=== PATIENT | male | born 1985 | race Caucasian/White ===

== ENCOUNTER 2016-06-15 16:53 | Emergency (ER) | payer MEDICAID, OTHER ==
[~2016-06-15] VITALS: Ht 180.3 cm; Wt 105.0 kg
[~2016-06-15 16:53] MED LIST: IBUP600 PO; ORPH100T PO
[2016-06-15 17:02] VITALS: BP 140/84; PULSE 87; RESP 18; TEMP 98; O2SAT 99
[2016-06-15] MEDS ORDERED: TYLE325T PO (18:48)
[2016-06-15] MEDS ORDERED: MOTR200T4 PO (18:48)
[2016-06-15] MEDS ORDERED: CYCL1TAB29 PO (18:51)
[2016-06-15] MEDS ORDERED: PRED20 PO (18:51)
[2016-06-15] MEDS ORDERED: HYDR-3533 PO (18:51)
--- NOTE | 2016-06-15 18:53 | PD ---
HPI Chief Complaint: Back/ Neck Pain or Injury Time Seen by Provider: 18:51 Travel History International Travel<30 days: No Contact w/Intl Traveler<30days: No Traveled to known affect area: No History of Present Illness HPI 30-year-old male presents to the emergency department for evaluation of lower back pain radiating to left leg for 1 day. 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 States that there is a sharp pain radiating down his left leg. States that he is having some slight weakness in the left leg. Patient states that he has had 2 prior lumbar spine surgeries, states that he has had a fusion at L5-S1 and has multilevel degenerative disc disease. States he has taken ibuprofen and Tylenol with minimal improvement of symptoms. Pain is aggravated with movement of his left leg, walking and bending. Denies any alleviating factors. Symptoms are moderate in severity. He denies any fever, chills, nausea, vomiting, numbness, saddle anesthesia, bowel or bladder incontinence. No other complaints. PFSH Past Medical History Hx Anticoagulant Therapy: No Arthritis: No Anxiety: No Depression: No Cancer: No Cardiovascular Problems: No Chemotherapy: No Cerebrovascular Accident: No Diabetes: No Diminished Hearing: No Endocrine: No Gastrointestinal Disorders: No Genitourinary: No Headaches: No Immune Disorder: No Implanted Vascular Access Dvce: Yes (NOT IN PLACE AT THIS TIME) Musculoskeletal: Yes Neurologic: No Psychiatric: No Reproductive: Yes Respiratory: No Immunizations Current: Yes Migraines: No Pancreatitis: Yes Pneumonia: Yes Radiation Therapy: No Seizures: No Sickle Cell Disease: No Thyroid Disease: No Influenza Vaccination: No ?: Not Past Surgical History Abdominal Surgery: No AICD: No Arteriovenous Shunt: No Body Medical Devices: 4 screws lumbar Cardiac Surgery: No Ear Surgery: No Endocrine Surgery: No Eye Surgery: No Genitourinary Surgery: No Gynecologic Surgery: No Hysterectomy: No Insulin Pump: No Joint Replacement: No Neurologic Surgery: No Oral Surgery: No Pacemaker: No Thoracic Surgery: Yes (Back with screws) Other Surgery: Yes Social History Alcohol Use: Yes Tobacco Use: Yes (05/03 PPD) Substance Use: No (Denies) Allergies-Medications (Allergen,Severity, Reaction): Coded Allergies: No Known Allergies (Verified , 06/15/16) Reported Meds & Prescriptions Reported Meds & Active Scripts Active Flexeril (Cyclobenzaprine HCl) 10 Mg Tab 10 Mg PO TID 7 Days Prednisone 20 Mg Tab 20 Mg PO BID 5 Days Lortab (Hydrocodone-Acetaminophen) 5-325 Mg Tab 1 Tab PO Q4-6H PRN Reported Motrin Ib (Ibuprofen) 200 Mg Tab 200 Mg PO Q4H PRN Tylenol (Acetaminophen) 325 Mg Tab 650 Mg PO Q6H PRN Review of Systems Except as stated in HPI: all other systems reviewed are Neg Physical Exam Narrative GENERAL: Well-nourished and well-developed pleasant male patient in no acute distress who is nontoxic appearing. SKIN: Warm and dry. HEAD: Normocephalic and atraumatic. EYES: No injection, drainage, or hyphema noted. PERRLA. EOMI. ENT: No nasal drainage noted. Oropharynx is clear. NECK: Supple and the trachea is midline. CARDIOVASCULAR: Regular rate and rhythm. RESPIRATORY: Breath sounds are equal bilaterally with no accessory muscle use, wheezing, rhonchi, or crackles. MUSCULOSKELETAL: No obvious deformities, swelling, cyanosis, or ecchymosis is present throughout the upper and lower extremities. Patient has full range of motion without any signs of neurovascular compromise. Left hip flexor and quadriceps strength 5/5, left plantar and dorsiflexion strength 4/5. While patient plantar flexing he had noticeable muscle spasm in left calf. Right leg strength 5/5 throughout. BACK: Tenderness to palpation of left lumbosacral region. No obvious deformities , bony point tenderness, or crepitus noted throughout the thoracic and lumbar vertebrae. NEUROLOGICAL: Awake, alert, and oriented. Normal speech and gait. Cranial nerves are grossly intact. 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 Patient is afebrile, vital signs are stable. He does have weakness with plantar and dorsiflexion of the left leg and had a noticeable muscle spasm in the left calf on exam. He has a known history of degenerative disc disease and has had 2 previous surgeries on his lumbar spine. This is lumbar radiculopathy likely secondary to disc herniation. The patient reports that he is going to follow-up with his orthopedic spine surgeon in the next 1-2 weeks but came in tonight for pain relief. I discussed the case with my attending physician Dr. Hicks and we agreed that because the patient has good outpatient follow-up he can be treated symptomatically without any imaging at this time. The patient is comfortable with this plan. He is given Decadron 8 mg IM. He' ll be discharged with prednisone, Flexeril and Lortab. Diagnosis Primary Impression: Back pain with left-sided radiculopathy Referrals: Orthopaedic Surgeon Patient Instructions: Acute Low Back Pain (ED), General Instructions, Lumbar Radiculopathy (ED) Additional Instructions: Apply ice or heat to help alleviate symptoms. Take medications as prescribed with food and a full glass of water. Do not take Lortab or Flexeril with alcohol or while driving. 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 Return to the ED for any acute worsening of symptoms. Med/Other Pt SpecificInfo: Prescription(s) given Scripts Cyclobenzaprine (Flexeril)10 Mg Tab10 Mg PO TID 7 Days Ref 0 Prov:Kristin Hicks MD 06/15/16 Prednisone 20 Mg Tab20 Mg PO BID 5 Days Ref 0 Prov:Kristin Hicks MD 06/15/16 Hydrocodone-Acetaminophen (Lortab)5-325 Mg Tab1 Tab PO Q4-6H PRN (PAIN GREATER THAN 6) #20 TAB Ref 0 Prov:Kristin Hicks MD 06/15/16 Disposition: 01 DISCHARGE HOME Condition: Stable Diana Shrestha Jun 15, 2016 18:52
[2016-06-15] MEDS ORDERED: DEXAMETHASONE SOD PHOS 4 MG/ML VIAL IM ONE (19:00)
== END 2016-06-15 19:05 | disposition home or self-care (01) ==
LOC: PHED 16:53 → PHEFT 19:05
DX: M54.5 Low back pain (principal); M54.16 Radiculopathy, lumbar region; F17.210 Nicotine dependence, cigarettes, uncomplicated; R53.1 Weakness
CPT/HCPCS: 96372; 99283; J1100

== ENCOUNTER 2016-06-20 14:22 | Emergency (ER) | payer MEDICAID, OTHER ==
[~2016-06-20] VITALS: Ht 180.3 cm; Wt 103.0 kg
[~2016-06-20 14:22] MED LIST changes: +CYCL1TAB29 PO; +HYDR-3533 PO; -IBUP600 PO; +MOTR200T4 PO; -ORPH100T PO; +PRED20 PO; +TYLE325T PO
[2016-06-20 14:47] VITALS: BP 135/96; PULSE 103; RESP 16; TEMP 99; O2SAT 100
--- NOTE | 2016-06-20 15:10 | PD ---
HPI Chief Complaint: Back/ Neck Pain or Injury Time Seen by Provider: 15:03 Travel History International Travel<30 days: No Contact w/Intl Traveler<30days: No Traveled to known affect area: No History of Present Illness HPI 30-year-old male presents to the emergency department for evaluation of worsening low back pain. Patient was seen on Tuesday of last week for evaluation of low back pain. He states he picked up his daughter last Tuesday and has had worsening pain since then. He does report a history of a lumbar fusion. He states this was in 2012. He also reports having a herniated disc in the T-spine as well. He states that he has intermittent pain, this is more severe than normal. He denies any fevers. He denies any loss of bowel or bladder control, but states he has trouble urinating. He states he now is has paresthesias in numbness that is going up his left leg. He states that he feels weak on his left leg as well. He states that he is using a bedside commode at home because it is hard for him to get around. He states that he called the orthopedic surgeon that did his surgery previously in [place], has not heard back from him yet. He states that he finished his prescribed medication this morning that was given to him recently. He denies any history of IV drug use. Patient does report a history of pneumonia, sepsis, pancreatitis. He denies any associated complaints of those at this time. PFSH Past Medical History Hx Anticoagulant Therapy: No Arthritis: No Anxiety: No Depression: No Cancer: No Cardiovascular Problems: No Chemotherapy: No Cerebrovascular Accident: No Diabetes: No Diminished Hearing: No Endocrine: No Gastrointestinal Disorders: No Genitourinary: No Headaches: No Heparin Induced Thrombocytopen: No Immune Disorder: No Implanted Vascular Access Dvce: Yes (NOT IN PLACE AT THIS TIME) Musculoskeletal: Yes Neurologic: No Psychiatric: No Reproductive: Yes Respiratory: No Immunizations Current: Yes Migraines: No Pancreatitis: Yes Pneumonia: Yes Radiation Therapy: No Seizures: No Sickle Cell Disease: No Thyroid Disease: No Past Surgical History Abdominal Surgery: No AICD: No Arteriovenous Shunt: No Body Medical Devices: 4 screws lumbar Cardiac Surgery: No Ear Surgery: No Endocrine Surgery: No Eye Surgery: No Genitourinary Surgery: No Gynecologic Surgery: No Hysterectomy: No Insulin Pump: No Joint Replacement: No Neurologic Surgery: No Oral Surgery: No Pacemaker: No Thoracic Surgery: Yes (Back with screws) Other Surgery: Yes Social History Alcohol Use: Yes Tobacco Use: Yes (1/2 PPD) Substance Use: No (Denies) Allergies-Medications (Allergen,Severity, Reaction): Coded Allergies: No Known Allergies (Verified , 06/20/16) Reported Meds & Prescriptions Reported Meds & Active Scripts Active Lortab (Hydrocodone-Acetaminophen) 5-325 Mg Tab 1 Tab PO Q4-6H PRN Reported Motrin Ib (Ibuprofen) 200 Mg Tab 200 Mg PO Q4H PRN Tylenol (Acetaminophen) 325 Mg Tab 650 Mg PO Q6H PRN Review of Systems Except as stated in HPI: all other systems reviewed are Neg Physical Exam Narrative GENERAL: Well-developed well-nourished male patient, afebrile. SKIN: Warm and dry. Patient has scars noted to the lower back. No erythema or evidence of infection. HEAD: Normocephalic. Atraumatic. EYES: No scleral icterus. No injection or drainage. NECK: Supple, trachea midline. No JVD or lymphadenopathy. CARDIOVASCULAR: Regular rate and rhythm without murmurs, gallops, or rubs. RESPIRATORY: Breath sounds equal bilaterally. No accessory muscle use. Lungs sounds clear to auscultation GASTROINTESTINAL: Abdomen soft, non-tender, nondistended. MUSCULOSKELETAL: No cyanosis, or edema. Left lower extremity strength 5/5. Right lower extremity strength 5/5. He does report numbness to palpation of the left lower extremity. BACK: No obvious deformity. No CVA tenderness. Patient has tenderness to palpation over the midline lumbar spine. Data Data Last Documented VS Vital Signs Date Time Temp Pulse Resp B/P Pulse Ox O2 Delivery O2 Flow Rate FiO2 06/20/16 18:07 104 14 140/81 95 Room Air 06/20/16 14:47 99.0 Orders Morphine Inj (Morphine Inj) (06/20/16 15:15) Complete Blood Count With Diff (06/20/16 15:01) Basic Metabolic Panel (Bmp) (06/20/16 15:01) Mri L Spine W&W/O Contrast (06/20/16 ) Iv Access Insert/Monitor (06/20/16 15:01) Ondansetron Inj (Zofran Inj) (06/20/16 15:15) Mri T Spine W/O Contrast (06/20/16 ) Hydromorphone Pf Inj (Dilaudid Pf Inj) (06/20/16 16:30) Gadodiamide Pf Inj (Omniscan Pf Inj) (06/20/16 16:42) Labs Laboratory Tests Test 06/20/16 15:10 White Blood Count 9.4 TH/MM3 Red Blood Count 5.08 MIL/MM3 Hemoglobin 15.5 GM/DL Hematocrit 46.0 % Mean Corpuscular Volume 90.6 FL Mean Corpuscular Hemoglobin 30.6 PG Mean Corpuscular Hemoglobin 33.7 % Concent Red Cell Distribution Width 12.4 % Platelet Count 293 TH/MM3 Mean Platelet Volume 7.3 FL Neutrophils (%) (Auto) 63.9 % Lymphocytes (%) (Auto) 28.7 % Monocytes (%) (Auto) 4.7 % Eosinophils (%) (Auto) 0.3 % Basophils (%) (Auto) 2.4 % Neutrophils # (Auto) 6.1 TH/MM3 Lymphocytes # (Auto) 2.7 TH/MM3 Monocytes # (Auto) 0.4 TH/MM3 Eosinophils # (Auto) 0.0 TH/MM3 Basophils # (Auto) 0.2 TH/MM3 CBC Comment DIFF FINAL Differential Comment Sodium Level 140 MEQ/L Potassium Level 3.6 MEQ/L Chloride Level 106 MEQ/L Carbon Dioxide Level 24.1 MEQ/L Anion Gap 10 MEQ/L Blood Urea Nitrogen 12 MG/DL Creatinine 0.83 MG/DL Estimat Glomerular Filtration 109 ML/MIN Rate Random Glucose 94 MG/DL Calcium Level 8.6 MG/DL MDM Medical Decision Making Medical Screen Exam Complete: Yes Emergency Medical Condition: Yes Medical Record Reviewed: Yes Interpretation(s) Last Impressions Thoracic Spine MRI 06/20/16 0000 Signed Impressions: Service Date/Time: Monday, June 20, 2016 16:36 - CONCLUSION: 1. No acute findings. No canal or foraminal stenosis. No discrete disc protrusion. There is a Schmorl's node noted at the superior endplate of T11. Georges Lamb MD Lumbar Spine MRI 06/20/16 0000 Signed Impressions: Service Date/Time: Monday, June 20, 2016 16:36 - CONCLUSION: 1. At L4-5 there is a focal left lateral disc protrusion and extrusion impinging on the exiting left L4 nerve root. 2. At L5-S1 there is surgical fusion with enhancing epidural fibrosis in the left lateral recess around the exiting L5 nerve root. Georges Lamb MD Differential Diagnosis Herniated disc versus cord compression versus sciatica versus chronic back pain versus cauda equina syndrome Narrative Course 30-year-old male presents to the emergency department for worsening low back pain. He does not report paresthesias and numbness to the left leg. I discussed the case with my attending physician, Dr. Lr, who recommends basic labs and MRI. IV access established. CBC, BMP are ordered and pending. MRI with and without contrast of the T and L-spine are ordered and pending. CBC shows no acute abnormality. BMP is unremarkable. MRI of the T-spine shows no acute finding. MRI of the L-Spine shows at L4-5 there is a focal left lateral disc protrusion and extrusion impinging on the exiting left L4 nerve root; at L5-S1 there is surgical fusion with enhancing epidural fibrosis in the left lateral recess around the exiting L5 nerve root. I discussed the findings with my attending physician, Dr. Diaz, who recommends outpatient follow up with neurosurgeon and PT. Patient will be discharged with a RX for prednisone, Flexeril, Lortab. He is agreeable to this plan. He is instructed to return for any acute, worsening of symptoms. The patient was discharged in stable condition with instructions, including return instructions and follow up instructions. Diagnosis Primary Impression: Back pain with left-sided radiculopathy Referrals: Neurosurgeon call for appointment Patient Instructions: General Instructions, Lumbar Radiculopathy (ED) Additional Instructions: Take Lortab as directed as needed for pain. Caution this can make you drowsy so do not drive after taking. Take Flexeril as directed as needed. Take Prednisone as directed. Follow up with your neurosurgeon. Return to the emergency department for any acute, worsening of symptoms. Med/Other Pt SpecificInfo: Prescription(s) given Scripts Prednisone 20 Mg Tab20 Mg PO BID 5 Days Ref 0 Prov:Jamila Sweeney 06/20/16 Cyclobenzaprine (Flexeril)10 Mg Tab10 Mg PO TID 7 Days Ref 0 Prov:Jamila Sweeney 06/20/16 Hydrocodone-Acetaminophen (Lortab)5-325 Mg Tab1 Tab PO Q4-6H PRN (PAIN GREATER THAN 6) #20 TAB Ref 0 Prov:Papi Diaz MD 06/20/16 Disposition: 01 DISCHARGE HOME Condition: Stable Jamila Sweeney Jun 20, 2016 15:10
[2016-06-20] MEDS ORDERED: MORPHINE SULFATE 4 MG/ML INJ IV PUSH ONE (15:15)
[2016-06-20] MEDS ORDERED: ONDANSETRON HCL 4 MG/2 ML VIAL IV PUSH ONE (15:15)
[2016-06-20 15:22] LABS: AUTOMATED NEUTROPHIL # 6.1 TH/MM3 (1.8-7.7); BASOPHIL # 0.2 TH/MM3 (0-0.2); BASOPHIL % 2.4 % (0.0-2.0); EOSINOPHIL % 0.3 % (0.0-4.0); HEMO FLAGS DIFF FINAL; LYMPH % 28.7 % (9.0-44.0); LYMPHOCYTE # 2.7 TH/MM3 (1.0-4.8); MEAN CELL VOLUME 90.6 FL (80.0-100.0); MEAN CORPUSCULAR HEMOGLOBIN 30.6 PG (27.0-34.0); MEAN CORPUSCULAR HGB CONC 33.7 % (32.0-36.0); MONO % 4.7 % (0.0-8.0); NEUT % 63.9 % (16.0-70.0); PLATELET COUNT 293 TH/MM3 (150-450); RED BLOOD COUNT 5.08 MIL/MM3 (4.50-5.90); RED CELL DISTRIBUTION WIDTH 12.4 % (11.6-17.2); WHITE BLOOD COUNT 9.4 TH/MM3 (4.0-11.0)
[2016-06-20 15:32] LABS: POTASSIUM 3.6 MEQ/L (3.5-5.1)
[2016-06-20 15:35] LABS: BICARBONATE 24.1 MEQ/L (21.0-32.0)
[2016-06-20] MEDS ORDERED: HYDROmorphone HCL PF 1 MG/ML VIAL IV PUSH ONE (16:30)
[2016-06-20] MEDS ORDERED: GADODIAMIDE PF 287 MG/ML 20 ML VIAL (for RAD MRI) IV ONE (16:42)
--- NOTE | 2016-06-20 17:23 | RADHPO ---
EXAM DATE/TIME: 06/20/2016 16:36 [facility] COMPARISON: No previous studies available for comparison. INDICATIONS : Radiculopathy. Low back and left leg pain. MEDICAL HISTORY : Pancreatitis. SURGICAL HISTORY : Fusion, lumbar. ENCOUNTER: Initial ACUITY: 1 week PAIN SCORE: 6/10 LOCATION: Low back TECHNIQUE: Multiplanar multisequence MRI of the thoracic spine was performed. FINDINGS: VERTEBRA: Normal vertebral body height. Homogeneous marrow signal. ALIGNMENT: Normal. CORD: Normal position and configuration. T1-T2: Normal. T2-T3: The thecal sac has a normal diameter. No evidence of disc bulge or protrusion. T3-T4: The thecal sac has a normal diameter. No evidence of disc bulge or protrusion. T4-T5: The thecal sac has a normal diameter. No evidence of disc bulge or protrusion. T5-T6: The thecal sac has a normal diameter. No evidence of disc bulge or protrusion. T6-T7: The thecal sac has a normal diameter. No evidence of disc bulge or protrusion. T7-T8: The thecal sac has a normal diameter. No evidence of disc bulge or protrusion. T8-T9: The thecal sac has a normal diameter. No evidence of disc bulge or protrusion. T9-T10: The thecal sac has a normal diameter. No evidence of disc bulge or protrusion. T10-T11: The thecal sac has a normal diameter. No evidence of disc bulge or protrusion. T11-T12: The thecal sac has a normal diameter. No evidence of disc bulge or protrusion. T12-L1: The thecal sac has a normal diameter. No evidence of disc bulge or protrusion. CONCLUSION: 1. No acute findings. No canal or foraminal stenosis. No discrete disc protrusion. There is a Schmorl 's node noted at the superior endplate of T11. Georges Lamb MD on June 20, 2016 at 17:18 Board Certified Radiologist. This report was verified electronically.
--- NOTE | 2016-06-20 18:03 | RADHPO ---
EXAM DATE/TIME: 06/20/2016 16:36 [facility] COMPARISON: No previous studies available for comparison. INDICATIONS : Radiculopathy. Low back and left leg pain. CONTRAST: 20 cc Omniscan (gadodiamide) IV MEDICAL HISTORY : Pancreatitis. SURGICAL HISTORY : Fusion, lumbar. ENCOUNTER: Initial ACUITY: 1 week PAIN SCORE: 6/10 LOCATION: Low back TECHNIQUE: Multiplanar multisequence MRI of the lumbar spine was performed with and without contrast. FINDINGS: There is previous transpedicular screw and be fixation bilaterally at L5-S1. In the left lateral rec ess at L5-S1 there is enhancing epidural fibrosis around the exiting left L5 nerve root. At L4-5 there is a focal left lateral disc protrusion and extrusion impinging on the exiting left L4 nerve root. No significant abnormality identified at [id number]. Conus medullaris intact. No acute fracture or spondylolisthesis. CONCLUSION: 1. At L4-5 there is a focal left lateral disc protrusion and extrusion impinging on the exiting left L4 nerve root. 2. At L5-S1 there is surgical fusion with enhancing epidural fibrosis in the left lateral recess arou nd the exiting L5 nerve root. Georges Lamb MD on June 20, 2016 at 17:58 Board Certified Radiologist. This report was verified electronically.
[2016-06-20 18:07] VITALS: BP 140/81; PULSE 104; RESP 14; O2SAT 95
[2016-06-20] MEDS ORDERED: HYDR-3533 PO ×2 (18:17→18:21)
[2016-06-20] MEDS ORDERED: CYCL1TAB29 PO (18:22)
[2016-06-20] MEDS ORDERED: PRED20 PO (18:22)
== END 2016-06-20 18:31 | disposition home or self-care (01) ==
LOC: PHEFT 14:22
DX: M51.26 Other intervertebral disc displacement, lumbar region (principal)
CPT/HCPCS: 72146; 72158; 80048; 85025; 96374; 96375; 99284; A9579; J1170; J2270; J2405

== ENCOUNTER 2016-06-27 11:24 | Emergency (ER) | payer MEDICAID, OTHER ==
[~2016-06-27] VITALS: Ht 180.3 cm; Wt 103.8 kg
[2016-06-27 11:43] VITALS: BP 132/102; PULSE 113; RESP 20; TEMP 98.3; O2SAT 98
--- NOTE | 2016-06-27 11:52 | PD ---
HPI Chief Complaint: Back/ Neck Pain or Injury Time Seen by Provider: 11:52 Travel History International Travel<30 days: No Contact w/Intl Traveler<30days: No Traveled to known affect area: No History of Present Illness HPI 30-year-old male with history of chronic back pain with previous discectomy, presents to emergency department again with sudden onset left lower back pain with radicular pain in the left leg. Patient was seen just recently here and given prednisone, pain medication, and muscle relaxants. Patient states he got up to the bathroom last evening and he felt something "pop when he turned" with sudden onset recurrent pain in the left lower back with radicular pain all away to the dorsal foot. He complains of numbness along the dorsal foot and anterior casey with pain radiating from the buttock to the lateral and anterior thigh on the left side. She denies bowel or bladder changes. He denies specific weakness although ambulation makes his pain worse. He states when laying still to 8/10. With ambulation it increases to 10 over 10. Patient is currently awaiting an appointment with his neurosurgeon in [place]. He is requesting that he see the local neurosurgeon if possible. He denies any other symptoms. He has no known drug allergies. PFSH Past Medical History Hx Anticoagulant Therapy: No Arthritis: No Anxiety: No Depression: No Cancer: No Cardiovascular Problems: No Chemotherapy: No Cerebrovascular Accident: No Diabetes: No Diminished Hearing: No Endocrine: No Gastrointestinal Disorders: No Genitourinary: No Headaches: No Heparin Induced Thrombocytopen: No Immune Disorder: No Implanted Vascular Access Dvce: Yes (NOT IN PLACE AT THIS TIME) Musculoskeletal: Yes Neurologic: No Psychiatric: No Reproductive: Yes Respiratory: No Immunizations Current: Yes Migraines: No Pancreatitis: Yes Pneumonia: Yes Radiation Therapy: No Seizures: No Sickle Cell Disease: No Thyroid Disease: No Past Surgical History Abdominal Surgery: No AICD: No Arteriovenous Shunt: No Body Medical Devices: 4 screws lumbar Cardiac Surgery: No Ear Surgery: No Endocrine Surgery: No Eye Surgery: No Genitourinary Surgery: No Gynecologic Surgery: No Hysterectomy: No Insulin Pump: No Joint Replacement: No Neurologic Surgery: No Oral Surgery: No Pacemaker: No Thoracic Surgery: Yes (Back with screws) Other Surgery: Yes Social History Alcohol Use: Yes Tobacco Use: Yes (1/2 PPD) Substance Use: No (Denies) Allergies-Medications (Allergen,Severity, Reaction): Coded Allergies: No Known Allergies (Verified , 06/27/16) Reported Meds & Prescriptions Reported Meds & Active Scripts Active No Active Prescriptions or Reported Medications Physical Exam Narrative GENERAL: Patient appears in moderate distress. SKIN: Warm and dry. Normal color. Normal turgor. No rash. HEAD: Atraumatic. Normocephalic. EYES: Pupils equal and round. No scleral icterus. No injection or drainage. ENT: No nasal bleeding or discharge. Mucous membranes pink and moist. NECK: Trachea midline. No JVD. CARDIOVASCULAR: Regular rate and rhythm. RESPIRATORY: No accessory muscle use. Clear to auscultation. Breath sounds equal bilaterally. MUSCULOSKELETAL: Extremities without clubbing, cyanosis, or edema. No obvious deformities. Deep tendon reflexes are diminished in the left compared to the right at both the patellar and Achilles tendon. Patient does have normal plantar flexion and dorsiflexion on the left. Patient has positive straight leg raise pain on the left at 30, but none on the right. Patient has pain with palpation on the left lower lumbar paraspinous region extending into the left sciatic notch. NEUROLOGICAL: Awake and alert. No obvious cranial nerve deficits. Motor grossly within normal limits. Five out of 5 muscle strength in the arms and legs. Normal speech. PSYCHIATRIC: Appropriate mood and affect; insight and judgment normal. Data Data Last Documented VS Vital Signs Date Time Temp Pulse Resp B/P Pulse Ox O2 Delivery O2 Flow Rate FiO2 06/27/16 11:43 98.3 113 20 132/102 98 Orders Dexamethasone Inj (Decadron Inj) (06/27/16 12:00) Oxycodone-Acetamin 10-325 Mg (Percocet 1 (06/27/16 12:00) [facility] Medical Decision Making Medical Screen Exam Complete: Yes Emergency Medical Condition: Yes Differential Diagnosis Left sided disc herniation with impingement on L4-L5 nerve roots. MRI showing impingement of the left L4 nerve root. Recurrent low back pain with radicular symptoms. Narrative Course Patient is in pain but medically stable at time of exam. Patient is given Decadron 10 mg IM. Patient is given 10/325 milligram Percocet by mouth. Call was placed to Dr. Scherer, and the patient is discussed. Patient is to call Dr. Scherer's office tomorrow for follow-up. Patient will be placed on prednisone taper as prescribed. Patient is given a refill of Flexeril 10 mg every 8 hours when necessary #30. Patient is given a prescription for Percocet 5/325 one tab every 64-6 hours when necessary pain #20. Patient should return to emergency department immediately if weakness develops in the left lower extremity, or any bowel or bladder symptoms. Diagnosis Primary Impression: Back pain with left-sided radiculopathy Referrals: Alden Scherer MD call for appointment Patient Instructions: General Instructions, Sciatica (ED) Additional Instructions: Patient is to call Dr. Scherer's office tomorrow for follow-up. Patient will be placed on prednisone taper as prescribed. Patient is given a refill of Flexeril 10 mg every 8 hours when necessary #30. Patient is given a prescription for Percocet 5/325 one tab every 64-6 hours when necessary pain #20. Patient should return to emergency department immediately if weakness develops in the left lower extremity, or any bowel or bladder symptoms. Med/Other Pt SpecificInfo: Prescription(s) given Scripts No Active Prescriptions or Reported Meds Disposition: 01 DISCHARGE HOME Condition: Stable Alvaro Chatman Jun 27, 2016 11:52
[2016-06-27] MEDS ORDERED: DEXAMETHASONE SOD PHOS 20 MG/5 ML VIAL IM ONE (12:00)
[2016-06-27] MEDS ORDERED: oxyCODONE/ACETAMINOPHEN 10 MG/325 MG TAB PO ONE (12:00)
[2016-06-27] MEDS ORDERED: PERC5TAB12 PO (12:24)
[2016-06-27] MEDS ORDERED: PRED10PA2 PO (12:24)
[2016-06-27] MEDS ORDERED: CYCL1TAB29 PO (12:24)
== END 2016-06-27 12:58 | disposition home or self-care (01) ==
LOC: PHEFT 11:24
DX: M54.16 Radiculopathy, lumbar region (principal)
CPT/HCPCS: 96372; 99283; J1100

== ENCOUNTER 2016-07-02 12:00 | Emergency (ER) | payer MEDICAID, OTHER ==
[~2016-07-02] VITALS: Ht 180.3 cm; Wt 106.0 kg
[~2016-07-02 12:00] MED LIST changes: -HYDR-3533 PO; -MOTR200T4 PO; +PERC5TAB12 PO; +PRED10PA2 PO; -PRED20 PO; -TYLE325T PO
[2016-07-02 12:06] VITALS: BP 138/100; PULSE 136; RESP 18; TEMP 98.4; O2SAT 99
--- NOTE | 2016-07-02 12:22 | PD ---
HPI Chief Complaint: Pain: Acute or Chronic Time Seen by Provider: 12:21 Travel History International Travel<30 days: No Contact w/Intl Traveler<30days: No Traveled to known affect area: No History of Present Illness HPI 30 year old male with PMH of chronic pancreatitis and lumbar radiculopathy presents to the ED for medication refills. The patient was seen multiple time in the past few weeks, diagnosed with back pain with left sided radiculopathy. On presentation he endorses 8/10 left lower back pain, radiating into the buttocks, the left groin and down the left leg. He endorses associated numbness and tingling, as well as occasional weakness when rising to a standing position. He denies saddle anesthesia, incontinence or foot drop. Denies changes in his symptoms, states that he is here for narcotic pain medication refill. Took last dose of Percocet ~10pm last night. Pt states that he is still taking Flexeril and Prednisone as prescribed. He states that he has been unable to follow up with Dr. Scherer. He states that he called the office several times and was told that Dr. Scherer has not yet reviewed his MRI results. PFSH Past Medical History Hx Anticoagulant Therapy: No Arthritis: No Anxiety: No Depression: No Cancer: No Cardiovascular Problems: No Chemotherapy: No Cerebrovascular Accident: No Diabetes: No Diminished Hearing: No Endocrine: No Gastrointestinal Disorders: No Genitourinary: No Headaches: No Heparin Induced Thrombocytopen: No Immune Disorder: No Implanted Vascular Access Dvce: Yes (NOT IN PLACE AT THIS TIME) Musculoskeletal: Yes Neurologic: No Psychiatric: No Reproductive: Yes Respiratory: No Immunizations Current: Yes Migraines: No Pancreatitis: Yes Pneumonia: Yes Radiation Therapy: No Seizures: No Sickle Cell Disease: No Thyroid Disease: No ?: Not Past Surgical History Abdominal Surgery: No AICD: No Arteriovenous Shunt: No Body Medical Devices: 4 screws lumbar Cardiac Surgery: No Ear Surgery: No Endocrine Surgery: No Eye Surgery: No Genitourinary Surgery: No Gynecologic Surgery: No Hysterectomy: No Insulin Pump: No Joint Replacement: No Neurologic Surgery: No Oral Surgery: No Pacemaker: No Thoracic Surgery: Yes (Back with screws) Other Surgery: Yes Social History Alcohol Use: Yes ("socially") Tobacco Use: Yes (1/2 PPD) Substance Use: No (Denies) Allergies-Medications (Allergen,Severity, Reaction): Coded Allergies: No Known Allergies (Verified , 07/02/16) Reported Meds & Prescriptions Reported Meds & Active Scripts Active Percocet (Oxycodone-Acetaminophen) 5-325 mg Tab 1 Tab PO Q6H PRN Flexeril (Cyclobenzaprine HCl) 10 Mg Tab 10 Mg PO TID Prednisone (48) 10 mg tab Dose Pack (Prednisone) 10 Mg Dspk 10 Mg PO DIRECTED Review of Systems Except as stated in HPI: all other systems reviewed are Neg Physical Exam Narrative GENERAL: Well-nourished, well-developed patient, sitting up on the stretcher in no acute distress. SKIN: Warm and dry. HEAD: Normocephalic. EYES: No scleral icterus. No injection or drainage. NECK: Supple, trachea midline. No JVD or lymphadenopathy. CARDIOVASCULAR: Regular rate and rhythm without murmurs, gallops, or rubs. RESPIRATORY: Breath sounds equal bilaterally. No accessory muscle use. GASTROINTESTINAL: Abdomen soft, non-tender, nondistended. MUSCULOSKELETAL: No cyanosis, or edema. TTP palpation of the left sided paraspinal musculature, left buttocks. 5/5 dorsiflexion, plantar flexion, knee flexion and hip flexion bilaterally. Straight leg raise ++ on the left. 2+ DP pulses bilaterally, sensation intact to light touch distally. He is observed to walk with a normal gait. BACK: No obvious deformity. No CVA tenderness. TTP of the midline in the lumbar area. Data Data Last Documented VS Vital Signs Date Time Temp Pulse Resp B/P Pulse Ox O2 Delivery O2 Flow Rate FiO2 07/02/16 13:23 118 16 140/94 97 07/02/16 12:40 Room Air 07/02/16 12:06 98.4 Orders Oxycodone-Acetamin 7.5-325 Mg (Percocet (07/02/16 12:45) MDM Medical Decision Making Medical Screen Exam Complete: Yes Emergency Medical Condition: Yes Medical Record Reviewed: Yes (MRI 06/20, impingement of nerve root at L4 and fibrosis of the left lateral recess of L5 nerve root.) Differential Diagnosis Chronic low back pain versus lumbar radiculopathy versus medication refill versus drug seeking behavior versus other Narrative Course 30 year old male with PMH of chronic pancreatitis and lumbar radiculopathy presents to the ED for medication refills. The patient was seen multiple time in the past few weeks, diagnosed with back pain with left sided radiculopathy. On presentation he endorses 8/10 left lower back pain, radiating into the buttocks, the left groin and down the left leg. He endorses associated numbness and tingling, as well as occasional weakness when rising to a standing position. He denies saddle anesthesia, incontinence or foot drop. Denies changes in his symptoms, states that he is here for narcotic pain medication refill. Took last dose of Percocet ~10pm last night. He states that he called the office several times and was told that Dr. Scherer has not yet reviewed his MRI results. Vitals reviewed. Patient pulse is 135 in triage, 124 in the exam area. He endorses smoking a cigarette and drinking a Red Bull just before arrival. On physical exam patient is sitting upright in a stretcher in no acute distress. There is tenderness to palpation of the left sided paraspinal musculature and left buttocks. 5/5 dorsiflexion, plantar flexion, knee flexion and hip flexion bilaterally. Straight leg raise ++ on the left. 2+ DP pulses bilaterally, sensation intact to light touch distally. TTP of the midline in the lumbar area. Observed to walk with a normal gait. Review of EFORCSE reveals narcotic pain medications only prescribed through ED. I discussed the proper avenues for pain medication refills. He states he does not currently have a PCP though he is insured. I stressed that he should establish a PCP as well as pain management. He is administered 7.5 of Percocet by mouth. He was prescribed 5 mg Percocet every 6hrs when necessary pain #20. He is instructed to follow-up with Dr. Scherer, the PCP or pain management provider for medication refills. He indicated understanding of the instructions, is amenable to plan of care. He is stable and discharged home. Diagnosis Primary Impression: Back pain with left-sided radiculopathy Additional Impression: Medication refill Referrals: Alden Scherer MD Patient Instructions: General Instructions, Lumbar Radiculopathy (ED) Additional Instructions: Take medications as prescribed. Do not drive while taking Percocet or Flexeril. Follow up with Dr. Scherer as discussed. Establish and follow up with primary care and pain management as discussed. Return to the ED for any urgent or emergent medical condition. Med/Other Pt SpecificInfo: Prescription(s) given Scripts Oxycodone-Acetaminophen (Percocet)5-325 mg Tab1 Tab PO Q6H PRN (PAIN) #20 TAB Ref 0 Prov:Kristin Hicks MD 07/02/16 Disposition: 01 DISCHARGE HOME Condition: Stable Ángela Gill Jul 02, 2016 12:22
[2016-07-02] MEDS ORDERED: PERC5TAB12 PO (12:37)
[2016-07-02 12:40] VITALS: PULSE 123; RESP 16; O2SAT 97
[2016-07-02] MEDS ORDERED: oxyCODONE/ACETAMINOPHEN 7.5 MG/325 MG TAB PO ONE (12:45)
[2016-07-02 13:22] VITALS: RESP 16
[2016-07-02 13:23] VITALS: BP 140/94
== END 2016-07-02 13:24 | disposition home or self-care (01) ==
LOC: PHEFT 12:00
DX: M54.16 Radiculopathy, lumbar region (principal); F17.200 Nicotine dependence, unspecified, uncomplicated; Z76.0 Encounter for issue of repeat prescription; Z87.39 Personal history of other diseases of the musculoskeletal system and connective tissue; Z87.438 Personal history of other diseases of male genital organs; Z87.19 Personal history of other diseases of the digestive system; Z87.01 Personal history of pneumonia (recurrent)
CPT/HCPCS: 99283

== ENCOUNTER 2016-07-07 13:58 | Emergency (ER) | payer MEDICAID, OTHER ==
[~2016-07-07] VITALS: Ht 180.3 cm; Wt 101.8 kg
[2016-07-07 14:12] VITALS: BP 142/100; PULSE 146; RESP 18; TEMP 98.2; O2SAT 99
[2016-07-07] MEDS ORDERED: HYDROmorphone HCL PF 1 MG/ML VIAL IVS ONE (14:30)
[2016-07-07] MEDS ORDERED: ONDANSETRON HCL 4 MG/2 ML VIAL IVP ONE (14:30)
[2016-07-07] MEDS ORDERED: SODIUM CHLOR 0.9% 1000 ML INJ 1,000 ML IV ONE (14:30)
--- NOTE | 2016-07-07 14:37 | PD ---
HPI Chief Complaint: Back/ Neck Pain or Injury Time Seen by Provider: 14:10 Travel History International Travel<30 days: No Contact w/Intl Traveler<30days: No Traveled to known affect area: No History of Present Illness HPI This patient complains of pain. Located in the left low back and radiates down the back of his leg. He's had this for at least 6 months. With his Medicaid insurance is having trouble getting follow-up. He has no outpatient physicians. He says that he has an appointment with neurosurgeon in [address] Scherer. This is his sixth visit in the last 6 months for the same thing. MRI a few weeks ago revealed left-sided disc herniation irritating and nerve root but no cord compression. He is ambulatory. No urinary retention. He does get intermittent paresthesias in the left leg. No true weakness but he is pain limited sometimes. Symptoms are moderate to severe in terms of pain. No alleviating factors. PFSH Past Medical History Hx Anticoagulant Therapy: No Arthritis: No Anxiety: No Depression: No Cancer: No Cardiovascular Problems: No Chemotherapy: No Cerebrovascular Accident: No Diabetes: No Diminished Hearing: No Endocrine: No Gastrointestinal Disorders: No Genitourinary: No Headaches: No Heparin Induced Thrombocytopen: No Immune Disorder: No Implanted Vascular Access Dvce: Yes (NOT IN PLACE AT THIS TIME) Musculoskeletal: Yes Neurologic: No Psychiatric: No Reproductive: Yes Respiratory: No Immunizations Current: Yes Migraines: No Pancreatitis: Yes Pneumonia: Yes Radiation Therapy: No Seizures: No Sickle Cell Disease: No Thyroid Disease: No Past Surgical History Abdominal Surgery: No AICD: No Arteriovenous Shunt: No Body Medical Devices: 4 screws lumbar Cardiac Surgery: No Ear Surgery: No Endocrine Surgery: No Eye Surgery: No Genitourinary Surgery: No Gynecologic Surgery: No Hysterectomy: No Insulin Pump: No Joint Replacement: No Neurologic Surgery: No Oral Surgery: No Pacemaker: No Thoracic Surgery: Yes (Backx 2 with screws) Other Surgery: Yes Social History Alcohol Use: Yes ("socially") Tobacco Use: Yes (1/2 PPD) Substance Use: No (Denies) Allergies-Medications (Allergen,Severity, Reaction): Coded Allergies: No Known Allergies (Verified , 07/07/16) Reported Meds & Prescriptions Reported Meds & Active Scripts Active No Active Prescriptions or Reported Medications Review of Systems General / Constitutional: No: Fever Eyes: No: Visual changes HENT: No: Headaches Cardiovascular: No: Chest Pain or Discomfort Respiratory: No: Shortness of Breath Gastrointestinal: No: Abdominal Pain Genitourinary: No: Dysuria Musculoskeletal: Positive: Pain Skin: No Rash Neurologic: Positive: Paresthesia, No: Weakness Psychiatric: No: Depression Endocrine: No: Polydipsia Hematologic/Lymphatic: No: Easy Bruising Physical Exam Narrative GENERAL: Well-nourished, well-developed patient with left low back pain SKIN: Warm and dry. HEAD: Atraumatic. Normocephalic. EYES: Pupils equal and round. No scleral icterus. No injection or drainage. ENT: No nasal bleeding or discharge. Mucous membranes pink and moist. NECK: Trachea midline. No JVD. CARDIOVASCULAR: Regular rate and rhythm. No murmur appreciated. Tachycardic at 130 RESPIRATORY: No accessory muscle use. Clear to auscultation. Breath sounds equal bilaterally. GASTROINTESTINAL: Abdomen soft, non-tender, nondistended. Hepatic and splenic margins not palpable. MUSCULOSKELETAL: No obvious deformities. No clubbing. No cyanosis. No edema. Positive straight leg raise on the left. No midline tenderness of the back. NEUROLOGICAL: Awake and alert. No obvious cranial nerve deficits. Motor grossly within normal limits. Normal speech. PSYCHIATRIC: Appropriate mood and affect; insight and judgment normal. Data Data Last Documented VS Vital Signs Date Time Temp Pulse Resp B/P Pulse Ox O2 Delivery O2 Flow Rate FiO2 07/07/16 14:12 98.2 146 18 142/100 99 Orders Ondansetron Inj (Zofran Inj) (07/07/16 14:30) Sodium Chlor 0.9% 1000 Ml Inj (Ns 1000 M (07/07/16 14:30) Hydromorphone Pf Inj (Dilaudid Pf Inj) (07/07/16 14:30) Complete Blood Count With Diff (07/07/16 14:21) Basic Metabolic Panel (Bmp) (07/07/16 14:21) Iv Access Insert/Monitor (07/07/16 14:21) Electrocardiogram (07/07/16 14:11) Labs Laboratory Tests Test 07/07/16 14:30 White Blood Count 7.8 TH/MM3 Red Blood Count 5.10 MIL/MM3 Hemoglobin 15.6 GM/DL Hematocrit 46.2 % Mean Corpuscular Volume 90.8 FL Mean Corpuscular Hemoglobin 30.6 PG Mean Corpuscular Hemoglobin 33.7 % Concent Red Cell Distribution Width 13.1 % Platelet Count 327 TH/MM3 Mean Platelet Volume 6.9 FL Neutrophils (%) (Auto) 67.9 % Lymphocytes (%) (Auto) 22.7 % Monocytes (%) (Auto) 6.8 % Eosinophils (%) (Auto) 1.2 % Basophils (%) (Auto) 1.4 % Neutrophils # (Auto) 5.3 TH/MM3 Lymphocytes # (Auto) 1.8 TH/MM3 Monocytes # (Auto) 0.5 TH/MM3 Eosinophils # (Auto) 0.1 TH/MM3 Basophils # (Auto) 0.1 TH/MM3 CBC Comment DIFF FINAL Differential Comment Sodium Level 140 MEQ/L Potassium Level 4.4 MEQ/L Chloride Level 105 MEQ/L Carbon Dioxide Level 23.9 MEQ/L Anion Gap 11 MEQ/L Blood Urea Nitrogen 9 MG/DL Creatinine 0.78 MG/DL Estimat Glomerular Filtration 117 ML/MIN Rate Random Glucose 92 MG/DL Calcium Level 9.2 MG/DL [facility] Medical Decision Making Medical Screen Exam Complete: Yes Emergency Medical Condition: Yes Medical Record Reviewed: Yes Differential Diagnosis Sciatica, disc herniation, peripheral neuropathy Narrative Course I have reviewed the patient's electronic medical record. Patient has been here 6 times in the last 6 months for the same back pain. I reviewed his visit from last month including MRI results of thoracic and lumbar spine IV placed I reviewed his EKG which shows sinus tachycardia without ectopy extended cardiac monitoring confirms sinus tachycardia without ectopy CBC is normal Metabolic profile is normal Patient is usually tachycardic when here. One other time he was equally is tachycardic. He denies drug use or any cardiac stimulants. I gave him injection of Dilaudid and Zofran for symptom relief Patient feels some relief on recheck Heart rate is in the 120s down from the 130s It's a regular sinus tachycardia without ectopy I think he is stable for outpatient follow-up. He has neurosurgeon appointment as noted. I did refill some pain medicine. Given his MRI findings and his tachycardia I believe he is in pain but I don't think he has an urgent surgical lesion. Diagnosis Primary Impression: Back pain with left-sided radiculopathy Additional Impression: Tachycardia Additional Instructions: The patient was advised to follow up with primary care and neurosurgeon . The patient was warned about potential sedation for the medications they will receive on prescription. Med/Other Pt SpecificInfo: Prescription(s) given Scripts Oxycodone-Acetaminophen (Percocet)5-325 mg Tab1 Tab PO Q6H PRN (PAIN) #20 TAB Ref 0 Prov:Antwan Arriola MD 07/07/16 Disposition: 01 DISCHARGE HOME Condition: Stable Antwan Arriola MD Jul 07, 2016 14:37
[2016-07-07 14:45] LABS: AUTOMATED NEUTROPHIL # 5.3 TH/MM3 (1.8-7.7); BASOPHIL # 0.1 TH/MM3 (0-0.2); BASOPHIL % 1.4 % (0.0-2.0); EOSINOPHIL # 0.1 TH/MM3 (0-0.4); EOSINOPHIL % 1.2 % (0.0-4.0); HEMATOCRIT 46.2 % (39.0-51.0); LYMPH % 22.7 % (9.0-44.0); LYMPHOCYTE # 1.8 TH/MM3 (1.0-4.8); MEAN CELL VOLUME 90.8 FL (80.0-100.0); MEAN CORPUSCULAR HEMOGLOBIN 30.6 PG (27.0-34.0); MEAN CORPUSCULAR HGB CONC 33.7 % (32.0-36.0); MONO % 6.8 % (0.0-8.0); NEUT % 67.9 % (16.0-70.0); PLATELET COUNT 327 TH/MM3 (150-450); RED CELL DISTRIBUTION WIDTH 13.1 % (11.6-17.2); WHITE BLOOD COUNT 7.8 TH/MM3 (4.0-11.0)
[2016-07-07 14:46] LABS: HEMO FLAGS DIFF FINAL
[2016-07-07 14:59] LABS: POTASSIUM 4.4 MEQ/L (3.5-5.1)
[2016-07-07 15:03] LABS: BICARBONATE 23.9 MEQ/L (21.0-32.0)
[2016-07-07] MEDS ORDERED: PERC5TAB12 PO (15:30)
[2016-07-07 15:33] VITALS: BP 142/85; PULSE 132; RESP 16; O2SAT 99
--- NOTE | 2016-07-08 10:44 | EKG ---
Date Performed: 07/07/2016 Time Performed: 14:11:04 PTAGE: 30 years EKG: Sinus tachycardia. Normal ECG except for rate PREVIOUS TRACING : 04/22/2015 13.22 Compared to prior tracing no significant change DOCTOR: Keo Mansfield Interpretating Date/Time 07/08/2016 10:43:00
== END 2016-07-07 16:02 | disposition home or self-care (01) ==
LOC: PHED 13:58
DX: M54.5 Low back pain (principal); M54.16 Radiculopathy, lumbar region; R00.0 Tachycardia, unspecified; F17.210 Nicotine dependence, cigarettes, uncomplicated
CPT/HCPCS: 80048; 85025; 93005; 96361; 96374; 96375; 99283; J1170; J2405; J7030

== ENCOUNTER 2016-07-18 07:10 | Emergency (ER) | payer MEDICAID, OTHER ==
[~2016-07-18] VITALS: Ht 180.3 cm; Wt 100.9 kg
[~2016-07-18 07:10] MED LIST changes: -CYCL1TAB29 PO; -PRED10PA2 PO
[2016-07-18 07:36] VITALS: BP 143/103; PULSE 128; RESP 16; TEMP 98.4; O2SAT 95
[2016-07-18] MEDS ORDERED: SODIUM CHLOR 0.9% 1000 ML INJ 1,000 ML IV SCH (09:13)
[2016-07-18] MEDS ORDERED: SODIUM CHLOR 0.9% 1000 ML INJ 1,000 ML IV ONE ×3 (09:15→12:15)
[2016-07-18] MEDS ORDERED: HYDROmorphone HCL PF 2 MG/ML VIAL IVS ONE (09:15)
[2016-07-18] MEDS ORDERED: ONDANSETRON HCL 4 MG/2 ML VIAL IVP ONE (09:15)
[2016-07-18 09:16] VITALS: O2SAT 99
--- NOTE | 2016-07-18 09:31 | PD ---
HPI Chief Complaint: Abdominal Pain Time Seen by Provider: 08:57 Travel History International Travel<30 days: No Contact w/Intl Traveler<30days: No Traveled to known affect area: No History of Present Illness HPI Patient 30-year-old male with a history of chronic low back pain and chronic pancreatitis presents emergency Department with abdominal pain nausea and vomiting. Past 2 days. Patient states her epigastric region. Patient states he has slipped disc and sciatica down the left leg and takes chronic pain medicine which she ran out a few days ago. Patient states she's been depressed and has been drinking heavily which sheis not supposed to do because he can lead to pancreatitis. Patient states she's been having dry heaves but not productive of any vomitus. PFSH Past Medical History Hx Anticoagulant Therapy: No Arthritis: Yes Anxiety: Yes Depression: Yes Cancer: No Cardiovascular Problems: No Chemotherapy: No Cerebrovascular Accident: No Diabetes: No Diminished Hearing: No Endocrine: No Gastrointestinal Disorders: No Genitourinary: No Headaches: No Heparin Induced Thrombocytopen: No Immune Disorder: No Implanted Vascular Access Dvce: Yes (NOT IN PLACE AT THIS TIME) Musculoskeletal: Yes (chronic back pain) Neurologic: No Psychiatric: No Reproductive: Yes Respiratory: No Immunizations Current: Yes Migraines: No Pancreatitis: Yes Pneumonia: Yes Radiation Therapy: No Seizures: No Sickle Cell Disease: No Thyroid Disease: No Tetanus Vaccination: Unknown Influenza Vaccination: No Past Surgical History Abdominal Surgery: No AICD: No Arteriovenous Shunt: No Body Medical Devices: 4 screws lumbar Cardiac Surgery: No Ear Surgery: No Endocrine Surgery: No Eye Surgery: No Genitourinary Surgery: No Gynecologic Surgery: No Hysterectomy: No Insulin Pump: No Joint Replacement: No Neurologic Surgery: No Oral Surgery: No Pacemaker: No Thoracic Surgery: Yes (Backx 2 with screws) Other Surgery: Yes Social History Alcohol Use: Yes ("socially" 12-20 beers a day including 4-5 shots of vodka a day) Tobacco Use: Yes (1/2 PPD) Substance Use: No (Denies) Allergies-Medications (Allergen,Severity, Reaction): Coded Allergies: No Known Allergies (Verified , 07/18/16) Reported Meds & Prescriptions Reported Meds & Active Scripts Active Percocet (Oxycodone-Acetaminophen) 5-325 mg Tab 1 Tab PO Q6H PRN Review of Systems Except as stated in HPI: all other systems reviewed are Neg Physical Exam Narrative GENERAL: Well-developed, morbidly obese, appears uncomfortable but in no obvious distress. SKIN: Warm and dry. HEAD: Atraumatic. Normocephalic. EYES: Pupils equal and round. No scleral icterus. No injection or drainage. ENT: No nasal bleeding or discharge. Mucous membranes pink and moist. Extremely poor dentition. Teeth are eroded away. NECK: Trachea midline. No JVD. CARDIOVASCULAR: Regular rhythm with tachycardia. No murmur appreciated. RESPIRATORY: No accessory muscle use. Clear to auscultation. Breath sounds equal bilaterally. GASTROINTESTINAL: Abdomen soft, non-tender, nondistended. Hepatic and splenic margins not palpable. MUSCULOSKELETAL: No obvious deformities. No clubbing. No cyanosis. No edema. NEUROLOGICAL: Awake and alert. No obvious cranial nerve deficits. Motor grossly within normal limits. Normal speech. PSYCHIATRIC: Appropriate mood and affect; insight and judgment normal. Data Data Last Documented VS Vital Signs Date Time Temp Pulse Resp B/P Pulse Ox O2 Delivery O2 Flow Rate FiO2 07/18/16 13:18 112 18 145/72 98 Room Air 07/18/16 07:36 98.4 Orders Complete Blood Count With Diff (07/18/16 09:13) Comprehensive Metabolic Panel (07/18/16 09:13) Lipase (07/18/16 09:13) Lactic Acid (07/18/16 09:13) Iv Access Insert/Monitor (07/18/16 09:13) Ecg Monitoring (07/18/16 09:13) Oximetry (07/18/16 09:13) Hydromorphone Pf Inj (Dilaudid Pf Inj) (07/18/16 09:15) Ondansetron Inj (Zofran Inj) (07/18/16 09:15) Sodium Chlor 0.9% 1000 Ml Inj (Ns 1000 M (07/18/16 09:13) Sodium Chloride 0.9% Flush (Ns Flush) (07/18/16 09:15) Electrocardiogram (07/18/16 09:13) Sodium Chlor 0.9% 1000 Ml Inj (Ns 1000 M (07/18/16 09:15) Sodium Chlor 0.9% 1000 Ml Inj (Ns 1000 M (07/18/16 09:15) Alcohol (Ethanol) (07/18/16 09:13) Lactic Acid (07/18/16 10:43) Prochlorperazine Inj (Compazine Inj) (07/18/16 10:45) Ondansetron Inj (Zofran Inj) (07/18/16 10:45) Lorazepam Inj (Ativan Inj) (07/18/16 12:00) Ct Abd/Pel W Iv Contrast(Rout) (07/18/16 ) Ondansetron Inj (Zofran Inj) (07/18/16 12:15) Diphenhydramine Inj (Benadryl Inj) (07/18/16 12:15) Sodium Chlor 0.9% 1000 Ml Inj (Ns 1000 M (07/18/16 12:15) Iohexol 350 Inj (Omnipaque 350 Inj) (07/18/16 13:22) Labs Laboratory Tests Test 07/18/16 07/18/16 08:56 11:02 White Blood Count 10.7 TH/MM3 Red Blood Count 5.58 MIL/MM3 Hemoglobin 17.4 GM/DL Hematocrit 50.9 % Mean Corpuscular Volume 91.2 FL Mean Corpuscular Hemoglobin 31.1 PG Mean Corpuscular Hemoglobin 34.1 % Concent Red Cell Distribution Width 12.7 % Platelet Count 398 TH/MM3 Mean Platelet Volume 7.6 FL Neutrophils (%) (Auto) 63.9 % Lymphocytes (%) (Auto) 25.2 % Monocytes (%) (Auto) 9.8 % Eosinophils (%) (Auto) 0.3 % Basophils (%) (Auto) 0.8 % Neutrophils # (Auto) 6.9 TH/MM3 Lymphocytes # (Auto) 2.7 TH/MM3 Monocytes # (Auto) 1.0 TH/MM3 Eosinophils # (Auto) 0.0 TH/MM3 Basophils # (Auto) 0.1 TH/MM3 CBC Comment DIFF FINAL Differential Comment Sodium Level 139 MEQ/L Potassium Level 3.9 MEQ/L Chloride Level 98 MEQ/L Carbon Dioxide Level 23.3 MEQ/L Anion Gap 18 MEQ/L Blood Urea Nitrogen 9 MG/DL Creatinine 0.98 MG/DL Estimat Glomerular Filtration 90 ML/MIN Rate Random Glucose 102 MG/DL Lactic Acid Level 4.5 mmol/L 3.8 mmol/L Calcium Level 9.0 MG/DL Total Bilirubin 0.7 MG/DL Aspartate Amino Transf 68 U/L (AST/SGOT) Alanine Aminotransferase 97 U/L (ALT/SGPT) Alkaline Phosphatase 103 U/L Total Protein 8.3 GM/DL Albumin 4.4 GM/DL Lipase 114 U/L Ethyl Alcohol Level 81 MG/DL MDM Medical Decision Making Medical Screen Exam Complete: Yes Emergency Medical Condition: Yes Interpretation(s) EKG shows sinus tachycardia with a singular PVC. No concerning ST-T changes. Intervals otherwise within normal limits. This is an normal EKG except for rate. Differential Diagnosis Opiate withdrawal, dehydration, pancreatitis, nausea, vomiting, alcohol withdrawal less likely (no tremors, no fever). Narrative Course Patient roomed in ED, notably tachycardic to 140's. Has had dry heaving in the ED. Multiple medicines given (see above). Patient feeling better. Continues to ask for pain medications and patient given CT to rule out underlying pathology. Patient presents multiple times for similiar. On my second revisit , his HR is down to 110's he is resting comfortably in stretcher and rouses easily. He states would like to go home. Lactic acid 4.5 on arrival down to 3.8. All labs and CT results discussed with patient. Discussed need for follow up with PCP. He has ambulated multiple times to bathroom in ED. Walked from ED in nad. I have high suspicion for secondary gain in this patient but he is stable for discharge at this time. Discussed return to ED criteria and we will always be happy to see him if he thinks he has an emergency. Diagnosis Primary Impression: Dehydration Additional Impression: Abdominal pain Disposition: 01 DISCHARGE HOME Condition: Stable Willy Ulloa MD Jul 18, 2016 09:31
[2016-07-18] MEDS: SODIUM CHLORIDE 0.9% FLUSH 5 ML FLUSH IVF PRN ×2 (09:35→10:24)
[2016-07-18 09:52] LABS: AUTOMATED NEUTROPHIL # 6.9 TH/MM3 (1.8-7.7); BASOPHIL # 0.1 TH/MM3 (0-0.2); BASOPHIL % 0.8 % (0.0-2.0); EOSINOPHIL % 0.3 % (0.0-4.0); HEMATOCRIT 50.9 % (39.0-51.0); HEMO FLAGS DIFF FINAL; LYMPH % 25.2 % (9.0-44.0); LYMPHOCYTE # 2.7 TH/MM3 (1.0-4.8); MEAN CELL VOLUME 91.2 FL (80.0-100.0); MEAN CORPUSCULAR HEMOGLOBIN 31.1 PG (27.0-34.0); MEAN CORPUSCULAR HGB CONC 34.1 % (32.0-36.0); MONO % 9.8 % (0.0-8.0); NEUT % 63.9 % (16.0-70.0); PLATELET COUNT 398 TH/MM3 (150-450); RED BLOOD COUNT 5.58 MIL/MM3 (4.50-5.90); RED CELL DISTRIBUTION WIDTH 12.7 % (11.6-17.2); WHITE BLOOD COUNT 10.7 TH/MM3 (4.0-11.0)
[2016-07-18 10:00] LABS: CHLORIDE 98 MEQ/L (98-107); POTASSIUM 3.9 MEQ/L (3.5-5.1); SODIUM (NA) 139 MEQ/L (136-145)
[2016-07-18 10:04] LABS: ANION GAP 18 MEQ/L (5-15); BICARBONATE 23.3 MEQ/L (21.0-32.0); BLOOD UREA NITROGEN 9 MG/DL (7-18)
[2016-07-18 10:06] LABS: ALT (GPT) 97 U/L (12-78); AST (GOT) 68 U/L (15-37)
[2016-07-18 10:07] LABS: GLOMERULAR FILTRATION RATE 90 ML/MIN (>89)
[2016-07-18 10:08] LABS: TOTAL BILIRUBIN ADULT 0.7 MG/DL (0.2-1.0)
[2016-07-18 10:09] LABS: ALKALINE PHOSPHATASE 103 U/L (45-117)
[2016-07-18] MEDS ORDERED: ONDANSETRON HCL 4 MG/2 ML VIAL IV PUSH ONE ×2 (10:45→12:15)
[2016-07-18] MEDS ORDERED: PROCHLORPERAZINE INJ 10 MG/2 ML VIAL IVS ONE (10:45)
[2016-07-18 10:58] VITALS: BP 161/82; PULSE 112; RESP 16; O2SAT 96
[2016-07-18 11:58] VITALS: BP 149/87; PULSE 112; RESP 18; O2SAT 98
[2016-07-18] MEDS ORDERED: LORazepam 2 MG/ML VIAL IV PUSH ONE (12:00)
[2016-07-18] MEDS ORDERED: diphenhydrAMINE HCL 50 MG/ML VIAL IV PUSH ONE (12:15)
[2016-07-18 13:18] VITALS: BP 145/72; PULSE 112; RESP 18; O2SAT 98
[2016-07-18] MEDS ORDERED: IOHEXOL 350 MG/ML 10 ML VIAL (for RAD DIAG) IV ONE (13:22)
--- NOTE | 2016-07-18 13:33 | RADHPO ---
EXAM DATE/TIME: 07/18/2016 13:03 [facility] COMPARISON: CT ABDOMEN & PELVIS W CONTRAST, June 27, 2015, 8:20. INDICATIONS : Epigastric pain, nausea, vomiting. IV CONTRAST: 96 cc Omnipaque 350 (iohexol) IV ORAL CONTRAST: No oral contrast ingested. RADIATION DOSE: 18.35 CTDIvol (mGy) MEDICAL HISTORY : Pancreatitis. SURGICAL HISTORY : Fusion, lumbar. ENCOUNTER: Initial ACUITY: 2 days PAIN SCALE: 7/10 LOCATION: Bilateral upper quadrant TECHNIQUE: Volumetric scanning of the abdomen and pelvis was performed. Using automated exposure control and ad justment of the mA and/or kV according to patient size, radiation dose was kept as low as reasonably achievable to obtain optimal diagnostic quality images. FINDINGS: LOWER LUNGS: The visualized lower lungs are clear. LIVER: Homogeneous density without lesion. There is no dilation of the biliary tree. No calcified gallston es. There is mild to moderate steatosis. SPLEEN: Normal size without lesion. PANCREAS: Within normal limits. KIDNEYS: Normal in size and shape. There is no mass, stone or hydronephrosis. ADRENAL GLANDS: Within normal limits. VASCULAR: There is no aortic aneurysm. BOWEL/MESENTERY: The stomach, small bowel, and colon demonstrate no acute abnormality. There is no free intraperitone al air or fluid. There is a normal appendix. No oral contrast was given limiting the sensitivity. ABDOMINAL WALL: Within normal limits. RETROPERITONEUM: There is no lymphadenopathy. BLADDER: No wall thickening or mass. REPRODUCTIVE: Within normal limits. INGUINAL: There is no lymphadenopathy or hernia. MUSCULOSKELETAL: There are postoperative changes status post fusion in the lower lumbar spine pedicle screws and poste rior fixation rods. CONCLUSION: 1. Mild to moderate steatosis of the liver. 2. Unremarkable bowel gas pattern with no inflammatory change or obstruction. There is a normal appen brisa. 3. Postsurgical changes in the lumbar spine. Paddy Vaca MD on July 18, 2016 at 13:26 Board Certified Radiologist. This report was verified electronically.
--- NOTE | 2016-07-19 15:08 | EKG ---
Date Performed: 07/18/2016 Time Performed: 09:16:16 PTAGE: 30 years EKG: Sinus tachycardia with PVC(s) Poor R wave progression - probable normal variant Borderline ECG PREVIOUS TRACING : 07/07/2016 14.11 Compared to prior tracing no significant change DOCTOR: Yogi Dempsey Interpretating Date/Time 07/19/2016 15:07:09
== END 2016-07-18 13:46 | disposition home or self-care (01) ==
LOC: PHED 07:10
DX: E86.0 Dehydration (principal); R10.13 Epigastric pain; R11.2 Nausea with vomiting, unspecified; R00.0 Tachycardia, unspecified; R94.31 Abnormal electrocardiogram [ECG] [EKG]; F17.200 Nicotine dependence, unspecified, uncomplicated; Z87.39 Personal history of other diseases of the musculoskeletal system and connective tissue; Z87.19 Personal history of other diseases of the digestive system; Z86.59 Personal history of other mental and behavioral disorders; Z87.01 Personal history of pneumonia (recurrent)
CPT/HCPCS: 74177; 80053; 80307; 83605; 83690; 85025; 93005; 96361; 96374; 96375; 96376; 99284; J1170; J1200; J2060; J2405; J7030; Q9967

== ENCOUNTER 2016-09-29 13:39 | Emergency (ER) | payer MEDICAID, OTHER ==
[~2016-09-29] VITALS: Ht 180.3 cm; Wt 104.1 kg
[2016-09-29 13:48] VITALS: BP 147/95; PULSE 99; RESP 16; TEMP 98.7; O2SAT 99
[2016-09-29] MEDS ORDERED: SODIUM CHLOR 0.9% 1000 ML INJ 1,000 ML IV ONE (15:15)
[2016-09-29] MEDS ORDERED: LORazepam 2 MG/ML VIAL IV PUSH ONE (15:15)
[2016-09-29] MEDS ORDERED: ONDANSETRON HCL 4 MG/2 ML VIAL IV ONE (15:30)
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
--- NOTE | 2016-09-29 15:55 | RADHPO ---
EXAM DATE/TIME: 09/29/2016 15:13 [facility] COMPARISON: No previous studies available for comparison. INDICATIONS : Right hand pain, swelling for 2 days post fall MEDICAL HISTORY : None. SURGICAL HISTORY : None. ENCOUNTER: Initial ACUITY: 2 days PAIN SCORE: 9/10 LOCATION: Right medial hand FINDINGS: 3 views of the right hand. Minimally displaced ring finger metacarpal neck fracture seen on the obliq ue view. Alignment within normal limits. No evidence of joint narrowing. CONCLUSION: Minimally displaced ring finger metacarpal neck fracture. Martin Harris MD on September 29, 2016 at 15:51 Board Certified Radiologist. This report was verified electronically.
[2016-09-29 16:19] LABS: BASOPHIL # 0.1 TH/MM3 (0-0.2); BASOPHIL % 1.3 % (0.0-2.0); EOSINOPHIL % 0.6 % (0.0-4.0); HEMATOCRIT 46.7 % (39.0-51.0); HEMO FLAGS DIFF FINAL; LYMPH % 25.3 % (9.0-44.0); LYMPHOCYTE # 1.9 TH/MM3 (1.0-4.8); MEAN CELL VOLUME 90.5 FL (80.0-100.0); MEAN CORPUSCULAR HEMOGLOBIN 30.4 PG (27.0-34.0); MEAN CORPUSCULAR HGB CONC 33.5 % (32.0-36.0); MONO % 6.5 % (0.0-8.0); NEUT % 66.3 % (16.0-70.0); PLATELET COUNT 276 TH/MM3 (150-450); RED BLOOD COUNT 5.16 MIL/MM3 (4.50-5.90); RED CELL DISTRIBUTION WIDTH 11.9 % (11.6-17.2); WHITE BLOOD COUNT 7.5 TH/MM3 (4.0-11.0)
[2016-09-29 16:20] LABS: BLOOD, URINE NEG (NEG); GLUCOSE,URINE NEG (NEG); KETONE, URINE NEG (NEG); NITRITE,URINE NEG (NEG); PH, URINE 5.5 (5.0-8.5)
[2016-09-29 16:26] LABS: CHLORIDE 105 MEQ/L (98-107); POTASSIUM 4.1 MEQ/L (3.5-5.1); SODIUM (NA) 141 MEQ/L (136-145)
[2016-09-29 16:30] LABS: ANION GAP 10 MEQ/L (5-15); BICARBONATE 26.5 MEQ/L (21.0-32.0)
[2016-09-29 16:31] LABS: BLOOD UREA NITROGEN 8 MG/DL (7-18)
[2016-09-29 16:33] LABS: ALT (GPT) 76 U/L (12-78); AST (GOT) 47 U/L (15-37); GLOMERULAR FILTRATION RATE 118 ML/MIN (>89)
[2016-09-29 16:35] LABS: TOTAL BILIRUBIN ADULT 0.5 MG/DL (0.2-1.0)
[2016-09-29 16:36] LABS: ALKALINE PHOSPHATASE 101 U/L (45-117)
[2016-09-29 16:38] LABS: URINE COLOR YELLOW (YELLW/STRAW)
[2016-09-29 16:39] LABS: MUCUS URINE MANY /lpf (OCC); SQUAMOUS EPITHELIAL CELL URINE 0-5 /hpf (0-5)
[2016-09-29 16:40] LABS: COMMENT (UR) CULT NOT INDICATED; CULTURE IF INDICATED CULT NOT INDICATED
[2016-09-29] MEDS ORDERED: MORPHINE SULFATE 4 MG/ML INJ IV PUSH ONE (16:45)
[2016-09-29 16:47] VITALS: BP 145/79; PULSE 98; RESP 18; O2SAT 99
[2016-09-29] MEDS ORDERED: HYDR-3533 PO (17:01)
[2016-09-29] MEDS ORDERED: ZOFR4TAB3 SL (17:01)
--- NOTE | 2016-09-29 17:02 | PD ---
Data Data Last Documented VS Vital Signs Date Time Temp Pulse Resp B/P Pulse Ox O2 Delivery O2 Flow Rate FiO2 09/29/16 16:47 98 18 145/79 99 Room Air 09/29/16 13:48 98.7 Orders Complete Blood Count With Diff (09/29/16 15:06) Comprehensive Metabolic Panel (09/29/16 15:06) Lipase (09/29/16 15:06) ^ Insert Iv (09/29/16 15:06) Urinalysis - C+S If Indicated (09/29/16 15:06) ^ Insert Iv (09/29/16 15:09) Lorazepam Inj (Ativan Inj) (09/29/16 15:15) Sodium Chlor 0.9% 1000 Ml Inj (Ns 1000 M (09/29/16 15:15) Hand, Complete ([id number]) (09/29/16 ) Ondansetron Inj (Zofran Inj) (09/29/16 15:30) Splint Or Brace Apply/Monitor (09/29/16 16:19) Morphine Inj (Morphine Inj) (09/29/16 16:45) Labs Laboratory Tests Test 09/29/16 09/29/16 15:18 15:25 Urine Color YELLOW Urine Turbidity CLEAR Urine pH 5.5 Urine Specific [place] 1.032 Urine Protein 30 mg/dL Urine Glucose (UA) NEG mg/dL Urine Ketones NEG mg/dL Urine Occult Blood NEG Urine Nitrite NEG Urine Bilirubin NEG Urine Leukocyte Esterase NEG Urine WBC 3-5 /hpf Urine Squamous Epithelial 0-5 /hpf Cells Urine Hyaline Casts 3-5 /lpf Urine Fine Granular Casts 3-5 /lpf Urine Mucus MANY /lpf Microscopic Urinalysis Comment CULT NOT INDICATED White Blood Count 7.5 TH/MM3 Red Blood Count 5.16 MIL/MM3 Hemoglobin 15.7 GM/DL Hematocrit 46.7 % Mean Corpuscular Volume 90.5 FL Mean Corpuscular Hemoglobin 30.4 PG Mean Corpuscular Hemoglobin 33.5 % Concent Red Cell Distribution Width 11.9 % Platelet Count 276 TH/MM3 Mean Platelet Volume 7.8 FL Neutrophils (%) (Auto) 66.3 % Lymphocytes (%) (Auto) 25.3 % Monocytes (%) (Auto) 6.5 % Eosinophils (%) (Auto) 0.6 % Basophils (%) (Auto) 1.3 % Neutrophils # (Auto) 5.0 TH/MM3 Lymphocytes # (Auto) 1.9 TH/MM3 Monocytes # (Auto) 0.5 TH/MM3 Eosinophils # (Auto) 0.0 TH/MM3 Basophils # (Auto) 0.1 TH/MM3 CBC Comment DIFF FINAL Differential Comment Sodium Level 141 MEQ/L Potassium Level 4.1 MEQ/L Chloride Level 105 MEQ/L Carbon Dioxide Level 26.5 MEQ/L Anion Gap 10 MEQ/L Blood Urea Nitrogen 8 MG/DL Creatinine 0.77 MG/DL Estimat Glomerular Filtration 118 ML/MIN Rate Random Glucose 88 MG/DL Calcium Level 9.1 MG/DL Total Bilirubin 0.5 MG/DL Aspartate Amino Transf 47 U/L (AST/SGOT) Alanine Aminotransferase 76 U/L (ALT/SGPT) Alkaline Phosphatase 101 U/L Total Protein 8.0 GM/DL Albumin 4.3 GM/DL Lipase 95 U/L MDM Supervised Visit with [place]: No Narrative Course The patient was initially evaluated by the previous provider and sent out to me at the beginning of my shift pending labs, right hand x-ray, and disposition. See her note for further details. Briefly this a 31-year-old male with history of alcohol abuse who quit drinking , however occasionally has relapses and binge drinks. He states that he was binge drinking over the weekend, and is here today for evaluation of right hand pain as well as possible withdrawal symptoms experiencing nausea and vomiting. He denies abdominal pain. Patient was given Zofran and IV fluids by the previous provider as well as Ativan. On my assessment the patient is resting comfortably. He states he feels much improved. He is tolerating clear liquids orally. Right hand x-ray shows a minimally displaced ring finger metacarpal neck fracture. He states that this probably occurred when he fell while he was intoxicated. He did not punch anybody. On exam there are no skin breaks. Right hand was placed in an ulnar gutter splint. Vital signs were reviewed and show slight tachycardia. CBC is unremarkable. CMP is unremarkable. Lipase is 95. UA shows 30 protein, 3-5 hyaline casts, many mucus, not suggestive of UTI. Patient reports feeling well enough to go home. I will discharge him home with pain medication and antiemetics. I will given the name of the hand surgeon with whom to follow-up with this week. I have also encouraged him to follow up with a primary care physician this week. He was informed on when to return to the emergency department. He verbalizes understanding and agreement with plan. Diagnosis Primary Impression: Closed displaced fracture of neck of right fourth metacarpal bone Qualified Code: S62.334A - Closed displaced fracture of neck of fourth metacarpal bone of right hand, initial encounter Additional Impression: Nausea and vomiting Qualified Code: R11.2 - Non-intractable vomiting with nausea, unspecified vomiting type Referrals: Alannah Colbert MD 3 days Hand surgeon Primary Care Physician 3 days Additional Instruction: Follow-up with a primary care physician this week. Follow-up with hand surgeon Dr. Colbert this week or hand surgeon of your choice. Return to the emergency department for worsening symptoms or any other concerns. Scripts Ondansetron Odt (Zofran Odt)4 Mg Tab4 Mg SL Q8HR PRN (Nausea/Vomiting) #20 TAB Ref 0 Prov:Masood Lr MD 09/29/16 Hydrocodone-Acetaminophen (Lortab)5-325 Mg Tab1 Tab PO Q6H PRN (PAIN) #20 TAB Ref 0 Prov:Masood Lr MD 09/29/16 Disposition: 01 DISCHARGE HOME Condition: Stable Masood Lr MD September 29, 2016 17:02
== END 2016-09-29 17:40 | disposition home or self-care (01) ==
LOC: PHED 13:39
DX: S62.334A Displaced fracture of neck of fourth metacarpal bone, right hand, initial encounter for closed fracture (principal); R11.2 Nausea with vomiting, unspecified; M19.90 Unspecified osteoarthritis, unspecified site; F41.9 Anxiety disorder, unspecified; F32.9 Major depressive disorder, single episode, unspecified; K85.90 Acute pancreatitis without necrosis or infection, unspecified; F17.200 Nicotine dependence, unspecified, uncomplicated; Z79.899 Other long term (current) drug therapy
CPT/HCPCS: 29125; 73130; 80053; 81001; 83690; 85025; 96361; 96374; 96375; 99284; J2060; J2270; J2405; J7030

== ENCOUNTER 2016-10-31 14:22 | Emergency (ER) | payer SELFPAY ==
[~2016-10-31] VITALS: Ht 180.3 cm; Wt 106.0 kg
[~2016-10-31 14:22] MED LIST changes: +HYDR-3533 PO; -PERC5TAB12 PO; +ZOFR4TAB3 SL
[2016-10-31 14:32] VITALS: BP 143/91; PULSE 86; RESP 16; TEMP 98.4; O2SAT 99
[2016-10-31] MEDS ORDERED: KETOROLAC TROMETHAMINE 60 MG/2 ML (IM) VIAL IM ONE (15:45)
[2016-10-31] MEDS ORDERED: CYCL1TAB29 PO (15:51)
[2016-10-31] MEDS ORDERED: PRED20 PO (15:51)
[2016-10-31] MEDS ORDERED: MOBI15TA PO (15:51)
--- NOTE | 2016-10-31 15:51 | PD ---
HPI Chief Complaint: Pain: Acute or Chronic Time Seen by Provider: 15:36 Travel History International Travel<30 days: No Contact w/Intl Traveler<30days: No Traveled to known affect area: No History of Present Illness HPI 31-year-old male complains of low back pain and left leg pain. Patient has history of recurrent low back pain with radiculopathy. Patient awaiting referral to neurosurgeon. Patient states that he had MRI in the past. Patient also has history alcohol abuse. Last drink was last night. Patient states that he is anxious and feeling he may be in alcohol withdrawal. Patient denies any headache. Patient denies any chest pain or shortness of breath. Patient denies abdominal pain. Patient denies any nausea vomiting diarrhea. Patient denies any recent injury. PFSH Past Medical History Hx Anticoagulant Therapy: No Arthritis: Yes Anxiety: Yes Depression: Yes Cancer: No Cardiovascular Problems: No Chemotherapy: No Cerebrovascular Accident: No Diabetes: No Diminished Hearing: No Endocrine: No Gastrointestinal Disorders: No Genitourinary: No Headaches: No Heparin Induced Thrombocytopen: No Immune Disorder: No Implanted Vascular Access Dvce: Yes (NOT IN PLACE AT THIS TIME) Musculoskeletal: Yes (chronic back pain) Neurologic: No Psychiatric: No Reproductive: Yes Respiratory: No Immunizations Current: Yes Migraines: No Pancreatitis: Yes Pneumonia: Yes Radiation Therapy: No Seizures: No Sickle Cell Disease: No Thyroid Disease: No Influenza Vaccination: No ?: Not Past Surgical History Abdominal Surgery: No AICD: No Arteriovenous Shunt: No Body Medical Devices: 4 screws lumbar Cardiac Surgery: No Ear Surgery: No Endocrine Surgery: No Eye Surgery: No Genitourinary Surgery: No Gynecologic Surgery: No Hysterectomy: No Insulin Pump: No Joint Replacement: No Neurologic Surgery: No Oral Surgery: No Pacemaker: No Thoracic Surgery: Yes (Backx 2 with screws) Other Surgery: Yes Social History Alcohol Use: Yes (had quit for a munth until last night) Tobacco Use: Yes (1/2 PPD) Substance Use: No (Denies) Allergies-Medications (Allergen,Severity, Reaction): Coded Allergies: No Known Allergies (Verified , 10/31/16) Reported Meds & Prescriptions Reported Meds & Active Scripts Active Prednisone 20 Mg Tab 20 Mg PO BID Flexeril (Cyclobenzaprine HCl) 10 Mg Tab 10 Mg PO TID Mobic (Meloxicam) 15 Mg Tab 15 Mg PO DAILY Review of Systems General / Constitutional: No: Fever Eyes: No: Visual changes HENT: No: Headaches Cardiovascular: No: Chest Pain or Discomfort Respiratory: No: Shortness of Breath Gastrointestinal: No: Abdominal Pain Genitourinary: No: Dysuria Musculoskeletal: Positive: Pain Skin: No Rash Neurologic: No: Weakness Psychiatric: No: Depression Endocrine: No: Polydipsia Hematologic/Lymphatic: No: Easy Bruising Physical Exam Narrative GENERAL: Well-nourished, well-developed patient. SKIN: Focused skin assessment warm/dry. HEAD: Normocephalic. EYES: No scleral icterus. No injection or drainage. NECK: Supple, trachea midline. No JVD or lymphadenopathy. CARDIOVASCULAR: Regular rate and rhythm without murmurs, gallops, or rubs. RESPIRATORY: Breath sounds equal bilaterally. No accessory muscle use. GASTROINTESTINAL: Abdomen soft, non-tender, nondistended. MUSCULOSKELETAL: No cyanosis, or edema. BACK: Patient has moderate tenderness on palpation left lower lumbar area, without obvious deformity. No CVA tenderness. Neurologic exam: Patient has some mild decrease in light touch sensation on the left lower extremity. Full range of motion low extremity. Motor function intact. Data Data Last Documented VS Vital Signs Date Time Temp Pulse Resp B/P Pulse Ox O2 Delivery O2 Flow Rate FiO2 10/31/16 14:32 98.4 86 16 143/91 99 Orders Ketorolac Inj (Toradol Inj) (10/31/16 15:45) [facility] Medical Decision Making Medical Screen Exam Complete: Yes Emergency Medical Condition: Yes Differential Diagnosis Differential diagnosis including acute on chronic back pain with radiculopathy, alcohol abuse. Narrative Course 31-year-old male with recurrent low back pain and left leg history of radiculopathy. Toradol 60 mg IM. Patient also has history of EtOH abuse. Patient has history anxiety and feeling he is in alcohol withdrawal. Patient vital signs stable. No evidence of tachycardia or elevated blood pressure. Patient is not shaky. No evidence of acute withdrawal symptoms this point. Diagnosis Primary Impression: Back pain with left-sided radiculopathy Additional Impression: Alcohol abuse Patient Instructions: General Instructions Additional Instructions: Take medications as directed. Follow-up with personal physician. Return if worse. Advised [facility]. Med/Other Pt SpecificInfo: Prescription(s) given Scripts [Librium] No Conflict Check25 Mg PO BID #10 Prov:Victor Manuel Hartman MD 10/31/16 Prednisone 20 Mg Tab20 Mg PO BID #10 TAB Ref 0 Prov:Victor Manuel Hartman MD 10/31/16 Cyclobenzaprine (Flexeril)10 Mg Tab10 Mg PO TID #90 TAB Ref 0 Prov:Victor Manuel Hartman MD 10/31/16 Meloxicam (Mobic)15 Mg Tab15 Mg PO DAILY #30 TAB Ref 0 Prov:Victor Manuel Hartman MD 10/31/16 Disposition: 01 DISCHARGE HOME Condition: Stable Victor Manuel Hartman MD Oct 31, 2016 15:51
[2016-10-31] MEDS ORDERED: LIBRIUM PO (15:53)
== END 2016-10-31 16:19 | disposition home or self-care (01) ==
LOC: PHED 14:22
DX: M54.16 Radiculopathy, lumbar region (principal); F10.10 Alcohol abuse, uncomplicated; F17.200 Nicotine dependence, unspecified, uncomplicated; Z87.39 Personal history of other diseases of the musculoskeletal system and connective tissue; Z86.59 Personal history of other mental and behavioral disorders; Z87.19 Personal history of other diseases of the digestive system; Z87.09 Personal history of other diseases of the respiratory system
CPT/HCPCS: 96372; 99284; J1885

== ENCOUNTER 2016-12-24 14:50 | Emergency (ER) | payer MEDICAID, OTHER ==
[~2016-12-24 14:50] MED LIST changes: +CYCL1TAB29 PO; -HYDR-3533 PO; +LIBRIUM PO; +MOBI15TA PO; +PRED20 PO; -ZOFR4TAB3 SL
[2016-12-24 15:10] VITALS: BP 170/81; PULSE 86; RESP 16; TEMP 98.7; O2SAT 98
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
[2016-12-24] MEDS ORDERED: IBUP-232 PO (16:30)
[2016-12-24] MEDS ORDERED: ROBA750T PO (16:30)
[2016-12-24] MEDS ORDERED: IBUPROFEN 600 MG TAB PO ONE (16:45)
[2016-12-24] MEDS ORDERED: METHOCARBAMOL 500 MG TAB PO ONE (16:45)
== END 2016-12-24 16:43 | disposition home or self-care (01) ==
LOC: PHEFT 14:50
DX: S16.1XXA Strain of muscle, fascia and tendon at neck level, initial encounter (principal); S23.9XXA Sprain of unspecified parts of thorax, initial encounter; V43.52XA Car driver injured in collision with other type car in traffic accident, initial encounter
CPT/HCPCS: 72072; 73030; 99284; L0150

== ENCOUNTER 2017-01-17 06:57 | Emergency (ER) | payer MEDICAID ==
[~2017-01-17] VITALS: Ht 180.3 cm; Wt 107.0 kg
[~2017-01-17 06:57] MED LIST changes: -CYCL1TAB29 PO; +IBUP-232 PO; -LIBRIUM PO; -MOBI15TA PO; -PRED20 PO; +ROBA750T PO
[2017-01-17 07:00] VITALS: BP 151/80; PULSE 84; RESP 16; TEMP 97.9; O2SAT 96
[2017-01-17 07:24] VITALS: O2SAT 97
[2017-01-17] MEDS ORDERED: SODIUM CHLOR 0.9% 1000 ML INJ 1,000 ML IV ONE (07:30)
[2017-01-17] MEDS ORDERED: ONDANSETRON HCL 4 MG/2 ML VIAL IV PUSH ONE (07:30)
[2017-01-17] MEDS ORDERED: MORPHINE SULFATE 4 MG/ML INJ IV PUSH ONE (07:30)
[2017-01-17] MEDS ORDERED: SODIUM CHLORIDE 0.9% FLUSH 10 ML FLUSH IV FLUSH PRN (07:30)
--- NOTE | 2017-01-17 07:30 | PD ---
HPI Chief Complaint: GI Complaint Time Seen by Provider: 07:14 Travel History International Travel<30 days: No Contact w/Intl Traveler<30days: No Traveled to known affect area: No History of Present Illness HPI 31yo M with PMH of chronic back pain presents to the ED with c/o abdominal pain for 2 days. Pain is epigastric, sharp, constant and nonradiating. Associated with NBNB vomiting and nausea. Last bowel movement 2 days ago. Denies any fever, chest pain, sob, diarrhea, testicular pain, dysuria, hematuria, focal weakness or numbness. States he used to be chronic alcohol user and had pancreatitis but has not been drinking every day. Denies any abdominal surgery. PFSH Past Medical History Hx Anticoagulant Therapy: No Arthritis: Yes Anxiety: Yes Depression: Yes Cancer: No Cardiovascular Problems: No Chemotherapy: No Cerebrovascular Accident: No Diabetes: No Diminished Hearing: No Endocrine: No Gastrointestinal Disorders: No Genitourinary: No Headaches: No Heparin Induced Thrombocytopen: No Immune Disorder: No Implanted Vascular Access Dvce: Yes (NOT IN PLACE AT THIS TIME) Musculoskeletal: Yes (chronic back pain) Neurologic: No Psychiatric: No Reproductive: Yes Respiratory: No Immunizations Current: Yes Migraines: No Pancreatitis: Yes Pneumonia: Yes Radiation Therapy: No Seizures: No Sickle Cell Disease: No Thyroid Disease: No Past Surgical History Abdominal Surgery: No AICD: No Arteriovenous Shunt: No Body Medical Devices: 4 screws lumbar Cardiac Surgery: No Ear Surgery: No Endocrine Surgery: No Eye Surgery: No Genitourinary Surgery: No Gynecologic Surgery: No Hysterectomy: No Insulin Pump: No Joint Replacement: No Neurologic Surgery: No Oral Surgery: No Pacemaker: No Thoracic Surgery: Yes (Backx 2 with screws) Other Surgery: Yes Social History Alcohol Use: Yes (LAST DRINK 3 BEERS 4 DAYS AGO) Tobacco Use: Yes (1/2 PPD) Substance Use: No (Denies) Allergies-Medications (Allergen,Severity, Reaction): Coded Allergies: No Known Allergies (Verified , 12/24/16) Reported Meds & Prescriptions Reported Meds & Active Scripts Active No Active Prescriptions or Reported Medications Review of Systems Except as stated in HPI: all other systems reviewed are Neg Physical Exam Narrative GENERAL: 31yo M in mild distress. SKIN: Focused skin assessment warm/dry. HEAD: Atraumatic. Normocephalic. EYES: Pupils equal and round. No scleral icterus. No injection or drainage. ENT: No nasal bleeding or discharge. Mucous membranes pink and moist. NECK: Trachea midline. No JVD. CARDIOVASCULAR: Regular rate and rhythm. No murmur appreciated. RESPIRATORY: No accessory muscle use. Clear to auscultation. Breath sounds equal bilaterally. GASTROINTESTINAL: Abdomen soft, +TTP epigastric region. No rebound tenderness or guarding. MUSCULOSKELETAL: No obvious deformities. No clubbing. No cyanosis. No edema. NEUROLOGICAL: Awake and alert. No obvious cranial nerve deficits. Motor grossly within normal limits. Normal speech. PSYCHIATRIC: Appropriate mood and affect; insight and judgment normal. Data Data Last Documented VS Vital Signs Date Time Temp Pulse Resp B/P (MAP) Pulse Ox O2 Delivery O2 Flow Rate FiO2 01/17/17 08:48 18 01/17/17 07:40 84 111/85 (94) 96 Room Air 01/17/17 07:00 97.9 Orders Orders Complete Blood Count With Diff (01/17/17 07:17) Comprehensive Metabolic Panel (01/17/17 07:17) Lipase (01/17/17 07:17) Urinalysis - C+S If Indicated (01/17/17 07:17) Ct Abd/Pel W Iv Contrast(Rout) (01/17/17 07:17) Iv Access Insert/Monitor (01/17/17 07:17) Ecg Monitoring (01/17/17 07:17) Oximetry (01/17/17 07:17) Sodium Chloride 0.9% Flush (Ns Flush) (01/17/17 07:30) Ondansetron Inj (Zofran Inj) (01/17/17 07:30) Morphine Inj (Morphine Inj) (01/17/17 07:30) Sodium Chlor 0.9% 1000 Ml Inj (Ns 1000 M (01/17/17 07:30) Magnesium (Mg) (01/17/17 07:17) Iohexol 350 Inj (Omnipaque 350 Inj) (01/17/17 07:59) Morphine Inj (Morphine Inj) (01/17/17 08:30) Metoclopramide Inj (Reglan Inj) (01/17/17 08:30) Labs Laboratory Tests Test 01/17/17 07:34 01/17/17 08:13 White Blood Count 9.6 TH/MM3 Red Blood Count 4.91 MIL/MM3 Hemoglobin 15.1 GM/DL Hematocrit 44.0 % Mean Corpuscular Volume 89.8 FL Mean Corpuscular Hemoglobin 30.7 PG Mean Corpuscular Hemoglobin Concent 34.2 % Red Cell Distribution Width 12.2 % Platelet Count 280 TH/MM3 Mean Platelet Volume 7.7 FL Neutrophils (%) (Auto) 67.1 % Lymphocytes (%) (Auto) 25.9 % Monocytes (%) (Auto) 5.2 % Eosinophils (%) (Auto) 0.4 % Basophils (%) (Auto) 1.4 % Neutrophils # (Auto) 6.5 TH/MM3 Lymphocytes # (Auto) 2.5 TH/MM3 Monocytes # (Auto) 0.5 TH/MM3 Eosinophils # (Auto) 0.0 TH/MM3 Basophils # (Auto) 0.1 TH/MM3 CBC Comment DIFF FINAL Differential Comment Blood Urea Nitrogen 12 MG/DL Creatinine 0.76 MG/DL Random Glucose 103 MG/DL Total Protein 7.7 GM/DL Albumin 4.0 GM/DL Calcium Level 8.5 MG/DL Magnesium Level 1.9 MG/DL Alkaline Phosphatase 94 U/L Aspartate Amino Transf (AST/SGOT) 31 U/L Alanine Aminotransferase (ALT/SGPT) 49 U/L Total Bilirubin 0.4 MG/DL Sodium Level 140 MEQ/L Potassium Level 3.9 MEQ/L Chloride Level 104 MEQ/L Carbon Dioxide Level 25.4 MEQ/L Anion Gap 11 MEQ/L Estimat Glomerular Filtration Rate 120 ML/MIN Lipase 80 U/L Urine Collection Type CLEAN CATCH Urine Color YELLOW Urine Turbidity SLIGHT Urine pH 5.5 Urine Specific [place] GREATER THAN 1.035 Urine Protein 30 mg/dL Urine Glucose (UA) NEG mg/dL Urine Ketones NEG mg/dL Urine Occult Blood NEG Urine Nitrite NEG Urine Bilirubin NEG Urine Leukocyte Esterase NEG Urine WBC 0-2 /hpf Urine Squamous Epithelial Cells 0-5 /hpf Urine Amorphous Sediment MOD Microscopic Urinalysis Comment CULT NOT INDICATED Urine Collection Time 0813 [facility] Medical Decision Making Medical Screen Exam Complete: Yes Emergency Medical Condition: Yes Differential Diagnosis Acute pancreatitis vs. gastritis vs. colitis vs. peptic ulcer disease Narrative Course 31yo M with PMH of pancreatitis here with c/o epigastric abdominal pain and vomiting. Labs reviewed, no leukocytosis. Lipase normal. CMP unremarkable. UA showed no leukocyte. Culture not indicated. CT abd/pelvis showed no findings to indicate bowel obstruction. No acute finding. Pt given morphine, zofran and reglan with improvement of pain and nausea. Tolerating PO. Pt instructed to follow up with GI as an outpatient for further evaluation of abdominal pain. Diagnosis Primary Impression: Abdominal pain Qualified Codes: R10.13 - Epigastric pain Referrals: Silvia Turner MD call for appointment Patient Instructions: General Instructions Departure Forms: Tests/Procedures Additional Instructions: Please follow up with GI if pain persisted. Return to the ED if symptoms worsen. Med/Other Pt SpecificInfo: Prescription(s) given Scripts Ondansetron Odt (Zofran Odt) 4 Mg Tab 4 MG SL Q12HR Y for Nausea/Vomiting, #7 TAB 0 Refills Prov: Beena Sequeira DO 01/17/17 Acetaminophen (Tylenol) 325 Mg Tab 650 MG PO Q6H Y for PAIN SCALE 1 TO 4, #20 TAB 0 Refills Prov: Beena Sequeira DO 01/17/17 Disposition: 01 DISCHARGE HOME Condition: Stable Beena Sequeira DO Jan 17, 2017 07:30
[2017-01-17 07:40] VITALS: BP 111/85; PULSE 84; RESP 18; O2SAT 96
[2017-01-17 07:46] LABS: AUTOMATED NEUTROPHIL # 6.5 TH/MM3 (1.8-7.7); BASOPHIL # 0.1 TH/MM3 (0-0.2); BASOPHIL % 1.4 % (0.0-2.0); EOSINOPHIL % 0.4 % (0.0-4.0); HEMO FLAGS DIFF FINAL; LYMPH % 25.9 % (9.0-44.0); LYMPHOCYTE # 2.5 TH/MM3 (1.0-4.8); MEAN CELL VOLUME 89.8 FL (80.0-100.0); MEAN CORPUSCULAR HEMOGLOBIN 30.7 PG (27.0-34.0); MEAN CORPUSCULAR HGB CONC 34.2 % (32.0-36.0); MONO % 5.2 % (0.0-8.0); NEUT % 67.1 % (16.0-70.0); PLATELET COUNT 280 TH/MM3 (150-450); RED BLOOD COUNT 4.91 MIL/MM3 (4.50-5.90); RED CELL DISTRIBUTION WIDTH 12.2 % (11.6-17.2); WHITE BLOOD COUNT 9.6 TH/MM3 (4.0-11.0)
[2017-01-17 07:57] LABS: CHLORIDE 104 MEQ/L (98-107); POTASSIUM 3.9 MEQ/L (3.5-5.1); SODIUM (NA) 140 MEQ/L (136-145)
[2017-01-17] MEDS ORDERED: IOHEXOL 350 MG/ML 10 ML VIAL (for RAD DIAG) IVCONTRAST ONE (07:59)
[2017-01-17 08:01] LABS: ANION GAP 11 MEQ/L (5-15); BICARBONATE 25.4 MEQ/L (21.0-32.0); BLOOD UREA NITROGEN 12 MG/DL (7-18); MAGNESIUM 1.9 MG/DL (1.5-2.5)
[2017-01-17 08:04] LABS: ALT (GPT) 49 U/L (12-78); AST (GOT) 31 U/L (15-37); GLOMERULAR FILTRATION RATE 120 ML/MIN (>89)
[2017-01-17 08:05] LABS: TOTAL BILIRUBIN ADULT 0.4 MG/DL (0.2-1.0)
[2017-01-17 08:06] LABS: ALKALINE PHOSPHATASE 94 U/L (45-117)
--- NOTE | 2017-01-17 08:10 | RADRPT ---
EXAM DATE/TIME: 01/17/2017 07:55 [facility] COMPARISON: CT ABDOMEN & PELVIS W CONTRAST, July 18, 2016, 13:03. INDICATIONS : Vomiting and abdominal pain. IV CONTRAST: 95 cc Omnipaque 350 (iohexol) IV ORAL CONTRAST: No oral contrast ingested. RADIATION DOSE: 20.98 CTDIvol (mGy) MEDICAL HISTORY : Pancreatitis. SURGICAL HISTORY : Back surgery. ENCOUNTER: Initial ACUITY: 3 days PAIN SCALE: 5/10 LOCATION: abdomen TECHNIQUE: Volumetric scanning of the abdomen and pelvis was performed. Using automated exposure control and ad justment of the mA and/or kV according to patient size, radiation dose was kept as low as reasonably achievable to obtain optimal diagnostic quality images. DICOM format image data is available electro nically for review and comparison. FINDINGS: LOWER LUNGS: The visualized lower lungs are clear. LIVER: Homogeneous density without lesion. There is no dilation of the biliary tree. No calcified gallston es. SPLEEN: Normal size without lesion. PANCREAS: Within normal limits. KIDNEYS: Normal in size and shape. There is no mass, stone or hydronephrosis. ADRENAL GLANDS: Within normal limits. VASCULAR: There is no aortic aneurysm. BOWEL/MESENTERY: The stomach, small bowel, and colon demonstrate no acute abnormality. There is no free intraperitone al air or fluid. ABDOMINAL WALL: Within normal limits. RETROPERITONEUM: There is no lymphadenopathy. BLADDER: No wall thickening or mass. REPRODUCTIVE: Within normal limits. INGUINAL: There is no lymphadenopathy or hernia. MUSCULOSKELETAL: There are degenerative and postsurgical changes involving the lumbar spine. CONCLUSION: 1. No findings to indicate bowel obstruction are seen. The appendix is normal. No free intra-peritone al air or free fluid identified. 2. Degenerative and post surgical changes involving the lumbar spine. 3. Stable exam compared to previous dated 07/18/16. Mohan De Oliveira MD on January 17, 2017 at 8:03 Board Certified Radiologist. This report was verified electronically.
[2017-01-17] MEDS ORDERED: METOCLOPRAMIDE INJ 10 MG in SODIUM CHLORIDE 0.9% INJ 50 ML IV ONE (08:30)
[2017-01-17] MEDS ORDERED: MORPHINE SULFATE 8 MG/ML INJ IV PUSH ONE (08:30)
[2017-01-17 08:32] LABS: BLOOD, URINE NEG (NEG); GLUCOSE,URINE NEG (NEG); KETONE, URINE NEG (NEG); NITRITE,URINE NEG (NEG); PH, URINE 5.5 (5.0-8.5)
[2017-01-17 08:33] LABS: METHOD OF COLLECTION CLEAN CATCH; URINE COLOR YELLOW (YELLW/STRAW)
[2017-01-17 08:38] LABS: COMMENT (UR) CULT NOT INDICATED; COMMENT2 (UR) MUCOUS PRESENT; CULTURE IF INDICATED CULT NOT INDICATED; SQUAMOUS EPITHELIAL CELL URINE 0-5 /hpf (0-5); WBC, URINE 0-2 /hpf (0-5)
[2017-01-17 08:48] VITALS: RESP 18
[2017-01-17] MEDS ORDERED: TYLE325T PO (09:06)
[2017-01-17] MEDS ORDERED: ZOFR4TAB3 SL (09:06)
[2017-01-17 09:14] VITALS: BP 138/69
[2017-01-17] MEDS ORDERED: PROT40TA PO (16:14)
== END 2017-01-17 09:17 | disposition home or self-care (01) ==
LOC: PHED 06:57
DX: R10.13 Epigastric pain (principal); G89.29 Other chronic pain; F17.210 Nicotine dependence, cigarettes, uncomplicated; R11.2 Nausea with vomiting, unspecified
CPT/HCPCS: 74177; 80053; 81001; 83690; 83735; 85025; 96361; 96365; 96375; 96376; 99285; J2270; J2405; J2765; J7030; Q9967

== ENCOUNTER 2017-01-17 14:39 | Emergency (ER) | payer MEDICAID ==
[~2017-01-17 14:39] MED LIST changes: +TYLE325T PO; +ZOFR4TAB3 SL
[2017-01-17 14:47] VITALS: BP 164/102; PULSE 75; RESP 20; TEMP 98.1; O2SAT 99
[2017-01-17] MEDS ORDERED: PANTOPRAZOLE SOD 40 MG DELAYED RELEASE TAB PO ONE (15:45)
[2017-01-17] MEDS ORDERED: ONDANSETRON ODT 4 MG TAB PO ONE (15:45)
[2017-01-17] MEDS ORDERED: PROT40TA PO (16:14)
--- NOTE | 2017-01-17 16:15 | PD ---
HPI Chief Complaint: Abdominal Pain Time Seen by Provider: 15:32 Travel History International Travel<30 days: No Contact w/Intl Traveler<30days: No Traveled to known affect area: No History of Present Illness HPI 31yo M returns to the ED for abdominal pain. Pt was just evaluated this morning for the same abdominal pain and had negative blood work as well as negative CTa/p. Pt was given pain medication and anti nausea medication. Pt did not fill the prescriptions that I gave him. I called top case assembler to discuss with him and informed him that he needs to follow up with [facility] or GI as an outpatient. PFSH Past Medical History Hx Anticoagulant Therapy: No Arthritis: Yes Anxiety: Yes Depression: Yes Cancer: No Cardiovascular Problems: No Chemotherapy: No Cerebrovascular Accident: No Diabetes: No Diminished Hearing: No Endocrine: No Gastrointestinal Disorders: No Genitourinary: No Headaches: No Heparin Induced Thrombocytopen: No Immune Disorder: No Implanted Vascular Access Dvce: Yes (NOT IN PLACE AT THIS TIME) Musculoskeletal: Yes (chronic back pain) Neurologic: No Psychiatric: No Reproductive: Yes Respiratory: No Immunizations Current: Yes Migraines: No Pancreatitis: Yes Pneumonia: Yes Radiation Therapy: No Seizures: No Sickle Cell Disease: No Thyroid Disease: No Past Surgical History Abdominal Surgery: No AICD: No Arteriovenous Shunt: No Body Medical Devices: 4 screws lumbar Cardiac Surgery: No Ear Surgery: No Endocrine Surgery: No Eye Surgery: No Genitourinary Surgery: No Gynecologic Surgery: No Hysterectomy: No Insulin Pump: No Joint Replacement: No Neurologic Surgery: No Oral Surgery: No Pacemaker: No Thoracic Surgery: Yes (Backx 2 with screws) Other Surgery: Yes Social History Alcohol Use: Yes (LAST DRINK 3 BEERS 4 DAYS AGO) Tobacco Use: Yes (1/2 PPD) Substance Use: No (Denies) Allergies-Medications (Allergen,Severity, Reaction): Coded Allergies: No Known Allergies (Verified , 01/17/17) Reported Meds & Prescriptions Reported Meds & Active Scripts Active Zofran Odt (Ondansetron Odt) 4 Mg Tab 4 Mg SL Q12HR PRN Tylenol (Acetaminophen) 325 Mg Tab 650 Mg PO Q6H PRN Review of Systems Except as stated in HPI: all other systems reviewed are Neg Physical Exam Narrative GENERAL: 31yo M not in distress. SKIN: Focused skin assessment warm/dry. HEAD: Atraumatic. Normocephalic. EYES: Pupils equal and round. No scleral icterus. No injection or drainage. ENT: No nasal bleeding or discharge. Mucous membranes pink and moist. NECK: Trachea midline. No JVD. CARDIOVASCULAR: Regular rate and rhythm. No murmur appreciated. RESPIRATORY: No accessory muscle use. Clear to auscultation. Breath sounds equal bilaterally. GASTROINTESTINAL: Abdomen soft, Epigastric ttp. No rebound tenderness or guarding. MUSCULOSKELETAL: No obvious deformities. No clubbing. No cyanosis. No edema. NEUROLOGICAL: Awake and alert. No obvious cranial nerve deficits. Motor grossly within normal limits. Normal speech. Data Data Last Documented VS Vital Signs Date Time Temp Pulse Resp B/P (MAP) Pulse Ox O2 Delivery O2 Flow Rate FiO2 01/17/17 14:47 98.1 75 20 164/102 (122) 99 Orders Orders Ondansetron Odt (Zofran Odt) (01/17/17 15:45) Pantoprazole (Protonix) (01/17/17 15:45) [facility] Medical Decision Making Medical Screen Exam Complete: Yes Emergency Medical Condition: Yes Differential Diagnosis Gastritis vs. peptic ulcer disease Narrative Course 31yo M here complaining of abdominal pain and nausea after a full evaluation earlier this morning. Pt did not fill his prescriptions. Case management went to talk to him. Will not repeat blood work or CT since it was just completed this morning. Pt given zofran and protonix. Pt has not vomited here. Pt instructed to follow up with [facility]. Diagnosis Primary Impression: Noncompliance Patient Instructions: General Instructions Departure Forms: Tests/Procedures Additional Instructions: Please fill your medications. I will add protonix. Please follow up with [facility] or GI as instructed. Med/Other Pt SpecificInfo: Prescription(s) given Scripts Pantoprazole (Protonix) 40 Mg Tab 40 MG PO DAILY for Reflux, #15 TAB 0 Refills Prov: Beena Sequeira DO 01/17/17 Disposition: 01 DISCHARGE HOME Condition: Stable Beena Sequeira Jan 17, 2017 16:15
== END 2017-01-17 16:25 | disposition home or self-care (01) ==
LOC: PHED 14:39
DX: R10.9 Unspecified abdominal pain (principal); Z91.19 Patient's noncompliance with other medical treatment and regimen; K21.9 Gastro-esophageal reflux disease without esophagitis
CPT/HCPCS: 99283

== ENCOUNTER 2017-01-19 11:31 | Emergency (ER) | payer MEDICAID ==
[~2017-01-19] VITALS: Ht 180.3 cm; Wt 105.7 kg
[~2017-01-19 11:31] MED LIST changes: -IBUP-232 PO; +PROT40TA PO; -ROBA750T PO
[2017-01-19 11:38] VITALS: BP 156/94; PULSE 88; RESP 18; TEMP 98.2; O2SAT 100
--- NOTE | 2017-01-19 12:08 | PD ---
HPI Chief Complaint: Complaint Time Seen by Provider: 11:56 Travel History International Travel<30 days: No Contact w/Intl Traveler<30days: No Traveled to known affect area: No History of Present Illness HPI This patient complains of abdominal pain. He has frequent spells of chronic abdominal pain. He was here 2 days ago for the same thing. Severity is reported as moderate. No alleviating factors. Duration is 2 years. Used to be an alcoholic but denies drinking any longer. No vomiting or diarrhea or fever. PFSH Past Medical History Hx Anticoagulant Therapy: No Arthritis: Yes Anxiety: Yes Depression: Yes Cancer: No Cardiovascular Problems: No Chemotherapy: No Cerebrovascular Accident: No Diabetes: No Diminished Hearing: No Endocrine: No Gastrointestinal Disorders: No Genitourinary: No Headaches: No Heparin Induced Thrombocytopen: No Immune Disorder: No Implanted Vascular Access Dvce: Yes (NOT IN PLACE AT THIS TIME) Musculoskeletal: Yes (chronic back pain) Neurologic: No Psychiatric: No Reproductive: Yes Respiratory: No Immunizations Current: Yes Migraines: No Pancreatitis: Yes Pneumonia: Yes Radiation Therapy: No Seizures: No Sickle Cell Disease: No Thyroid Disease: No ?: Not Past Surgical History Abdominal Surgery: No AICD: No Arteriovenous Shunt: No Body Medical Devices: 4 screws lumbar Cardiac Surgery: No Ear Surgery: No Endocrine Surgery: No Eye Surgery: No Genitourinary Surgery: No Gynecologic Surgery: No Hysterectomy: No Insulin Pump: No Joint Replacement: No Neurologic Surgery: No Oral Surgery: No Pacemaker: No Thoracic Surgery: Yes (Backx 2 with screws) Other Surgery: Yes Social History Alcohol Use: Yes (LAST DRINK 3 BEERS 4 DAYS AGO) Tobacco Use: Yes (1/2 PPD) Substance Use: No (Denies) Allergies-Medications (Allergen,Severity, Reaction): Coded Allergies: No Known Allergies (Verified , 01/19/17) Reported Meds & Prescriptions Reported Meds & Active Scripts Active Protonix (Pantoprazole Sodium) 40 Mg Tab 40 Mg PO DAILY Zofran Odt (Ondansetron Odt) 4 Mg Tab 4 Mg SL Q12HR PRN Tylenol (Acetaminophen) 325 Mg Tab 650 Mg PO Q6H PRN Review of Systems General / Constitutional: No: Fever Eyes: No: Visual changes HENT: No: Headaches Cardiovascular: No: Chest Pain or Discomfort Respiratory: No: Shortness of Breath Gastrointestinal: Positive: Abdominal Pain Genitourinary: No: Dysuria Musculoskeletal: No: Pain Skin: No Rash Neurologic: No: Weakness Psychiatric: No: Depression Endocrine: No: Polydipsia Hematologic/Lymphatic: No: Easy Bruising Physical Exam Narrative GENERAL: Well-nourished, well-developed patient in no apparent distress. SKIN: Focused skin assessment reveals no rash and nodules. Skin is Warm and dry. HEAD: Atraumatic. Normocephalic. EYES: Pupils equal and round. No scleral icterus. No injection or drainage. ENT: No nasal bleeding or discharge. Mucous membranes pink and moist. NECK: Trachea midline. No JVD. CARDIOVASCULAR: Regular rate and rhythm. No murmur appreciated. RESPIRATORY: No accessory muscle use. Clear to auscultation. Breath sounds equal bilaterally. GASTROINTESTINAL: Abdomen soft, non-tender, nondistended. Hepatic and splenic margins not palpable. MUSCULOSKELETAL: No obvious deformities. No clubbing. No cyanosis. No edema. NEUROLOGICAL: Awake and alert. No obvious cranial nerve deficits. Motor grossly within normal limits. Normal speech. PSYCHIATRIC: Appropriate mood and affect; insight and judgment seems poor . Data Data Last Documented VS Vital Signs Date Time Temp Pulse Resp B/P (MAP) Pulse Ox O2 Delivery O2 Flow Rate FiO2 01/19/17 11:38 98.2 88 18 156/94 (114) 100 MDM Medical Decision Making Medical Screen Exam Complete: Yes Emergency Medical Condition: Yes Medical Record Reviewed: Yes Differential Diagnosis Chronic abdominal pain, narcotic seeking behavior, malingering, gastroparesis Narrative Course I have reviewed the patient's electronic medical record. Reviewed his extensive workup from 2 days ago including normal labs and CT of abdomen and pelvis Patient looks clinically well. I don't see indication to repeat his extensive workup from 2 days ago. This is a flare of a chronic problem. He should get an outpatient GI follow-up. He asked for anxiety medicine and I've written him a few Vistaril and warned him about sedation Diagnosis Primary Impression: Abdominal pain Qualified Codes: R10.84 - Generalized abdominal pain Additional Impression: Anxiety Additional Instructions: The patient was advised to follow up with their physician and return if they worsen. The patient was warned about potential sedation for the medications they will receive on prescription. Med/Other Pt SpecificInfo: Prescription(s) given Disposition: 01 DISCHARGE HOME Condition: Stable Kocisko,Antwan J. MD Jan 19, 2017 12:08
[2017-01-19] MEDS ORDERED: VIST25CA PO (12:09)
== END 2017-01-19 12:20 | disposition home or self-care (01) ==
LOC: PHED 11:31
DX: R10.84 Generalized abdominal pain (principal); F41.9 Anxiety disorder, unspecified; G89.29 Other chronic pain; F17.200 Nicotine dependence, unspecified, uncomplicated
CPT/HCPCS: 99283

== ENCOUNTER 2017-01-31 11:16 | Emergency (ER) | payer SELFPAY ==
[~2017-01-31] VITALS: Ht 180.3 cm; Wt 105.0 kg
[~2017-01-31 11:16] MED LIST changes: +VIST25CA PO
[2017-01-31 11:22] VITALS: BP 187/88; PULSE 98; RESP 15; TEMP 98.4; O2SAT 98
--- NOTE | 2017-01-31 11:23 | PD ---
Physical Exam Time Seen by Provider: 11:21 Narrative History of pancreatitis. Pt has been on an everyday alcohol binge for 5 days until yesterday. Last drink was Tuesday Morning. Sharp abdominal pain, similar to pancreatitis. Chilled, no fever. Nausea/Vomiting Feeling anxious Data Data Last Documented VS Vital Signs Date Time Temp Pulse Resp B/P (MAP) Pulse Ox O2 Delivery O2 Flow Rate FiO2 01/31/17 16:41 01/31/17 14:46 82 20 97 01/31/17 11:22 98.4 Orders Orders Complete Blood Count With Diff (01/31/17 11:25) Comprehensive Metabolic Panel (01/31/17 11:25) Lipase (01/31/17 11:25) Prothrombin Time / Inr (Pt) (01/31/17 11:25) Act Partial Throm Time (Ptt) (01/31/17 11:25) Urinalysis - C+S If Indicated (01/31/17 11:25) Sodium Chlor 0.9% 1000 Ml Inj (Ns 1000 M (01/31/17 14:45) Ondansetron Inj (Zofran Inj) (01/31/17 14:45) Pantoprazole Inj (Protonix Inj) (01/31/17 14:45) Hydroxyzine Pamoate (Vistaril) (01/31/17 14:45) Labs Laboratory Tests Test 01/31/17 11:37 White Blood Count 6.5 TH/MM3 Red Blood Count 5.18 MIL/MM3 Hemoglobin 16.5 GM/DL Hematocrit 47.3 % Mean Corpuscular Volume 91.3 FL Mean Corpuscular Hemoglobin 31.8 PG Mean Corpuscular Hemoglobin Concent 34.8 % Red Cell Distribution Width 13.1 % Platelet Count 235 TH/MM3 Mean Platelet Volume 7.6 FL Neutrophils (%) (Auto) 68.3 % Lymphocytes (%) (Auto) 22.6 % Monocytes (%) (Auto) 7.7 % Eosinophils (%) (Auto) 0.7 % Basophils (%) (Auto) 0.7 % Neutrophils # (Auto) 4.4 TH/MM3 Lymphocytes # (Auto) 1.5 TH/MM3 Monocytes # (Auto) 0.5 TH/MM3 Eosinophils # (Auto) 0.0 TH/MM3 Basophils # (Auto) 0.0 TH/MM3 CBC Comment DIFF FINAL Differential Comment Prothrombin Time 10.6 SEC Prothromb Time International Ratio 1.0 RATIO Activated Partial Thromboplast Time 26.7 SEC Urine Color YELLOW Urine Turbidity CLEAR Urine pH 6.0 Urine Specific [place] 1.026 Urine Protein 30 mg/dL Urine Glucose (UA) NEG mg/dL Urine Ketones TRACE mg/dL Urine Occult Blood NEG Urine Nitrite NEG Urine Bilirubin NEG Urine Urobilinogen 2.0 MG/DL Urine Leukocyte Esterase NEG Urine RBC 1 /hpf Urine WBC LESS THAN 1 /hpf Urine Mucus FEW /lpf Microscopic Urinalysis Comment CULT NOT INDICATED Blood Urea Nitrogen 14 MG/DL Creatinine 0.91 MG/DL Random Glucose 117 MG/DL Total Protein 8.2 GM/DL Albumin 4.5 GM/DL Calcium Level 9.1 MG/DL Alkaline Phosphatase 107 U/L Aspartate Amino Transf (AST/SGOT) 20 U/L Alanine Aminotransferase (ALT/SGPT) 44 U/L Total Bilirubin 0.8 MG/DL Sodium Level 139 MEQ/L Potassium Level 3.9 MEQ/L Chloride Level 105 MEQ/L Carbon Dioxide Level 25.6 MEQ/L Anion Gap 8 MEQ/L Estimat Glomerular Filtration Rate 97 ML/MIN Lipase 198 U/L [facility] Medical Record Reviewed: Yes Supervised Visit with [place]: No Scripts Hydroxyzine Pamoate (Vistaril) 25 Mg Cap 25 MG PO TID Y for ANXIETY, #7 CAP 0 Refills Prov: Jamila Sweeney 01/31/17 Pantoprazole (Protonix) 40 Mg Tab 40 MG PO DAILY for Reflux, #15 TAB 0 Refills Prov: Jamila Sweeney 01/31/17 Ondansetron Odt (Zofran Odt) 4 Mg Tab 4 MG SL Q12HR Y for Nausea/Vomiting, #7 TAB 0 Refills Prov: Jamila Sweeney 01/31/17 Condition: Stable Ivette Skinner MARTELL Jan 31, 2017 11:23
[2017-01-31 11:58] LABS: AUTOMATED NEUTROPHIL # 4.4 TH/MM3 (1.8-7.7); BASOPHIL % 0.7 % (0.0-2.0); EOSINOPHIL % 0.7 % (0.0-4.0); HEMATOCRIT 47.3 % (39.0-51.0); HEMO FLAGS DIFF FINAL; LYMPH % 22.6 % (9.0-44.0); LYMPHOCYTE # 1.5 TH/MM3 (1.0-4.8); MEAN CELL VOLUME 91.3 FL (80.0-100.0); MEAN CORPUSCULAR HEMOGLOBIN 31.8 PG (27.0-34.0); MEAN CORPUSCULAR HGB CONC 34.8 % (32.0-36.0); MONO % 7.7 % (0.0-8.0); NEUT % 68.3 % (16.0-70.0); PLATELET COUNT 235 TH/MM3 (150-450); RED BLOOD COUNT 5.18 MIL/MM3 (4.50-5.90); RED CELL DISTRIBUTION WIDTH 13.1 % (11.6-17.2); WHITE BLOOD COUNT 6.5 TH/MM3 (4.0-11.0)
[2017-01-31 12:12] LABS: BLOOD, URINE NEG (NEG); COMMENT (UR) CULT NOT INDICATED; CULTURE IF INDICATED CULT NOT INDICATED; GLUCOSE,URINE NEG (NEG); KETONE, URINE TRACE mg/dL (NEG); MUCUS URINE FEW /lpf (OCC); NITRITE,URINE NEG (NEG); URINE COLOR YELLOW (YELLW/STRAW)
[2017-01-31 12:17] LABS: APTT (PATIENT) 26.7 SEC (24.3-30.1); PROTHROMBIN TIME - PATIENT 10.6 SEC (9.8-11.6)
[2017-01-31 12:18] LABS: ALT (GPT) 44 U/L (12-78); ANION GAP 8 MEQ/L (5-15); AST (GOT) 20 U/L (15-37); BICARBONATE 25.6 MEQ/L (21.0-32.0); BLOOD UREA NITROGEN 14 MG/DL (7-18); CHLORIDE 105 MEQ/L (98-107); GLOMERULAR FILTRATION RATE 97 ML/MIN (>89); POTASSIUM 3.9 MEQ/L (3.5-5.1); SODIUM (NA) 139 MEQ/L (136-145)
[2017-01-31 12:20] LABS: ALKALINE PHOSPHATASE 107 U/L (45-117); TOTAL BILIRUBIN ADULT 0.8 MG/DL (0.2-1.0)
[2017-01-31] MEDS ORDERED: PROT40TA PO (14:40)
[2017-01-31] MEDS ORDERED: VIST25CA PO (14:40)
[2017-01-31] MEDS ORDERED: ZOFR4TAB3 SL (14:40)
--- NOTE | 2017-01-31 14:42 | PD ---
HPI Chief Complaint: Abdominal Pain Time Seen by Provider: 14:27 Travel History International Travel<30 days: No Contact w/Intl Traveler<30days: No History of Present Illness HPI 31-year-old male presents to the emergency department for evaluation of epigastric abdominal pain that started after he quit drinking. He states he was on an alcohol binge for 5 days drinking 14 beers and multiple shots. He quit drinking Tuesday night. He states that since he quit drinking, he has had abdominal pain. He reports history of pancreatitis and states this pain is similar. He has reports vomiting. He states he has vomited 7 times today. No fevers or chills. No chest pain or shortness of breath. No constipation or diarrhea. No previous surgeries. He is not currently on any prescribed medications. Patient was seen here on January 17, 2017 twice for the same issue. CT scan was completed at that time which showed no acute abnormality. He also was seen 2 days after that on January 19, 2017 and was discharged. PFSH Past Medical History Hx Anticoagulant Therapy: No Arthritis: Yes Anxiety: Yes Depression: Yes Cancer: No Cardiovascular Problems: No Chemotherapy: No Cerebrovascular Accident: No Diabetes: No Diminished Hearing: No Endocrine: No Gastrointestinal Disorders: No Genitourinary: No Headaches: No Heparin Induced Thrombocytopen: No Immune Disorder: No Implanted Vascular Access Dvce: Yes (NOT IN PLACE AT THIS TIME) Musculoskeletal: Yes (chronic back pain) Neurologic: No Psychiatric: No Reproductive: Yes Respiratory: No Immunizations Current: Yes Migraines: No Pancreatitis: Yes Pneumonia: Yes Radiation Therapy: No Seizures: No Sickle Cell Disease: No Thyroid Disease: No Past Surgical History Abdominal Surgery: No AICD: No Arteriovenous Shunt: No Body Medical Devices: 4 screws lumbar Cardiac Surgery: No Ear Surgery: No Endocrine Surgery: No Eye Surgery: No Genitourinary Surgery: No Gynecologic Surgery: No Hysterectomy: No Insulin Pump: No Joint Replacement: No Neurologic Surgery: No Oral Surgery: No Pacemaker: No Thoracic Surgery: Yes (Backx 2 with screws) Other Surgery: Yes Social History Alcohol Use: Yes (occassional) Tobacco Use: Yes (1/2 PPD) Substance Use: No Allergies-Medications (Allergen,Severity, Reaction): Coded Allergies: No Known Allergies (Verified , 01/19/17) Reported Meds & Prescriptions Reported Meds & Active Scripts Active Vistaril (Hydroxyzine Pamoate) 25 Mg Cap 25 Mg PO TID PRN Protonix (Pantoprazole Sodium) 40 Mg Tab 40 Mg PO DAILY Zofran Odt (Ondansetron Odt) 4 Mg Tab 4 Mg SL Q12HR PRN Tylenol (Acetaminophen) 325 Mg Tab 650 Mg PO Q6H PRN Review of Systems Except as stated in HPI: all other systems reviewed are Neg Physical Exam Narrative GENERAL: Well-nourished, well-developed male patient, ambulatory. Afebrile. SKIN: Focused skin assessment warm/dry. HEAD: Normocephalic. Atraumatic. EYES: No scleral icterus. No injection or drainage. NECK: Supple, trachea midline. No JVD or lymphadenopathy. CARDIOVASCULAR: Regular rate and rhythm without murmurs, gallops, or rubs. RESPIRATORY: Breath sounds equal bilaterally. No accessory muscle use. Lungs sounds are clear to auscultation. GASTROINTESTINAL: Abdomen soft, non-tender, nondistended. MUSCULOSKELETAL: No cyanosis, or edema. BACK: Nontender without obvious deformity. No CVA tenderness. Data Data Last Documented VS Vital Signs Date Time Temp Pulse Resp B/P (MAP) Pulse Ox O2 Delivery O2 Flow Rate FiO2 01/31/17 11:22 98.4 98 15 187/88 (121) 98 Orders Orders Complete Blood Count With Diff (01/31/17 11:25) Comprehensive Metabolic Panel (01/31/17 11:25) Lipase (01/31/17 11:25) Prothrombin Time / Inr (Pt) (01/31/17 11:25) Act Partial Throm Time (Ptt) (01/31/17 11:25) Urinalysis - C+S If Indicated (01/31/17 11:25) Sodium Chlor 0.9% 1000 Ml Inj (Ns 1000 M (01/31/17 14:45) Ondansetron Inj (Zofran Inj) (01/31/17 14:45) Pantoprazole Inj (Protonix Inj) (01/31/17 14:45) Hydroxyzine Pamoate (Vistaril) (01/31/17 14:45) Labs Laboratory Tests Test 01/31/17 11:37 White Blood Count 6.5 TH/MM3 Red Blood Count 5.18 MIL/MM3 Hemoglobin 16.5 GM/DL Hematocrit 47.3 % Mean Corpuscular Volume 91.3 FL Mean Corpuscular Hemoglobin 31.8 PG Mean Corpuscular Hemoglobin Concent 34.8 % Red Cell Distribution Width 13.1 % Platelet Count 235 TH/MM3 Mean Platelet Volume 7.6 FL Neutrophils (%) (Auto) 68.3 % Lymphocytes (%) (Auto) 22.6 % Monocytes (%) (Auto) 7.7 % Eosinophils (%) (Auto) 0.7 % Basophils (%) (Auto) 0.7 % Neutrophils # (Auto) 4.4 TH/MM3 Lymphocytes # (Auto) 1.5 TH/MM3 Monocytes # (Auto) 0.5 TH/MM3 Eosinophils # (Auto) 0.0 TH/MM3 Basophils # (Auto) 0.0 TH/MM3 CBC Comment DIFF FINAL Differential Comment Prothrombin Time 10.6 SEC Prothromb Time International Ratio 1.0 RATIO Activated Partial Thromboplast Time 26.7 SEC Urine Color YELLOW Urine Turbidity CLEAR Urine pH 6.0 Urine Specific [place] 1.026 Urine Protein 30 mg/dL Urine Glucose (UA) NEG mg/dL Urine Ketones TRACE mg/dL Urine Occult Blood NEG Urine Nitrite NEG Urine Bilirubin NEG Urine Urobilinogen 2.0 MG/DL Urine Leukocyte Esterase NEG Urine RBC 1 /hpf Urine WBC LESS THAN 1 /hpf Urine Mucus FEW /lpf Microscopic Urinalysis Comment CULT NOT INDICATED Blood Urea Nitrogen 14 MG/DL Creatinine 0.91 MG/DL Random Glucose 117 MG/DL Total Protein 8.2 GM/DL Albumin 4.5 GM/DL Calcium Level 9.1 MG/DL Alkaline Phosphatase 107 U/L Aspartate Amino Transf (AST/SGOT) 20 U/L Alanine Aminotransferase (ALT/SGPT) 44 U/L Total Bilirubin 0.8 MG/DL Sodium Level 139 MEQ/L Potassium Level 3.9 MEQ/L Chloride Level 105 MEQ/L Carbon Dioxide Level 25.6 MEQ/L Anion Gap 8 MEQ/L Estimat Glomerular Filtration Rate 97 ML/MIN Lipase 198 U/L [facility] Medical Decision Making Medical Screen Exam Complete: Yes Emergency Medical Condition: Yes Medical Record Reviewed: Yes Differential Diagnosis Pancreatitis versus alcohol dependency versus diverticulitis versus electrolyte abnormality Narrative Course 31-year-old male presents to the emergency department for evaluation of epigastric abdominal pain that started after heavy drinking. Patient has been seen on multiple occasions for the same. CBC is unremarkable. CMP is unremarkable. Lipase is normal at 198. Coags are unremarkable. Urinalysis is negative for acute infection. Patient has trace ketones. IV access established. Patient is given normal saline 1 L IV bolus, Zofran 4 mg IV, Protonix 40 mg IV. Patient is requesting something for anxiety. He is given Vistaril 50 mg by mouth. Patient was discharged prescription for Zofran, Vistaril. He is encouraged to follow-up with a primary care physician or director global medical affairs. He is also instructed to quit drinking alcohol as this is his cause for his abdominal pain. I discussed the case and all findings my attending physician, Dr. Sequeira, who agrees with plan and disposition. The patient was discharged in stable condition with instructions, including return instructions and follow up instructions. Diagnosis Primary Impression: Abdominal pain Qualified Codes: R10.13 - Epigastric pain Additional Impression: Alcohol abuse Referrals: [facility] [employer] [employer] call for appointment Primary Care Physician call for appointment Patient Instructions: Abdominal Pain (ED), Abuse of Alcohol (ED), General Instructions Additional Instructions: Take Protonix as directed. Take Zofran as instructed as needed for nausea/vomiting. Take Vistaril as directed as needed for anxiety. Follow up with your primary care physician and a director global medical affairs. Return to the emergency department for any acute worsening of symptoms. Med/Other Pt SpecificInfo: Prescription(s) given Scripts Hydroxyzine Pamoate (Vistaril) 25 Mg Cap 25 MG PO TID Y for ANXIETY, #7 CAP 0 Refills Prov: Jamila Sweeney 01/31/17 Pantoprazole (Protonix) 40 Mg Tab 40 MG PO DAILY for Reflux, #15 TAB 0 Refills Prov: Jamila Sweeney 01/31/17 Ondansetron Odt (Zofran Odt) 4 Mg Tab 4 MG SL Q12HR Y for Nausea/Vomiting, #7 TAB 0 Refills Prov: Jamila Sweeney 01/31/17 Disposition: 01 DISCHARGE HOME Condition: Stable Jamila Sweeney Jan 31, 2017 14:42
[2017-01-31] MEDS ORDERED: SODIUM CHLOR 0.9% 1000 ML INJ 1,000 ML IV ONE (14:45)
[2017-01-31] MEDS ORDERED: ONDANSETRON HCL 4 MG/2 ML VIAL IV PUSH ONE (14:45)
[2017-01-31] MEDS ORDERED: PANTOPRAZOLE SODIUM 40 MG VIAL IV PUSH ONE (14:45)
[2017-01-31 14:46] VITALS: BP 137/78; PULSE 82; RESP 20; O2SAT 97
== END 2017-01-31 16:42 | disposition home or self-care (01) ==
LOC: NEPC 11:16
DX: R10.13 Epigastric pain (principal); F10.10 Alcohol abuse, uncomplicated; F41.9 Anxiety disorder, unspecified; K85.90 Acute pancreatitis without necrosis or infection, unspecified; M19.90 Unspecified osteoarthritis, unspecified site; F32.9 Major depressive disorder, single episode, unspecified
CPT/HCPCS: 80053; 81001; 83690; 85025; 85610; 85730; 96374; 96375; 99284; C9113; J2405; J7030

== ENCOUNTER 2017-03-22 12:54 | Emergency (ER) | payer MEDICAID ==
[~2017-03-22] VITALS: Ht 180.3 cm; Wt 106.2 kg
[~2017-03-22 12:54] MED LIST changes: +CLIN300C5 PO; +DICL50TA3 PO; +ONDA4TAB7 SL; -PROT40TA PO; -TYLE325T PO; -VIST25CA PO; -ZOFR4TAB3 SL
[2017-03-22 13:25] VITALS: BP 151/91; PULSE 129; RESP 16; TEMP 98.9; O2SAT 97
[2017-03-22 14:29] LABS: BLOOD, URINE SMALL (NEG); GLUCOSE,URINE NEG (NEG); KETONE, URINE 15 mg/dL (NEG); NITRITE,URINE NEG (NEG); PH, URINE 5.5 (5.0-8.5)
[2017-03-22 14:40] LABS: COMMENT (UR) CULT NOT INDICATED; CULTURE IF INDICATED CULT NOT INDICATED; METHOD OF COLLECTION CLEAN CATCH; MUCUS URINE FEW /lpf (OCC); SQUAMOUS EPITHELIAL CELL URINE 0-5 /hpf (0-5); URINE COLOR YELLOW (YELLW/STRAW)
[2017-03-22] MEDS ORDERED: ACETAMINOPHEN/HYDROcodone 325 MG/5 MG TAB PO ONE (15:00)
[2017-03-22] MEDS ORDERED: LORazepam 1 MG TAB PO ONE (15:00)
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
== END 2017-03-22 16:04 | disposition home or self-care (01) ==
LOC: PHED 12:54
DX: F41.9 Anxiety disorder, unspecified (principal); G89.29 Other chronic pain; M25.511 Pain in right shoulder; M54.5 Low back pain
CPT/HCPCS: 81001; 99283

== ENCOUNTER 2017-08-07 07:23 | Emergency (ER) | payer MEDICAID, OTHER ==
[~2017-08-07] VITALS: Ht 177.8 cm; Wt 95.9 kg
[2017-08-07 07:25] VITALS: BP 172/101; PULSE 90; RESP 18; TEMP 98.1; O2SAT 97
[2017-08-07] MEDS ORDERED: SODIUM CHLOR 0.9% 1000 ML INJ 1,000 ML IV SCH (07:42)
[2017-08-07] MEDS ORDERED: LORazepam 2 MG/ML VIAL IV PUSH ONE ×2 (07:45→10:15)
[2017-08-07] MEDS ORDERED: ONDANSETRON HCL 4 MG/2 ML VIAL IVP ONE (07:45)
[2017-08-07] MEDS ORDERED: SODIUM CHLORIDE 0.9% FLUSH 10 ML FLUSH IV FLUSH PRN (07:45)
--- NOTE | 2017-08-07 07:53 | PD ---
HPI Chief Complaint: Alcohol/Drug Intoxication Time Seen by Provider: 07:38 Travel History International Travel<30 days: No Contact w/Intl Traveler<30days: No Traveled to known affect area: No History of Present Illness HPI Patient is a 32-year-old male who presents to emergency room with complaints of alcohol withdrawal along with fall this morning. Patient reports that he has been binge drinking, reports that this morning, he woke up on the tile floor. Patient reports that he began to have a headache and his left shoulder hurt him. Reports that he has been feeling nauseous and has been vomiting all morning. Patient reports that he is not feeling well with his alcohol withdrawal. Patient reports that he currently is not taking any medications, denies any suicidal or homicidal ideation. Patient reports that he is extremely anxious and "shaky", patient requesting Ativan at this time. PFSH Past Medical History Hx Anticoagulant Therapy: No Arthritis: Yes Anxiety: Yes Depression: Yes Cancer: No Cardiovascular Problems: No Chemotherapy: No Cerebrovascular Accident: No Diabetes: No Diminished Hearing: No Endocrine: No Gastrointestinal Disorders: No Genitourinary: No Headaches: No Heparin Induced Thrombocytopen: No Immune Disorder: No Implanted Vascular Access Dvce: Yes (NOT IN PLACE AT THIS TIME) Medical other: Yes (etoh abuse) Musculoskeletal: Yes (chronic back pain) Neurologic: No Psychiatric: No Reproductive: Yes Respiratory: No Immunizations Current: Yes Migraines: No Pancreatitis: Yes Pneumonia: Yes Radiation Therapy: No Seizures: No Sickle Cell Disease: No Thyroid Disease: No Influenza Vaccination: No ?: Not Past Surgical History Abdominal Surgery: No AICD: No Arteriovenous Shunt: No Body Medical Devices: 4 screws lumbar Cardiac Surgery: No Ear Surgery: No Endocrine Surgery: No Eye Surgery: No Genitourinary Surgery: No Gynecologic Surgery: No Hysterectomy: No Insulin Pump: No Joint Replacement: No Neurologic Surgery: No Oral Surgery: No Pacemaker: No Thoracic Surgery: Yes (Backx 2 with screws) Other Surgery: Yes Social History Alcohol Use: Yes (binge drinker) Tobacco Use: Yes (1/2 PPD) Substance Use: No Allergies-Medications (Allergen,Severity, Reaction): Coded Allergies: No Known Allergies (Verified Adverse Reaction, Unknown, 08/07/17) Reported Meds & Prescriptions Reported Meds & Active Scripts Active No Active Prescriptions or Reported Medications Review of Systems General / Constitutional: No: Fever Eyes: No: Visual changes HENT: No: Headaches Cardiovascular: No: Chest Pain or Discomfort Respiratory: No: Shortness of Breath Gastrointestinal: Positive: Nausea, Vomiting, No: Abdominal Pain Genitourinary: No: Dysuria Musculoskeletal: No: Pain Skin: No Rash Neurologic: No: Weakness Psychiatric: Positive: Anxiety, Substance Abuse, No: Depression, Suicidal Ideations, Homicidal Ideation Endocrine: No: Polydipsia Hematologic/Lymphatic: No: Easy Bruising Physical Exam Narrative GENERAL: mild distress SKIN: Focused skin assessment warm/dry. HEAD: Atraumatic. Normocephalic. EYES: Pupils equal and round. No scleral icterus. No injection or drainage. ENT: No nasal bleeding or discharge. Mucous membranes pink and moist. NECK: Trachea midline. No JVD. CARDIOVASCULAR: Regular rate and rhythm. No murmur appreciated. RESPIRATORY: No accessory muscle use. Clear to auscultation. Breath sounds equal bilaterally. GASTROINTESTINAL: Abdomen soft, non-tender, nondistended. Hepatic and splenic margins not palpable. MUSCULOSKELETAL: No obvious deformities. No clubbing. No cyanosis. No edema. NEUROLOGICAL: Awake and alert. No obvious cranial nerve deficits. Motor grossly within normal limits. Normal speech. PSYCHIATRIC: Anxious mood and affect; insight and judgment normal. Data Data Last Documented VS Vital Signs Date Time Temp Pulse Resp B/P (MAP) Pulse Ox O2 Delivery O2 Flow Rate FiO2 08/07/17 09:21 97 18 102/59 (73) 97 Room Air 08/07/17 07:25 98.1 Orders Orders Complete Blood Count With Diff (08/07/17 07:42) Comprehensive Metabolic Panel (08/07/17 07:42) Lipase (08/07/17 07:42) Prothrombin Time / Inr (Pt) (08/07/17 07:42) Act Partial Throm Time (Ptt) (08/07/17 07:42) Iv Access Insert/Monitor (08/07/17 07:42) Ecg Monitoring (08/07/17 07:42) Oximetry (08/07/17 07:42) Ondansetron Inj (Zofran Inj) (08/07/17 07:45) Sodium Chlor 0.9% 1000 Ml Inj (Ns 1000 M (08/07/17 07:42) Sodium Chloride 0.9% Flush (Ns Flush) (08/07/17 07:45) Ct Brain W/O Iv Contrast(Rout) (08/07/17 07:42) Lorazepam Inj (Ativan Inj) (08/07/17 07:45) Shoulder, Complete (>2vws) (08/07/17 ) Ondansetron Inj (Zofran Inj) (08/07/17 09:15) Lorazepam Inj (Ativan Inj) (08/07/17 10:15) Ondansetron Inj (Zofran Inj) (08/07/17 10:15) Labs Laboratory Tests Test 08/07/17 07:45 08/07/17 08:38 White Blood Count 5.9 TH/MM3 Red Blood Count 5.86 MIL/MM3 Hemoglobin 17.8 GM/DL Hematocrit 54.1 % Mean Corpuscular Volume 92.4 FL Mean Corpuscular Hemoglobin 30.4 PG Mean Corpuscular Hemoglobin Concent 32.8 % Red Cell Distribution Width 13.4 % Platelet Count 285 TH/MM3 Mean Platelet Volume 7.6 FL Neutrophils (%) (Auto) 40.9 % Lymphocytes (%) (Auto) 45.4 % Monocytes (%) (Auto) 9.8 % Eosinophils (%) (Auto) 0.5 % Basophils (%) (Auto) 3.4 % Neutrophils # (Auto) 2.4 TH/MM3 Lymphocytes # (Auto) 2.7 TH/MM3 Monocytes # (Auto) 0.6 TH/MM3 Eosinophils # (Auto) 0.0 TH/MM3 Basophils # (Auto) 0.2 TH/MM3 CBC Comment DIFF FINAL Differential Comment Blood Urea Nitrogen 6 MG/DL Creatinine 0.94 MG/DL Random Glucose 116 MG/DL Total Protein 8.5 GM/DL Albumin 4.1 GM/DL Calcium Level 8.9 MG/DL Alkaline Phosphatase 111 U/L Aspartate Amino Transf (AST/SGOT) 119 U/L Alanine Aminotransferase (ALT/SGPT) 109 U/L Total Bilirubin 0.7 MG/DL Sodium Level 135 MEQ/L Potassium Level 5.2 MEQ/L Chloride Level 99 MEQ/L Carbon Dioxide Level 23.8 MEQ/L Anion Gap 12 MEQ/L Estimat Glomerular Filtration Rate 93 ML/MIN Lipase 67 U/L Prothrombin Time 10.5 SEC Prothromb Time International Ratio 1.0 RATIO Activated Partial Thromboplast Time 24.0 SEC MDM Medical Decision Making Medical Screen Exam Complete: Yes Emergency Medical Condition: Yes Medical Record Reviewed: Yes Interpretation(s) Vital Signs Date Time Temp Pulse Resp B/P (MAP) Pulse Ox O2 Delivery O2 Flow Rate FiO2 08/07/17 07:25 98.1 90 18 172/101 (124) 97 Differential Diagnosis Anxiety reaction, pancreatitis, alcohol withdrawal, electrolyte abnormality Narrative Course 32-year-old male presents to emergency room with complaints of alcoholism, possible alcohol withdrawal, anxiety with nausea and vomiting, headache from falling onto the floor this morning as well as left-sided shoulder pain. During the course of the patients emergency department visit, the patients history, examination, and differential diagnosis were reviewed with the patient. The patient was placed on a data analytics analyst with oximetry and frequent blood pressure monitoring. The patient had an IV access obtained and blood work sent for analysis. The patient was initially provided IV Ativan, IV fluids, IV Zofran The patients laboratory studies were reviewed and remarkable for: Laboratory Tests Test 08/07/17 07:45 08/07/17 08:38 White Blood Count 5.9 TH/MM3 (4.0-11.0) Red Blood Count 5.86 MIL/MM3 (4.50-5.90) Hemoglobin 17.8 GM/DL (13.0-17.0) Hematocrit 54.1 % (39.0-51.0) Mean Corpuscular Volume 92.4 FL (80.0-100.0) Mean Corpuscular Hemoglobin 30.4 PG (27.0-34.0) Mean Corpuscular Hemoglobin Concent 32.8 % (32.0-36.0) Red Cell Distribution Width 13.4 % (11.6-17.2) Platelet Count 285 TH/MM3 (150-450) Mean Platelet Volume 7.6 FL (7.0-11.0) Neutrophils (%) (Auto) 40.9 % (16.0-70.0) Lymphocytes (%) (Auto) 45.4 % (9.0-44.0) Monocytes (%) (Auto) 9.8 % (0.0-8.0) Eosinophils (%) (Auto) 0.5 % (0.0-4.0) Basophils (%) (Auto) 3.4 % (0.0-2.0) Neutrophils # (Auto) 2.4 TH/MM3 (1.8-7.7) Lymphocytes # (Auto) 2.7 TH/MM3 (1.0-4.8) Monocytes # (Auto) 0.6 TH/MM3 (0-0.9) Eosinophils # (Auto) 0.0 TH/MM3 (0-0.4) Basophils # (Auto) 0.2 TH/MM3 (0-0.2) CBC Comment DIFF FINAL Differential Comment Blood Urea Nitrogen 6 MG/DL (7-18) Creatinine 0.94 MG/DL (0.60-1.30) Random Glucose 116 MG/DL (74-106) Total Protein 8.5 GM/DL (6.4-8.2) Albumin 4.1 GM/DL (3.4-5.0) Calcium Level 8.9 MG/DL (8.5-10.1) Alkaline Phosphatase 111 U/L (45-117) Aspartate Amino Transf (AST/SGOT) 119 U/L (15-37) Alanine Aminotransferase (ALT/SGPT) 109 U/L (12-78) Total Bilirubin 0.7 MG/DL (0.2-1.0) Sodium Level 135 MEQ/L (136-145) Potassium Level 5.2 MEQ/L (3.5-5.1) Chloride Level 99 MEQ/L (98-107) Carbon Dioxide Level 23.8 MEQ/L (21.0-32.0) Anion Gap 12 MEQ/L (5-15) Estimat Glomerular Filtration Rate 93 ML/MIN (>89) Lipase 67 U/L (73-393) Prothrombin Time 10.5 SEC (9.8-11.6) Prothromb Time International Ratio 1.0 RATIO Activated Partial Thromboplast Time 24.0 SEC (24.3-30.1) Radiology studies were reviewed and remarkable for: Last Impressions Head CT 08/07/17 0742 Signed Impressions: Service Date/Time: Monday, August 07, 2017 08:25 - CONCLUSION: Normal examination. Lluvia Burgess MD Shoulder X-Ray 08/07/17 0000 Signed Impressions: Service Date/Time: Monday, August 07, 2017 08:12 - CONCLUSION: Unremarkable examination of the left shoulder. Lluvia Burgess MD Patient reevaluated, patient feeling much better at this time. CT of the head shows no acute intracranial abnormalities, x-ray shoulder shows no obvious fractures. Lab work reviewed, patient does have a mild transaminitis, this may be due to his alcoholism. Patient instructed to drink alcohol responsibly. He was also instructed to go to AA meetings as he reports alcohol dependency. Signs and symptoms of when to return to the emergency room was reviewed with patient in detail. Diagnosis Primary Impression: Alcohol dependency Qualified Codes: F10.29 - Alcohol dependence with unspecified alcohol-induced disorder Additional Impressions: Transaminitis Sprain of shoulder, left Qualified Codes: S43.402A - Unspecified sprain of left shoulder joint, initial encounter Head injury Qualified Codes: S09.90XA - Unspecified injury of head, initial encounter Patient Instructions: General Instructions Additional Instructions: Please provide patient with a copy of their lab work and studies at discharge* * Please follow up with your primary care doctor in 2-3 days Return to the ER if symptoms worsen or progress Return to the ER as needed Please drink alcohol responsibly Scripts Ondansetron (Zofran) 4 Mg Tab 4 MG PO Q6HR Y for NAUSEA OR VOMITING, #20 TAB 0 Refills Prov: Lakshmi Willis DO 08/07/17 Disposition: 01 DISCHARGE HOME Condition: Stable Lakshmi Willis DO Aug 07, 2017 07:53
[2017-08-07 07:58] VITALS: BP 129/75; PULSE 91; RESP 18; O2SAT 97
[2017-08-07 08:20] LABS: AUTOMATED NEUTROPHIL # 2.4 TH/MM3 (1.8-7.7); BASOPHIL # 0.2 TH/MM3 (0-0.2); BASOPHIL % 3.4 % (0.0-2.0); EOSINOPHIL % 0.5 % (0.0-4.0); HEMATOCRIT 54.1 % (39.0-51.0); HEMOGLOBIN 17.8 GM/DL (13.0-17.0); LYMPH % 45.4 % (9.0-44.0); LYMPHOCYTE # 2.7 TH/MM3 (1.0-4.8); MEAN CELL VOLUME 92.4 FL (80.0-100.0); MEAN CORPUSCULAR HEMOGLOBIN 30.4 PG (27.0-34.0); MEAN CORPUSCULAR HGB CONC 32.8 % (32.0-36.0); MEAN PLATELET VOLUME 7.6 FL (7.0-11.0); MONO % 9.8 % (0.0-8.0); MONOCYTE # 0.6 TH/MM3 (0-0.9); NEUT % 40.9 % (16.0-70.0); PLATELET COUNT 285 TH/MM3 (150-450); RED BLOOD COUNT 5.86 MIL/MM3 (4.50-5.90); RED CELL DISTRIBUTION WIDTH 13.4 % (11.6-17.2); WHITE BLOOD COUNT 5.9 TH/MM3 (4.0-11.0)
[2017-08-07 08:22] LABS: CHLORIDE 99 MEQ/L (98-107); SODIUM (NA) 135 MEQ/L (136-145)
[2017-08-07 08:25] LABS: ALBUMIN 4.1 GM/DL (3.4-5.0); BICARBONATE 23.8 MEQ/L (21.0-32.0); CALCIUM 8.9 MG/DL (8.5-10.1); GLUCOSE,RANDOM 116 MG/DL (74-106)
[2017-08-07 08:26] LABS: BLOOD UREA NITROGEN 6 MG/DL (7-18)
[2017-08-07 08:28] LABS: ALT (GPT) 109 U/L (12-78)
[2017-08-07 08:29] LABS: AST (GOT) 119 U/L (15-37); CREATININE 0.94 MG/DL (0.60-1.30); GLOMERULAR FILTRATION RATE 93 ML/MIN (>89)
[2017-08-07 08:30] LABS: TOTAL BILIRUBIN ADULT 0.7 MG/DL (0.2-1.0)
--- NOTE | 2017-08-07 08:30 | RADRPT ---
EXAM DATE/TIME: 08/07/2017 08:12 [facility] COMPARISON: SHOULDER LEFT COMPLETE (>2VWS), December 24, 2016, 15:26. INDICATIONS : Fall, left shoulder pain, limited ROM MEDICAL HISTORY : None. SURGICAL HISTORY : None. ENCOUNTER: Initial ACUITY: 1 day PAIN SCORE: 8/10 LOCATION: Left shoulder FINDINGS: Multiple view examination of the left shoulder demonstrates no evidence of fracture or dislocation. The glenohumeral and acromioclavicular joints are maintained. There is normal range of motion betwee n internal and external rotation. Bony mineralization is normal. CONCLUSION: Unremarkable examination of the left shoulder. Lluvia Burgess MD on August 07, 2017 at 8:27 Board Certified Radiologist. This report was verified electronically.
[2017-08-07 08:31] LABS: ALKALINE PHOSPHATASE 111 U/L (45-117); TOTAL PROTEIN 8.5 GM/DL (6.4-8.2)
--- NOTE | 2017-08-07 08:37 | RADRPT ---
EXAM DATE/TIME: 08/07/2017 08:25 [facility] COMPARISON: CT BRAIN W/O CONTRAST, April 14, 2014, 22:12. INDICATIONS : Fall. Headache. RADIATION DOSE: 55.35 CTDIvol (mGy) MEDICAL HISTORY : None SURGICAL HISTORY : None. ENCOUNTER: Initial ACUITY: 1 day PAIN SCALE: 4/10 LOCATION: cranial TECHNIQUE: Multiple contiguous axial images were obtained of the head. Using automated exposure control and adj ustment of the mA and/or kV according to patient size, radiation dose was kept as low as reasonably a chievable to obtain optimal diagnostic quality images. DICOM format image data is available electro nically for review and comparison. FINDINGS: CEREBRUM: The ventricles are normal for age. No evidence of midline shift, mass lesion, hemorrhage or acute in farction. No extra-axial fluid collections are seen. POSTERIOR FOSSA: The cerebellum and brainstem are intact. The 4th ventricle is midline. The cerebellopontine angle i s unremarkable. EXTRACRANIAL: The visualized portion of the orbits is intact. SKULL: The calvaria is intact. No evidence of skull fracture. CONCLUSION: Normal examination. Lluvia Burgess MD on August 07, 2017 at 8:34 Board Certified Radiologist. This report was verified electronically.
[2017-08-07 09:02] LABS: PROTHROMBIN TIME - PATIENT 10.5 SEC (9.8-11.6)
[2017-08-07] MEDS ORDERED: ONDANSETRON HCL 4 MG/2 ML VIAL IV PUSH ONE ×2 (09:15→10:15)
[2017-08-07 09:21] VITALS: BP 102/59; PULSE 97; RESP 18; O2SAT 97
[2017-08-07] MEDS ORDERED: ZOFR4TAB PO (10:46)
[2017-08-07 10:48] VITALS: BP 140/73
== END 2017-08-07 11:00 | disposition home or self-care (01) ==
LOC: PHED 07:23
DX: F10.20 Alcohol dependence, uncomplicated (principal); R74.0 Nonspecific elevation of levels of transaminase and lactic acid dehydrogenase [LDH]; S43.402A Unspecified sprain of left shoulder joint, initial encounter; S09.90XA Unspecified injury of head, initial encounter; R11.2 Nausea with vomiting, unspecified; F41.9 Anxiety disorder, unspecified; F32.9 Major depressive disorder, single episode, unspecified; W18.30XA Fall on same level, unspecified, initial encounter; Z87.19 Personal history of other diseases of the digestive system
CPT/HCPCS: 70450; 73030; 80053; 83690; 85025; 85610; 85730; 96361; 96374; 96375; 96376; 99285; J2060; J2405; J7030

== ENCOUNTER 2017-08-20 12:22 | Emergency (ER) | payer SELFPAY ==
[~2017-08-20] VITALS: Ht 180.3 cm; Wt 95.7 kg
[~2017-08-20 12:22] MED LIST changes: -CLIN300C5 PO; -DICL50TA3 PO; -ONDA4TAB7 SL; +ZOFR4TAB PO
[2017-08-20 12:26] VITALS: BP 143/94; PULSE 106; RESP 18; TEMP 98.6; O2SAT 98
[2017-08-20 12:53] VITALS: BP 148/91; PULSE 106; RESP 18; O2SAT 98
[2017-08-20] MEDS ORDERED: SODIUM CHLOR 0.9% 1000 ML INJ 1,000 ML IV ONE (13:33)
--- NOTE | 2017-08-20 13:39 | PD ---
HPI Chief Complaint: Alcohol/Drug Intoxication Time Seen by Provider: 13:33 Travel History International Travel<30 days: No Contact w/Intl Traveler<30days: No Traveled to known affect area: No History of Present Illness HPI 32-year-old male patient with history of alcohol abuse, pancreatitis, alcohol withdrawal seizures, seen 2 weeks ago for fall related to alcohol, presents to the ER today because he states that he has not been drinking since Tuesday, has been having several days history of nausea, vomiting, is having epigastric abdominal discomfort, and states that last night while he was taking a shower, he had gone unconscious and found himself on the floor of his shower. He does not remember what happened, complains currently of a headache. He states that his abdominal pain and headaches are an 8 out of 10. He denies any fevers, or other issues. Modifying Factors: None Associated Signs & Symptoms: Alcohol withdrawal, nausea, vomiting, unconscious episode, headache, abdominal pain Risk Factors: Alcohol abuse, pancreatitis PFSH Past Medical History Hx Anticoagulant Therapy: No Arthritis: Yes Anxiety: Yes Depression: Yes Cancer: No Cardiovascular Problems: No Chemotherapy: No Cerebrovascular Accident: No Diabetes: No Diminished Hearing: No Endocrine: No Gastrointestinal Disorders: No Genitourinary: No Headaches: No Heparin Induced Thrombocytopen: No Immune Disorder: No Implanted Vascular Access Dvce: Yes (NOT IN PLACE AT THIS TIME) Musculoskeletal: Yes (chronic back pain) Neurologic: No Psychiatric: No Reproductive: Yes Respiratory: No Immunizations Current: Yes Migraines: No Pancreatitis: Yes Pneumonia: Yes Radiation Therapy: No Seizures: No Sickle Cell Disease: No Thyroid Disease: No Influenza Vaccination: No Past Surgical History Abdominal Surgery: No AICD: No Arteriovenous Shunt: No Body Medical Devices: 4 screws lumbar Cardiac Surgery: No Ear Surgery: No Endocrine Surgery: No Eye Surgery: No Genitourinary Surgery: No Gynecologic Surgery: No Hysterectomy: No Insulin Pump: No Joint Replacement: No Neurologic Surgery: No Oral Surgery: No Pacemaker: No Thoracic Surgery: Yes (Backx 2 with screws) Other Surgery: Yes Social History Alcohol Use: Yes (binge drinker) Tobacco Use: Yes (05/03 PPD) Substance Use: Yes (MARIJUANA) Allergies-Medications (Allergen,Severity, Reaction): Coded Allergies: No Known Allergies (Verified Adverse Reaction, Unknown, 08/20/17) Reported Meds & Prescriptions Reported Meds & Active Scripts Active No Active Prescriptions or Reported Medications Review of Systems Except as stated in HPI: all other systems reviewed are Neg Physical Exam Narrative GENERAL: Well-developed young male patient currently in moderate distress. Awake and oriented 3. Nightly tremulous. Appears anxious. SKIN: Focused skin assessment warm/dry. HEAD: Atraumatic. Normocephalic. EYES: Pupils equal and round. No scleral icterus. No injection or drainage. ENT: No nasal bleeding or discharge. Mucous membranes pink and moist. NECK: Trachea midline. No JVD. Supple. No midline C-spine tenderness. CARDIOVASCULAR: Regular rate and rhythm. No murmur appreciated. RESPIRATORY: No accessory muscle use. Clear to auscultation. Breath sounds equal bilaterally. GASTROINTESTINAL: Abdomen soft, non-tender, nondistended. Hepatic and splenic margins not palpable. BACK: No CVA tenderness. No rash. No point tenderness on palpation of the spine. MUSCULOSKELETAL: No obvious deformities. No clubbing. No cyanosis. No edema. NEUROLOGICAL: Awake and alert. No obvious cranial nerve deficits. Motor grossly within normal limits. Normal speech. PSYCHIATRIC: Anxious mood and affect; insight and judgment poor. Data Data Last Documented VS Vital Signs Date Time Temp Pulse Resp B/P (MAP) Pulse Ox O2 Delivery O2 Flow Rate FiO2 08/20/17 15:23 90 18 160/83 (108) 96 Room Air 08/20/17 12:26 98.6 Orders Orders Electrocardiogram (08/20/17 13:33) Complete Blood Count With Diff (08/20/17 13:33) Comprehensive Metabolic Panel (08/20/17 13:33) Magnesium (Mg) (08/20/17 13:33) Ct Brain W/O Iv Contrast(Rout) (08/20/17 13:33) Ecg Monitoring (08/20/17 13:33) Iv Access Insert/Monitor (08/20/17 13:33) Oximetry (08/20/17 13:33) Ondansetron Inj (Zofran Inj) (08/20/17 13:45) Sodium Chloride 0.9% Flush (Ns Flush) (08/20/17 13:45) Sodium Chlor 0.9% 1000 Ml Inj (Ns 1000 M (08/20/17 13:33) Lipase (08/20/17 13:33) Drug Screen, Random Urine (08/20/17 13:33) Alcohol (Ethanol) (08/20/17 13:33) Lorazepam Inj (Ativan Inj) (08/20/17 13:45) Us Abdomen Gallbladder (08/20/17 14:44) Labs Laboratory Tests Test 08/20/17 13:35 08/20/17 14:45 White Blood Count 7.8 TH/MM3 Red Blood Count 5.53 MIL/MM3 Hemoglobin 17.7 GM/DL Hematocrit 50.6 % Mean Corpuscular Volume 91.5 FL Mean Corpuscular Hemoglobin 32.0 PG Mean Corpuscular Hemoglobin Concent 35.0 % Red Cell Distribution Width 13.3 % Platelet Count 333 TH/MM3 Mean Platelet Volume 7.6 FL Neutrophils (%) (Auto) 69.1 % Lymphocytes (%) (Auto) 16.4 % Monocytes (%) (Auto) 12.0 % Eosinophils (%) (Auto) 0.1 % Basophils (%) (Auto) 2.4 % Neutrophils # (Auto) 5.4 TH/MM3 Lymphocytes # (Auto) 1.3 TH/MM3 Monocytes # (Auto) 0.9 TH/MM3 Eosinophils # (Auto) 0.0 TH/MM3 Basophils # (Auto) 0.2 TH/MM3 CBC Comment DIFF FINAL Differential Comment Blood Urea Nitrogen 5 MG/DL Creatinine 0.92 MG/DL Random Glucose 108 MG/DL Total Protein 8.0 GM/DL Albumin 4.0 GM/DL Calcium Level 9.2 MG/DL Magnesium Level 1.6 MG/DL Alkaline Phosphatase 130 U/L Aspartate Amino Transf (AST/SGOT) 115 U/L Alanine Aminotransferase (ALT/SGPT) 170 U/L Total Bilirubin 1.0 MG/DL Sodium Level 137 MEQ/L Potassium Level 3.7 MEQ/L Chloride Level 99 MEQ/L Carbon Dioxide Level 26.9 MEQ/L Anion Gap 11 MEQ/L Estimat Glomerular Filtration Rate 95 ML/MIN Lipase 59 U/L Ethyl Alcohol Level LESS THAN 3 MG/DL Urine Opiates Screen NEG Urine Barbiturates Screen NEG Urine Amphetamines Screen NEG Urine Benzodiazepines Screen NEG Urine Cocaine Screen NEG Urine Cannabinoids Screen POS MDM Medical Decision Making Medical Screen Exam Complete: Yes Emergency Medical Condition: Yes Medical Record Reviewed: Yes Interpretation(s) EKG shows NSR, no ST elevation or depression, and no arrhythmias. No significant T-wave inversions. Laboratory Tests Test 08/20/17 13:35 08/20/17 14:45 Hemoglobin 17.7 GM/DL (13.0-17.0) Monocytes (%) (Auto) 12.0 % (0.0-8.0) Basophils (%) (Auto) 2.4 % (0.0-2.0) Blood Urea Nitrogen 5 MG/DL (7-18) Random Glucose 108 MG/DL (74-106) Alkaline Phosphatase 130 U/L (45-117) Aspartate Amino Transf (AST/SGOT) 115 U/L (15-37) Alanine Aminotransferase (ALT/SGPT) 170 U/L (12-78) Lipase 59 U/L (73-393) Urine Cannabinoids Screen POS (NEG) Last [address] 08/20/17 1333 Signed Impressions: Service Date/Time: Tuesday, August 20, 2017 13:52 - CONCLUSION: Negative exam. Arnie Hoover MD Differential Diagnosis Gastritis versus gastroenteritis versus hepatitis versus dehydration, rule out intracranial injuries Narrative Course Considering patient's history, there is a likelihood here that he had some alcohol withdrawal and possible seizure that made him have the episode of unconsciousness, another possibility may be that he was intoxicated and went down because of that. CAT scan has been ordered to rule out intracranial injuries or acute intracranial processes. Lab work shows liver enzyme elevations and ultrasound was done of the liver and gallbladder, show some pancreatic fatty infiltration but otherwise is unremarkable for any signs of other acute processes. I had given him a dose of Ativan in the ER and on reevaluation at 3:50 PM, he is feeling improved, vital signs are stable, and at this point my plan would be to release him with Librium. He should avoid drinking and using Librium at the same time. He needs to follow-up with rehab at [facility]. Return for any worsening in symptoms or new issues as needed. The plan has been discussed with him he states understanding. Diagnosis Primary Impression: Alcohol withdrawal Additional Impression: Gastritis Ref[facility]: [facility] Pt SpecificInfo: Prescription(s) given Scripts Chlordiazepoxide HCl (Chlordiazepoxide HCl) 25 Mg Capsule 50 MG PO QID Y for alcohol withdrawal, #15 Prov: Mahesh Shelton MD 08/20/17 Ranitidine (Zantac) 150 Mg Tab 150 MG PO BID for Reduce Stomach Acid, #14 TAB 0 Refills Prov: Mahesh Shelton MD 08/20/17 Ondansetron Odt (Zofran Odt) 4 Mg Tab 4 MG SL Q6HR Y for Nausea/Vomiting, #7 TAB 0 Refills Prov: Mahesh Shelton MD 08/20/17 Disposition: 01 DISCHARGE HOME Condition: Stable Mahesh Shelton MD Aug 20, 2017 13:39
[2017-08-20 13:40] VITALS: O2SAT 97
[2017-08-20] MEDS ORDERED: LORazepam 2 MG/ML VIAL IV PUSH ONE (13:45)
[2017-08-20] MEDS ORDERED: SODIUM CHLORIDE 0.9% FLUSH 10 ML FLUSH IVF PRN (13:45)
[2017-08-20] MEDS ORDERED: ONDANSETRON HCL 4 MG/2 ML VIAL IVP ONE (13:45)
[2017-08-20 13:49] LABS: AUTOMATED NEUTROPHIL # 5.4 TH/MM3 (1.8-7.7); BASOPHIL # 0.2 TH/MM3 (0-0.2); BASOPHIL % 2.4 % (0.0-2.0); EOSINOPHIL % 0.1 % (0.0-4.0); HEMATOCRIT 50.6 % (39.0-51.0); HEMOGLOBIN 17.7 GM/DL (13.0-17.0); LYMPH % 16.4 % (9.0-44.0); LYMPHOCYTE # 1.3 TH/MM3 (1.0-4.8); MEAN CELL VOLUME 91.5 FL (80.0-100.0); MEAN PLATELET VOLUME 7.6 FL (7.0-11.0); MONOCYTE # 0.9 TH/MM3 (0-0.9); NEUT % 69.1 % (16.0-70.0); PLATELET COUNT 333 TH/MM3 (150-450); RED BLOOD COUNT 5.53 MIL/MM3 (4.50-5.90); RED CELL DISTRIBUTION WIDTH 13.3 % (11.6-17.2); WHITE BLOOD COUNT 7.8 TH/MM3 (4.0-11.0)
[2017-08-20 13:53] LABS: CHLORIDE 99 MEQ/L (98-107); SODIUM (NA) 137 MEQ/L (136-145)
[2017-08-20 13:57] LABS: BICARBONATE 26.9 MEQ/L (21.0-32.0); BLOOD UREA NITROGEN 5 MG/DL (7-18); CALCIUM 9.2 MG/DL (8.5-10.1); GLUCOSE,RANDOM 108 MG/DL (74-106); MAGNESIUM 1.6 MG/DL (1.5-2.5)
[2017-08-20 14:00] LABS: ALT (GPT) 170 U/L (12-78); AST (GOT) 115 U/L (15-37); CREATININE 0.92 MG/DL (0.60-1.30); GLOMERULAR FILTRATION RATE 95 ML/MIN (>89)
[2017-08-20 14:03] LABS: ALKALINE PHOSPHATASE 130 U/L (45-117)
[2017-08-20 14:05] VITALS: BP 140/81; PULSE 80; RESP 18; O2SAT 96
--- NOTE | 2017-08-20 14:27 | RADRPT ---
EXAM DATE/TIME: 08/20/2017 13:52 [facility] COMPARISON: CT BRAIN W/O CONTRAST, August 07, 2017, 8:25. INDICATIONS : Patient fell hitting the back of his head last night. RADIATION DOSE: 55.05 CTDIvol (mGy) MEDICAL HISTORY : Alcohol, marijuana SURGICAL HISTORY : Back ENCOUNTER: Initial ACUITY: 1 day PAIN SCALE: 7/10 LOCATION: posterior head TECHNIQUE: Multiple contiguous axial images were obtained of the head. Using automated exposure control and adj ustment of the mA and/or kV according to patient size, radiation dose was kept as low as reasonably a chievable to obtain optimal diagnostic quality images. DICOM format image data is available electro nically for review and comparison. FINDINGS: CEREBRUM: The ventricles are normal for age. No evidence of midline shift, mass lesion, hemorrhage or acute in farction. No extra-axial fluid collections are seen. POSTERIOR FOSSA: The cerebellum and brainstem are intact. The 4th ventricle is midline. The cerebellopontine angle i s unremarkable. EXTRACRANIAL: The visualized portion of the orbits is intact. SKULL: The calvaria is intact. No evidence of skull fracture. CONCLUSION: Negative exam. Arnie Hoover MD on August 20, 2017 at 14:24 Board Certified Radiologist. This report was verified electronically.
[2017-08-20 15:23] VITALS: BP 160/83; PULSE 90; RESP 18; O2SAT 96
--- NOTE | 2017-08-20 15:52 | RADRPT ---
EXAM DATE/TIME: 08/20/2017 15:27 [facility] COMPARISON: US ABDOMEN - GALLBLADDER, June 27, 2015, 13:32. INDICATIONS : Nausea/Vomiting. MEDICAL HISTORY : Pnemonia. Pancreatitis. Arthritis. Depression. Anxiety. Alcohol use. Substance use. SURGICAL HISTORY : Back surgery x2. ENCOUNTER: Subsequent ACUITY: 1 day PAIN SCORE: 6/10 LOCATION: Right upper quadrant MEASUREMENTS: LIVER: 19.5 cm length COMMON DUCT: 6 mm RIGHT KIDNEY: 10.2 x 5.6 x 4.8 cm FINDINGS: LIVER: Normal echotexture without focal lesion or ductal dilatation. COMMON DUCT: No intraluminal mass or stone visualized. GALLBLADDER: Contains no stones, demonstrates no wall thickening or pericholecystic fluid. PANCREAS: Pancreas is somewhat echogenic possibly representing some degree of fatty infiltration. RIGHT KIDNEY: No evidence of hydronephrosis, stone, or mass. CONCLUSION: 1. Increased echogenicity of the pancreas may represent some fatty infiltration. 2. Otherwise negative. Arnie Hoover MD on August 20, 2017 at 15:49 Board Certified Radiologist. This report was verified electronically.
[2017-08-20 15:59] VITALS: BP 156/74
[2017-08-20] MEDS ORDERED: ZOFR4TAB3 SL (16:02)
[2017-08-20] MEDS ORDERED: ZANT150T2 PO (16:02)
[2017-08-20] MEDS ORDERED: CHLO25CA9 PO (16:02)
--- NOTE | 2017-08-22 00:43 | EKG ---
Date Performed: 08/20/2017 Time Performed: 13:42:17 PTAGE: 32 years EKG: Sinus rhythm NORMAL ECG PREVIOUS TRACING : 07/18/2016 09.16 Compared to previous tracing, rate has decreased DOCTOR: Chris Cedeno Interpretating Date/Time 08/22/2017 00:41:59
== END 2017-08-20 16:12 | disposition home or self-care (01) ==
LOC: PHED 12:22
DX: F10.239 Alcohol dependence with withdrawal, unspecified (principal); K29.70 Gastritis, unspecified, without bleeding; F32.9 Major depressive disorder, single episode, unspecified; F41.9 Anxiety disorder, unspecified; G89.29 Other chronic pain; F17.200 Nicotine dependence, unspecified, uncomplicated; F12.90 Cannabis use, unspecified, uncomplicated
CPT/HCPCS: 70450; 76705; 80053; 80307; 83690; 83735; 85025; 93005; 96361; 96374; 96375; 99284; J2060; J2405; J7030

== ENCOUNTER 2017-08-29 06:54 | Emergency (ER) | payer SELFPAY ==
[~2017-08-29] VITALS: Ht 180.3 cm; Wt 97.5 kg
[~2017-08-29 06:54] MED LIST changes: +CHLO25CA9 PO; +ZANT150T2 PO; -ZOFR4TAB PO; +ZOFR4TAB3 SL
[2017-08-29 07:09] VITALS: BP 162/95; PULSE 116; RESP 22; TEMP 98.2; O2SAT 97
[2017-08-29] MEDS ORDERED: THIAMINE INJ 100 MG in SODIUM CHLORIDE 0.9% INJ 100 ML IV ONE (07:45)
[2017-08-29] MEDS ORDERED: LORazepam 2 MG/ML VIAL IV PUSH ONE ×2 (07:45→09:30)
[2017-08-29] MEDS ORDERED: ONDANSETRON HCL 4 MG/2 ML VIAL IV PUSH ONE (07:45)
[2017-08-29] MEDS ORDERED: SODIUM CHLOR 0.9% 1000 ML INJ 1,000 ML IV ONE ×2 (07:45→09:00)
--- NOTE | 2017-08-29 07:47 | PD ---
HPI Chief Complaint: GI Complaint Time Seen by Provider: 07:38 Travel History International Travel<30 days: No Contact w/Intl Traveler<30days: No Traveled to known affect area: No History of Present Illness HPI This 32-year-old male is complaining of vomiting since yesterday afternoon. He is a heavy drinker he says he drinks 12-20 shots a day. He has been here for alcohol withdrawal in the past but has never been to detox. He has had a seizure related to alcohol. He has also had pancreatitis. He has had persistent vomiting since yesterday. He says he is very tremulous. His last drink was yesterday. He denies drugs except for occasional marijuana PFSH Past Medical History Hx Anticoagulant Therapy: No Arthritis: Yes Anxiety: Yes Depression: Yes Cancer: No Cardiovascular Problems: No Chemotherapy: No Cerebrovascular Accident: No Diabetes: No Diminished Hearing: No Endocrine: No Gastrointestinal Disorders: No GERD: Yes Genitourinary: No Headaches: No Heparin Induced Thrombocytopen: No Immune Disorder: No Implanted Vascular Access Dvce: Yes (NOT IN PLACE AT THIS TIME) Medical other: Yes (Alcoholism) Musculoskeletal: Yes (chronic back pain) Neurologic: No Psychiatric: No Reproductive: Yes Respiratory: No Immunizations Current: Yes Migraines: No Pancreatitis: Yes Pneumonia: Yes Radiation Therapy: No Seizures: No Sickle Cell Disease: No Thyroid Disease: No Influenza Vaccination: No ?: Not Past Surgical History Abdominal Surgery: No AICD: No Arteriovenous Shunt: No Body Medical Devices: 4 screws lumbar Cardiac Surgery: No Ear Surgery: No Endocrine Surgery: No Eye Surgery: No Genitourinary Surgery: No Gynecologic Surgery: No Hysterectomy: No Insulin Pump: No Joint Replacement: No Neurologic Surgery: No Oral Surgery: No Pacemaker: No Thoracic Surgery: Yes (Backx 2 with screws) Other Surgery: Yes Social History Alcohol Use: Yes (binge drinker) Tobacco Use: Yes (/2 PPD) Substance Use: Yes (MARIJUANA) Allergies-Medications (Allergen,Severity, Reaction): Coded Allergies: No Known Allergies (Verified Adverse Reaction, Unknown, 08/29/17) Reported Meds & Prescriptions Reported Meds & Active Scripts Active Zantac (Ranitidine HCl) 150 Mg Tab 150 Mg PO BID Review of Systems General / Constitutional: No: Fever, Chills Eyes: No: Diploplia HENT: No: Headaches Cardiovascular: No: Chest Pain or Discomfort Respiratory: Positive: Cough Gastrointestinal: Positive: Nausea, Vomiting, Abdominal Pain Genitourinary: No: Urgency, Frequency Musculoskeletal: No: Myalgias, Arthralgias Skin: No Rash, No Itching Neurologic: No: Weakness, Dizziness Hematologic/Lymphatic: No: Easy Bruising Physical Exam Narrative GENERAL: Well-developed male. He is vomiting and is somewhat tremulous SKIN: Focused skin assessment warm/dry. HEAD: Atraumatic. Normocephalic. EYES: Pupils equal and round. No scleral icterus. No injection or drainage. ENT: No nasal bleeding or discharge. Mucous membranes pink and moist. Teeth in poor repair NECK: Trachea midline. No JVD. CARDIOVASCULAR: Regular rate and rhythm. No murmur appreciated. RESPIRATORY: No accessory muscle use. Clear to auscultation. Breath sounds equal bilaterally. GASTROINTESTINAL: Abdomen soft, there is epigastric tenderness nondistended. Hepatic and splenic margins not palpable. MUSCULOSKELETAL: No obvious deformities. No clubbing. No cyanosis. No edema. NEUROLOGICAL: Awake and alert. No obvious cranial nerve deficits. Motor grossly within normal limits. Normal speech. PSYCHIATRIC: Appropriate mood and affect; insight and judgment normal. Data Data Last Documented VS Vital Signs Date Time Temp Pulse Resp B/P (MAP) Pulse Ox O2 Delivery O2 Flow Rate FiO2 08/29/17 10:39 93 18 124/74 (91) 98 Room Air 08/29/17 08:19 97.9 Orders Orders Complete Blood Count With Diff (08/29/17 07:41) Comprehensive Metabolic Panel (08/29/17 07:41) Prothrombin Time / Inr (Pt) (08/29/17 07:41) Act Partial Throm Time (Ptt) (08/29/17 07:41) Urinalysis - C+S If Indicated (08/29/17 07:41) Magnesium (Mg) (08/29/17 07:41) Alcohol (Ethanol) (08/29/17 07:41) Sodium Chlor 0.9% 1000 Ml Inj (Ns 1000 M (08/29/17 07:45) Thiamine Inj (Thiamine Inj) (08/29/17 07:45) Ondansetron Inj (Zofran Inj) (08/29/17 07:45) Lorazepam Inj (Ativan Inj) (08/29/17 07:45) Lipase (08/29/17 07:41) Potassium Chlor 20 Meq Premix (Kcl 20 Me (08/29/17 09:00) Sodium Chlor 0.9% 1000 Ml Inj (Ns 1000 M (08/29/17 09:00) Pantoprazole Inj (Protonix Inj) (08/29/17 09:15) Promethazine Inj (Phenergan Inj) (08/29/17 09:15) Lorazepam Inj (Ativan Inj) (08/29/17 09:30) Labs Laboratory Tests Test 08/29/17 07:45 08/29/17 07:55 White Blood Count 7.5 TH/MM3 Red Blood Count 5.32 MIL/MM3 Hemoglobin 16.7 GM/DL Hematocrit 49.3 % Mean Corpuscular Volume 92.7 FL Mean Corpuscular Hemoglobin 31.4 PG Mean Corpuscular Hemoglobin Concent 33.9 % Red Cell Distribution Width 13.2 % Platelet Count 325 TH/MM3 Mean Platelet Volume 8.0 FL Neutrophils (%) (Auto) 66.1 % Lymphocytes (%) (Auto) 20.5 % Monocytes (%) (Auto) 9.2 % Eosinophils (%) (Auto) 0.0 % Basophils (%) (Auto) 4.2 % Neutrophils # (Auto) 5.0 TH/MM3 Lymphocytes # (Auto) 1.5 TH/MM3 Monocytes # (Auto) 0.7 TH/MM3 Eosinophils # (Auto) 0.0 TH/MM3 Basophils # (Auto) 0.3 TH/MM3 CBC Comment DIFF FINAL Differential Comment Prothrombin Time 10.7 SEC Prothromb Time International Ratio 1.1 RATIO Activated Partial Thromboplast Time 22.2 SEC Blood Urea Nitrogen 5 MG/DL Creatinine 1.10 MG/DL Random Glucose 127 MG/DL Total Protein 7.7 GM/DL Albumin 3.9 GM/DL Calcium Level 8.8 MG/DL Magnesium Level 1.7 MG/DL Alkaline Phosphatase 122 U/L Aspartate Amino Transf (AST/SGOT) 85 U/L Alanine Aminotransferase (ALT/SGPT) 118 U/L Total Bilirubin 0.9 MG/DL Sodium Level 140 MEQ/L Potassium Level 3.2 MEQ/L Chloride Level 101 MEQ/L Carbon Dioxide Level 22.1 MEQ/L Anion Gap 17 MEQ/L Estimat Glomerular Filtration Rate 78 ML/MIN Lipase 76 U/L Ethyl Alcohol Level 29 MG/DL Urine Collection Type VOIDED Urine Color YELLOW Urine Turbidity CLEAR Urine pH 6.0 Urine Specific Foley 1.020 Urine Protein TRACE mg/dL Urine Glucose (UA) NEG mg/dL Urine Ketones 40 mg/dL Urine Occult Blood NEG Urine Nitrite NEG Urine Bilirubin NEG Urine Urobilinogen 0.2 MG/DL Urine Leukocyte Esterase NEG Urine Squamous Epithelial Cells 0-2 /hpf Microscopic Urinalysis Comment CULT NOT INDICATED MDM Medical Decision Making Medical Screen Exam Complete: Yes Emergency Medical Condition: Yes Medical Record Reviewed: Yes Differential Diagnosis Differential includes gastritis, pancreatitis, alcoholic gastritis Narrative Course Patient has been given IV fluids. His lipase is normal. He has responded to antiemetics and some Ativan. Impression is alcoholic gastritis. He is feeling better and is stable for discharge the importance of been following up with [facility] has been stressed to the patient Diagnosis Primary Impression: Alcoholic gastritis Scripts Chlordiazepoxide HCl (Chlordiazepoxide HCl) 25 Mg Capsule 1 TAB PO Q6HR for Alcohol Detox, #2 Prov: [place]ico Pineda MD 08/29/17 Disposition: DISCHARGE HOME Condition: Stable [place] Pineda MD Aug 29, 2017 07:47
[2017-08-29 07:54] LABS: BASOPHIL # 0.3 TH/MM3 (0-0.2); BASOPHIL % 4.2 % (0.0-2.0); HEMATOCRIT 49.3 % (39.0-51.0); HEMOGLOBIN 16.7 GM/DL (13.0-17.0); LYMPH % 20.5 % (9.0-44.0); LYMPHOCYTE # 1.5 TH/MM3 (1.0-4.8); MEAN CELL VOLUME 92.7 FL (80.0-100.0); MEAN CORPUSCULAR HEMOGLOBIN 31.4 PG (27.0-34.0); MEAN CORPUSCULAR HGB CONC 33.9 % (32.0-36.0); MONO % 9.2 % (0.0-8.0); MONOCYTE # 0.7 TH/MM3 (0-0.9); NEUT % 66.1 % (16.0-70.0); PLATELET COUNT 325 TH/MM3 (150-450); RED BLOOD COUNT 5.32 MIL/MM3 (4.50-5.90); RED CELL DISTRIBUTION WIDTH 13.2 % (11.6-17.2); WHITE BLOOD COUNT 7.5 TH/MM3 (4.0-11.0)
[2017-08-29 08:02] LABS: CHLORIDE 101 MEQ/L (98-107); SODIUM (NA) 140 MEQ/L (136-145)
[2017-08-29 08:03] LABS: BILIRUBIN, URINE NEG (NEG); BLOOD, URINE NEG (NEG); GLUCOSE,URINE NEG (NEG); KETONE, URINE 40 mg/dL (NEG); NITRITE,URINE NEG (NEG); URINE COLOR YELLOW (YELLW/STRAW); URINE LEUKOCYTE ESTERASE NEG (NEG)
[2017-08-29 08:05] LABS: CALCIUM 8.8 MG/DL (8.5-10.1)
[2017-08-29 08:06] LABS: ALBUMIN 3.9 GM/DL (3.4-5.0); BICARBONATE 22.1 MEQ/L (21.0-32.0); BLOOD UREA NITROGEN 5 MG/DL (7-18); GLUCOSE,RANDOM 127 MG/DL (74-106); MAGNESIUM 1.7 MG/DL (1.5-2.5)
[2017-08-29 08:07] LABS: INTERNATIONAL NORMALIZED RATIO 1.1 RATIO; PROTHROMBIN TIME - PATIENT 10.7 SEC (9.8-11.6)
[2017-08-29 08:08] LABS: ALT (GPT) 118 U/L (12-78)
[2017-08-29 08:09] LABS: AST (GOT) 85 U/L (15-37); GLOMERULAR FILTRATION RATE 78 ML/MIN (>89)
[2017-08-29 08:10] LABS: TOTAL BILIRUBIN ADULT 0.9 MG/DL (0.2-1.0); TOTAL PROTEIN 7.7 GM/DL (6.4-8.2)
[2017-08-29 08:11] LABS: ALKALINE PHOSPHATASE 122 U/L (45-117)
[2017-08-29 08:13] LABS: SQUAMOUS EPITHELIAL CELL URINE 0-2 /hpf (0-5)
[2017-08-29 08:19] VITALS: BP 162/78; PULSE 108; RESP 20; TEMP 97.9; O2SAT 96
[2017-08-29] MEDS ORDERED: POTASSIUM CHLOR 20 MEQ PREMIX 100 ML IV ONE (09:00)
[2017-08-29] MEDS ORDERED: PROMETHAZINE INJ 25 MG/ML VIAL IM ONE (09:15)
[2017-08-29] MEDS ORDERED: PANTOPRAZOLE SODIUM 40 MG VIAL IV PUSH ONE (09:15)
[2017-08-29 09:20] VITALS: BP 103/57; PULSE 88; RESP 18; O2SAT 97
[2017-08-29 10:39] VITALS: BP 124/74; PULSE 93; RESP 18; O2SAT 98
[2017-08-29] MEDS ORDERED: CHLO25CA9 PO (10:52)
[2017-08-29 11:24] VITALS: BP 142/80; PULSE 81; RESP 16; O2SAT 98
== END 2017-08-29 11:55 | disposition home or self-care (01) ==
LOC: PHED 06:54
DX: K29.20 Alcoholic gastritis without bleeding (principal); Y90.1 Blood alcohol level of 20-39 mg/100 ml; F10.20 Alcohol dependence, uncomplicated; F41.9 Anxiety disorder, unspecified; F32.9 Major depressive disorder, single episode, unspecified; K21.9 Gastro-esophageal reflux disease without esophagitis; G89.29 Other chronic pain; F17.200 Nicotine dependence, unspecified, uncomplicated; F12.90 Cannabis use, unspecified, uncomplicated
CPT/HCPCS: 80053; 80307; 81001; 83690; 83735; 85025; 85610; 85730; 96365; 96366; 96372; 96375; 96376; 99284; C9113; J2060; J2405; J2550; J3411; J3480; J7030

== ENCOUNTER 2017-09-23 16:17 | Emergency (ER) | payer MEDICAID ==
[~2017-09-23] VITALS: Ht 180.3 cm; Wt 95.0 kg
[~2017-09-23 16:17] MED LIST changes: -ZOFR4TAB3 SL
[2017-09-23 17:14] VITALS: BP 123/77; PULSE 79; RESP 17; TEMP 98.2; O2SAT 94
[2017-09-23 18:51] LABS: AUTOMATED NEUTROPHIL # 4.9 TH/MM3 (1.8-7.7); BASOPHIL # 0.1 TH/MM3 (0-0.2); BASOPHIL % 0.6 % (0.0-2.0); HEMATOCRIT 50.1 % (39.0-51.0); HEMOGLOBIN 16.9 GM/DL (13.0-17.0); LYMPH % 32.2 % (9.0-44.0); LYMPHOCYTE # 2.7 TH/MM3 (1.0-4.8); MEAN CELL VOLUME 93.9 FL (80.0-100.0); MEAN CORPUSCULAR HEMOGLOBIN 31.7 PG (27.0-34.0); MEAN CORPUSCULAR HGB CONC 33.7 % (32.0-36.0); MEAN PLATELET VOLUME 7.6 FL (7.0-11.0); MONO % 8.3 % (0.0-8.0); MONOCYTE # 0.7 TH/MM3 (0-0.9); NEUT % 58.9 % (16.0-70.0); PLATELET COUNT 424 TH/MM3 (150-450); RED BLOOD COUNT 5.34 MIL/MM3 (4.50-5.90); RED CELL DISTRIBUTION WIDTH 14.2 % (11.6-17.2); WHITE BLOOD COUNT 8.3 TH/MM3 (4.0-11.0)
[2017-09-23 19:08] LABS: ALBUMIN 4.1 GM/DL (3.4-5.0); AST (GOT) 148 U/L (15-37); BICARBONATE 29.4 MEQ/L (21.0-32.0); BLOOD UREA NITROGEN 4 MG/DL (7-18); CALCIUM 9.2 MG/DL (8.5-10.1); CHLORIDE 100 MEQ/L (98-107); CREATININE 0.98 MG/DL (0.60-1.30); GLOMERULAR FILTRATION RATE 89 ML/MIN (>89); GLUCOSE,RANDOM 105 MG/DL (74-106); SODIUM (NA) 144 MEQ/L (136-145)
[2017-09-23 19:14] LABS: ALKALINE PHOSPHATASE 138 U/L (45-117); ALT (GPT) 226 U/L (12-78); TOTAL BILIRUBIN ADULT 0.5 MG/DL (0.2-1.0); TOTAL PROTEIN 8.1 GM/DL (6.4-8.2)
== END 2017-09-23 20:50 | disposition left against medical advice (07) ==
LOC: NED 16:17
DX: F99 Mental disorder, not otherwise specified (principal)
CPT/HCPCS: 80053; 80307; 85025; 99281

== ENCOUNTER 2017-09-28 07:53 | Inpatient (IN) | payer MEDICAID ==
[2017-09-28] VITALS (15 sets, daily range): BP systolic 119–151; BP diastolic 60–91; PULSE 99–150; RESP 16–35; TEMP 97.7–99.3; O2SAT 93–99
[~2017-09-28] VITALS: Ht 180.3 cm; Wt 101.5 kg
[2017-09-28] MEDS ORDERED: SODIUM CHLOR 0.9% 1000 ML INJ 1,000 ML IV ONE ×4 (08:00→10:15)
--- NOTE | 2017-09-28 08:09 | PD ---
HPI Chief Complaint: cp Time Seen by Provider: 08:00 Travel History International Travel<30 days: No Contact w/Intl Traveler<30days: No Traveled to known affect area: No History of Present Illness HPI Patient is visitor staying at a [place] hotel, apparently the patient called desktop support manager who then in turn called 911. The patient was found by EMS with multiple areas of emesis in the room along with 2 empty bottles of liquor, EMS had a difficult time starting an IV, patient was found to be diaphoretic with a heart rate of 155, EMS transported emergently to the department. Patient himself is unable to provide most of the history. He did state that he drinks heavily, per patient he approximately drinks "20-30 shots of 99% proof vodka" type alcohol daily. Patient states that he probably passed out last drink he had was yesterday. Now the patient feels like he is in withdrawal, he states that he has been in "DTs" before. No known drug allergy Past medical history significant for pancreatitis, pneumonia, back surgery, depression, anxiety, alcohol use, marijuana use, smokes half a pack a day PFSH Past Medical History Hx Anticoagulant Therapy: No Arthritis: Yes Anxiety: Yes Depression: Yes Cancer: No Cardiovascular Problems: No Chemotherapy: No Cerebrovascular Accident: No Diabetes: No Diminished Hearing: No Endocrine: No Gastrointestinal Disorders: No GERD: Yes Genitourinary: No Headaches: No Heparin Induced Thrombocytopen: No Immune Disorder: No Implanted Vascular Access Dvce: Yes (NOT IN PLACE AT THIS TIME) Musculoskeletal: Yes (chronic back pain) Neurologic: No Psychiatric: No Reproductive: Yes Respiratory: No Immunizations Current: Yes Migraines: No Pancreatitis: Yes Pneumonia: Yes Radiation Therapy: No Seizures: No Sickle Cell Disease: No Thyroid Disease: No Past Surgical History Abdominal Surgery: No AICD: No Arteriovenous Shunt: No Body Medical Devices: 4 screws lumbar Cardiac Surgery: No Ear Surgery: No Endocrine Surgery: No Eye Surgery: No Genitourinary Surgery: No Gynecologic Surgery: No Hysterectomy: No Insulin Pump: No Joint Replacement: No Neurologic Surgery: No Oral Surgery: No Pacemaker: No Thoracic Surgery: Yes (Backx 2 with screws) Other Surgery: Yes Social History Alcohol Use: Yes (binge drinker) Tobacco Use: Yes (1/2 PPD) Substance Use: Yes (MARIJUANA) Allergies-Medications (Allergen,Severity, Reaction): Coded Allergies: No Known Allergies (Verified Adverse Reaction, Unknown, 08/29/17) Reported Meds & Prescriptions Reported Meds & Active Scripts Active Chlordiazepoxide HCl 25 Mg Capsule 1 Tab PO Q6HR Zantac (Ranitidine HCl) 150 Mg Tab 150 Mg PO BID Review of Systems General / Constitutional: No: Fever Eyes: No: Visual changes HENT: No: Headaches Cardiovascular: Positive: Chest Pain or Discomfort, Tachycardia, Diaphoresis Respiratory: No: Shortness of Breath Gastrointestinal: Positive: Nausea, Vomiting, Abdominal Pain Genitourinary: No: Dysuria Musculoskeletal: No: Pain Skin: No Rash Neurologic: No: Weakness Psychiatric: No: Depression Endocrine: No: Polydipsia Hematologic/Lymphatic: No: Easy Bruising Physical Exam Exam Limitations: Clinical Condition Narrative GENERAL: SKIN: Diaphoretic HEAD: Atraumatic. Normocephalic. EYES: Pupils equal and round. No scleral icterus. No injection or drainage. ENT: No nasal bleeding or discharge. Mucous membranes pink and moist. NECK: Trachea midline. No JVD. CARDIOVASCULAR: Regular rhythm, tachycardic near the 160s RESPIRATORY: No accessory muscle use. Clear to auscultation. Breath sounds equal bilaterally. No palpable crepitus felt GASTROINTESTINAL: Abdomen soft, non-tender, nondistended. MUSCULOSKELETAL: Extremities without clubbing, cyanosis, or edema. No obvious deformities. NEUROLOGICAL: Awake and alert. No obvious cranial nerve deficits. Motor grossly within normal limits. Five out of 5 muscle strength in the arms and legs. Normal speech. PSYCHIATRIC: Appropriate mood and affect; insight and judgment normal. Data Data Last Documented VS Orders Orders Electrocardiogram (09/28/17 08:00) Complete Blood Count With Diff (09/28/17 08:00) Comprehensive Metabolic Panel (09/28/17 08:00) Creatine Kinase (Cpk) (09/28/17 08:00) Ckmb (Isoenzyme) Profile (09/28/17 08:00) Troponin I (09/28/17 08:00) B-Type Natriuretic Peptide (09/28/17 08:00) Lipase (09/28/17 08:00) Urinalysis - C+S If Indicated (09/28/17 08:00) Ct Abd/Pel W/O Iv Contrast (09/28/17 08:00) Iv Access Insert/Monitor (09/28/17 08:00) Ecg Monitoring (09/28/17 08:00) Oximetry (09/28/17 08:00) Alcohol (Ethanol) (09/28/17 08:00) Salicylates (Aspirin) (09/28/17 08:00) Tylenol (Acetaminophen) (09/28/17 08:00) Ct Thorax/ Chest Wo Iv Contras (09/28/17 08:00) Sodium Chlor 0.9% 1000 Ml Inj (Ns 1000 M (09/28/17 08:00) Sodium Chlor 0.9% 1000 Ml Inj (Ns 1000 M (09/28/17 08:00) Prochlorperazine Inj (Compazine Inj) (09/28/17 08:30) Diphenhydramine Inj (Benadryl Inj) (09/28/17 08:30) Alcohol Withdrawal Asmt-Ciwa ONCE (09/28/17 08:27) Flumazenil Inj (Romazicon Inj) (09/28/17 08:30) Lorazepam (Ativan) (09/28/17 08:30) Lorazepam Inj (Ativan Inj) (09/28/17 08:30) Lorazepam (Ativan) (09/28/17 08:30) Lorazepam Inj (Ativan Inj) (09/28/17 08:30) Lorazepam Inj (Ativan Inj) (09/28/17 08:30) Lorazepam Inj (Ativan Inj) (09/28/17 08:30) Lorazepam Inj (Ativan Inj) (09/28/17 08:28) CKMB (09/28/17 08:16) CKMB% (09/28/17 08:16) Sepsis Workup Initiated (09/28/17 ) Lactic Acid Sepsis Protocol (09/28/17 09:49) Blood Culture (09/28/17 09:49) Cefepime Inj (Maxipime Inj) (09/28/17 10:15) Sodium Chlor 0.9% 1000 Ml Inj (Ns 1000 M (09/28/17 10:15) Sodium Chlor 0.9% 1000 Ml Inj (Ns 1000 M (09/28/17 10:15) Admit Order (Ed Use Only) (5/30/18 10:18) Labs Laboratory Tests Test 09/28/17 08:16 09/28/17 10:00 White Blood Count 41.0 TH/MM3 Red Blood Count 6.28 MIL/MM3 Hemoglobin 20.7 GM/DL Hematocrit 58.5 % Mean Corpuscular Volume 93.2 FL Mean Corpuscular Hemoglobin 33.1 PG Mean Corpuscular Hemoglobin Concent 35.5 % Red Cell Distribution Width 14.3 % Platelet Count 237 TH/MM3 Mean Platelet Volume 7.9 FL Neutrophils (%) (Auto) 90.7 % Lymphocytes (%) (Auto) 4.6 % Monocytes (%) (Auto) 4.3 % Eosinophils (%) (Auto) 0.0 % Basophils (%) (Auto) 0.4 % Neutrophils # (Auto) 37.2 TH/MM3 Lymphocytes # (Auto) 1.9 TH/MM3 Monocytes # (Auto) 1.8 TH/MM3 Eosinophils # (Auto) 0.0 TH/MM3 Basophils # (Auto) 0.1 TH/MM3 CBC Comment AUTO DIFF Differential Total Cells Counted 100 Neutrophils % (Manual) 91 % Band Neutrophils % 4 % Lymphocytes % 2 % Monocytes % 2 % Neutrophils # (Manual) 39.4 TH/MM3 Metamyelocytes 1 % Differential Comment FINAL DIFF MANUAL Platelet Estimate NORMAL Platelet Morphology Comment NORMAL Red Cell Morphology Comment NORMAL Blood Urea Nitrogen 17 MG/DL Creatinine 1.24 MG/DL Random Glucose 202 MG/DL Total Protein 7.5 GM/DL Albumin 3.6 GM/DL Calcium Level 8.3 MG/DL Alkaline Phosphatase 203 U/L Aspartate Amino Transf (AST/SGOT) 436 U/L Alanine Aminotransferase (ALT/SGPT) 297 U/L Total Bilirubin 1.1 MG/DL Sodium Level 131 MEQ/L Potassium Level 3.4 MEQ/L Chloride Level 89 MEQ/L Carbon Dioxide Level 21.0 MEQ/L Anion Gap 21 MEQ/L Estimat Glomerular Filtration Rate 68 ML/MIN Total Creatine Kinase 771 U/L Creatine Kinase MB 19.9 NG/ML Creatine Kinase MB % 2.6 % Troponin I LESS THAN 0.02 NG/ML B-Type Natriuretic Peptide LESS THAN 2 PG/ML Lipase 6547 U/L Salicylates Level LESS THAN 1.7 MG/DL Acetaminophen Level LESS THAN 2.0 MCG/ML Ethyl Alcohol Level 283 MG/DL Lactic Acid Level 7.1 mmol/L [facility] Medical Decision Making Medical Screen Exam Complete: Yes Emergency Medical Condition: Yes Medical Record Reviewed: Yes Interpretation(s) EKG shows tachycardic rhythm narrow complex, with flutter waves most likely consistent with atrial flutter at approximately 150 bpm, normal intervals otherwise, nonspecific ST-T wave changes noted, no evidence of any ST elevation IL pattern seen. Pulse ox: Excellent Pleth wave noted, room air pulse oximetry readings between 98 and 100 which is within normal limits and without any evidence of hypoxemia. Differential Diagnosis BOERHAAVE'S syndrome versus pneumothorax versus STEMI versus pancreatitis versus hepatitis versus delirium tremens versus alcohol intoxication Narrative Course CBC shows a leukocytosis of 41,000 with 90% neutrophilia, hemoconcentration with a hemoglobin of 20/58, hematocrit, normal platelet count of 237,000, no bandemia noted Critical Care Narrative CRITICAL CARE NOTE: With evaluation of the patient, labs, EKG, receipt of radiologic studies, administration of medications, reevaluation the patient and discussion of the patient with the admitting physicians, the total critical care time was [45] minutes. Time to perform other separately billable procedures was not included in the critical care time. without all the interventions provided without much of a historical aid, the patient would have certainly if left alone had worse outcome/critical/ contributing event. Diagnosis Primary Impression: Acute alcoholic pancreatitis Qualified Codes: K85.20 - Alcohol induced acute pancreatitis without necrosis or infection Additional Impressions: Inappropriate sinus tachycardia Severe Leukocytosis of unknown origin Admitting Information Admitting Physician Requests: Admit Varinder Morrow MD September 28, 2017 08:09
[2017-09-28] MEDS ORDERED: LORazepam 2 MG/ML VIAL ONE (08:28)
[2017-09-28 08:30] LABS: AUTOMATED NEUTROPHIL # 37.2 TH/MM3 (1.8-7.7); BASOPHIL # 0.1 TH/MM3 (0-0.2); BASOPHIL % 0.4 % (0.0-2.0); HEMATOCRIT 58.5 % (39.0-51.0); HEMOGLOBIN 20.7 GM/DL (13.0-17.0); LYMPH % 4.6 % (9.0-44.0); LYMPHOCYTE # 1.9 TH/MM3 (1.0-4.8); MEAN CELL VOLUME 93.2 FL (80.0-100.0); MEAN CORPUSCULAR HEMOGLOBIN 33.1 PG (27.0-34.0); MEAN CORPUSCULAR HGB CONC 35.5 % (32.0-36.0); MEAN PLATELET VOLUME 7.9 FL (7.0-11.0); MONO % 4.3 % (0.0-8.0); MONOCYTE # 1.8 TH/MM3 (0-0.9); NEUT % 90.7 % (16.0-70.0); PLATELET COUNT 237 TH/MM3 (150-450); RED BLOOD COUNT 6.28 MIL/MM3 (4.50-5.90); RED CELL DISTRIBUTION WIDTH 14.3 % (11.6-17.2)
[2017-09-28] MEDS ORDERED: diphenhydrAMINE HCL 50 MG/ML VIAL IV PUSH ONE (08:30)
[2017-09-28] MEDS ORDERED: LORazepam 2 MG/ML VIAL IV PUSH PRN ×2 (08:30)
[2017-09-28] MEDS ORDERED: PROCHLORPERAZINE INJ 10 MG/2 ML VIAL IV PUSH ONE (08:30)
[2017-09-28] MEDS ORDERED: FLUMAZENIL 0.5 MG/5 ML VIAL IV PUSH PRN (08:30)
[2017-09-28] MEDS ORDERED: LORazepam 1 MG TAB PO PRN (08:30)
[2017-09-28] MEDS: LORazepam 2 MG/ML VIAL IV PUSH PRN ×4 (08:30→12:19)
[2017-09-28 08:49] LABS: ALBUMIN 3.6 GM/DL (3.4-5.0); AST (GOT) 436 U/L (15-37); BLOOD UREA NITROGEN 17 MG/DL (7-18); CALCIUM 8.3 MG/DL (8.5-10.1); CHLORIDE 89 MEQ/L (98-107); CREATININE 1.24 MG/DL (0.60-1.30); GLOMERULAR FILTRATION RATE 68 ML/MIN (>89); GLUCOSE,RANDOM 202 MG/DL (74-106); SODIUM (NA) 131 MEQ/L (136-145)
[2017-09-28 08:52] LABS: ALKALINE PHOSPHATASE 203 U/L (45-117); ALT (GPT) 297 U/L (12-78); TOTAL BILIRUBIN ADULT 1.1 MG/DL (0.2-1.0); TOTAL PROTEIN 7.5 GM/DL (6.4-8.2); TROPONIN I LESS THAN 0.02 NG/ML (0.02-0.05)
[2017-09-28 08:55] LABS: ACETAMINOPHEN LESS THAN 2.0 MCG/ML (10.0-30.0)
[2017-09-28 09:06] LABS: BANDS 4 % (0-6); LYMPHOCYTES 2 % (9-44); METAMYELOCYTES 1 % (0-1); MONOCYTES 2 % (0-8); NEUTROPHIL # MANUAL DIFF 39.4 TH/MM3 (1.8-7.7); POLYS (SEG NEUTROPHILS) 91 % (16-70)
--- NOTE | 2017-09-28 09:47 | RADRPT ---
EXAM DATE: 09/28/2017 9:33 AM EDT AGE/SEX: 32 years / Male INDICATIONS: Chest pain following profuse vomiting. Upper abdominal pain. Evaluate for Boerhaave's S yndrome. CLINICAL DATA: This is the patient's initial encounter. Patient reports that signs and symptoms have been present for 1 day and indicates a pain score of 9/10. MEDICAL/SURGICAL HISTORY: Gastroesophageal reflux disease. Pancreatitis. Fusion, lumbar. RADIATION DOSE: 18.07 CTDI (mGy) ; Combined studies COMPARISON: [facility] – [place], CT ABDOMEN & PELVIS W/O CONTRAST, 09/28/2017. . TECHNIQUE: Multiple contiguous axial images were obtained through the chest without contrast. Image s were obtained in suspended respiration using multiple row detector helical technique. Using automa maurisio exposure control and adjustment of the mA and/or kV according to patient size, radiation dose was kept as low as reasonably achievable to obtain optimal diagnostic quality images. FINDINGS: The pulmonary parenchyma demonstrates minimal atelectatic changes within the lung bases. There are ve ry small bibasal or effusions. The heart is normal in size. There is no significant hilar or mediastinal adenopathy. No pericardial effusion is seen. No axillary adenopathy is identified. The limited portions of upper abdomen visualized demonstrate some inflammatory changes along the tail of the pancreas. The upper abdomen is only partially visualized. The visualized bony structures are grossly intact. CONCLUSION: 1. There are very small bilateral effusions. There is no evidence of gas or significant fluid along the course of the esophagus. 2. There are inflammatory changes along the tail of the pancreas. This is only partially visualized. Electronically signed by: Mohan De Oliveira MD 09/28/2017 9:45 AM EDT
--- NOTE | 2017-09-28 09:48 | RADRPT ---
EXAM DATE: 09/28/2017 9:37 AM EDT AGE/SEX: 32 years / Male INDICATIONS: Chest pain following profuse vomiting. Upper abdominal pain. Evaluate for Boerhaave's S yndrome. CLINICAL DATA: This is the patient's initial encounter. Patient reports that signs and symptoms have been present for 1 day and indicates a pain score of 9/10. MEDICAL/SURGICAL HISTORY: Gastroesophageal reflux disease. Pancreatitis. Fusion, lumbar. RADIATION DOSE: 18.07 CTDI (mGy) ; Combined studies COMPARISON: [facility], CT ABDOMEN & PELVIS W CONTRAST, 01/17/2017. . TECHNIQUE: Multiple contiguous axial images were obtained through the abdomen. Images were obtained using multiple row detector helical technique. Using dose reduction techniques, radiation dose was ke pt as low as reasonably achievable to obtain optimal diagnostic quality images. FINDINGS: Lower Lungs: Small bilateral pleural effusions now noted. There is atelectasis in the dependent porti ons of the lung bases. Liver: There is moderate hepatic steatosis with mild in homogeneity. There is no ductal dilatation. T here is small amount of ascitic fluid surrounding the posterior liver margin. The gallbladder is unre markable in appearance with no calcified gallstones identified. Spleen: Homogeneous density without enlargement. There is small amount of surrounding ascitic fluid. Pancreas: The pancreas is abnormal and is now diffusely enlarged and inhomogeneous with mild surroun ding inflammatory change. There is no definite pancreatic ductal dilatation. Wispy soft tissue densit ies are noted in the surrounding fat with no drainable fluid collection. Kidneys: Normal in size and shape. No evidence of mass or hydronephrosis. Adrenal Glands: Unremarkable. Aorta: The aorta and proximal iliac vessels are grossly unremarkable without aneurysmal dilation. Bowel/Mesentery: No oral contrast was given limiting the sensitivity of the exam. There is apparent mild inflammatory change involving portions of the transverse colon with mild wall thickening and fol d thickening. Abdominal Wall: Intact. Retroperitoneum: No evidence of adenopathy in the retrocrural, para-aortic, or deep pelvic regions. Bladder: Contours are smooth. Reproductive Organs: No abnormal masses or calcifications seen. Inguinal: The inguinal region is unremarkable without evidence of adenopathy. Bony Structures: Unremarkable. CONCLUSION: 1. The pancreas is now markedly abnormal with enlargement and inflammatory change most characteristi c of acute pancreatitis. There are no drainable fluid collections or evidence of pancreatic ductal di latation. There is a small amount of ascites. 2. Mild inflammatory change involving the transverse colon which likely is secondary to the pancreat itis and represents a focal ileus. 3. Small pleural effusions are now noted. 4. Moderate hepatic steatosis and mild heterogeneity. 5. The gallbladder appears unremarkable with no calcified stones or inflammatory change. Electronically signed by: Paddy Vaca MD 09/28/2017 9:47 AM EDT
[2017-09-28] MEDS ORDERED: CEFEPIME INJ 2,000 MG in SODIUM CHLORIDE 0.9% INJ 100 ML IV ONE (10:15)
[2017-09-28] MEDS ORDERED: ESMOLOL DRIP INJ PREMIX 250 ML IV PRN (10:30)
[2017-09-28] MEDS ORDERED: ASPIRIN 325 MG TAB PO ONE (10:30)
[2017-09-28 10:44] LABS: LACTIC ACID SEPSIS PROTOCOL 7.1 mmol/L (0.4-2.0)
--- NOTE | 2017-09-28 10:46 | HHI.HP ---
[facility] No Primary Care Physician Admission Diagnosis TACHYCARDIA, ACUTE PANCREATITIS, SEVERE DEHYDRATION,POSS DT'S Diagnoses: Chief Complaint: Vomiting, chest pain Travel History International Travel<30 Days: No Contact w/Intl Traveler <30 Da: No Traveled to Known Affected Are: No History of Present Illness 32-year-old white male being admitted for metabolic encephalopathy and alcoholic intoxication. History is limited from the patient, largely obtained from emergency room records. Patient was brought in by [facility], was found to be covered in vomit and some diarrhea at home. Patient had complained to them about some chest pain. In the emergency department ED physician noted that he was shaking all over with a heart rate in the 150s. Blood alcohol level came back over 280. Patient had a CIWA score of 34 per nursing. Was given 2 L normal saline bolus with a heart rate reduction down to the 130s., Still receiving additional boluses. White count was noted to be in the 40,000 range, lipase was elevated over 6000. EKG which I independently reviewed showed what appeared to be a sinus tachycardic rate with changes that could not delineate clearly whether ST elevation was noted in the anterior leads given a substantial tachycardia. CT chest and CT abdomen were performed which showed some nonspecific inflammatory changes of the tail of the pancreas and some mild small pleural effusions. By the time I began dividing the patient he had already received 2 doses of Ativan and was quite somnolent. Patient was able to be aroused and did mumble and not that he had more chest pain than anything else and some vomiting. He affirmed that his chest pain was reproduced when I deeply palpated his sternum and pectoral muscles. Review of Systems Except as stated in HPI: all other systems reviewed are Neg Past Family Social History Past Medical History pancreatitis, multiple ETOH intox/withdrawal admissions Allergies: Coded Allergies: No Known Allergies (Verified Adverse Reaction, Unknown, 08/29/17) Family History unable to obtain Social History drinking Physical Exam Vital Signs Vital Signs Date Time Temp Pulse Resp B/P (MAP) Pulse Ox O2 Delivery O2 Flow Rate FiO2 09/28/17 08:11 97.7 135 16 130/85 (100) 95 Room Air 2.00 09/28/17 08:11 135 95 Nasal Cannula 3.00 09/28/17 08:01 97.7 135 16 130/85 (100) 96 Physical Exam VS: afebrile GENERAL: Lying in bed, somnolent, aroused upon sternal rub, mumbling at best, some sputum at his mouth SKIN: Warm and dry. EYES: Pupils appear dilated but are reactive to light, no scleral icterus. No injection or drainage. ENT: No nasal bleeding or discharge. Mucous membranes pink and moist. CARDIOVASCULAR: Tachycardic rate, regular rhythm, no murmurs, RESPIRATORY: No accessory muscle use. Clear to auscultation. Breath sounds equal bilaterally. GASTROINTESTINAL: Abdomen soft, nondistended, has pain upon palpation over epigastrium but no guarding Extremities: No clubbing, cyanosis, or edema. No obvious deformities. MUSCULOSKELETAL: adequate muscle bulk and tone for age and habitus NEUROLOGICAL: Awake and alert. No obvious cranial nerve deficits. No facial droop nor slurred speech noted. Unable to cooperate for reflexes. Unable to track due to somnolence PSYCHIATRIC: Appropriate mood and affect; insight and judgment normal. Laboratory Laboratory Tests Test 09/28/17 08:16 09/28/17 10:00 White Blood Count 41.0 Red Blood Count 6.28 Hemoglobin 20.7 Hematocrit 58.5 Mean Corpuscular Volume 93.2 Mean Corpuscular Hemoglobin 33.1 Mean Corpuscular Hemoglobin Concent 35.5 Red Cell Distribution Width 14.3 Platelet Count 237 Mean Platelet Volume 7.9 Neutrophils (%) (Auto) 90.7 Lymphocytes (%) (Auto) 4.6 Monocytes (%) (Auto) 4.3 Eosinophils (%) (Auto) 0.0 Basophils (%) (Auto) 0.4 Neutrophils # (Auto) 37.2 Lymphocytes # (Auto) 1.9 Monocytes # (Auto) 1.8 Eosinophils # (Auto) 0.0 Basophils # (Auto) 0.1 CBC Comment AUTO DIFF Differential Total Cells Counted 100 Neutrophils % (Manual) 91 Band Neutrophils % 4 Lymphocytes % 2 Monocytes % 2 Neutrophils # (Manual) 39.4 Metamyelocytes 1 Differential Comment FINAL DIFF MANUAL Platelet Estimate NORMAL Platelet Morphology Comment NORMAL Red Cell Morphology Comment NORMAL Blood Urea Nitrogen 17 Creatinine 1.24 Random Glucose 202 Total Protein 7.5 Albumin 3.6 Calcium Level 8.3 Alkaline Phosphatase 203 Aspartate Amino Transf (AST/SGOT) 436 Alanine Aminotransferase (ALT/SGPT) 297 Total Bilirubin 1.1 Sodium Level 131 Potassium Level 3.4 Chloride Level 89 Carbon Dioxide Level 21.0 Anion Gap 21 Estimat Glomerular Filtration Rate 68 Total Creatine Kinase 771 Creatine Kinase MB 19.9 Creatine Kinase MB % 2.6 Troponin I LESS THAN 0.02 B-Type Natriuretic Peptide LESS THAN 2 Lipase 6547 Salicylates Level LESS THAN 1.7 Acetaminophen Level LESS THAN 2.0 Ethyl Alcohol Level 283 Date/Time Source Procedure Growth Status 09/28/17 10:00 Blood Peripheral Aerobic Blood Culture Pending Received 09/28/17 10:00 Blood Peripheral Anaerobic Blood Culture Pending Received Result Diagram: 09/28/1781509/28/17815 Imaging Last Impressions Chest CT 09/28/17799 Signed Impressions: CONCLUSION: 1. There are very small bilateral effusions. There is no evidence of gas or si gnificant fluid along the course of the esophagus. 2. There are inflammatory changes along the tail of the pancreas. This is only partially visualized. Abdomen/Pelvis CT 09/28/17799 Signed Impressions: CONCLUSION: 1. The pancreas is now markedly abnormal with enlargement and inflammatory dominic nge most characteristic of acute pancreatitis. There are no drainable fluid col lections or evidence of pancreatic ductal dilatation. There is a small amount o f ascites. 2. Mild inflammatory change involving the transverse colon which likely is sec ondary to the pancreatitis and represents a focal ileus. 3. Small pleural effusions are now noted. 4. Moderate hepatic steatosis and mild heterogeneity. 5. The gallbladder appears unremarkable with no calcified stones or inflammato ry change. Caprini VTE Risk Assessment Caprini VTE Risk Assessment: Mod/High Risk (score >= 2) Caprini Risk Assessment Model Point Value = 1 Point Value = 2 Point Value = 3 Point Value = 5 Age 41-60 Minor surgery BMI > 25 kg/m2 Swollen legs Varicose veins or History of unexplained or recurrent spontaneous Oral contraceptives or hormone replacement Sepsis (< 1 month) Serious lung disease, including pneumonia (< 1 month) Abnormal pulmonary function Acute myocardial infarction Congestive heart failure (< 1 month) History of inflammatory bowel disease Medical patient at bed rest Age 61-74 Arthroscopic surgery Major open surgery (> 45 min) Laparoscopic surgery (> 45 min) Malignancy Confined to bed (> 72 hours) Immobilizing plaster cast Central venous access Age >= 75 History of VTE Family history of VTE Factor V Leiden Prothrombin [id number] Lupus anticoagulant Anticardiolipin antibodies Elevated serum homocysteine Heparin-induced thrombocytopenia Other congenital or acquired thrombophilia Stroke (< 1 month) Elective arthroplasty Hip, pelvis, or leg fracture Acute spinal cord injury (< 1 month) Prophylaxis Regimen Total Risk Factor Score Risk Level Prophylaxis Regimen 0-1 Low Early ambulation 2 Moderate Order ONE of the following: *Sequential Compression Device (SCD) *Heparin 5000 units SQ BID 3-4 Higher Order ONE of the following medications: *Heparin 5000 units SQ TID *Enoxaparin/Lovenox 40 mg SQ daily (WT < 150 kg, CrCl > 30 mL/min) *Enoxaparin/Lovenox 30 mg SQ daily (WT < 150 kg, CrCl > 10-29 mL/min) *Enoxaparin/Lovenox 30 mg SQ BID (WT < 150 kg, CrCl > 30 mL/min) AND/OR *Sequential Compression Device (SCD) 5 or more Highest Order ONE of the following medications: *Heparin 5000 units SQ TID (Preferred with Epidurals) *Enoxaparin/Lovenox 40 mg SQ daily (WT < 150 kg, CrCl > 30 mL/min) *Enoxaparin/Lovenox 30 mg SQ daily (WT < 150 kg, CrCl > 10-29 mL/min) *Enoxaparin/Lovenox 30 mg SQ BID (WT < 150 kg, CrCl > 30 mL/min) AND *Sequential Compression Device (SCD) Assessment and Plan Assessment and Plan 32-year-old white male being admitted for metabolic encephalopathy and ETOH intoxication Metabolic encephalopathy -Likely due to high alcohol level, possibly secondary to infection given white count is still high -CIWA score 34 -Treat underlying etiologies below -Fall precautions -ordering ammonia level Pancreatitis -likely 2/2 ETOH, Already received 2 L bolus, continue aggressive hydration -IV pain medication once pt is more awake ETOH withdrawal -Continue CIWA protocol, will consider ativan drip, can ultimately resort to scheduled Librium regimen once more awake -thiamine inj daily mild rhabdomyolysis - continue IVFs as above lactic acidosis - elevated at 7, aggressive IVFs, repeat - likely 2/2 pancreatitis, ETOH use, and possible sepsis Severe leukocytosis -Unclear if there is any necrotic pancreatitis involved since there was no contrast infused in the CT abd study -likely stress induced and/or possible inf -Cover with cefepime and trend white count for now, follow blood cultures -consider repeating ct abd WITH CONTRAST tomorrow Sinus tachycardia -Possibly due to substantial withdrawal versus other drug use, awaiting urine drug screen -We will need to perform repeat EKG once heart rate does slow down to the low 100s to ensure there is no ST segment elevation -We will consider starting a Precedex drip, avoid beta-blockers until confirmed that there is no cocaine in the system Chest pain -From the outset this appears to be due to vomiting and costochondritis -Trend troponin, give aspirin for now, CT chest showing no acute findings otherwise -Repeat EKG as above once tachycardia under control SCDs for now, start heparin once mental status improves further Addendum: reports of coffee ground emesis; consulting GI, 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 In the case of services not specified as inpatient-only, they are appropriately provided as inpatient services in accordance with the 2-midnight benchmark. Estimated LOS (days): 3 3 days is the estimated time the patient will need to remain in the hospital, assuming treatment plan goals are met and no additional complications. Post-Hospital Plan: Not yet determined Jose Enrique Diana MD September 28, 2017 10:46
[2017-09-28] MEDS ORDERED: OCTREOTIDE INJ 50 MCG/ML AMP IV PUSH ONE (12:15)
--- NOTE | 2017-09-28 12:22 | PD.CONS ---
HPI History of Present Illness This is a 32 year old M with medical history significant for ETOH abuse. At this time patient is intoxicated, therefore history is limited. According to the ER note pt is a visitor in a [place] hotel who called the bowling or skating front desk clerk and they called 911. Pt was found by EMS covered in emesis and stool. Work up in the ER revealed acute pancreatitis, elevated LFTs, and severed dehydration with mild rhabdomyolysis and lactic acidosis. Our service has been consulted because patient reported to ICU staff after transfer that he was vomiting black with small amount of BRB in it as well as having black stools. Pt complaining of upper abdominal pain, constant with intermittent intensity in the pain, described as sharp and burning. States one prior episode of pancreatitis in 2012 after his father . Pt states he has been drinking heavy for the past five days, 20-30 shots of 99 proof liquor daily. Serum alcohol level was 283 on admission. Also admits to daily marijuana use. Denies every seeing a GI doctor in the past. Denies previous EGD or colonoscopy. Denies NSAIDs. (Lali Hernandez) PFSH Past Medical History pancreatitis, multiple ETOH intox/withdrawal admissions (Lali Hernandez) Coded Allergies: No Known Allergies (Verified Adverse Reaction, Unknown, 08/29/17) Family History unable to obtain Social History Heavy ETOH use Admits to marijuana Denies nicotine use (Lali Hernandez) Review of Systems Gastrointestinal: COMPLAINS OF: Abdominal pain, Black stools, Diarrhea, Nausea , Vomiting, Hematemesis, DENIES: Bloody stools, Constipation (Lali Hernandez) GI Exam Vitals I&O Vital Signs Date Time Temp Pulse Resp B/P (MAP) Pulse Ox O2 Delivery O2 Flow Rate FiO2 09/28/17 11:16 151 16 137/66 (89) 95 2.00 09/28/17 10:45 98.4 144 16 133/70 (91) 96 Nasal Cannula 2.00 09/28/17 08:11 97.7 135 16 130/85 (100) 95 Room Air 2.00 09/28/17 08:11 135 95 Nasal Cannula 3.00 09/28/17 08:01 97.7 135 16 130/85 (100) 96 I/O 5/29/09/27/17 09/27/17 09/28/17 09/28/17 09/28/17 07:00 15:00 23:00 07:00 15:00 23:00 Intake Total 4100 ml Balance 4100 ml Intake IV Total 4100 ml Imaging Last Impressions Chest CT 09/28/17 08 Signed Impressions: CONCLUSION: 1. There are very small bilateral effusions. There is no evidence of gas or si gnificant fluid along the course of the esophagus. 2. There are inflammatory changes along the tail of the pancreas. This is only partially visualized. Abdomen/Pelvis CT 09/28/17799 Signed Impressions: CONCLUSION: 1. The pancreas is now markedly abnormal with enlargement and inflammatory dominic nge most characteristic of acute pancreatitis. There are no drainable fluid col lections or evidence of pancreatic ductal dilatation. There is a small amount o f ascites. 2. Mild inflammatory change involving the transverse colon which likely is sec ondary to the pancreatitis and represents a focal ileus. 3. Small pleural effusions are now noted. 4. Moderate hepatic steatosis and mild heterogeneity. 5. The gallbladder appears unremarkable with no calcified stones or inflammato ry change. Laboratory Test 09/28/17 08:16 09/28/17 10:00 09/28/17 11:12 09/28/17 11:44 White Blood Count 41.0 TH/MM3 Red Blood Count 6.28 MIL/MM3 Hemoglobin 20.7 GM/DL Hematocrit 58.5 % Mean Corpuscular Volume 93.2 FL Mean Corpuscular Hemoglobin 33.1 PG Mean Corpuscular Hemoglobin Concent 35.5 % Red Cell Distribution Width 14.3 % Platelet Count 237 TH/MM3 Mean Platelet Volume 7.9 FL Neutrophils (%) (Auto) 90.7 % Lymphocytes (%) (Auto) 4.6 % Monocytes (%) (Auto) 4.3 % Eosinophils (%) (Auto) 0.0 % Basophils (%) (Auto) 0.4 % Neutrophils # (Auto) 37.2 TH/MM3 Lymphocytes # (Auto) 1.9 TH/MM3 Monocytes # (Auto) 1.8 TH/MM3 Eosinophils # (Auto) 0.0 TH/MM3 Basophils # (Auto) 0.1 TH/MM3 CBC Comment AUTO DIFF Differential Total Cells Counted 100 Neutrophils % (Manual) 91 % Band Neutrophils % 4 % Lymphocytes % 2 % Monocytes % 2 % Neutrophils # (Manual) 39.4 TH/MM3 Metamyelocytes 1 % Differential Comment FINAL DIFF MANUAL Platelet Estimate NORMAL Platelet Morphology Comment NORMAL Red Cell Morphology Comment NORMAL Blood Urea Nitrogen 17 MG/DL Creatinine 1.24 MG/DL Random Glucose 202 MG/DL Total Protein 7.5 GM/DL Albumin 3.6 GM/DL Calcium Level 8.3 MG/DL Alkaline Phosphatase 203 U/L Aspartate Amino Transf (AST/SGOT) 436 U/L Alanine Aminotransferase (ALT/SGPT) 297 U/L Total Bilirubin 1.1 MG/DL Sodium Level 131 MEQ/L Potassium Level 3.4 MEQ/L Chloride Level 89 MEQ/L Carbon Dioxide Level 21.0 MEQ/L Anion Gap 21 MEQ/L Estimat Glomerular Filtration Rate 68 ML/MIN Total Creatine Kinase 771 U/L Creatine Kinase MB 19.9 NG/ML Creatine Kinase MB % 2.6 % Troponin I LESS THAN 0.02 NG/ML B-Type Natriuretic Peptide LESS THAN 2 PG/ML Lipase 6547 U/L Salicylates Level LESS THAN 1.7 MG/DL Acetaminophen Level LESS THAN 2.0 MCG/ML Ethyl Alcohol Level 283 MG/DL Lactic Acid Level 7.1 mmol/L Urine Opiates Screen NEG Urine Barbiturates Screen NEG Urine Amphetamines Screen NEG Urine Benzodiazepines Screen POS Urine Cocaine Screen NEG Urine Cannabinoids Screen POS Date/Time Source Procedure Growth Status 09/28/17 10:00 Blood Peripheral Aerobic Blood Culture Pending Received 09/28/17 10:00 Blood Peripheral Anaerobic Blood Culture Pending Received Physical Examination HEENT: Normocephalic; atraumatic CHEST: Even/unlabored CARDIAC: Sinus tachycardia on monitor ABDOMEN: Distended, soft, upper abdominal tenderness, bowel sounds active EXTREMITIES: No clubbing, cyanosis, or edema. SKIN: Normal; no rash; no jaundice. INSPECTOR BALANCE WHEEL MOTION: Slurred speech (Lali Hernandez) Assessment and Plan Plan Assessment: Pt intoxicated, speech is slurred, he is unable to provide much of a history at this time. - Coffee ground emesis and ? melena Brought in by EMS, he is staying in a [place] hotel and called the bowling or skating front desk clerk who called 911, pt was found covered in emesis and stool. Reports heavy drinking for the last 5 days, 20-30 shots of 99 proof liquor daily. H/H currently 20.7/58.5 Denies history of GIB, EGD, colonoscopy - Pancreatitis- Pt recalls one prior episode of pancreatitis in [address] abdomen and pelvis W/O IV contrast (09/28) The pancreas is now markedly abnormal with enlargement and inflammatory change most characteristic of acute pancreatitis. There are no drainable fluid collections or evidence of pancreatic ductal dilatation. There is a small amount of ascites. Mild inflammatory change involving the transverse colon which likely is secondary to the pancreatitis and represents a focal ileus. Small pleural effusions are now noted. Moderate hepatic steatosis and mild heterogeneity. The gallbladder appears unremarkable with no calcified stones or inflammatory change. Lipase-6547 - Elevated LFTs- likely secondary to ETOH (09/28) AST-436 ALT-297 T bili-1.1 Alk phos-203 Ammonia pending Pt report history of liver issues but unable to provide more specific history. - Tachycardic- likely secondary to dehydration, hopefully will normalize after fluid resuscitation - Rhabdomyolysis/impaired renal function- per attending Plan: Protonix gtt Octreotide gtt If actively vomiting, place NG to LIWS EGD tomorrow Obtain consent Keep NPO Aggressive fluid resuscitation Monitor labs Ammonia pending Hepatitis panel Further recommendations based on findings of above Pt has been seen and examined by myself and Dr. Hanson and this note is written on his behalf (Lali Hernandez) Physician Comments Seen and examined with MARTELL, no active bleeding. ETOH pancreatitis and etoh withdrawl. Ativan drip, rally pack. ICU monitoring with aggressive rehydration. ? egd tomorrow. Thank you (Radames Hanson MD) Lali Hernandez September 28, 2017 12:22 Radames Hanson MD September 28, 2017 16:36
[2017-09-28] MEDS ORDERED: DEXMEDETOMIDINE HCL 200 MCG/2 ML VIAL IV PUSH ONE (12:30)
[2017-09-28] MEDS: LORAZEPAM IV PRN ×2 (12:46)
[2017-09-28] MEDS: DEXTROSE 5% IV PRN ×2 (12:46)
[2017-09-28] MEDS: WATER IV PRN ×2 (12:46)
[2017-09-28 12:48] LABS: BACTERIA, URINE RARE /hpf; BILIRUBIN, URINE SMALL (NEG); BLOOD, URINE LARGE (NEG); GLUCOSE,URINE 70 mg/dL (NEG); HYALINE CAST, URINE 18 /lpf (RARE); KETONE, URINE 10 mg/dL (NEG); NITRITE,URINE NEG (NEG); SQUAMOUS EPITHELIAL CELL URINE 1 /hpf (0-5); TRANSITIONAL EPI CELLS, URINE <1 /hpf; URINE LEUKOCYTE ESTERASE NEG (NEG)
[2017-09-28 12:50] LABS: URINE COLOR AMBER (YELLW/STRAW)
--- NOTE | 2017-09-28 13:55 | EKG ---
Date Performed: 09/28/2017 Time Performed: 08:00:59 PTAGE: 32 years EKG: SINUS TACHYCARDIA, POSSIBLE ATRIAL FLUTTER NONSPECIFIC ST & T-WAVE ABNORMALITY ABNORMAL RHY THM ECG INTERPRETATION BASED ON A DEFAULT AGE OF 40 YEARS PREVIOUS TRACING : 08/20/2017 13.42 DOCTOR: Tamir Florian Interpretating Date/Time 09/28/2017 13:53:25
--- NOTE | 2017-09-28 16:08 | PD.CONS ---
HPI Service Critical Care Medicine Consult Requested By Dr. Diana Reason for Consult ETOH withdrawal, Acute Pancreatitis Primary Care Physician No Primary Care Physician History of Present Illness 32 YO male admitted by [facility] for acute pancreatitis, metabolic encephalopathy, leukocytosis, sinus tachycardia, hepatic steatosis with elevated LFTs, lactic acidosis, mild rhabdomyolysis, chest pain and coffee ground emesis with melena. Pt unable to provide any history due to obtunded condition. ED documentation: Patient is visitor staying at a [place] hotel, apparently the patient called first front ventilator who then in turn called 911. The patient was found by EMS with multiple areas of emesis in the room along with 2 empty bottles of liquor, EMS had a difficult time starting an IV, patient was found to be diaphoretic with a heart rate of 155, EMS transported emergently to the department. Patient himself is able to provide most of the history. He did state that he drinks heavily, per patient he approximately drinks 20-30 shots of 99% proof vodka type alcohol daily. Patient states that he probably passed out last drink he had was yesterday. Now the patient feels like he is in withdrawal, he states that he has been in "DTs" before. His reports the pt had gone missing for several days and they found him today in the hospital. She states he has been depressed. On admission, his EtOH level was 283, lactic acid 7, WBC 40K with 90% neutrophils, lipase >6000, elevated LFTs to AST 436/ ALT 297 / AP203, CK 771, CK -MB 19.9, Troponin <0.02, heart rate in 135-150 range. Review of Systems ROS Limitations: Clinical Condition, Intoxication, Unresponsive Past Family Social History Allergies: Coded Allergies: No Known Allergies (Verified Adverse Reaction, Unknown, 08/29/17) Past Medical History pancreatitis, multiple ETOH intox/withdrawal admissions Past Surgical History unknown Reported Medications Reported Meds & Active Scripts Active Chlordiazepoxide HCl 25 Mg Capsule 1 Tab PO Q6HR Zantac (Ranitidine HCl) 150 Mg Tab 150 Mg PO BID Active Ordered Medications Current Medications Medications (Trade) Dose Ordered Sig/Alin Route Start Time Stop Time Status Last Admin (Romazicon Inj) 0.2 mg Q1M PRN IV PUSH 09/28/17 08:30 (Ativan) 1 mg Q4H PRN PO 09/28/17 08:30 (Ativan Inj) 1 mg Q4H PRN IV PUSH 09/28/17 08:30 (Ativan) 2 mg Q2H PRN PO 09/28/17 08:30 (Ativan Inj) 2 mg Q2H PRN IV PUSH 09/28/17 08:30 09/28/17 10:13 (Ativan Inj) 2 mg Q1H PRN IV PUSH 09/28/17 08:30 09/28/17 12:19 (Ativan Inj) 2 mg Q15M PRN IV PUSH 09/28/17 08:30 Lorazepam 80 mg/ Dextrose 80 ml @ 1 mls/hr TITRATE PRN IV 09/28/17 13:00 09/28/17 12:46 Cefepime HCl 2000 mg/Sodium Chloride 100 ml @ 200 mls/hr Q8H IV 09/28/17 18:00 Thiamine HCl 100 mg/Sodium Chloride 101 ml @ 101 mls/hr Q24H IV 09/28/17 13:00 Pantoprazole Sodium 80 mg/ Sodium Chloride 100 ml @ 10 mls/hr Q10H IV 09/28/17 14:00 Octreotide Acetate 500 mcg/ Sodium Chloride 500 ml @ 50 mls/hr Q10H IV 09/28/17 14:00 Dexmedetomidine HCl 200 mcg/ Sodium Chloride 52 ml @ 4.96 mls/hr TITRATE PRN IV 09/28/17 12:30 Family History unknown Social History EtOH - yes Smokes marijuana Smoking hx unknown Physical Exam Vital Signs Vital Signs Date Time Temp Pulse Resp B/P (MAP) Pulse Ox O2 Delivery O2 Flow Rate FiO2 09/28/17 15:00 134 09/28/17 14:00 144 09/28/17 13:00 145 09/28/17 12:00 98.7 150 20 119/60 (79) 93 09/28/17 12:00 150 09/28/17 11:16 151 16 137/66 (89) 95 2.00 09/28/17 10:45 98.4 144 16 133/70 (91) 96 Nasal Cannula 2.00 09/28/17 08:11 97.7 135 16 130/85 (100) 95 Room Air 2.00 09/28/17 08:11 135 95 Nasal Cannula 3.00 09/28/17 08:01 97.7 135 16 130/85 (100) 96 Physical Exam GENERAL: Well-nourished, well-developed patient tachycardic at 140, diaphoretic and tremulous . SKIN: Warm and dry. HEAD: Normocephalic. EYES: No scleral icterus. No injection or drainage. NECK: Supple, trachea midline. No JVD or lymphadenopathy. CARDIOVASCULAR: Regular rate and rhythm without murmurs, gallops, or rubs. RESPIRATORY: Breath sounds equal bilaterally. No accessory muscle use. GASTROINTESTINAL: Abdomen soft, non-tender, nondistended. EXTREMITIES: No cyanosis, or edema. NEUROLOGICAL: Awake, alert, and oriented x 2. Non-focal. Laboratory Laboratory Tests Test 09/28/17 08:16 09/28/17 10:00 09/28/17 11:12 09/28/17 11:44 White Blood Count 41.0 Red Blood Count 6.28 Hemoglobin 20.7 Hematocrit 58.5 Mean Corpuscular Volume 93.2 Mean Corpuscular Hemoglobin 33.1 Mean Corpuscular Hemoglobin Concent 35.5 Red Cell Distribution Width 14.3 Platelet Count 237 Mean Platelet Volume 7.9 Neutrophils (%) (Auto) 90.7 Lymphocytes (%) (Auto) 4.6 Monocytes (%) (Auto) 4.3 Eosinophils (%) (Auto) 0.0 Basophils (%) (Auto) 0.4 Neutrophils # (Auto) 37.2 Lymphocytes # (Auto) 1.9 Monocytes # (Auto) 1.8 Eosinophils # (Auto) 0.0 Basophils # (Auto) 0.1 CBC Comment AUTO DIFF Differential Total Cells Counted 100 Neutrophils % (Manual) 91 Band Neutrophils % 4 Lymphocytes % 2 Monocytes % 2 Neutrophils # (Manual) 39.4 Metamyelocytes 1 Differential Comment FINAL DIFF MANUAL Platelet Estimate NORMAL Platelet Morphology Comment NORMAL Red Cell Morphology Comment NORMAL Blood Urea Nitrogen 17 Creatinine 1.24 Random Glucose 202 Total Protein 7.5 Albumin 3.6 Calcium Level 8.3 Alkaline Phosphatase 203 Aspartate Amino Transf (AST/SGOT) 436 Alanine Aminotransferase (ALT/SGPT) 297 Total Bilirubin 1.1 Sodium Level 131 Potassium Level 3.4 Chloride Level 89 Carbon Dioxide Level 21.0 Anion Gap 21 Estimat Glomerular Filtration Rate 68 Total Creatine Kinase 771 Creatine Kinase MB 19.9 Creatine Kinase MB % 2.6 Troponin I LESS THAN 0.02 B-Type Natriuretic Peptide LESS THAN 2 Lipase 6547 Salicylates Level LESS THAN 1.7 Acetaminophen Level LESS THAN 2.0 Ethyl Alcohol Level 283 Lactic Acid Level 7.1 Urine Color JOSIAH Urine Turbidity HAZY Urine pH 6.0 Urine Specific [place] 1.032 Urine Protein 300 Urine Glucose (UA) 70 Urine Ketones 10 Urine Occult Blood LARGE Urine Nitrite NEG Urine Bilirubin SMALL Urine Urobilinogen 2.0 Urine Leukocyte Esterase NEG Urine RBC 2 Urine WBC 4 Urine Squamous Epithelial Cells 1 Urine Transitional Epithelial Cells <1 Urine Bacteria RARE Urine Hyaline Casts 18 Microscopic Urinalysis Comment CULT NOT INDICATED Urine Opiates Screen NEG Urine Barbiturates Screen NEG Urine Amphetamines Screen NEG Urine Benzodiazepines Screen POS Urine Cocaine Screen NEG Urine Cannabinoids Screen POS Ammonia 23 Test 09/28/17 13:23 Lactic Acid Level 5.6 Troponin I 0.02 Hepatitis A IgM Antibody NONREACTIVE Hepatitis B Surface Antigen NONREACTIVE Hepatitis B Core IgM Antibody NONREACTIVE Hepatitis C IgG Antibody NONREACTIVE Date/Time Source Procedure Growth Status 09/28/17 10:00 Blood Peripheral Aerobic Blood Culture Pending Received 09/28/17 10:00 Blood Peripheral Anaerobic Blood Culture Pending Received Result Diagram: 09/28/17 0816 09/28/17 0816 Septic Shock Reassessment Septic shock perfusion: reassessment completed Assessment and Plan Assessment and Plan 32 YO male with PMHx multiple admissions for pancreatitis and EtOH intoxication presents with: Metabolic encephalopathy Acute pancreatitis 2/2 EtOH EtOH intoxication Hepatic steatosis Elevated LFTs Mild Rhabdomyolysis Lactic acidosis Sinus tachycardia Coffee ground emesis and melena SIRS possible sepsis Possible aspiration PLAN: Neuro: metabolic encephalopathy 2/2 EtOH intoxication/withdrawal; neuro checks; ammonia level daily with lactulose PRN; CIWA; check mag and Ca; started on ativan and precedex drip Cardiovascular: sinus tachycardia and CP upon admission and pain reproduced with sternal rub; consider hypovolemia/acute pancreatitis and EtOH-induced cardiomyopathy; multiple fluid boluses in ED and now Normosol IVF at 200 ml/hr; 5%albumin [id number] telemetry. Will start pressors if MAP<65 Respiratory: pulse ox at 95% on 2 L NC; continuous pulse ox. Bilateral very small pleural effusions on chest CT GI/Liver: Lipase >6000, lactic acidosis 7 on admission and trending down to 5.6 ; elevated LFTs 2/2 acute pancreatitis; negative hepatitis panel; IVF repletion as above; NPO due to ileus; CT abdomen/pelvis showing diffuse changes to pancreatic tail; fentanyl IV for pain control; trend lipase; interval CT in 48 hours if no improvement; GI consult recommending octreotide, Protonix gtt for hematemesis, NG tube if vomiting. /Renal: gross blood on UA; fluid repletion as above; repeat UA tomorrow; jones cath with strict I/Os; BMP q6h; follow CK and CK-MB for rhabdomyolysis ID: leukocytosis to 40K on admission with acute pancreatitis; follow daily CBC. Question of aspiration. Started Cefepime; add flagyl IV Heme: Follow CBC, coags. Type and screen, Transfuse to keep Hgb greater than 7gm % Endocrine: accuchecks q4h; low SSI Prophylaxis: SCDs, Protonix gtt. No heparin in v/o GI bleed till cleared by GI Patient seen and examined. Discussed findings/ assessment/ plan with Dr. Xie. Patient at high risk of decompensation and intubation. Agree with above note. Doni Xie MD R1 September 28, 2017 16:08 Wesley Bacon MD September 28, 2017 17:36
[2017-09-28 16:27] LABS: HEMATOCRIT 44.7 % (39.0-51.0); HEMOGLOBIN 15.5 GM/DL (13.0-17.0)
[2017-09-28 16:53] LABS: ALBUMIN 2.6 GM/DL (3.4-5.0); BICARBONATE 24.6 MEQ/L (21.0-32.0); CALCIUM 6.5 MG/DL (8.5-10.1); CREATININE 0.8 MG/DL (0.60-1.30); TOTAL BILIRUBIN ADULT 1.2 MG/DL (0.2-1.0); TOTAL PROTEIN 5.3 GM/DL (6.4-8.2)
[2017-09-28 16:55] LABS: CALCIUM-PROTEIN CORRECTED 7.4 MG/DL (8.5-10.1)
[2017-09-28] MEDS: ALBUMIN 5% INJ 250 ML IV SCH (17:23)
[2017-09-28] MEDS: THIAMINE INJ 100 MG in SODIUM CHLORIDE 0.9% INJ 100 ML IV SCH (17:25)
[2017-09-28] MEDS: OCTREOTIDE INJ 500 MCG in SODIUM CHLORID 0.9% 500 ML INJ 499.5 ML IV SCH (17:28)
[2017-09-28] MEDS: NORMOSOL R INJ 1,000 ML IV SCH ×2 (17:28→22:33)
[2017-09-28] MEDS: PANTOPRAZOLE INJ 80 MG in SODIUM CHLORIDE 0.9% INJ 100 ML IV SCH (17:28)
[2017-09-28] MEDS: DEXMEDETOMIDINE INJ 200 MCG in SODIUM CHLORIDE 0.9% INJ 50 ML IV PRN (17:37)
[2017-09-28] MEDS: CEFEPIME INJ 2,000 MG in SODIUM CHLORIDE 0.9% INJ 100 ML IV SCH (20:08)
[2017-09-28 20:37] LABS: INTERNATIONAL NORMALIZED RATIO 1.4 RATIO; PROTHROMBIN TIME - PATIENT 14.3 SEC (9.8-11.6)
[2017-09-28 20:47] LABS: TROPONIN I LESS THAN 0.02 NG/ML (0.02-0.05)
[2017-09-28] MEDS: metroNIDAZOLE 500 MG INJ 100 ML IV SCH (21:02)
[2017-09-28 22:56] LABS: HEMOGLOBIN 14.4 GM/DL (13.0-17.0)
[2017-09-29] VITALS (13 sets, daily range): BP systolic 111–155; BP diastolic 75–88; PULSE 84–94; RESP 17–22; TEMP 98–98.9; O2SAT 93–98
[2017-09-29] MEDS: DEXMEDETOMIDINE INJ 200 MCG in SODIUM CHLORIDE 0.9% INJ 50 ML IV PRN ×4 (00:36→21:49)
[2017-09-29] MEDS: metroNIDAZOLE 500 MG INJ 100 ML IV SCH ×3 (02:36→17:21)
[2017-09-29] MEDS: CEFEPIME INJ 2,000 MG in SODIUM CHLORIDE 0.9% INJ 100 ML IV SCH ×3 (02:36→17:22)
[2017-09-29] MEDS: PANTOPRAZOLE INJ 80 MG in SODIUM CHLORIDE 0.9% INJ 100 ML IV SCH ×3 (02:37→12:28)
[2017-09-29] MEDS: ALBUMIN 5% INJ 250 ML IV SCH ×2 (03:32→15:20)
[2017-09-29] MEDS: NORMOSOL R INJ 1,000 ML IV SCH ×4 (03:33→23:29)
[2017-09-29] MEDS: CHLORHEXIDINE GLUCONATE 2 % 1 PACK (2 CLOTHS)(taper/protocol) TOPICAL SCH (04:00)
[2017-09-29] MEDS: LORAZEPAM IV PRN ×2 (04:01)
[2017-09-29] MEDS: WATER IV PRN ×2 (04:01)
[2017-09-29] MEDS: DEXTROSE 5% IV PRN ×2 (04:01)
[2017-09-29 04:14] LABS: BASOPHIL % 0.1 % (0.0-2.0); HEMATOCRIT 38.7 % (39.0-51.0); HEMOGLOBIN 13.2 GM/DL (13.0-17.0); LYMPH % 5.2 % (9.0-44.0); LYMPHOCYTE # 0.9 TH/MM3 (1.0-4.8); MEAN CELL VOLUME 94.4 FL (80.0-100.0); MEAN CORPUSCULAR HEMOGLOBIN 32.3 PG (27.0-34.0); MEAN CORPUSCULAR HGB CONC 34.2 % (32.0-36.0); MONO % 3.3 % (0.0-8.0); MONOCYTE # 0.5 TH/MM3 (0-0.9); NEUT % 91.4 % (16.0-70.0); PLATELET COUNT 99 TH/MM3 (150-450); RED CELL DISTRIBUTION WIDTH 14.5 % (11.6-17.2); WHITE BLOOD COUNT 16.5 TH/MM3 (4.0-11.0)
[2017-09-29] MEDS ORDERED: CHLORHEXIDINE GLUCONATE 2 % 1 PACK (2 CLOTHS)(extra cloths) TOPICAL PRN (04:15)
[2017-09-29 04:20] LABS: INTERNATIONAL NORMALIZED RATIO 1.4 RATIO; PROTHROMBIN TIME - PATIENT 13.9 SEC (9.8-11.6)
[2017-09-29] MEDS: OCTREOTIDE INJ 500 MCG in SODIUM CHLORID 0.9% 500 ML INJ 499.5 ML IV SCH ×3 (04:30→12:28)
[2017-09-29 04:43] LABS: ALBUMIN 2.3 GM/DL (3.4-5.0); BICARBONATE 28.9 MEQ/L (21.0-32.0); CALCIUM 6.4 MG/DL (8.5-10.1); CALCIUM-PROTEIN CORRECTED 7.5 MG/DL (8.5-10.1); CREATININE 0.63 MG/DL (0.60-1.30); TOTAL BILIRUBIN ADULT 1.7 MG/DL (0.2-1.0); TOTAL PROTEIN 4.9 GM/DL (6.4-8.2)
--- NOTE | 2017-09-29 06:45 | RADRPT ---
EXAM DATE: 09/29/2017 6:15 AM EDT AGE/SEX: 32 years / Male INDICATIONS: Shortness of breath, possible pulmonary disease. CLINICAL DATA: This is the patient's subsequent encounter. Patient reports that signs and symptoms h ave been present for 2 days and indicates a pain score of 0/10. MEDICAL/SURGICAL HISTORY: Gastroesophageal reflux disease. Pancreatitis. Fusion, lumbar. COMPARISON: [facility], CHEST PA & LAT, 04/22/2015. . FINDINGS: Perivascular interstitial process is seen possible pulmonary edema. Left lung base atelectasis and/or infiltrate is seen. Heart and mediastinum are unremarkable for technique. CONCLUSION: Left lung base atelectasis and/or infiltrate and possible pulmonary edema. Electronically signed by: Fabiana Denton MD 09/29/2017 6:44 AM EDT
--- NOTE | 2017-09-29 10:17 | GIPROC ---
[facility] [address] [facility]. [facility] [place], [id number] EGD PROCEDURE REPORT EXAM DATE: 09/29/2017 PATIENT NAME: Kurt Ramos MR #: [id number] BIRTHDATE: 1985 ATTENDING: Radames Hanson MD ORDER #: [id number] SHOULDER JOINER: Irene Nicolas STATUS: inpatient INDICATIONS: The patient is a 32 yr old male here for an EGD due to dyspepsia and hematemesis PROCEDURE PERFORMED: EGD, diagnostic MEDICATIONS: Per Anesthesia and None. TOPICAL ANESTHETIC: CONSENT: The patient understands the risks and benefits of the procedure and understands that these risks include, but are not limited to: sedation, allergic reaction, infection, perforation and/or bleeding. Alternative means of evaluation and treatment include, among others: physical exam, x-rays, and/or surgical intervention. The patient elects to proceed with this endoscopic procedure. medical equipment was checked for proper function. Hand hygiene and appropriate measures for infection prevention was taken. After the risks, benefits and alternatives of the procedure were thoroughly explained, Informed consent was verified, confirmed and timeout was successfully executed by the treatment team. The patient was anesthetized with topical anesthesia and the Pentax EG-[id number] endoscope was introduced through the mouth and advanced to the pylorus. Retroflexed views revealed no abnormalities The gastroscope was then slowly withdrawn and removed. ESOPHAGUS: There was LA Class C esophagitis noted. STOMACH: Half full of liquids. Some suctioned, revealing gastritis. Scope withdrawn due to risk for aspiration. ADVERSE EVENTS: There were no complications. IMPRESSIONS: 1. There was LA Class C esophagitis noted 2. Half full of liquids. Some suctioned, revealing gastritis. Scope withdrawn due to risk for aspiration 3. Retroflexed views revealed no abnormalities RECOMMENDATIONS: 1. Anti-reflux regimen 2. Continue PPI 3. Follow-up: GI clinic 2 week(s) PATIENT CONDITION: stable DISPOSITION: Inpatient REPEAT EXAM: Return 1 month EGD Radamse Hanson MD eSigned: Radames Hanson MD 09/29/2017 10:16 AM cc:
[2017-09-29] MEDS ORDERED: DO NOT ADM ANY ANTICOAGULANT DRUGS PRN (12:00)
[2017-09-29] MEDS ORDERED: PROPOFOL 200 MG/20 ML AMP IV ONE (12:00)
[2017-09-29] MEDS ORDERED: LIDOCAINE HCL 1% PF 5 ML SYRINGE OTHER ONE (12:00)
[2017-09-29 12:20] LABS: HEMATOCRIT 38.1 % (39.0-51.0)
[2017-09-29] MEDS: THIAMINE INJ 100 MG in SODIUM CHLORIDE 0.9% INJ 100 ML IV SCH (12:29)
--- NOTE | 2017-09-29 14:14 | HHI.CCPN ---
Subjective Remarks/Hospital Course HPI Service Critical Care Medicine Consult Requested By Dr. Diana Reason for Consult ETOH withdrawal, Acute Pancreatitis Primary Care Physician No Primary Care Physician History of Present Illness 32 YO male admitted by [facility] for acute pancreatitis, metabolic encephalopathy, leukocytosis, sinus tachycardia, hepatic steatosis with elevated LFTs, lactic acidosis, mild rhabdomyolysis, chest pain and coffee ground emesis with melena. Pt unable to provide any history due to obtunded condition. ED documentation: Patient is visitor staying at a [place] hotel, apparently the patient called dental front office assistant who then in turn called 911. The patient was found by EMS with multiple areas of emesis in the room along with 2 empty bottles of liquor, EMS had a difficult time starting an IV, patient was found to be diaphoretic with a heart rate of 155, EMS transported emergently to the department. Patient himself is able to provide most of the history. He did state that he drinks heavily, per patient he approximately drinks 20-30 shots of 99% proof vodka type alcohol daily. Patient states that he probably passed out last drink he had was yesterday. Now the patient feels like he is in withdrawal, he states that he has been in "DTs" before. His reports the pt had gone missing for several days and they found him today in the hospital. She states he has been depressed. On admission, his EtOH level was 283, lactic acid 7, WBC 40K with 90% neutrophils, lipase >6000, elevated LFTs to AST 436/ ALT 297 / AP203, CK 771, CK -MB 19.9, Troponin <0.02, heart rate in 135-150 range. 09/29: Tachycardia resolved w/HR in 80s today, Lipase trending down from >6000-> 1159, CBC with reduced leukocytosis 41->16.5; H&H reduced to 13.2/38.7, new thrombocytopenia to 99, lactic acidosis resolving 7->5.6->2.0, LFTs resolving AST 279->189 / ALT 193->154 / AP 127->101 with mildly increased TBili 1.2->1.7, INR stable 1.4, Hepatitis panel negative, UDS+ cannabinoids and benzos, blood cx pedning, LDH 624 and CXR this morning showing possible pulm edema vs infiltatre vs left lung base atelectasis. GI endoscopy this morning showing gastritis and esophagitis w/o bleeding. GI is following as well. Weaning ativan and precedex, continue CIWA, Protonix bid, reduced IVF to 100ml/hr, pt still obtunded. reports they had an argument several days ago and pt departed only to be found yesterday. Pt breathing comfortably on 2L NC. Objective Vital Signs Date Time Temp Pulse Resp B/P (MAP) Pulse Ox O2 Delivery O2 Flow Rate FiO2 09/29/17 12:00 98.0 85 21 130/82 (98) 96 09/29/17 10:45 Nasal Cannula 3 Intake and Output 09/29/17 09/29/17 09/30/17 08:00 16:00 00:00 Intake Total 2234 ml 1902.5 ml Output Total 700 ml Balance 1534 ml 1902.5 ml Result Diagram: 09/29/17 1122 09/29/17 0400 Imaging Last Impressions Chest X-Ray 09/29/17 0600 Signed Impressions: CONCLUSION: Left lung base atelectasis and/or infiltrate and possible pulmonary edema. Chest CT 09/28/17 0800 Signed Impressions: CONCLUSION: 1. There are very small bilateral effusions. There is no evidence of gas or si gnificant fluid along the course of the esophagus. 2. There are inflammatory changes along the tail of the pancreas. This is only partially visualized. Abdomen/Pelvis CT 09/28/17 0800 Signed Impressions: CONCLUSION: 1. The pancreas is now markedly abnormal with enlargement and inflammatory dominic nge most characteristic of acute pancreatitis. There are no drainable fluid col lections or evidence of pancreatic ductal dilatation. There is a small amount o f ascites. 2. Mild inflammatory change involving the transverse colon which likely is sec ondary to the pancreatitis and represents a focal ileus. 3. Small pleural effusions are now noted. 4. Moderate hepatic steatosis and mild heterogeneity. 5. The gallbladder appears unremarkable with no calcified stones or inflammato ry change. Procedures EGD - Dr Hanson - 09/29/17 IMPRESSIONS: 1. There was LA Class C esophagitis noted 2. Half full of liquids. Some suctioned, revealing gastritis. Scope withdrawn due to risk for aspiration 3. Retroflexed views revealed no abnormalities Objective Remarks GENERAL: Well-nourished, well-developed patient tachycardic at 140, diaphoretic and tremulous . SKIN: Warm and dry. HEAD: Normocephalic. EYES: No scleral icterus. No injection or drainage. NECK: Supple, trachea midline. No JVD or lymphadenopathy. CARDIOVASCULAR: Regular rate and rhythm without murmurs, gallops, or rubs. RESPIRATORY: Breath sounds equal bilaterally. No accessory muscle use. GASTROINTESTINAL: Abdomen soft, non-tender, nondistended. EXTREMITIES: No cyanosis, or edema. NEUROLOGICAL: Awake, alert, and oriented x 2. Non-focal. A/P Assessment and Plan 32 YO male with PMHx multiple admissions for pancreatitis and EtOH intoxication presents with: Metabolic encephalopathy Acute pancreatitis 2/2 EtOH EtOH intoxication Hepatic steatosis Elevated LFTs Mild Rhabdomyolysis Lactic acidosis Sinus tachycardia Coffee ground emesis and melena SIRS possible sepsis Possible aspiration PLAN: Neuro: metabolic encephalopathy 2/2 EtOH intoxication/withdrawal; neuro checks; ammonia level daily with lactulose PRN; CIWA; check mag and Ca; begin weaning ativan and precedex drip Cardiovascular: Tachycardia resolved. CP upon admission with Troponins <0.02 and pain reproduced with sternal rub, likely 2/2 pancreatitis/esophagitis; consider hypovolemia/acute pancreatitis and EtOH-induced cardiomyopathy; multiple fluid boluses in ED and now Normosol IVF at 100 ml/hr; 5%albumin [id number] telemetry. Will start pressors if MAP<65 Respiratory: pulse ox at 95% on 2 L NC; continuous pulse ox. Bilateral very small pleural effusions on chest CT; CXR this morning with pulm edema vs infiltrate vs left lung base atelectasis; treating empirically for aspiration; pt resting comfortably at this point with clear lung sounds bilaterally GI/Liver: Lipase >6000->1159, lactic acidosis 7->5.6->2; elevated LFTs 2/2 acute pancreatitis resolving; negative hepatitis panel; IVF repletion as above; heart healthy diet; CT abdomen/pelvis showing diffuse changes to pancreatic tail ; fentanyl IV for pain control; trend lipase; interval CT in 48 hours if no improvement; GI consulted. EGD showing esophagitis and gastritis. Continue octreotide gtt; off Protonix drip and start Protonix 40mg BID, NG tube if vomiting. /Renal: gross blood on UA; fluid repletion as above; repeat UA tomorrow; jones cath with strict I/Os; BMP q6h; follow CK and CK-MB for rhabdomyolysis ID: Resolving leukocytosis 40->16.5 2/2 acute pancreatitis; decreased plts to 99 ; increased fibrinogen. Follow daily CBC. Question of aspiration. Continue Cefepime and flagyl IV Heme: Follow CBC, coags. Type and screen, Transfuse to keep Hgb greater than 7 g /dL Endocrine: accuchecks q4h; low SSI Prophylaxis: SCDs, Protonix 40mg BID. No heparin in v/o GI bleed till cleared by GI Patient seen and examined. Discussed findings/ assessment/ plan with Dr. Xie. Agree with above note. Doni Xie MD R1 September 29, 2017 14:14 Wesley Bacon MD September 29, 2017 14:46
--- NOTE | 2017-09-29 14:53 | EKG ---
Date Performed: 09/28/2017 Time Performed: 13:23:43 PTAGE: 32 years EKG: SINUS TACHYCARDIA NONSPECIFIC T-WAVE ABNORMALITY ABNORMAL RHYTHM ECG Since the PREVIOUS TRACING , no significant change noted PREVIOUS TRACIN09/28/2017 08.00 DOCTOR: Gordo Benjamin Interpretating Date/Time 09/29/2017 14:48:24
[2017-09-29] MEDS: LORazepam 2 MG/ML VIAL IV PUSH PRN (15:44)
[2017-09-29 16:26] LABS: HEMATOCRIT 37.4 % (39.0-51.0)
[2017-09-29 16:49] LABS: ALBUMIN 2.3 GM/DL (3.4-5.0); BICARBONATE 30.7 MEQ/L (21.0-32.0); CALCIUM 6.8 MG/DL (8.5-10.1); CALCIUM-PROTEIN CORRECTED 7.8 MG/DL (8.5-10.1); CREATININE 0.56 MG/DL (0.60-1.30); TOTAL BILIRUBIN ADULT 1.9 MG/DL (0.2-1.0); TOTAL PROTEIN 5.1 GM/DL (6.4-8.2)
[2017-09-29] MEDS: PANTOPRAZOLE SODIUM 40 MG VIAL IV PUSH SCH (20:00)
[2017-09-29 23:07] LABS: HEMATOCRIT 36.7 % (39.0-51.0); HEMOGLOBIN 12.5 GM/DL (13.0-17.0)
[2017-09-30] VITALS (18 sets, daily range): BP systolic 132–182; BP diastolic 71–91; PULSE 71–93; RESP 17–34; TEMP 98.2–99.5; O2SAT 87–100
[2017-09-30] MEDS: CEFEPIME INJ 2,000 MG in SODIUM CHLORIDE 0.9% INJ 100 ML IV SCH ×2 (01:19→08:50)
[2017-09-30] MEDS: metroNIDAZOLE 500 MG INJ 100 ML IV SCH ×2 (01:20→09:02)
[2017-09-30] MEDS: ALBUMIN 5% INJ 250 ML IV SCH ×2 (03:22→15:26)
[2017-09-30] MEDS: CHLORHEXIDINE GLUCONATE 2 % 1 PACK (2 CLOTHS)(taper/protocol) TOPICAL SCH (03:22)
[2017-09-30] MEDS: DEXMEDETOMIDINE INJ 200 MCG in SODIUM CHLORIDE 0.9% INJ 50 ML IV PRN ×2 (03:28→09:01)
[2017-09-30 04:15] LABS: HEMOGLOBIN 13.5 GM/DL (13.0-17.0); MEAN CELL VOLUME 93.9 FL (80.0-100.0); MEAN CORPUSCULAR HEMOGLOBIN 32.5 PG (27.0-34.0); MEAN CORPUSCULAR HGB CONC 34.7 % (32.0-36.0); PLATELET COUNT 72 TH/MM3 (150-450); RED BLOOD COUNT 4.15 MIL/MM3 (4.50-5.90); RED CELL DISTRIBUTION WIDTH 13.9 % (11.6-17.2); WHITE BLOOD COUNT 13.6 TH/MM3 (4.0-11.0)
[2017-09-30 05:00] LABS: ALBUMIN 2.3 GM/DL (3.4-5.0); BICARBONATE 28.7 MEQ/L (21.0-32.0); CALCIUM 7.3 MG/DL (8.5-10.1); CALCIUM-PROTEIN CORRECTED 8.2 MG/DL (8.5-10.1); CREATININE 0.57 MG/DL (0.60-1.30); TOTAL BILIRUBIN ADULT 1.7 MG/DL (0.2-1.0); TOTAL PROTEIN 5.5 GM/DL (6.4-8.2)
[2017-09-30] MEDS: LORazepam 2 MG/ML VIAL IV PUSH PRN ×5 (08:46→23:33)
[2017-09-30] MEDS: NORMOSOL R INJ 1,000 ML IV SCH ×2 (08:47→18:30)
[2017-09-30] MEDS: PANTOPRAZOLE SODIUM 40 MG VIAL IV PUSH SCH ×2 (08:50→19:55)
[2017-09-30] MEDS: ONDANSETRON ODT 4 MG TAB PO PRN ×2 (09:13→21:27)
[2017-09-30 09:44] LABS: BANDS 12 % (0-6); LYMPHOCYTES 3 % (9-44); MONOCYTES 2 % (0-8); NEUTROPHIL # MANUAL DIFF 12.9 TH/MM3 (1.8-7.7); POLYS (SEG NEUTROPHILS) 83 % (16-70)
--- NOTE | 2017-09-30 10:54 | HHI.CCPN ---
Subjective Remarks/Hospital Course HPI Service Critical Care Medicine Consult Requested By Dr. Diana Reason for Consult ETOH withdrawal, Acute Pancreatitis Primary Care Physician No Primary Care Physician History of Present Illness 32 YO male admitted by [facility] for acute pancreatitis, metabolic encephalopathy, leukocytosis, sinus tachycardia, hepatic steatosis with elevated LFTs, lactic acidosis, mild rhabdomyolysis, chest pain and coffee ground emesis with melena. Pt unable to provide any history due to obtunded condition. ED documentation: Patient is visitor staying at a [place] hotel, apparently the patient called desktop analyst who then in turn called 911. The patient was found by EMS with multiple areas of emesis in the room along with 2 empty bottles of liquor, EMS had a difficult time starting an IV, patient was found to be diaphoretic with a heart rate of 155, EMS transported emergently to the department. Patient himself is able to provide most of the history. He did state that he drinks heavily, per patient he approximately drinks 20-30 shots of 99% proof vodka type alcohol daily. Patient states that he probably passed out last drink he had was yesterday. Now the patient feels like he is in withdrawal, he states that he has been in "DTs" before. His reports the pt had gone missing for several days and they found him today in the hospital. She states he has been depressed. On admission, his EtOH level was 283, lactic acid 7, WBC 40K with 90% neutrophils, lipase >6000, elevated LFTs to AST 436/ ALT 297 / AP203, CK 771, CK -MB 19.9, Troponin <0.02, heart rate in 135-150 range. 09/29: Tachycardia resolved w/HR in 80s today, Lipase trending down from >6000-> 1159, CBC with reduced leukocytosis 41->16.5; H&H reduced to 13.2/38.7, new thrombocytopenia to 99, lactic acidosis resolving 7->5.6->2.0, LFTs resolving AST 279->189 / ALT 193->154 / AP 127->101 with mildly increased TBili 1.2->1.7, INR stable 1.4, Hepatitis panel negative, UDS+ cannabinoids and benzos, blood cx pedning, LDH 624 and CXR this morning showing possible pulm edema vs infiltatre vs left lung base atelectasis. GI endoscopy this morning showing gastritis and esophagitis w/o bleeding. GI is following as well. Weaning ativan and precedex, continue CIWA, Protonix bid, reduced IVF to 100ml/hr, pt still obtunded. reports they had an argument several days ago and pt departed only to be found yesterday. Pt breathing comfortably on 2L NC. 09/30: Pt continues to improve, is awake and oriented to name and place, but not date. Had some nausea this morning. Weaning ativan to 2mg/hr, precedex and CIWA score at 15. Labs continue to normalize. Objective Vital Signs Date Time Temp Pulse Resp B/P (MAP) Pulse Ox O2 Delivery O2 Flow Rate FiO2 09/30/17 09:36 95 Nasal Cannula 5.00 09/30/17 09:00 76 09/30/17 09:00 28 167/90 (115) 09/30/17 08:00 98.9 Intake and Output 09/30/17 09/30/17 10/01/17 08:00 16:00 00:00 Intake Total 690 ml Output Total 1400 ml Balance -710 ml Result Diagram: 09/30/17 0401 09/30/17 0401 Imaging Last Impressions Chest X-Ray 09/29/17 06 Signed Impressions: CONCLUSION: Left lung base atelectasis and/or infiltrate and possible pulmonary edema. Chest CT 09/28/17 08 Signed Impressions: CONCLUSION: 1. There are very small bilateral effusions. There is no evidence of gas or si gnificant fluid along the course of the esophagus. 2. There are inflammatory changes along the tail of the pancreas. This is only partially visualized. Abdomen/Pelvis CT 09/28/17 08 Signed Impressions: CONCLUSION: 1. The pancreas is now markedly abnormal with enlargement and inflammatory dominic nge most characteristic of acute pancreatitis. There are no drainable fluid col lections or evidence of pancreatic ductal dilatation. There is a small amount o f ascites. 2. Mild inflammatory change involving the transverse colon which likely is sec ondary to the pancreatitis and represents a focal ileus. 3. Small pleural effusions are now noted. 4. Moderate hepatic steatosis and mild heterogeneity. 5. The gallbladder appears unremarkable with no calcified stones or inflammato ry change. Procedures EGD - Dr Hanson - 09/29/17 IMPRESSIONS: 1. There was LA Class C esophagitis noted 2. Half full of liquids. Some suctioned, revealing gastritis. Scope withdrawn due to risk for aspiration 3. Retroflexed views revealed no abnormalities Objective Remarks GENERAL: Well-nourished, well-developed patient, mildly disoriented. SKIN: Warm and dry. HEAD: Normocephalic. EYES: No scleral icterus. No injection or drainage. NECK: Supple, trachea midline. No JVD or lymphadenopathy. CARDIOVASCULAR: Regular rate and rhythm without murmurs, gallops, or rubs. RESPIRATORY: Breath sounds equal bilaterally. No accessory muscle use. 5L NC. GASTROINTESTINAL: Abdomen soft, mildly TTP, nondistended. : jones draining edgardo urine EXTREMITIES: No cyanosis, or edema. NEUROLOGICAL: Awake, alert, and oriented x 2. Non-focal. Urinary Catheter: Yes Assessment to: Remove Jones insert reason: Measure Accurate Output Vascular Central Line Catheter: No A/P Assessment and Plan 32 YO male with PMHx multiple admissions for pancreatitis and EtOH intoxication presents with: Metabolic encephalopathy Acute pancreatitis 2/2 EtOH EtOH intoxication Hepatic steatosis Elevated LFTs resolving Mild Rhabdomyolysis Lactic acidosis resolved Sinus tachycardia resolved Coffee ground emesis and melena; EGD findings of esophagitis and gastritis SIRS possible sepsis Possible aspiration PLAN: Neuro: metabolic encephalopathy 2/2 EtOH intoxication/withdrawal resolving; awake and oriented x2; neuro checks; ammonia level tomorrow with lactulose PRN; CIWA; normal mag and corrected Ca; Off ativan drip, Titrating off precedex drip ; start Librium 25mg BID Cardiovascular: Tachycardia resolved. CP upon admission with Troponins <0.02 and pain reproduced with sternal rub, likely 2/2 pancreatitis/esophagitis; hypovolemia 2/2 acute pancreatitis resolving and EtOH-induced cardiomyopathy; multiple fluid boluses in ED and now Normosol IVF at 100 ml/hr; Discontinue 5% albumin [id number]. telemetry. Will start pressors if MAP<65 Respiratory: pulse ox at 95% on 5 L NC; continuous pulse ox. Bilateral very small pleural effusions on chest CT; CXR 09/29 morning with pulm edema vs infiltrate vs left lung base atelectasis; treated empirically for aspiration; pt resting comfortably at this point with clear lung sounds bilaterally GI/Liver: Lipase >6000->1159->232, lactic acidosis, and elevated LFTs 2/2 acute pancreatitis resolving or resolved; negative hepatitis panel; IVF repletion as above; heart healthy diet; CT abdomen/pelvis showing diffuse changes to pancreatic tail; fentanyl IV for pain control; trend lipase; GI consulted. EGD showing esophagitis and gastritis. Octreotide gtt discontinued 09/29; continue Protonix 40mg BID, NG tube if vomiting. Zofran 4mg IV for nausea this morning. Pt taking jello and fluids PO with mild epigastric pain. /Renal: gross blood on UA; fluid repletion as above; DC jones; strict I/Os; BMP daily; no complaint of muscle pain ID: Resolving leukocytosis 40->16.5->13.6 2/2 acute pancreatitis; . Follow daily CBC. Question of aspiration. DC Cefepime and flagyl IV today as leukocytosis resolving, lung exam clear, afebrile Heme: Acute thrombocytopenia with plts 237->99->72; increased fibrinogen. Follow CBC, coags. Type and screen. Transfuse to keep Hgb greater than 7 g/dL Endocrine: accuchecks q4h; low SSI Prophylaxis: SCDs, Protonix 40mg BID. No heparin in v/o GI bleed till cleared by GI Patient seen and examined. Discussed findings/ assessment/ plan with Dr. Xie. Agree with above note. We will consult and transfer to hospitalist service for further medical management. Critical care will be signing off at this time, please reconsult if needed. Doni Xie MD R1 Sep 30, 2017 10:54 Wesley Bacon MD Sep 30, 2017 14:01
[2017-09-30 12:09] LABS: HEMATOCRIT 36.7 % (39.0-51.0); HEMOGLOBIN 12.5 GM/DL (13.0-17.0)
[2017-09-30] MEDS: chlordiazePOXIDE 25 MG CAP PO SCH ×2 (12:51→19:55)
[2017-09-30] MEDS: THIAMINE INJ 100 MG in SODIUM CHLORIDE 0.9% INJ 100 ML IV SCH (12:51)
--- NOTE | 2017-09-30 13:01 | HHI.GIFU ---
Subjective Remarks Pt much more awake today at bedside He reports continued abdominal pain radiating to his back Some nausea, denies emesis (+) BMs Has been tolerating some Jell-O (Lali Hernandez) Objective Vitals I&O Vital Signs Date Time Temp Pulse Resp B/P (MAP) Pulse Ox O2 Delivery O2 Flow Rate FiO2 09/30/17 10:00 85 09/30/17 09:36 95 Nasal Cannula 5.00 09/30/17 09:00 76 09/30/17 09:00 76 28 167/90 (115) 09/30/17 08:00 71 09/30/17 08:00 98.9 71 22 147/83 (104) 93 09/30/17 06:00 81 09/30/17 04:00 98.7 84 17 142/85 (104) 100 09/30/17 04:00 84 09/30/17 02:00 83 09/30/17 00:00 98.7 82 18 150/85 (106) 97 09/30/17 00:00 82 09/29/17 22:02 93 Nasal Cannula 6.00 09/29/17 22:00 84 09/29/17 20:00 88 09/29/17 20:00 98.6 87 18 155/83 (107) 97 09/29/17 18:00 92 09/29/17 16:00 98.8 86 22 150/85 (106) 97 09/29/17 16:00 86 09/29/17 14:00 86 I/O 09/29/17 09/29/17 09/29/17 09/30/17 09/30/17 09/30/17 07:00 15:00 23:00 07:00 15:00 23:00 Intake Total 2234 ml 3003.5 ml 459 ml 1690 ml Output Total 700 ml 700 ml 1400 ml Balance 1534 ml 3003.5 ml -241 ml 290 ml Intake Oral 0 ml 120 ml 240 ml IV Total 2234 ml 2953.5 ml 339 ml 1450 ml Other 50 ml Output Urine Total 700 ml 700 ml 1400 ml # Bowel Movements 0 0 Laboratory Laboratory Tests Test 09/29/17 15:28 09/29/17 15:58 09/29/17 22:02 09/30/17 04:01 Hemoglobin 13.0 12.5 13.5 Hematocrit 37.4 36.7 39.0 Blood Urea Nitrogen 12 12 Creatinine 0.56 0.57 Random Glucose 105 87 Total Protein 5.1 5.5 Albumin 2.3 2.3 Calcium Level 6.8 7.3 Alkaline Phosphatase 112 123 Aspartate Amino Transf (AST/SGOT) 144 124 Alanine Aminotransferase (ALT/SGPT) 131 117 Total Bilirubin 1.9 1.7 Sodium Level 143 141 Potassium Level 3.7 3.8 Chloride Level 104 105 Carbon Dioxide Level 30.7 28.7 Anion Gap 8 7 Estimat Glomerular Filtration Rate 169 166 Protein Corrected Calcium 7.8 8.2 White Blood Count 13.6 Red Blood Count 4.15 Mean Corpuscular Volume 93.9 Mean Corpuscular Hemoglobin 32.5 Mean Corpuscular Hemoglobin Concent 34.7 Red Cell Distribution Width 13.9 Platelet Count 72 Mean Platelet Volume 9.0 CBC Comment AUTO DIFF Differential Total Cells Counted 100 Neutrophils % (Manual) 83 Band Neutrophils % 12 Lymphocytes % 3 Monocytes % 2 Neutrophils # (Manual) 12.9 Differential Comment FINAL DIFF MANUAL Platelet Estimate LOW Platelet Morphology Comment NORMAL Test 09/30/17 11:30 Hemoglobin 12.5 Hematocrit 36.7 Lipase 232 Date/Time Source Procedure Growth Status 09/28/17 10:00 Blood Peripheral Aerobic Blood Culture - Preliminary NO GROWTH IN 2 DAYS Resulted 09/28/17 10:00 Blood Peripheral Anaerobic Blood Culture - Preliminary NO GROWTH IN 2 DAYS Resulted Imaging Last Impressions Chest X-Ray 09/29/17 06 Signed Impressions: CONCLUSION: Left lung base atelectasis and/or infiltrate and possible pulmonary edema. Chest CT 09/28/17 08 Signed Impressions: CONCLUSION: 1. There are very small bilateral effusions. There is no evidence of gas or si gnificant fluid along the course of the esophagus. 2. There are inflammatory changes along the tail of the pancreas. This is only partially visualized. Abdomen/Pelvis CT 09/28/17 08 Signed Impressions: CONCLUSION: 1. The pancreas is now markedly abnormal with enlargement and inflammatory dominic nge most characteristic of acute pancreatitis. There are no drainable fluid col lections or evidence of pancreatic ductal dilatation. There is a small amount o f ascites. 2. Mild inflammatory change involving the transverse colon which likely is sec ondary to the pancreatitis and represents a focal ileus. 3. Small pleural effusions are now noted. 4. Moderate hepatic steatosis and mild heterogeneity. 5. The gallbladder appears unremarkable with no calcified stones or inflammato ry change. Physical Exam HEENT: Normocephalic; atraumatic CHEST: Even/unlabored CARDIAC: RRR ABDOMEN: Distended, soft, diffuse tenderness, bowel sounds active EXTREMITIES: No clubbing, cyanosis, or edema. SKIN: Normal; no rash; no jaundice. BELT CUTTER: Alert, some confusion (Lali Hernandez) Assessment and Plan Plan Assessment: Pt intoxicated, speech is slurred, he is unable to provide much of a history at this time. - Coffee ground emesis and ? melena Brought in by EMS, he is staying in a [place] hotel and called the front office developer who called 911, pt was found covered in emesis and stool. Reports heavy drinking for the last 5 days, 20-30 shots of 99 proof liquor daily. H/H currently 20.7/58.5 Denies history of GIB, EGD, colonoscopy - Pancreatitis- Pt recalls one prior episode of pancreatitis in [address] abdomen and pelvis W/O IV contrast (09/28) The pancreas is now markedly abnormal with enlargement and inflammatory change most characteristic of acute pancreatitis. There are no drainable fluid collections or evidence of pancreatic ductal dilatation. There is a small amount of ascites. Mild inflammatory change involving the transverse colon which likely is secondary to the pancreatitis and represents a focal ileus. Small pleural effusions are now noted. Moderate hepatic steatosis and mild heterogeneity. The gallbladder appears unremarkable with no calcified stones or inflammatory change. [id number] - Elevated LFTs- likely secondary to ETOH (09/28) AST-436 ALT-297 T bili-1.1 Alk phos-203 Ammonia 23. Hepatitis panel negative. Pt report history of liver issues but unable to provide more specific history. - Tachycardic- likely secondary to dehydration, hopefully will normalize after fluid resuscitation - Rhabdomyolysis/impaired renal function- per attending (09/30) Pt on CIWA protocol, some confusion, but able to answer simple questions. at bedside He reports continued abdominal pain radiating to his back, some nausea, denies emesis. Lipase now WNL. Pt tolerating some Jell-O. LFTs trending down EGD --> Class C esophagitis, half full of liquids, some suctioned revealing gastritis, scope withdrawn due to risk of aspiration. Plan: Protonix Continue with current supportive care for acute pancreatitis IVF, antiemetics and pain medication as needed- advance diet as tolerated CIWA protocol Advised ETOH cessation Our service will sign off, please reconsult as needed Have pt follow up with GI after DC Pt has been seen and examined by myself and Dr. Bejarano and this note is written on his behalf (Lali Hernandez) Physician Comments Plan as above, please notify us if needed again. (Fidel Bejarano MD) Lali Hernandez Sep 30, 2017 13:01 Fidel Bejarano MD Sep 30, 2017 14:08
[2017-09-30] MEDS: LORazepam 2 MG TAB PO PRN ×2 (15:26→19:55)
[2017-09-30 17:45] LABS: ALBUMIN 2.2 GM/DL (3.4-5.0); BICARBONATE 26.3 MEQ/L (21.0-32.0); CALCIUM 7.3 MG/DL (8.5-10.1); CALCIUM-PROTEIN CORRECTED 8.3 MG/DL (8.5-10.1); CREATININE 0.44 MG/DL (0.60-1.30); TOTAL BILIRUBIN ADULT 1.5 MG/DL (0.2-1.0); TOTAL PROTEIN 5.2 GM/DL (6.4-8.2)
[2017-09-30] MEDS ORDERED: cloNIDine HCL 0.1 MG TAB PO SCH (21:00)
[2017-10-01] VITALS (9 sets, daily range): BP systolic 147–168; BP diastolic 71–84; PULSE 68–80; RESP 26; TEMP 98.9–99.5; O2SAT 92–95
[2017-10-01] MEDS: CHLORHEXIDINE GLUCONATE 2 % 1 PACK (2 CLOTHS)(taper/protocol) TOPICAL SCH (01:09)
[2017-10-01] MEDS: LORazepam 2 MG/ML VIAL IV PUSH PRN ×3 (01:10→05:32)
[2017-10-01] MEDS: LORazepam 2 MG TAB PO PRN (01:10)
[2017-10-01] MEDS: ALBUMIN 5% INJ 250 ML IV SCH (03:22)
[2017-10-01 04:28] LABS: AUTOMATED NEUTROPHIL # 10.6 TH/MM3 (1.8-7.7); BASOPHIL % 0.2 % (0.0-2.0); EOSINOPHIL % 0.2 % (0.0-4.0); HEMOGLOBIN 11.4 GM/DL (13.0-17.0); LYMPH % 10.3 % (9.0-44.0); LYMPHOCYTE # 1.3 TH/MM3 (1.0-4.8); MEAN CELL VOLUME 93.9 FL (80.0-100.0); MEAN CORPUSCULAR HEMOGLOBIN 32.3 PG (27.0-34.0); MEAN CORPUSCULAR HGB CONC 34.4 % (32.0-36.0); MEAN PLATELET VOLUME 8.7 FL (7.0-11.0); MONO % 6.4 % (0.0-8.0); MONOCYTE # 0.8 TH/MM3 (0-0.9); NEUT % 82.9 % (16.0-70.0); PLATELET COUNT 70 TH/MM3 (150-450); RED BLOOD COUNT 3.52 MIL/MM3 (4.50-5.90); RED CELL DISTRIBUTION WIDTH 13.7 % (11.6-17.2); WHITE BLOOD COUNT 12.7 TH/MM3 (4.0-11.0)
[2017-10-01] MEDS: NORMOSOL R INJ 1,000 ML IV SCH (04:31)
[2017-10-01 04:58] LABS: ALBUMIN 2.5 GM/DL (3.4-5.0); BICARBONATE 27.7 MEQ/L (21.0-32.0); CALCIUM 7.4 MG/DL (8.5-10.1); CALCIUM-PROTEIN CORRECTED 8.3 MG/DL (8.5-10.1); CREATININE 0.42 MG/DL (0.60-1.30); TOTAL BILIRUBIN ADULT 1.8 MG/DL (0.2-1.0); TOTAL PROTEIN 5.5 GM/DL (6.4-8.2)
[2017-10-01 06:55] LABS: BANDS 3 % (0-6); DOHLE BODIES PRESENT (NONE SEEN); LYMPHOCYTES 9 % (9-44); MONOCYTES 7 % (0-8); NEUTROPHIL # MANUAL DIFF 10.5 TH/MM3 (1.8-7.7); POLYS (SEG NEUTROPHILS) 80 % (16-70)
[2017-10-01] MEDS ORDERED: POTASSIUM CHLORIDE 10 MEQ CONTROLLED RELEASE TAB PO ONE (10:15)
--- NOTE | 2017-10-01 10:24 | HHI.PR ---
Subjective Remarks Mr. Ramos is more coherent today. Restraints will be removed at this time. He is encouraged to stay for a full wean from his alcohol, as he remains CIWA dependent and on Librium. Objective Vital Signs Date Time Temp Pulse Resp B/P (MAP) Pulse Ox O2 Delivery O2 Flow Rate FiO2 10/01/17 06:00 69 10/01/17 04:00 78 10/01/17 04:00 99.5 78 26 153/73 (99) 92 10/01/17 02:00 73 10/01/17 00:00 98.9 68 26 147/71 (96) 95 10/01/17 00:00 68 09/30/17 22:00 75 09/30/17 20:00 99.5 83 28 182/86 (118) 96 09/30/17 20:00 83 09/30/17 18:09 73 09/30/17 18:00 72 09/30/17 16:00 79 09/30/17 16:00 79 09/30/17 16:00 98.2 79 34 149/71 (97) 89 09/30/17 15:04 85 09/30/17 15:00 93 09/30/17 14:00 81 09/30/17 13:00 80 09/30/17 13:00 80 31 143/91 (108) 92 09/30/17 12:00 98.6 77 27 132/74 (93) 87 09/30/17 12:00 77 I/O 09/30/17 09/30/17 09/30/17 10/01/17 10/01/17 10/01/17 07:00 15:00 23:00 07:00 15:00 23:00 Intake Total 1690 ml 200 ml 1791 ml 1430 ml Output Total 1400 ml 1135 ml 2725 ml Balance 290 ml 200 ml 656 ml -1295 ml Intake Oral 240 ml 1440 ml 180 ml IV Total 1450 ml 200 ml 351 ml 1250 ml Output Urine Total 1400 ml 1135 ml 2725 ml # Bowel Movements 0 6 4 Result Diagram: 10/01/1740910/01/17409 Objective Remarks GENERAL: NAD, A&Ox3 HEAD: Normocephalic. NECK: Supple, trachea midline. No lymphadenopathy. EYES: No scleral icterus. No injection or drainage. CARDIOVASCULAR: Regular rate and rhythm without murmurs, gallops, or rubs. RESPIRATORY: Breath sounds equal bilaterally. No accessory muscle use. GASTROINTESTINAL: Abdomen soft, non-tender, nondistended. MUSCULOSKELETAL: No cyanosis, or edema. SKIN: Warm and dry. NEURO: No focal neurological deficitis. A/P Problem List: (1) Alcohol withdrawal ICD Code: F10.239 - Alcohol withdrawal Status: Acute (2) Alcohol dependency ICD Code: F10.20 - Alcohol dependency Status: Chronic (3) Acute alcoholic pancreatitis ICD Code: K85.2 - Acute alcoholic pancreatitis Status: Acute (4) Alcohol abuse ICD Code: F10.10 - Alcohol abuse, uncomplicated Status: Acute Assessment and Plan 32-year-old male admitted secondary to pancreatitis with alcohol intoxication and encephalopathy Alcohol intoxication Encephalopathy Resolved Remove restraints Delirium tremens Continue CIWA protocol Continue Librium at 10 mg twice daily Patient encouraged to stay for further treatment Acute pancreatitis secondary to alcohol Resolved Rhabdomyolysis Resolved Hepatic steatosis Elevated LFTs resolving Avoid alcohol abuse Coffee ground emesis and melena Resolved Recommend alcohol cessation EGD findings of esophagitis and gastritis SIRS possible sepsis Possible aspiration Continue cefepime and Flagyl ID following DVT prophylaxis SCDs Discharge planning Plan to discharge after weaning from CIWA protocol and Librium Patient is encouraged to stay for further treatment Patient is an AMA risk Problem Qualifiers (1) Acute alcoholic pancreatitis: Qualified Codes: K85.20 - Alcohol induced acute pancreatitis without necrosis or infection Mohan Shrestha MD Oct 01, 2017 10:23
== END 2017-10-01 11:30 | disposition left against medical advice (07) | DRG 438 ==
LOC: NEPE 07:53 → NEDA 10:21 → HIME 11:25
PROVIDERS: ADMIT Hospitalist; ATTEND Hospitalist
PROC: 0DJ08ZZ Inspection of Upper Intestinal Tract, Via Natural or Artificial Opening Endoscopic (ICD-10-PCS; principal; 2017-09-29 09:53)
DX: K85.20 Alcohol induced acute pancreatitis without necrosis or infection (principal); G93.41 Metabolic encephalopathy; A41.9 Sepsis, unspecified organism; J90 Pleural effusion, not elsewhere classified; F10.231 Alcohol dependence with withdrawal delirium; E87.2 Acidosis; R65.10 Systemic inflammatory response syndrome (SIRS) of non-infectious origin without acute organ dysfunction; R18.8 Other ascites; M62.82 Rhabdomyolysis; K56.7 Ileus, unspecified; K92.1 Melena; I42.6 Alcoholic cardiomyopathy; D72.829 Elevated white blood cell count, unspecified; K21.0 Gastro-esophageal reflux disease with esophagitis; M54.9 Dorsalgia, unspecified; G89.29 Other chronic pain; R00.0 Tachycardia, unspecified; E86.0 Dehydration; F10.229 Alcohol dependence with intoxication, unspecified; R07.9 Chest pain, unspecified; D69.6 Thrombocytopenia, unspecified; K29.70 Gastritis, unspecified, without bleeding; E86.1 Hypovolemia; K76.0 Fatty (change of) liver, not elsewhere classified; F32.9 Major depressive disorder, single episode, unspecified; Y90.8 Blood alcohol level of 240 mg/100 ml or more; R79.89 Other specified abnormal findings of blood chemistry; N28.9 Disorder of kidney and ureter, unspecified; K86.89 Other specified diseases of pancreas; M19.90 Unspecified osteoarthritis, unspecified site; F12.90 Cannabis use, unspecified, uncomplicated; F17.210 Nicotine dependence, cigarettes, uncomplicated; Z78.1 Physical restraint status
CPT/HCPCS: 71045; 71250; 74176; 80053; 80074; 80307; 81001; 82140; 82550; 82552; 83605; 83615; 83690; 83880; 84484; 85007; 85014; 85018; 85025; 85027; 85384; 85610; 85730; 87040; 87641; 93005; 96361; 96374; 96375; C9113; J0692; J0780; J1200; J2060; J2354; J3411; J7030; J7040; P9045

== ENCOUNTER 2017-10-10 21:23 | Emergency (ER) | payer MEDICAID ==
[~2017-10-10] VITALS: Ht 180.3 cm; Wt 90.5 kg
[2017-10-10 21:34] VITALS: BP 112/74; PULSE 86; RESP 20; TEMP 97.8; O2SAT 98
[2017-10-10] MEDS ORDERED: SODIUM CHLORIDE 0.9% FLUSH 10 ML FLUSH IV FLUSH PRN (21:45)
[2017-10-10 22:03] VITALS: BP 129/76; PULSE 105; RESP 16; O2SAT 95
--- NOTE | 2017-10-10 22:10 | PD ---
HPI Chief Complaint: Alcohol/Drug Intoxication Time Seen by Provider: 21:43 Travel History International Travel<30 days: No Contact w/Intl Traveler<30days: No Traveled to known affect area: No History of Present Illness HPI Patient 32-year-old male presents emergency department for evaluation of epigastric pain. He states he thinks is also going through some mild withdrawals, he states that he had upwards of 20 shots of alcohol tonight. He states he was recently admitted to the ICU for alcohol withdrawal and pancreatitis. He significantly intoxicated on arrival today. He is here with his . He states he has had some nausea but no vomiting, no blood in the stool. States has not done anything to try and limit his alcohol intake states he drinks because he is depressed because he has chronic pain in his back. Denies any chest pain shortness of breath blood in stool or melanotic stools hematemesis or fever. Symptoms moderate, context as above, duration is the past day, associated signs symptoms as above per [facility] Past Medical History Hx Anticoagulant Therapy: No Arthritis: Yes Anxiety: Yes Depression: Yes Cancer: No Cardiovascular Problems: No Chemotherapy: No Cerebrovascular Accident: No Diabetes: No Diminished Hearing: No Endocrine: No Gastrointestinal Disorders: No GERD: Yes Genitourinary: No Headaches: No Heparin Induced Thrombocytopen: No Immune Disorder: No Implanted Vascular Access Dvce: Yes (NOT IN PLACE AT THIS TIME) Musculoskeletal: Yes (chronic back pain) Neurologic: No Psychiatric: No Reproductive: Yes Respiratory: No Immunizations Current: Yes Migraines: No Pancreatitis: Yes Pneumonia: Yes Radiation Therapy: No Seizures: No Sickle Cell Disease: No Thyroid Disease: No Past Surgical History Abdominal Surgery: No AICD: No Arteriovenous Shunt: No Body Medical Devices: 4 screws lumbar Cardiac Surgery: No Ear Surgery: No Endocrine Surgery: No Eye Surgery: No Genitourinary Surgery: No Gynecologic Surgery: No Hysterectomy: No Insulin Pump: No Joint Replacement: No Neurologic Surgery: No Oral Surgery: No Pacemaker: No Thoracic Surgery: Yes (Backx 2 with screws) Other Surgery: Yes Social History Alcohol Use: Yes (binge drinker) Tobacco Use: Yes (2 PPD) Substance Use: Yes (MARIJUANA) Allergies-Medications (Allergen,Severity, Reaction): Coded Allergies: No Known Allergies (Verified Adverse Reaction, Unknown, 10/10/17) Reported Meds & Prescriptions Reported Meds & Active Scripts Active Chlordiazepoxide HCl 25 Mg Capsule 1 Tab PO Q6HR Zantac (Ranitidine HCl) 150 Mg Tab 150 Mg PO BID Review of Systems Except as stated in HPI: all other systems reviewed are Neg Physical Exam Narrative GENERAL: Well-developed well-nourished, smells of alcohol, no obvious distress peer SKIN: Focused skin assessment warm/dry. HEAD: Atraumatic. Normocephalic. EYES: Pupils equal and round. No scleral icterus. No injection or drainage. ENT: No nasal bleeding or discharge. Mucous membranes pink and moist. Very poor dentition, his left and right primary and secondary maxillary incisors are worn down to the gumline, they have a bluish discoloration to them. There is no abscess, no jaw or facial swelling. NECK: Trachea midline. No JVD. CARDIOVASCULAR: Regular rate and rhythm. No murmur appreciated. RESPIRATORY: No accessory muscle use. Clear to auscultation. Breath sounds equal bilaterally. GASTROINTESTINAL: Abdomen soft, non-tender, nondistended. Hepatic and splenic margins not palpable. MUSCULOSKELETAL: No obvious deformities. No clubbing. No cyanosis. No edema. NEUROLOGICAL: Awake and alert. No obvious cranial nerve deficits. Motor grossly within normal limits. Normal speech. PSYCHIATRIC: Appropriate mood and affect; insight and judgment normal. Data Data Last Documented VS Vital Signs Date Time Temp Pulse Resp B/P (MAP) Pulse Ox O2 Delivery O2 Flow Rate FiO2 10/11/17 00:08 10/10/17 23:08 16 10/10/17 22:22 96 94 Room Air 10/10/17 21:34 97.8 Orders Orders Complete Blood Count With Diff (10/10/17 21:45) Comprehensive Metabolic Panel (10/10/17 21:45) Lipase (10/10/17 21:45) Iv Access Insert/Monitor (10/10/17 21:45) Ecg Monitoring (10/10/17 21:45) Oximetry (10/10/17 21:45) Sodium Chloride 0.9% Flush (Ns Flush) (10/10/17 21:45) Sodium Chlor 0.9% 1000 Ml Inj (Ns 1000 M (10/10/17 22:15) Ketorolac Inj (Toradol Inj) (10/10/17 22:15) Alcohol (Ethanol) (10/10/17 22:05) Thiamine Inj (Thiamine Inj) (10/10/17 22:45) Ed Discharge Order (10/10/17 23:57) Labs Laboratory Tests Test 10/10/17 22:05 White Blood Count 4.7 TH/MM3 Red Blood Count 4.28 MIL/MM3 Hemoglobin 14.0 GM/DL Hematocrit 41.9 % Mean Corpuscular Volume 97.9 FL Mean Corpuscular Hemoglobin 32.6 PG Mean Corpuscular Hemoglobin Concent 33.3 % Red Cell Distribution Width 15.0 % Platelet Count 675 TH/MM3 Mean Platelet Volume 7.6 FL Neutrophils (%) (Auto) 42.9 % Lymphocytes (%) (Auto) 42.7 % Monocytes (%) (Auto) 10.4 % Eosinophils (%) (Auto) 1.0 % Basophils (%) (Auto) 3.0 % Neutrophils # (Auto) 2.0 TH/MM3 Lymphocytes # (Auto) 2.1 TH/MM3 Monocytes # (Auto) 0.5 TH/MM3 Eosinophils # (Auto) 0.0 TH/MM3 Basophils # (Auto) 0.1 TH/MM3 CBC Comment DIFF FINAL Differential Comment Blood Urea Nitrogen 2 MG/DL Creatinine 0.60 MG/DL Random Glucose 122 MG/DL Total Protein 7.1 GM/DL Albumin 3.0 GM/DL Calcium Level 8.0 MG/DL Alkaline Phosphatase 191 U/L Aspartate Amino Transf (AST/SGOT) 132 U/L Alanine Aminotransferase (ALT/SGPT) 104 U/L Total Bilirubin 0.4 MG/DL Sodium Level 145 MEQ/L Potassium Level 3.1 MEQ/L Chloride Level 105 MEQ/L Carbon Dioxide Level 30.7 MEQ/L Anion Gap 9 MEQ/L Estimat Glomerular Filtration Rate 156 ML/MIN Lipase 235 U/L Ethyl Alcohol Level 395 MG/DL [facility] Medical Decision Making Medical Screen Exam Complete: Yes Emergency Medical Condition: Yes Differential Diagnosis Intoxication, gastritis, gastroenteritis, pancreatitis, cholecystitis, cirrhosis Narrative Course Patient room to the emergency department, significant elevation of alcohol level , was given a liter of fluid and a thiamine bolus. Toradol. He fell asleep and while sleeping he had some mild desaturations and upon awakening him he have return of normal saturations. Probably has a component of sleep apnea. Patient's lipase normal, his abdomen is benign. He approached nursing and stated that he wanted to leave, his is at bedside is willing to take him home. Discussed alcohol cessation with him at length and discussed he needs to follow-up with HEENA or milka rodriguez. He verbalized understanding. Discussed return to ED criteria. Diagnosis Primary Impression: Epigastric abdominal pain of unknown etiology Referrals: [facility] Patient Instructions: Acute Abdominal Pain (DC), Alcohol Use Disorder (DC), General Instructions Disposition: 01 DISCHARGE HOME Condition: Stable Willy Ulloa MD Oct 10, 2017 22:10
[2017-10-10 22:15] LABS: BASOPHIL # 0.1 TH/MM3 (0-0.2); HEMATOCRIT 41.9 % (39.0-51.0); LYMPH % 42.7 % (9.0-44.0); LYMPHOCYTE # 2.1 TH/MM3 (1.0-4.8); MEAN CELL VOLUME 97.9 FL (80.0-100.0); MEAN CORPUSCULAR HEMOGLOBIN 32.6 PG (27.0-34.0); MEAN CORPUSCULAR HGB CONC 33.3 % (32.0-36.0); MEAN PLATELET VOLUME 7.6 FL (7.0-11.0); MONO % 10.4 % (0.0-8.0); MONOCYTE # 0.5 TH/MM3 (0-0.9); NEUT % 42.9 % (16.0-70.0); PLATELET COUNT 675 TH/MM3 (150-450); RED BLOOD COUNT 4.28 MIL/MM3 (4.50-5.90); WHITE BLOOD COUNT 4.7 TH/MM3 (4.0-11.0)
[2017-10-10] MEDS ORDERED: SODIUM CHLOR 0.9% 1000 ML INJ 1,000 ML IV ONE (22:15)
[2017-10-10] MEDS ORDERED: KETOROLAC TROMETHAMINE 30 MG/ML (IVP) VIAL IV PUSH ONE (22:15)
[2017-10-10 22:19] LABS: CHLORIDE 105 MEQ/L (98-107); SODIUM (NA) 145 MEQ/L (136-145)
[2017-10-10 22:22] VITALS: BP 113/77; PULSE 96; RESP 16; O2SAT 94
[2017-10-10 22:23] LABS: BICARBONATE 30.7 MEQ/L (21.0-32.0); BLOOD UREA NITROGEN 2 MG/DL (7-18); GLUCOSE,RANDOM 122 MG/DL (74-106)
[2017-10-10 22:26] LABS: ALT (GPT) 104 U/L (12-78); AST (GOT) 132 U/L (15-37); GLOMERULAR FILTRATION RATE 156 ML/MIN (>89)
[2017-10-10 22:27] LABS: TOTAL BILIRUBIN ADULT 0.4 MG/DL (0.2-1.0); TOTAL PROTEIN 7.1 GM/DL (6.4-8.2)
[2017-10-10 22:29] LABS: ALKALINE PHOSPHATASE 191 U/L (45-117)
[2017-10-10] MEDS ORDERED: THIAMINE INJ 100 MG in SODIUM CHLORIDE 0.9% INJ 100 ML IV ONE (22:45)
[2017-10-10 23:00] VITALS: BP 113/77; PULSE 98; RESP 16; O2SAT 95
[2017-10-10 23:30] VITALS: BP 119/72; PULSE 102; RESP 16; O2SAT 93
[2017-10-11] VITALS: BP 113/77; PULSE 100; RESP 16; O2SAT 98
== END 2017-10-11 00:09 | disposition home or self-care (01) ==
LOC: PHED 21:23
DX: R10.13 Epigastric pain (principal); F10.129 Alcohol abuse with intoxication, unspecified; Y90.8 Blood alcohol level of 240 mg/100 ml or more; M19.90 Unspecified osteoarthritis, unspecified site; F41.9 Anxiety disorder, unspecified; F32.9 Major depressive disorder, single episode, unspecified; K21.9 Gastro-esophageal reflux disease without esophagitis; Z87.19 Personal history of other diseases of the digestive system; Z79.899 Other long term (current) drug therapy
CPT/HCPCS: 80053; 80307; 83690; 85025; 96361; 96365; 96375; 99284; J1885; J3411; J7030

== ENCOUNTER 2017-10-11 23:21 | Emergency (ER) | payer OTHER, MEDICAID ==
[~2017-10-11] VITALS: Ht 180.3 cm; Wt 91.0 kg
[2017-10-11 23:47] VITALS: BP 142/86; PULSE 92; RESP 18; TEMP 98.8; O2SAT 96
[2017-10-12] MEDS ORDERED: LORazepam 1 MG TAB PO PRN
[2017-10-12] MEDS ORDERED: LORazepam 2 MG/ML VIAL IV PUSH PRN ×3
[2017-10-12] MEDS ORDERED: LORazepam 2 MG TAB PO PRN
--- NOTE | 2017-10-12 00:22 | PD ---
HPI Chief Complaint: Psychiatric Symptoms Time Seen by Provider: 23:30 Travel History International Travel<30 days: No Contact w/Intl Traveler<30days: No Traveled to known affect area: No History of Present Illness HPI Patient is a 32-year-old male known to me from his ER visit 2 days ago presents emergency department under Thomas act. Apparently 911 was called today by his patient has been drinking heavily today, police arrived on scene and found a man who is wearing a diaper and thought that he was unable to take care of himself and was Thomas acted to be brought in to [place] for evaluation. The patient has a history of alcoholism please see my previous note. He told me 2 days ago that he drinks for his chronic back pain and depression. He states he had 20 shots of alcohol tonight, he is complaining of some epigastric pain which is mild today and states actually less than it was the other day. States he vomited only once when he got to the hospital today. No chest pain no shortness of breath no diarrhea no blood in the stool. Symptoms moderate, started today, context and associated signs and symptoms as above. PFSH Past Medical History Hx Anticoagulant Therapy: No Arthritis: Yes Anxiety: Yes Depression: Yes Cancer: No Cardiovascular Problems: No Chemotherapy: No Cerebrovascular Accident: No Diabetes: No Diminished Hearing: No Endocrine: No Gastrointestinal Disorders: No GERD: Yes Genitourinary: No Headaches: No Heparin Induced Thrombocytopen: No Immune Disorder: No Implanted Vascular Access Dvce: Yes (NOT IN PLACE AT THIS TIME) Musculoskeletal: Yes (chronic back pain) Neurologic: No Psychiatric: No Reproductive: Yes Respiratory: No Immunizations Current: Yes Migraines: No Pancreatitis: Yes Pneumonia: Yes Radiation Therapy: No Seizures: No Sickle Cell Disease: No Thyroid Disease: No Past Surgical History Abdominal Surgery: No AICD: No Arteriovenous Shunt: No Body Medical Devices: 4 screws lumbar Cardiac Surgery: No Ear Surgery: No Endocrine Surgery: No Eye Surgery: No Genitourinary Surgery: No Gynecologic Surgery: No Hysterectomy: No Insulin Pump: No Joint Replacement: No Neurologic Surgery: No Oral Surgery: No Pacemaker: No Thoracic Surgery: Yes (Backx 2 with screws) Other Surgery: Yes Social History Alcohol Use: Yes (binge drinker 20-30 SHOTS VODKA DAILY) Tobacco Use: Yes (1/2 PPD) Substance Use: Yes (MARIJUANA) Allergies-Medications (Allergen,Severity, Reaction): Coded Allergies: No Known Allergies (Verified Adverse Reaction, Unknown, 10/10/17) Reported Meds & Prescriptions Reported Meds & Active Scripts Active Chlordiazepoxide HCl 25 Mg Capsule 1 Tab PO Q6HR Zantac (Ranitidine HCl) 150 Mg Tab 150 Mg PO BID Review of Systems Except as stated in HPI: all other systems reviewed are Neg Physical Exam Narrative GENERAL: Well-developed well-nourished, smells of alcohol. SKIN: Focused skin assessment warm/dry. HEAD: Atraumatic. Normocephalic. EYES: Pupils equal and round. No scleral icterus. No injection or drainage. ENT: No nasal bleeding or discharge. Mucous membranes pink and moist. NECK: Trachea midline. No JVD. CARDIOVASCULAR: Regular rate and rhythm. No murmur appreciated. RESPIRATORY: No accessory muscle use. Clear to auscultation. Breath sounds equal bilaterally. GASTROINTESTINAL: Abdomen obese but soft, non-tender, nondistended. Hepatic and splenic margins not palpable. No rebound no percussive tenderness, no caput medusae, no CVA tenderness. MUSCULOSKELETAL: No obvious deformities. No clubbing. No cyanosis. No edema. NEUROLOGICAL: Awake and alert. No obvious cranial nerve deficits. Motor grossly within normal limits. Normal speech. PSYCHIATRIC: Appropriate mood and affect; insight and judgment normal. Data Data Last Documented VS Vital Signs Date Time Temp Pulse Resp B/P (MAP) Pulse Ox O2 Delivery O2 Flow Rate FiO2 10/11/17 23:47 98.8 92 18 142/86 (104) 96 Orders Orders Complete Blood Count With Diff (10/11/17 23:29) Comprehensive Metabolic Panel (10/11/17 23:29) Thyroid Stimulating Hormone (10/11/17 23:29) Psych Screen (10/11/17 23:29) Drug Screen, Random Urine (10/11/17 23:29) Alcohol (Ethanol) (10/11/17 23:29) Lipase (10/11/17 23:29) Alcohol Withdrawal Asmt-Ciwa ONCE (10/11/17 23:46) Lorazepam (Ativan) (10/12/17 00:00) Lorazepam Inj (Ativan Inj) (10/12/17 00:00) Lorazepam (Ativan) (10/12/17 00:00) Lorazepam Inj (Ativan Inj) (10/12/17 00:00) Lorazepam Inj (Ativan Inj) (10/12/17 00:00) Lorazepam Inj (Ativan Inj) (10/12/17 00:00) Morphine Inj (Morphine Inj) (10/12/17 00:30) Promethazine Inj (Phenergan Inj) (10/12/17 00:30) Labs Laboratory Tests Test 10/12/17 00:15 White Blood Count 5.4 TH/MM3 Red Blood Count 4.76 MIL/MM3 Hemoglobin 15.6 GM/DL Hematocrit 46.1 % Mean Corpuscular Volume 96.9 FL Mean Corpuscular Hemoglobin 32.7 PG Mean Corpuscular Hemoglobin Concent 33.8 % Red Cell Distribution Width 15.4 % Platelet Count 786 TH/MM3 Mean Platelet Volume 7.3 FL Neutrophils (%) (Auto) 44.4 % Lymphocytes (%) (Auto) 47.8 % Monocytes (%) (Auto) 6.4 % Eosinophils (%) (Auto) 0.3 % Basophils (%) (Auto) 1.1 % Neutrophils # (Auto) 2.4 TH/MM3 Lymphocytes # (Auto) 2.6 TH/MM3 Monocytes # (Auto) 0.3 TH/MM3 Eosinophils # (Auto) 0.0 TH/MM3 Basophils # (Auto) 0.1 TH/MM3 CBC Comment DIFF FINAL Differential Comment Blood Urea Nitrogen 2 MG/DL Creatinine 0.84 MG/DL Random Glucose 106 MG/DL Total Protein 8.0 GM/DL Albumin 3.6 GM/DL Calcium Level 8.2 MG/DL Alkaline Phosphatase 243 U/L Aspartate Amino Transf (AST/SGOT) 242 U/L Alanine Aminotransferase (ALT/SGPT) 161 U/L Total Bilirubin 0.5 MG/DL Sodium Level 148 MEQ/L Potassium Level 3.2 MEQ/L Chloride Level 104 MEQ/L Carbon Dioxide Level 31.4 MEQ/L Anion Gap 13 MEQ/L Estimat Glomerular Filtration Rate 106 ML/MIN Lipase 207 U/L Thyroid Stimulating Hormone 3rd Gen 0.795 uIU/ML Ethyl Alcohol Level 400 MG/DL MDM Medical Decision Making Medical Screen Exam Complete: Yes Emergency Medical Condition: Yes Differential Diagnosis Alcoholism, cirrhosis, acute abdomen unlikely, pancreatitis, alcohol intoxication, electrolyte abnormality, Narrative Course Patient room to the emergency department, his abdomen is benign he had one episode of emesis, morphine and Phenergan and Ativan were ordered for him, he appears comfortable, certainly is not delirious. CIWA protocol has been ordered for him, he is medically cleared for psychiatric evaluation. Diagnosis Primary Impression: Alcoholism Condition: Stable Willy Ulloa MD Oct 12, 2017 00:22
[2017-10-12] MEDS ORDERED: MORPHINE SULFATE 8 MG/ML INJ IV PUSH ONE (00:30)
[2017-10-12] MEDS ORDERED: PROMETHAZINE INJ 25 MG/ML VIAL IM ONE (00:30)
[2017-10-12 00:31] LABS: AUTOMATED NEUTROPHIL # 2.4 TH/MM3 (1.8-7.7); BASOPHIL # 0.1 TH/MM3 (0-0.2); BASOPHIL % 1.1 % (0.0-2.0); EOSINOPHIL % 0.3 % (0.0-4.0); HEMATOCRIT 46.1 % (39.0-51.0); HEMOGLOBIN 15.6 GM/DL (13.0-17.0); LYMPH % 47.8 % (9.0-44.0); LYMPHOCYTE # 2.6 TH/MM3 (1.0-4.8); MEAN CELL VOLUME 96.9 FL (80.0-100.0); MEAN CORPUSCULAR HEMOGLOBIN 32.7 PG (27.0-34.0); MEAN CORPUSCULAR HGB CONC 33.8 % (32.0-36.0); MEAN PLATELET VOLUME 7.3 FL (7.0-11.0); MONO % 6.4 % (0.0-8.0); MONOCYTE # 0.3 TH/MM3 (0-0.9); NEUT % 44.4 % (16.0-70.0); PLATELET COUNT 786 TH/MM3 (150-450); RED BLOOD COUNT 4.76 MIL/MM3 (4.50-5.90); RED CELL DISTRIBUTION WIDTH 15.4 % (11.6-17.2); WHITE BLOOD COUNT 5.4 TH/MM3 (4.0-11.0)
[2017-10-12 00:52] LABS: ALBUMIN 3.6 GM/DL (3.4-5.0); ALT (GPT) 161 U/L (12-78); AST (GOT) 242 U/L (15-37); BICARBONATE 31.4 MEQ/L (21.0-32.0); BLOOD UREA NITROGEN 2 MG/DL (7-18); CALCIUM 8.2 MG/DL (8.5-10.1); CHLORIDE 104 MEQ/L (98-107); CREATININE 0.84 MG/DL (0.60-1.30); GLOMERULAR FILTRATION RATE 106 ML/MIN (>89); GLUCOSE,RANDOM 106 MG/DL (74-106); SODIUM (NA) 148 MEQ/L (136-145)
[2017-10-12 01:02] LABS: ALKALINE PHOSPHATASE 243 U/L (45-117); TOTAL BILIRUBIN ADULT 0.5 MG/DL (0.2-1.0)
[2017-10-12 01:50] VITALS: BP 140/76; PULSE 83; RESP 16; O2SAT 95
[2017-10-12 03:42] VITALS: BP 117/67; PULSE 85; RESP 18; O2SAT 97
[2017-10-12] MEDS: LORazepam 2 MG/ML VIAL IV PUSH PRN ×2 (04:06→08:54)
[2017-10-12 08:00] VITALS: BP 130/75; PULSE 91; RESP 18; O2SAT 97
--- NOTE | 2017-10-12 10:21 | PD ---
Physical Exam Date Seen by Provider: Oct 12, 2017 Time Seen by Provider: 10:20 Narrative For full H&P please see previous providers notes. Data Data Last Documented VS Vital Signs Date Time Temp Pulse Resp B/P (MAP) Pulse Ox O2 Delivery O2 Flow Rate FiO2 10/12/17 08:00 91 18 130/75 (93) 97 Room Air 10/11/17 23:47 98.8 Orders Orders Complete Blood Count With Diff (10/11/17 23:29) Comprehensive Metabolic Panel (10/11/17 23:29) Thyroid Stimulating Hormone (10/11/17 23:29) Psych Screen (10/11/17 23:29) Drug Screen, Random Urine (10/11/17 23:29) Alcohol (Ethanol) (10/11/17 23:29) Lipase (10/11/17 23:29) Alcohol Withdrawal Asmt-Ciwa ONCE (10/11/17 23:46) Lorazepam (Ativan) (10/12/17 00:00) Lorazepam Inj (Ativan Inj) (10/12/17 00:00) Lorazepam (Ativan) (10/12/17 00:00) Lorazepam Inj (Ativan Inj) (10/12/17 00:00) Lorazepam Inj (Ativan Inj) (10/12/17 00:00) Lorazepam Inj (Ativan Inj) (10/12/17 00:00) Morphine Inj (Morphine Inj) (10/12/17 00:30) Promethazine Inj (Phenergan Inj) (10/12/17 00:30) Diet Regular Basic (10/12/17 Breakfast) Ed Discharge Order (10/12/17 10:17) Labs Laboratory Tests Test 10/12/17 00:15 10/12/17 04:00 White Blood Count 5.4 TH/MM3 Red Blood Count 4.76 MIL/MM3 Hemoglobin 15.6 GM/DL Hematocrit 46.1 % Mean Corpuscular Volume 96.9 FL Mean Corpuscular Hemoglobin 32.7 PG Mean Corpuscular Hemoglobin Concent 33.8 % Red Cell Distribution Width 15.4 % Platelet Count 786 TH/MM3 Mean Platelet Volume 7.3 FL Neutrophils (%) (Auto) 44.4 % Lymphocytes (%) (Auto) 47.8 % Monocytes (%) (Auto) 6.4 % Eosinophils (%) (Auto) 0.3 % Basophils (%) (Auto) 1.1 % Neutrophils # (Auto) 2.4 TH/MM3 Lymphocytes # (Auto) 2.6 TH/MM3 Monocytes # (Auto) 0.3 TH/MM3 Eosinophils # (Auto) 0.0 TH/MM3 Basophils # (Auto) 0.1 TH/MM3 CBC Comment DIFF FINAL Differential Comment Blood Urea Nitrogen 2 MG/DL Creatinine 0.84 MG/DL Random Glucose 106 MG/DL Total Protein 8.0 GM/DL Albumin 3.6 GM/DL Calcium Level 8.2 MG/DL Alkaline Phosphatase 243 U/L Aspartate Amino Transf (AST/SGOT) 242 U/L Alanine Aminotransferase (ALT/SGPT) 161 U/L Total Bilirubin 0.5 MG/DL Sodium Level 148 MEQ/L Potassium Level 3.2 MEQ/L Chloride Level 104 MEQ/L Carbon Dioxide Level 31.4 MEQ/L Anion Gap 13 MEQ/L Estimat Glomerular Filtration Rate 106 ML/MIN Lipase 207 U/L Thyroid Stimulating Hormone 3rd Gen 0.795 uIU/ML Ethyl Alcohol Level 400 MG/DL Urine Opiates Screen NEG Urine Barbiturates Screen NEG Urine Amphetamines Screen NEG Urine Benzodiazepines Screen POS Urine Cocaine Screen NEG Urine Cannabinoids Screen POS MDM Medical Record Reviewed: Yes Supervised Visit with [place]: No Narrative Course Patient was seen and evaluated emergency department, he was medically cleared. Patient was then seen and evaluated by psychiatry, William act was lifted. Patient will be discharged home to follow-up with Kurt Segura. Diagnosis Primary Impression: Alcoholism Referrals: [facility] 1 day Patient Instructions: Abuse of Alcohol (ED), Alcohol Intoxication (ED), General Instructions Additional Instruction: Follow-up with Kurt Segura Avoid excessive alcohol intake Return to emergency department for any new worsening symptoms Med/Other Pt SpecificInfo: No Change to Meds Disposition: 01 DISCHARGE HOME Condition: Stable Yina Estes Oct 12, 2017 10:21
[2017-10-12 10:28] VITALS: BP 131/71
--- NOTE | 2017-10-12 13:18 | PD.PSY.CON ---
Provisional Diagnosis Admission Date [place] I. Alcohol-induced mood disorder, alcohol and cannabis use disorder [place] II. Deferred [place] III. No significant medical history [place] IV. Family dynamic conflicts [place] V. 55 History of Present Illness Service Psychiatry Consult Requested By ER Reason for Consult Patient is under Thomas act Primary Care Physician No Primary Care Physician HPI Late entry, the patient was seen this morning at 730 AM the patient is a 32-year-old man, domiciled in [place] with his and 3 kids, unemployed, on SSI process, with psychiatric history of alcohol and cannabis use disorder, no previous psychiatric hospitalizations, no suicide attempts, no significant medical history, with a ER visit 2 days ago with alcohol related issues, who presents emergency department under Thomas act. Apparently 911 was called today by his patient has been drinking heavily today, police arrived on scene and found a man who is wearing a diaper and thought that he was unable to take care of himself and was Thomas acted to be brought in to [place] for evaluation. The patient has a history of alcoholism please see my previous note. He told me 2 days ago that he drinks for his chronic back pain and depression. On psychiatric evaluation today the patient is calm, cooperative, clinically sober. He states he had 20 shots of alcohol last night, patient reports that he has been drinking heavily in the last day, but he denies symptoms of depression, anxiety, reilly and psychosis. The patient reports that his called 911 just to got rid of him. His plan is to go to a hotel today. Patient is willing to accept a referral to [facility], "even though I was just discharged from detox a week ago". The patient denies suicidal and homicidal ideation, he denies visual and auditory hallucinations. The patient has bilateral tremors at this moment. Review of Systems Constitutional: DENIES: Diaphoretic episodes, Fatigue, Fever, Weight gain, Weight loss, Chills, Dizziness, Change in appetite, Night Sweats Endocrine: DENIES: Heat/cold intolerance, Polydipsia, Polyuria, Polyphagia Eyes: DENIES: Blurred vision, Diplopia, Eye inflammation, Eye pain, Vision loss , Photosensitivity, Double Vision Ears, nose, mouth, throat: DENIES: Tinnitus, Hearing loss, Vertigo, Nasal discharge, Oral lesions, Throat pain, Hoarseness, Ear Pain, Running Nose, Epistaxis, Sinus Pain, Toothache, Odynophagia Respiratory: DENIES: Apneas, Cough, Snoring, Wheezing, Hemoptysis, Sputum production, Shortness of breath Cardiovascular: DENIES: Chest pain, Palpitations, Syncope, Dyspnea on Exertion , PND, Lower Extremity Edema, Orthopnea, Claudication Gastrointestinal: DENIES: Abdominal pain, Black stools, Bloody stools, Constipation, Diarrhea, Nausea, Vomiting, Difficulty Swallowing, Anorexia Genitourinary: DENIES: Sexual dysfunction, Urinary frequency, Urinary incontinence, Urgency, Hematuria, Dysuria, Nocturia, Penile Discharge, Testicular Pain, Testicular Swelling Musculoskeletal: DENIES: Joint pain, Muscle aches, Stiffness, Joint Swelling, Back pain, Neck pain Integumentary: DENIES: Abnormal pigmentation, Nail changes, Pruritus, Rash Hematologic/lymphatic: DENIES: Bruising, Lymphadenopathy Immunologic/allergic: DENIES: Eczema, Urticaria Neurologic: COMPLAINS OF: Tremor, DENIES: Abnormal gait, Headache, Localized weakness, Paresthesias, Seizures, Speech Problems, Poor Balance Psychiatric: DENIES: Anxiety, Confusion, Mood changes, Depression, Hallucinations, Agitation, Suicidal Ideation, Homicidal Ideation, Delusions Past Family Social History Coded Allergies: No Known Allergies (Verified Adverse Reaction, Unknown, 10/10/17) Active Scripts Chlordiazepoxide HCl (Chlordiazepoxide HCl) 25 Mg Capsule, 1 TAB PO Q6HR for Alcohol Detox, #2 Prov:Chico Pineda MD 08/29/17 Ranitidine (Zantac) 150 Mg Tab, 150 MG PO BID for Reduce Stomach Acid, #14 TAB 0 Refills Prov:Mahesh Shelton MD 08/20/17 Family Psych History No family psychiatric he Social History Patient was born and raised in the [place], he lives in [place] with his , he has 3 kids, is unemployed on [employer] process Patient's Strengths (min. 2) No previous psychiatric history Physical Exam Bilateral tremors, muscle twitching, sweaty Vital Signs Vital Signs Date Time Temp Pulse Resp B/P (MAP) Pulse Ox O2 Delivery O2 Flow Rate FiO2 10/12/17 10:28 88 19 131/71 (91) 98 10/12/17 08:00 Room Air 10/11/17 23:47 98.8 Lab Results Test 10/12/17 00:15 10/12/17 04:00 White Blood Count 5.4 TH/MM3 Red Blood Count 4.76 MIL/MM3 Hemoglobin 15.6 GM/DL Hematocrit 46.1 % Mean Corpuscular Volume 96.9 FL Mean Corpuscular Hemoglobin 32.7 PG Mean Corpuscular Hemoglobin Concent 33.8 % Red Cell Distribution Width 15.4 % Platelet Count 786 TH/MM3 Mean Platelet Volume 7.3 FL Neutrophils (%) (Auto) 44.4 % Lymphocytes (%) (Auto) 47.8 % Monocytes (%) (Auto) 6.4 % Eosinophils (%) (Auto) 0.3 % Basophils (%) (Auto) 1.1 % Neutrophils # (Auto) 2.4 TH/MM3 Lymphocytes # (Auto) 2.6 TH/MM3 Monocytes # (Auto) 0.3 TH/MM3 Eosinophils # (Auto) 0.0 TH/MM3 Basophils # (Auto) 0.1 TH/MM3 CBC Comment DIFF FINAL Differential Comment Blood Urea Nitrogen 2 MG/DL Creatinine 0.84 MG/DL Random Glucose 106 MG/DL Total Protein 8.0 GM/DL Albumin 3.6 GM/DL Calcium Level 8.2 MG/DL Alkaline Phosphatase 243 U/L Aspartate Amino Transf (AST/SGOT) 242 U/L Alanine Aminotransferase (ALT/SGPT) 161 U/L Total Bilirubin 0.5 MG/DL Sodium Level 148 MEQ/L Potassium Level 3.2 MEQ/L Chloride Level 104 MEQ/L Carbon Dioxide Level 31.4 MEQ/L Anion Gap 13 MEQ/L Estimat Glomerular Filtration Rate 106 ML/MIN Lipase 207 U/L Thyroid Stimulating Hormone 3rd Gen 0.795 uIU/ML Ethyl Alcohol Level 400 MG/DL Urine Opiates Screen NEG Urine Barbiturates Screen NEG Urine Amphetamines Screen NEG Urine Benzodiazepines Screen POS Urine Cocaine Screen NEG Urine Cannabinoids Screen POS Mental Status Examination Appearance: Appropriate Consciousness: Alert Orientation: x4 Motor Activity: Normal gait Speech: Unremarkable Language: Adequate Fund of Knowledge: Adequate Attention and Concentration: Adequate Memory: Unremarkable Mood: Appropriate Affect: Appropriate Thought Process & Associations: Intact Thought Content: Appropriate Hallucination Type: None Delusion Type: None Suicidal Ideation: No Suicidal Plan: No Suicidal Intention: No Homicidal Ideation: No Homicidal Plan: No Homicidal Intention: No Insight: Adequate Judgment: Adequate Assessment & Plan Problem List: (1) Alcohol abuse with alcohol-induced mood disorder ICD Codes: F10.14 - Alcohol abuse with alcohol-induced mood disorder Assessment & Plan: On psychiatric evaluation today the patient does not present any neuropsychiatric symptoms or require immediate psychiatric intervention. The patient denies symptomatology of depression, anxiety, reilly and psychosis. He denies suicidal enemas ideation. He denies visual and auditory hallucinations. Patient seems to be insightful about his alcoholism, he was in a detox last week, been trying to control his alcohol intake, expressed understanding of dangerousness of using alcohol every day. The patient is actively withdrawing at the moment, I will order Ativan 2 mg p.o. now. CIWA protocol. We will try to commit the patient with SMA again, but he does not meet criteria for involuntary psychiatric admission. Brief supportive psychotherapy, motivational psych education provided. Thomas act will be lifted. Assessment & Plan Estimated LOS: Deep Li MD Oct 12, 2017 13:18
== END 2017-10-12 10:27 | disposition home or self-care (01) ==
LOC: NEPD 23:21
DX: F10.24 Alcohol dependence with alcohol-induced mood disorder (principal); F12.90 Cannabis use, unspecified, uncomplicated; F17.200 Nicotine dependence, unspecified, uncomplicated; Y90.8 Blood alcohol level of 240 mg/100 ml or more; Z79.899 Other long term (current) drug therapy
CPT/HCPCS: 80053; 80307; 83690; 84443; 85025; 96372; 96374; 96375; 96376; 99284; J2060; J2270; J2550

== ENCOUNTER 2017-12-13 11:35 | Inpatient (IN) ==
[2017-12-13] MEDS ORDERED: Sod Chloride 0.9% Inj 1,000 ML IV.SIG ONE ×2 (11:43→13:49)
[2017-12-13] MEDS ORDERED: Pantoprazole Inj 40 MG Vial IV.PUSH ONE (11:43)
--- NOTE | 2017-12-13 11:52 | ED ---
HPI General Chief complaint: Abdominal Pain Stated complaint: Adm pain Time Seen by Provider: 12/13/17 11:43 History of Present Illness HPI narrative: 32-year-old male is brought to the emergency department by EMS for evaluation of intractable vomiting. The patient reportedly drinks alcohol daily and for the past 3 days has had 3 L of vodka every day. States that he stopped drinking last night and started vomiting around 5 AM. States he has been unable to stop vomiting since then. Per EMS report there were coffee ground emesis noted on scene. Patient admits that there was some bloody vomit. States that this has happened to him before, reports a history of GI bleed in the past. He is currently complaining of nausea, vomiting, trembling, abdominal soreness. He states that he has gone through alcohol withdrawals before and has had alcohol withdrawal seizures in the past. He takes no medications regularly. Denies any drug use. No other complaints or concerns. Related Data Home Medications Medication Instructions Recorded Confirmed No Known Home Medications 12/06/17 12/13/17 Allergies Allergy/AdvReac Type Severity Reaction Status Date / Time No Known Allergies Allergy Unverified 12/13/17 11:46 Review of Systems ROS: all other systems reviewed are negative [facility] Medical History Medical History Anxiety (Acute) ETOH abuse (Acute) GI bleed (Acute) Surgical History Surgical History History of back surgery (Acute) Social History Social History Substance History: No History of Abuse Second Hand Smoke Exposure: No Smoking Status: Current every day smoker Tobacco Type: Cigarettes How Often Do You Have a Drink Containing Alcohol: 4 or more times a week Recent Travel in [facility] within the Last 8 Weeks: No Recent Out of Country Travel within the Last 8 Weeks: No Exam Narrative Exam Narrative: GENERAL: Well-nourished and well-developed male patient currently shaking all over, holding an emesis bag, actively vomiting. SKIN: Warm and dry. HEAD: Normocephalic and atraumatic. EYES: No injection, drainage, or hyphema noted. PERRLA. EOMI. ENT: No nasal drainage noted. Oropharynx is clear. NECK: Supple and the trachea is midline. CARDIOVASCULAR: Regular rate and rhythm. RESPIRATORY: Breath sounds are equal bilaterally with no accessory muscle use, wheezing, rhonchi, or crackles. GASTROINTESTINAL: Diffuse abdominal tenderness worse to the epigastric and left lower quadrant region. Abdomen is soft and nondistended. MUSCULOSKELETAL: No obvious deformities, swelling, cyanosis, or ecchymosis is present throughout the upper and lower extremities. Patient has full range of motion without any signs of neurovascular compromise. Distal pulses are 2+ throughout. NEUROLOGICAL: Awake, alert, and oriented. Normal speech and gait. Cranial nerves are grossly intact. Course Initial Documented Vital Signs Temperature 98.5 F 12/13/17 11:40 Pulse Rate 74 12/13/17 11:40 Respiratory Rate 18 12/13/17 11:40 Blood Pressure 143/82 H 12/13/17 11:40 Pulse Oximetry 96 12/13/17 11:40 Last Documented Vital Signs Temperature 98.5 F 12/13/17 11:40 Pulse Rate 119 H 12/13/17 14:03 Respiratory Rate 20 12/13/17 14:03 Blood Pressure 120/58 L 12/13/17 14:03 Pulse Oximetry 98 12/13/17 14:03 Medical Decision Making [place] Attestation [place] supervised visit: Yes Attestation: I, Dr. Willis, have reviewed the advance practice practitioner's documentation and am in agreement, met with the patient face to face, made the diagnosis, and the medical decision making was done by me. *My assessment and Findings: Impending DTs as well as pancreatitis and transaminitis, patient is an alcoholic who drinks about 3 L of vodka per day, patient coming to the emergency room for evaluation of coffee-ground emesis. Patient reports that he did try to stop drinking last night, reports that since his last drink, he has been nauseous and has been vomiting and has not been able to keep anything down. Patient has had multiple episodes of Ativan as he appears to be in withdrawal. He does have transaminitis with coffee-ground emesis. Patient will require admission to the hospital for further treatment. MDM Narrative Medical decision making narrative: 32-year-old male is brought to the emergency department by EMS for evaluation of intractable nausea and vomiting after drinking binge. Patient is afebrile, vital signs are stable. EKG shows sinus tachycardia with a ventricular rate of 121 bpm with frequent PVCs. IV access is obtained, labs have been drawn and sent. Patient is placed on cardiac telemetry and pulse oximetry monitoring. Patient is given IV fluids, Zofran 4 mg IV, Protonix 40 mg IV and Ativan 1 mg IV. Labs are significant for elevated LFTs and lipase. CT shows acute unconjugated pancreatitis. Patient has remained stable while here in the emergency department. He will be admitted for acute pancreatitis and alcohol withdrawal. I spoke with Dr. Rogers who agrees to admit the patient to his service. Medical Screen Exam Complete: Yes Emergency Medical Condition: Yes Differential Diagnosis Differential Diagnosis: Alcohol withdrawal versus GI bleed versus dehydration versus electrolyte abnormality Lab Data Result diagrams: 12/13/17 11:55 12/13/17 11:55 Lab Results 12/13/17 12/13/17 12/13/17 Range/Units 11:44 11:55 11:55 WBC 9.9 (4.0-11.0) th/mm3 RBC 4.73 (4.50-5.90) mil/mm3 Hgb 15.0 (13.0-17.0) gm/dL Hct 43.4 (39.0-51.0) % MCV 91.8 (80.0-100.0) fL MCH 31.7 (27.0-34.0) pg MCHC 34.5 (32.0-36.0) % RDW 13.8 (11.6-17.2) % Plt Count 154 D (150-450) th/mm3 MPV 8.2 (7.0-11.0) fL Neut % (Auto) 84.4 H (16.0-70.0) % Lymph % (Auto) 10.3 (9.0-44.0) % [place] % (Auto) 5.0 (0.0-8.0) % Eos % (Auto) 0.0 (0.0-4.0) % Baso % (Auto) 0.3 (0.0-2.0) % Neut # (Auto) 8.4 H (1.8-7.7) th/mm3 Lymph # (Auto) 1.0 (1.0-4.8) th/mm3 [place] # (Auto) 0.5 (0.0-0.9) th/mm3 Eos # (Auto) 0.0 (0.0-0.4) th/mm3 Baso # (Auto) 0.0 (0.0-0.2) th/mm3 WBC Differential . Differential Comment Auto diff final PT 12.4 H (9.8-11.6) sec INR 1.2 Ratio APTT 23.3 L (24.3-30.1) sec Sodium (136-145) meq/L Potassium (3.5-5.1) meq/L Chloride (98-107) meq/L Carbon Dioxide (21.0-32.0) meq/L Anion Gap (5-15) meq/L BUN (7-18) mg/dL Creatinine (0.60-1.30) mg/dL Estimated GFR (>89) mL/min Random Glucose (74-106) mg/dL Calcium (8.5-10.1) mg/dL Total Bilirubin (0.2-1.0) mg/dL AST (15-37) U/L ALT (12-78) U/L Alkaline Phosphatase (45-117) U/L Total Protein (6.4-8.2) g/dL Albumin (3.4-5.0) g/dL Lipase (73-393) U/L Serum Alcohol (0-5) mg/dL Blood Type O Positive Antibody Screen Negative 12/13/17 Range/Units 11:55 WBC (4.0-11.0) th/mm3 RBC (4.50-5.90) mil/mm3 Hgb (13.0-17.0) gm/dL Hct (39.0-51.0) % MCV (80.0-100.0) fL MCH (27.0-34.0) pg MCHC (32.0-36.0) % RDW (11.6-17.2) % Plt Count (150-450) th/mm3 MPV (7.0-11.0) fL Neut % (Auto) (16.0-70.0) % Lymph % (Auto) (9.0-44.0) % [place] % (Auto) (0.0-8.0) % Eos % (Auto) (0.0-4.0) % Baso % (Auto) (0.0-2.0) % Neut # (Auto) (1.8-7.7) th/mm3 Lymph # (Auto) (1.0-4.8) th/mm3 [place] # (Auto) (0.0-0.9) th/mm3 Eos # (Auto) (0.0-0.4) th/mm3 Baso # (Auto) (0.0-0.2) th/mm3 WBC Differential Differential Comment PT (9.8-11.6) sec INR Ratio APTT (24.3-30.1) sec Sodium 139 (136-145) meq/L Potassium 3.2 L (3.5-5.1) meq/L Chloride 93 L (98-107) meq/L Carbon Dioxide 27.5 (21.0-32.0) meq/L Anion Gap 19 H (5-15) meq/L BUN 12 (7-18) mg/dL Creatinine 0.88 (0.60-1.30) mg/dL Estimated GFR Greater than 89 (>89) mL/min Random Glucose 143 H (74-106) mg/dL Calcium 8.1 L (8.5-10.1) mg/dL Total Bilirubin 1.1 H (0.2-1.0) mg/dL AST 502 H (15-37) U/L ALT 350 H (12-78) U/L Alkaline Phosphatase 151 H (45-117) U/L Total Protein 7.1 (6.4-8.2) g/dL Albumin 3.8 (3.4-5.0) g/dL Lipase 1833 H (73-393) U/L Serum Alcohol 55 H (0-5) mg/dL Blood Type Antibody Screen Imaging Data Radiologist's impression: Abdomen/Pelvis CT 12/13/17 13:09 CONCLUSION: 1. CT findings characteristic of an acute, uncomplicated pancreatitis. Pancreas appears enlarged and edematous with peripancreatic stranding. No peripancreatic fluid, however. 2. Diffuse hepatic fatty infiltration. 3. Minimal atelectatic changes in the dependent portion of the right lung base. Lung bases are otherwise clear. Discharge Plan Discharge Disposition Patient Disposition: 30 Still Patient Discharge Condition Condition: Stable Discharge Details Diagnosis: Acute alcoholic pancreatitis, Transaminitis, Alcohol withdrawal Physicians Team ED Provider: Lakshmi Willis ED Midlevel Provider: Diana Shrestha Primary Care Provider: Primary Care Jeny Andino Rxs /Orders / Referrals /Forms Prescriptions: No Action No Known Home Medications RF: 0 Discharge Interventions Interventions: Vital Signs Last Done: 12/13/17 14:03 Status ED Status: With Doctor
[2017-12-13 12:27] LABS: Baso % (Auto) 0.3 % (0.0-2.0); Hematocrit 43.4 % (39.0-51.0); Lymph % (Auto) 10.3 % (9.0-44.0); Mean Corpuscular HGB Conc 34.5 % (32.0-36.0); Mean Corpuscular Hemoglobin 31.7 pg (27.0-34.0); Mean Corpuscular Volume 91.8 fL (80.0-100.0); Mean Platelet Volume 8.2 fL (7.0-11.0); Mono # (Auto) 0.5 th/mm3 (0.0-0.9); Neut # (Auto) 8.4 th/mm3 (1.8-7.7); Neut % (Auto) 84.4 % (16.0-70.0); Platelet Count 154 th/mm3 (150-450); Red Blood Count 4.73 mil/mm3 (4.50-5.90); Red Cell Distribution Width 13.8 % (11.6-17.2); White Blood Count 9.9 th/mm3 (4.0-11.0)
[2017-12-13 12:37] LABS: Activated Partial Thrombo Time 23.3 sec (24.3-30.1); INR 1.2 Ratio; Prothrombin Time 12.4 sec (9.8-11.6)
[2017-12-13 12:46] LABS: Alanine Aminotransferase 350 U/L (12-78); Albumin 3.8 g/dL (3.4-5.0); Anion Gap 19 meq/L (5-15); Aspartate Aminotransferase 502 U/L (15-37); Blood Urea Nitrogen 12 mg/dL (7-18); Calcium 8.1 mg/dL (8.5-10.1); Carbon Dioxide 27.5 meq/L (21.0-32.0); Chloride 93 meq/L (98-107); Glomerular Filtration Rate Greater Than 89 mL/min (>89); Glucose,Random 143 mg/dL (74-106); Potassium 3.2 meq/L (3.5-5.1); Sodium 139 meq/L (136-145)
[2017-12-13 12:48] LABS: Alkaline Phosphatase 151 U/L (45-117); Total Protein 7.1 g/dL (6.4-8.2)
[2017-12-13 13:24] LABS: Lipase 1833 U/L (73-393)
[2017-12-13 13:27] LABS: Alcohol 55 mg/dL (0-5)
--- NOTE | 2017-12-13 15:38 | CT ---
EXAM DATE: 12/13/2017 3:18 PM EDT AGE/SEX: 32 years / Male INDICATIONS: ETOH abuse. Vomiting. CLINICAL DATA: This is the patient's initial encounter. Patient reports that signs and symptoms have been present for 3 days and indicates a pain score of 3/10. MEDICAL/SURGICAL HISTORY: . GI bleed. None. ORAL CONTRAST: No oral contrast ingested. RADIATION DOSE: 14.51 CTDI (mGy) COMPARISON: [facility] – [place], [place] ABDOMEN & PELVIS W/O CONTRAST, 09/28/2017. . TECHNIQUE: Multiple contiguous axial images were obtained through the abdomen and pelvis following b olus infusion of 96 ml Omnipaque 350 (iohexol) nonionic water-soluble contrast as a single exam dos e. No oral contrast ingested. Using automated exposure control and adjustment of the mA and/or kV ac cording to patient size, radiation dose was kept as low as reasonably achievable to obtain optimal di agnostic quality images. DICOM format image data is available electronically for review and comparis on. FINDINGS: Lower Lungs: Bibasilar atelectatic changes. Lung bases are otherwise clear. Liver: Diffusely diminished hepatic attenuation characteristic of marked fatty infiltration. Gallblad chris is moderately distended with no intra or extrahepatic biliary ductal dilatation Spleen: Homogeneous density without enlargement. Pancreas: Pancreas appears edematous with peripancreatic stranding characteristic of an acute pancre atitis. Minimal stranding tracking along the right paracolic gutter Kidneys: Normal in size and shape. No evidence of mass or hydronephrosis. Adrenal Glands: Unremarkable. Aorta: The aorta and proximal iliac vessels are grossly unremarkable without aneurysmal dilation. Bowel/Mesentery: The bowel loops are grossly unremarkable. The cecum and sigmoid colon have a normal configuration. Abdominal Wall: Intact. Retroperitoneum: No evidence of adenopathy in the retrocrural, para-aortic, or deep pelvic regions. Bladder: Contours are smooth. Reproductive Organs: No abnormal masses or calcifications seen. Inguinal: The inguinal region is unremarkable without evidence of adenopathy. Bony Structures: Bilateral transpedicular fixation at the lumbosacral junction Post Contrast: No abnormal areas of enhancement seen. CONCLUSION: 1. CT findings characteristic of an acute, uncomplicated pancreatitis. Pancreas appears enlarged and edematous with peripancreatic stranding. No peripancreatic fluid, however. 2. Diffuse hepatic fatty infiltration. 3. Minimal atelectatic changes in the dependent portion of the right lung base. Lung bases are other denney clear. Electronically signed by: Arnie Hoover MD 12/13/2017 3:37 PM EDT
[2017-12-13] MEDS ORDERED: LORazepam 1 MG Tablet PO PRN (15:43)
[2017-12-13] MEDS ORDERED: Haloperidol Inj 5 MG/ML Ampul IV.PUSH PRN ×2 (15:43→16:05)
--- NOTE | 2017-12-13 15:43 | ECG ---
Date Performed: 12/13/2017 Time Performed: 11:45:47 PTAGE: 32 years EKG: SINUS TACHYCARDIA WITH FREQUENT VENTRICULAR PREMATURE COMPLEXES NONSPECIFIC T-WAVE ABNORMAL ITY ABNORMAL RHYTHM ECG NO PREVIOUS TRACING DOCTOR: Colby Rae Interpretating Date/Time 12/13/2017 15:41:57
[2017-12-13] MEDS ORDERED: Acetaminophen 325 MG Tablet PO ONE (15:45)
[2017-12-13] MEDS ORDERED: Morphine Inj 4 MG/ML Vial IV.PUSH PRN ×2 (16:11→16:13)
[2017-12-13] MEDS ORDERED: Ketorolac Inj 30 MG/ML (IVP) Vial IV.PUSH PRN (16:25)
--- NOTE | 2017-12-13 16:45 | P.HP ---
History of Present Illness Primary Care Physician: No Primary Care Physician Chief Complaint: Intractable nausea and vomiting History of Present Illness: 32 years old man with a history of alcohol dependance and abuse, was brought to the ED by EMS for evaluation of intractable nausea and vomiting x12 hours. patient has a daily consumption of 3 L of Vodka, however states he stopped drinking last night. His episodes of emesis started around 5AM and he has been unable to stop since then. Per EMR report, patient had coffee ground emesis however this has resolved since admission and his H/H appears stable. He is also complaining of abdominal pain described as stabbing with radiation to his back. He has significant tremors - Diagnosis (1) Hypokalemia (2) Alcohol dependence with intoxication (3) Acute alcoholic pancreatitis (4) Transaminitis (5) Alcohol withdrawal Inpatient Certification: I certify that the inpatient services were ordered in accordance with Medicare regulations governing the order. This includes certification that hospital inpatient services are reasonable and necessary and in the case of services not specified as inpatient-only under 42 CFR 419.22(n), that they are appropriately provided as inpatient services in accordance to with the 2-midnight benchmark under 43 CFR 412.3(e) Estimated Total Length of Stay (Days): 2 Plans for Post Hospital Care: Not yet determined Review of Systems All other systems reviewed negative except as stated in HPI PMFSH - History History Provided By: Patient - Medical History Medical History: Medical History (Last Updated 12/13/17 @ 11:43 by Sonia Egan) Anxiety ETOH abuse GI bleed - Surgical History Surgical History: Surgical History (Last Updated 12/13/17 @ 11:43 by Sonia Egan) History of back surgery - Family History Family History: Family History (Last Updated 12/13/17 @ 16:39 by Danny Rogers MD) Other Family history of hypertension - Tobacco History Second Hand Smoke Exposure: No Tobacco Use In Past 30 Days: No Smoking Status: Current every day smoker Tobacco Type: Cigarettes - Alcohol History How Often Do You Have a Drink Containing Alcohol: 4 or more times a week - Substance Use History Substance History: No History of Abuse - Travel History Recent Travel in the [place] Within the Last 8 Weeks: No Recent Travel Out of the Country Within the Last 8 Weeks: No - Immunization History Tetanus Immunization: <5 Years Hx Influenza Vaccine This Season: No Medications and Allergies Active Medications: Active Medications Famotidine (Pepcid) 20 mg PO BID [facility] Flumazenil (Romazecon Inj) 0.2 mg IV.PUSH Q1M PRN PRN Reason: OVERSEDATION Folic Acid (Folic Acid) 1 mg PO DAILY [facility] Stop: 12/18/17 16:14 Haloperidol Lactate (Haldol Inj) 1 mg IV.PUSH Q15M PRN PRN Reason: for severe agitation Sodium Chloride (Ns Inj) 1,000 mls @ 100 mls/hr IV.CONT .Q10H AJ Thiamine HCl 100 mg/ Sodium (Chloride) 101 mls @ 100 mls/hr IV.SIG DAILY [facility] Stop: 12/15/17 10:01 Ketorolac Tromethamine (Toradol Inj) 30 mg IV.PUSH Q6H PRN PRN Reason: PAIN 1-10 AND/OR FEVER >101F Lorazepam (Ativan) 1 mg PO Q4H PRN PRN Reason: for CIWA 8-10 Lorazepam (Ativan) 2 mg PO Q2H PRN PRN Reason: for CIWA 11-14 Lorazepam (Ativan Inj) 2 mg IV.PUSH Q1H PRN PRN Reason: for CIWA 15-20 Lorazepam (Ativan Inj) 2 mg IV.PUSH Q15M PRN PRN Reason: for CIWA > 20 Lorazepam (Ativan Inj) 1 mg IV.PUSH Q4H PRN PRN Reason: for CIWA 8-10 Lorazepam (Ativan Inj) 2 mg IV.PUSH Q2H PRN PRN Reason: for CIWA 11-14 Morphine Sulfate (Morphine Inj) 2 mg IV.PUSH Q3H PRN PRN Reason: Pain 1-5 Morphine Sulfate (Morphine Inj) 4 mg IV.PUSH Q3H PRN PRN Reason: Pain 6-10 Multivitamins/Minerals (Theragran-M) 1 tab PO DAILY [facility] Stop: 12/18/17 16:14 Ondansetron HCl (Zofran Inj) 4 mg IV.PUSH Q6H PRN PRN Reason: NAUSEA OR VOMITING Sodium Chloride (Ns Flush) 2 ml IV.FLUSH PRN PRN PRN Reason: FLUSH AFTER USING IV ACCESS Thiamine HCl (Vitamin B1) 100 mg PO DAILY [facility] Allergies Allergy/AdvReac Type Severity Reaction Status Date / Time No Known Allergies Allergy Unverified 12/13/17 11:46 Home Medications Medication Instructions Recorded Confirmed Type No Known Home Medications 12/06/17 12/13/17 History Exam Vital signs: Vital Signs 12/13/17 11:40 12/13/17 11:44 12/13/17 11:52 Temperature 98.5 F Pulse Rate 74 Respiratory Rate 18 18 Blood Pressure 143/82 H 143/82 H Pulse Oximetry 96 96 93 L 12/13/17 11:57 12/13/17 14:03 12/13/17 16:06 Temperature Pulse Rate 119 H 116 H Respiratory Rate 20 16 Blood Pressure 120/58 L 149/70 H Pulse Oximetry 96 98 98 Intake & Output 12/12/17 12/13/17 12/13/17 18:59 06:59 18:59 Weight 97.522 kg Narrative: GENERAL: NAD with hands tremors SKIN: Warm and dry. HEAD: Atraumatic. Normocephalic. EYES: Pupils equal and round. No scleral icterus. No injection or drainage. ENT: No nasal bleeding or discharge. Mucous membranes pink and moist. NECK: Trachea midline. No JVD. CARDIOVASCULAR: Regular rate and rhythm. RESPIRATORY: No accessory muscle use. Clear to auscultation. Breath sounds equal bilaterally. GASTROINTESTINAL: Abdomen soft, non-tender, nondistended. Hepatic and splenic margins not palpable. MUSCULOSKELETAL: Extremities without clubbing, cyanosis, or edema. No obvious deformities. NEUROLOGICAL: Awake and alert. No obvious cranial nerve deficits. Motor grossly within normal limits. Five out of 5 muscle strength in the arms and legs. PSYCHIATRIC: Appropriate mood and affect; Results - Labs CBC & Chem 7: 12/13/17 11:55 12/13/17 11:55 Labs: Laboratory Results - last 24 hr 12/13/17 12/13/17 12/13/17 11:44 11:55 11:55 WBC 9.9 RBC 4.73 Hgb 15.0 Hct 43.4 MCV 91.8 MCH 31.7 MCHC 34.5 RDW 13.8 Plt Count 154 D MPV 8.2 Neut % (Auto) 84.4 H Lymph % (Auto) 10.3 [place] % (Auto) 5.0 Eos % (Auto) 0.0 Baso % (Auto) 0.3 Neut # (Auto) 8.4 H Lymph # (Auto) 1.0 [place] # (Auto) 0.5 Eos # (Auto) 0.0 Baso # (Auto) 0.0 WBC Differential . Differential Comment Auto diff final PT 12.4 H INR 1.2 APTT 23.3 L Sodium Potassium Chloride Carbon Dioxide Anion Gap BUN Creatinine Estimated GFR Random Glucose Calcium Total Bilirubin AST ALT Alkaline Phosphatase Total Protein Albumin Lipase Serum Alcohol Blood Type O Positive Antibody Screen Negative 12/13/17 11:55 WBC RBC Hgb Hct MCV MCH MCHC RDW Plt Count MPV Neut % (Auto) Lymph % (Auto) [place] % (Auto) Eos % (Auto) Baso % (Auto) Neut # (Auto) Lymph # (Auto) [place] # (Auto) Eos # (Auto) Baso # (Auto) WBC Differential Differential Comment PT INR APTT Sodium 139 Potassium 3.2 L Chloride 93 L Carbon Dioxide 27.5 Anion Gap 19 H BUN 12 Creatinine 0.88 Estimated GFR Greater than 89 Random Glucose 143 H Calcium 8.1 L Total Bilirubin 1.1 H AST 502 H ALT 350 H Alkaline Phosphatase 151 H Total Protein 7.1 Albumin 3.8 Lipase 1833 H Serum Alcohol 55 H Blood Type Antibody Screen - Imaging Impressions Abdomen/Pelvis CT 12/13/17 13:09 CONCLUSION: 1. CT findings characteristic of an acute, uncomplicated pancreatitis. Pancreas appears enlarged and edematous with peripancreatic stranding. No peripancreatic fluid, however. 2. Diffuse hepatic fatty infiltration. 3. Minimal atelectatic changes in the dependent portion of the right lung base. Lung bases are otherwise clear. Caprini VTE Risk Assessment Caprini VTE Risk Assessment: No/Low Risk (score <= 1) Caprini Risk Assessment Model: Point Value = 1 Point Value = 2 Point Value = 3 Point Value = 5 Age 41-60 Minor surgery BMI > 25 kg/m2 Swollen legs Varicose veins or History of unexplained or recurrent spontaneous Oral contraceptives or hormone replacement Sepsis (< 1 month) Serious lung disease, including pneumonia (< 1 month) Abnormal pulmonary function Acute myocardial infarction Congestive heart failure (< 1 month) History of inflammatory bowel disease Medical patient at bed rest Age 61-74 Arthroscopic surgery Major open surgery (> 45 min) Laparoscopic surgery (> 45 min) Malignancy Confined to bed (> 72 hours) Immobilizing plaster cast Central venous access Age >= 75 History of VTE Family history of VTE Factor V Leiden Prothrombin [id number] Lupus anticoagulant Anticardiolipin antibodies Elevated serum homocysteine Heparin-induced thrombocytopenia Other congenital or acquired thrombophilia Stroke (< 1 month) Elective arthroplasty Hip, pelvis, or leg fracture Acute spinal cord injury (< 1 month) Prophylaxis Regimen: Total Risk Factor Score Risk Level Prophylaxis Regimen 0-1 Low Early ambulation 2 Moderate Order ONE of the following: *Sequential Compression Device (SCD) *Heparin 5000 units SQ BID 3-4 Higher Order ONE of the following medications: *Heparin 5000 units SQ TID *Enoxaparin/Lovenox 40 mg SQ daily (WT < 150 kg, CrCl > 30 mL/min) *Enoxaparin/Lovenox 30 mg SQ daily (WT < 150 kg, CrCl > 10-29 mL/min) *Enoxaparin/Lovenox 30 mg SQ BID (WT < 150 kg, CrCl > 30 mL/min) AND/OR *Sequential Compression Device (SCD) 5 or more Highest Order ONE of the following medications: *Heparin 5000 units SQ TID (Preferred with Epidurals) *Enoxaparin/Lovenox 40 mg SQ daily (WT < 150 kg, CrCl > 30 mL/min) *Enoxaparin/Lovenox 30 mg SQ daily (WT < 150 kg, CrCl > 10-29 mL/min) *Enoxaparin/Lovenox 30 mg SQ BID (WT < 150 kg, CrCl > 30 mL/min) AND *Sequential Compression Device (SCD) Assessment and Plan - Assessment (1) Hypokalemia Code(s): E87.6 - Hypokalemia Status: Acute (2) Alcohol dependence with intoxication Code(s): F10.229 - Alcohol dependence with intoxication, unspecified Status: Acute (3) Acute alcoholic pancreatitis Code(s): K85.20 - Alcohol induced acute pancreatitis without necrosis or infection Status: Acute (4) Transaminitis Code(s): R74.0 - Nonspecific elevation of levels of transaminase and lactic acid dehydrogenase [LDH] Status: Acute (5) Alcohol withdrawal Code(s): F10.239 - Alcohol dependence with withdrawal, unspecified Status: Acute - Plan 32 years old man with Acute alcoholic pancreatic CT abdomen noted and review by me with the finding of an acute, uncomplicated pancreatitis. Pancreas appears enlarged and edematous with peripancreatic stranding. No peripancreatic fluid, however. Conservative treatment with aggressive IVF hydration, ADAT, pain management with Toradol PRN Monitor Lipase level Alcohol withdrawal Alcohol cessation counselling provided Start CIWA protocol, Rally pack and Librium protocol Transaminitis 2/2 alcohol Monitor LFTs Intractable nausea and emesis 2/2 above Start IVF hydration, antiemetic agents, ADAT Hypokalemia 2/2 GI loss Replace electrolyte GI prophylaxis: PPI DVT prophylaxis: B-SCDs (3) Acute alcoholic pancreatitis Qualifiers: Acute pancreatitis complication: no infection or necrosis Qualified Code(s): K85.20 - Alcohol induced acute pancreatitis without necrosis or infection (5) Alcohol withdrawal Qualifiers: Complication of substance-induced condition: uncomplicated Qualified Code(s) : F10.230 - Alcohol dependence with withdrawal, uncomplicated
[2017-12-13] MEDS: Folic Acid 1 MG Tablet PO SCH (17:47)
[2017-12-13] MEDS: Sod Chloride 0.9% Inj 1,000 ML IV.CONT SCH (17:47)
[2017-12-13] MEDS: Thiamine Inj 100 MG in Sodium Chlor 0.9% Inj 100 ML IV.SIG SCH (17:47)
[2017-12-13] MEDS: Multivitamin/Minerals Therapeutic Tablet PO SCH (17:47)
[2017-12-13] MEDS: chlordiazePOXIDE 25 MG Capsule PO SCH (17:48)
[2017-12-13] MEDS: Famotidine 20 MG Tablet PO SCH (20:36)
[2017-12-13 22:29] LABS: Baso % (Auto) 0.3 % (0.0-2.0); Hemoglobin 12.9 gm/dL (13.0-17.0); Lymph # (Auto) 1.1 th/mm3 (1.0-4.8); Lymph % (Auto) 16.7 % (9.0-44.0); Mean Corpuscular Hemoglobin 31.8 pg (27.0-34.0); Mean Corpuscular Volume 90.8 fL (80.0-100.0); Mean Platelet Volume 8.1 fL (7.0-11.0); Mono # (Auto) 0.5 th/mm3 (0.0-0.9); Mono % (Auto) 8.3 % (0.0-8.0); Neut # (Auto) 4.8 th/mm3 (1.8-7.7); Neut % (Auto) 74.7 % (16.0-70.0); Platelet Count 101 th/mm3 (150-450); Red Blood Count 4.07 mil/mm3 (4.50-5.90); Red Cell Distribution Width 13.9 % (11.6-17.2); White Blood Count 6.4 th/mm3 (4.0-11.0)
[2017-12-13 23:16] LABS: Alanine Aminotransferase 282 U/L (12-78); Albumin 3.2 g/dL (3.4-5.0); Alkaline Phosphatase 133 U/L (45-117); Anion Gap 7 meq/L (5-15); Aspartate Aminotransferase 385 U/L (15-37); Blood Urea Nitrogen 12 mg/dL (7-18); Calcium 7.4 mg/dL (8.5-10.1); Carbon Dioxide 31.6 meq/L (21.0-32.0); Chloride 99 meq/L (98-107); Glomerular Filtration Rate Greater Than 89 mL/min (>89); Glucose,Random 107 mg/dL (74-106); Magnesium 1.2 mg/dL (1.5-2.5); Phosphorus 1.5 mg/dL (2.5-4.9); Potassium 3.2 meq/L (3.5-5.1); Sodium 138 meq/L (136-145); Total Protein 6.1 g/dL (6.4-8.2)
[2017-12-14] MEDS: chlordiazePOXIDE 25 MG Capsule PO SCH ×3 (00:50→16:43)
[2017-12-14] MEDS: Sod Chloride 0.9% Inj 1,000 ML IV.CONT SCH ×3 (06:25→16:22)
[2017-12-14] MEDS: Famotidine 20 MG Tablet PO SCH ×2 (11:00→21:00)
[2017-12-14] MEDS: Folic Acid 1 MG Tablet PO SCH (11:00)
[2017-12-14] MEDS: Thiamine Inj 100 MG in Sodium Chlor 0.9% Inj 100 ML IV.SIG SCH (11:00)
[2017-12-14] MEDS: Multivitamin/Minerals Therapeutic Tablet PO SCH (11:00)
[2017-12-14] MEDS: LORazepam 1 MG Tablet PO PRN ×2 (13:09→19:57)
--- NOTE | 2017-12-14 14:07 | P.PNIM ---
Subjective Interval history: + feeling nauseous. denied any emesis. asking to eat. + abdominal pain more in epigastric area. CIWA score earlier today was 1 now its 7. remains afebrile. Physical Exam Vital signs: Vital Signs 12/13/17 16:06 12/13/17 18:32 12/13/17 20:00 Temperature 98.4 F Pulse Rate 116 H 85 Respiratory Rate 16 14 20 Blood Pressure 149/70 H 127/61 Pulse Oximetry 98 95 12/13/17 20:20 12/13/17 21:12 12/14/17 00:00 Temperature 98 F Pulse Rate 83 76 Respiratory Rate 18 Blood Pressure 136/70 Pulse Oximetry 93 L 91 L 12/14/17 04:00 12/14/17 05:53 12/14/17 08:00 Temperature 98 F 98.2 F Pulse Rate 67 77 70 Respiratory Rate 18 16 Blood Pressure 111/51 L 128/63 Pulse Oximetry 94 L 96 12/14/17 10:51 12/14/17 12:00 Temperature 98.1 F Pulse Rate 76 Respiratory Rate 17 Blood Pressure 126/79 Pulse Oximetry 97 97 Intake & Output 12/13/17 12/14/17 12/14/17 18:59 06:59 18:59 Intake Total 1000 / 1000 Balance 1000 / 1000 Weight 97.522 kg 97.2 kg Intake: IV 1000 / 1000 NS Inj 1,000 ML @ 100 mls/hr IV 1000 / 1000 .CONT .Q10H AJ Rx#:[id number] Thiamine Inj 100 MG In NS Inj 100 ML @ 100 mls/hr IV.SIG DAILY AJ Rx#:[id number] Other: # Voids 3 Date of Last Bowel Movement 12/13/17 # Bowel Movements 1 - Constitutional no acute distress - Routine Neck Exam Present: supple, full ROM - Routine Respiratory Exam Present: CTA bilaterally - Routine Cardiovascular Exam Present: RRR, S1, S2 - Routine Abdominal Exam Present: soft, normoactive bowel sounds Comments: + TTP in epigastric area. no peritoneal signs. - Routine Extremities Exam Present: edema - Routine Neurological Exam Present: alert, oriented X3 Results - Labs CBC & Chem 7: 12/13/17 21:59 12/13/17 21:59 Laboratory Results - last 24 hr 12/13/17 12/13/17 12/13/17 19:53 21:59 21:59 WBC 6.4 RBC 4.07 L Hgb 12.9 L D Hct 37.0 L MCV 90.8 MCH 31.8 MCHC 35.0 RDW 13.9 Plt Count 101 L D MPV 8.1 Neut % (Auto) 74.7 H Lymph % (Auto) 16.7 [place] % (Auto) 8.3 H Eos % (Auto) 0.0 Baso % (Auto) 0.3 Neut # (Auto) 4.8 Lymph # (Auto) 1.1 [place] # (Auto) 0.5 Eos # (Auto) 0.0 Baso # (Auto) 0.0 WBC Differential . Differential Comment Auto diff final Sodium 138 Potassium 3.2 L Chloride 99 Carbon Dioxide 31.6 Anion Gap 7 BUN 12 Creatinine 0.71 Estimated GFR Greater than 89 POC Glucose 118 H Random Glucose 107 H Calcium 7.4 L* Prot Corrected Calcium 7.9 L Phosphorus 1.5 L Magnesium 1.2 L Total Bilirubin 1.5 H AST 385 H ALT 282 H Alkaline Phosphatase 133 H Total Protein 6.1 L D Albumin 3.2 L D Lipase 12/14/17 12/14/17 06:50 07:59 WBC RBC Hgb Hct MCV MCH MCHC RDW Plt Count MPV Neut % (Auto) Lymph % (Auto) [place] % (Auto) Eos % (Auto) Baso % (Auto) Neut # (Auto) Lymph # (Auto) [place] # (Auto) Eos # (Auto) Baso # (Auto) WBC Differential Differential Comment Sodium Potassium Chloride Carbon Dioxide Anion Gap BUN Creatinine Estimated GFR POC Glucose 97 Random Glucose Calcium Prot Corrected Calcium Phosphorus Magnesium Total Bilirubin AST ALT Alkaline Phosphatase Total Protein Albumin Lipase 732 H - Imaging Impressions Abdomen/Pelvis CT 12/13/17 13:09 CONCLUSION: 1. CT findings characteristic of an acute, uncomplicated pancreatitis. Pancreas appears enlarged and edematous with peripancreatic stranding. No peripancreatic fluid, however. 2. Diffuse hepatic fatty infiltration. 3. Minimal atelectatic changes in the dependent portion of the right lung base. Lung bases are otherwise clear. Assessment and Plan - Assessment (1) Hypokalemia Code(s): E87.6 - Hypokalemia Status: Acute (2) Alcohol dependence with intoxication Code(s): F10.229 - Alcohol dependence with intoxication, unspecified Status: Acute (3) Acute alcoholic pancreatitis Code(s): K85.20 - Alcohol induced acute pancreatitis without necrosis or infection Status: Acute (4) Transaminitis Code(s): R74.0 - Nonspecific elevation of levels of transaminase and lactic acid dehydrogenase [LDH] Status: Acute (5) Alcohol withdrawal Code(s): F10.239 - Alcohol dependence with withdrawal, unspecified Status: Acute - Plan 32 years old man with Acute alcoholic pancreatic CT abdomen noted showed finding of an acute, uncomplicated pancreatitis. Pancreas appears enlarged and edematous with peripancreatic stranding. No peripancreatic fluid, however. Conservative treatment with aggressive IVF hydration, ADAT/ d/c toradol due to epigastric pain and start protonix. Monitor Lipase level Alcohol withdrawal Alcohol cessation counselling provided Start CIWA protocol, Rally pack and Librium protocol Transaminitis 2/2 alcohol Monitor LFTs Intractable nausea and emesis 2/2 above continue IVF hydration, antiemetic agents, ADAT since improving allow clear liquids. Hypokalemia 2/2 GI loss Replace electrolyte GI prophylaxis: PPI DVT prophylaxis: B-SCDs (3) Acute alcoholic pancreatitis Qualifiers: Acute pancreatitis complication: no infection or necrosis Qualified Code(s): K85.20 - Alcohol induced acute pancreatitis without necrosis or infection (5) Alcohol withdrawal Qualifiers: Complication of substance-induced condition: uncomplicated Qualified Code(s) : F10.230 - Alcohol dependence with withdrawal, uncomplicated
[2017-12-14] MEDS: Pantoprazole Inj 40 MG Vial IV.PUSH SCH (16:43)
[2017-12-15] MEDS: LORazepam 1 MG Tablet PO PRN ×4 (00:26→21:00)
[2017-12-15] MEDS: chlordiazePOXIDE 25 MG Capsule PO SCH ×3 (00:26→16:40)
[2017-12-15] MEDS: Sod Chloride 0.9% Inj 1,000 ML IV.CONT SCH ×4 (00:27→20:59)
[2017-12-15 09:35] LABS: Alanine Aminotransferase 203 U/L (12-78); Albumin 3.1 g/dL (3.4-5.0); Alkaline Phosphatase 138 U/L (45-117); Anion Gap 10 meq/L (5-15); Aspartate Aminotransferase 184 U/L (15-37); Blood Urea Nitrogen 7 mg/dL (7-18); Carbon Dioxide 26.2 meq/L (21.0-32.0); Chloride 102 meq/L (98-107); Glomerular Filtration Rate Greater Than 89 mL/min (>89); Glucose,Random 78 mg/dL (74-106); Total Protein 6.3 g/dL (6.4-8.2)
[2017-12-15] MEDS: Thiamine Inj 100 MG in Sodium Chlor 0.9% Inj 100 ML IV.SIG SCH (09:38)
[2017-12-15] MEDS: Famotidine 20 MG Tablet PO SCH ×2 (09:39→21:00)
[2017-12-15] MEDS: Pantoprazole Inj 40 MG Vial IV.PUSH SCH (09:40)
[2017-12-15] MEDS: Multivitamin/Minerals Therapeutic Tablet PO SCH (09:40)
[2017-12-15] MEDS: Folic Acid 1 MG Tablet PO SCH (09:43)
[2017-12-15 09:44] LABS: Sodium 138 meq/L (136-145)
[2017-12-15 09:46] LABS: Potassium 2.8 meq/L (3.5-5.1)
[2017-12-15 10:29] LABS: Hemoglobin 13.3 gm/dL (13.0-17.0); Mean Corpuscular Hemoglobin 32.1 pg (27.0-34.0); Mean Corpuscular Volume 91.8 fL (80.0-100.0); Mean Platelet Volume 8.5 fL (7.0-11.0); Platelet Count 79 th/mm3 (150-450); Red Blood Count 4.14 mil/mm3 (4.50-5.90); Red Cell Distribution Width 14.2 % (11.6-17.2)
[2017-12-15] MEDS ORDERED: Magnesium Sulfate Inj 2 GM in Sodium Chlor 0.9% Inj 96 ML IV.SIG ONE (11:18)
[2017-12-15] MEDS: Potassium Chlor 10 mEq Premix 10 MEQ/100 ML PIGGYBACK IV.SIG SCH ×2 (11:24→13:07)
--- NOTE | 2017-12-15 11:35 | P.PNIM ---
Subjective Interval history: patient stated he feels a lot better today. Abdominal pain improved. tolerated clear liquid diet. patient stated he is ready for advancement of diet. denied any N/V. denied any CP or palpitations. Physical Exam Vital signs: Vital Signs 12/14/17 12:00 12/14/17 16:00 12/14/17 17:52 Temperature 98.1 F 98.5 F Pulse Rate 76 81 Respiratory Rate 17 17 Blood Pressure 126/79 133/72 Pulse Oximetry 97 94 L 94 L 12/14/17 20:00 12/14/17 21:00 12/15/17 00:00 Temperature 99.0 F 98.6 F Pulse Rate 72 67 65 Respiratory Rate 19 17 Blood Pressure 141/76 H 144/73 H Pulse Oximetry 96 97 12/15/17 01:00 12/15/17 04:00 12/15/17 05:00 Temperature 98.7 F Pulse Rate 66 60 65 Respiratory Rate 17 Blood Pressure 151/74 H Pulse Oximetry 98 12/15/17 08:00 Temperature 98.2 F Pulse Rate 71 Respiratory Rate 17 Blood Pressure 152/77 H Pulse Oximetry 98 Intake & Output 12/14/17 12/15/17 12/15/17 18:59 06:59 18:59 Intake Total 1202 / 1202 600 / 600 1000 / 1000 Balance 1202 / 1202 600 / 600 1000 / 1000 Intake: IV 1202 / 1202 600 / 600 1000 / 1000 NS Inj 1,000 ML @ 100 mls/hr IV 1000 / 1000 600 / 600 1000 / 1000 .CONT .Q10H AJ Rx#:[id number] Thiamine Inj 100 MG In NS Inj 202 / 202 100 ML @ 100 mls/hr IV.SIG DAILY AJ Rx#:[id number] Other: # Voids 3 1 Date of Last Bowel Movement 12/14/17 12/14/17 # Bowel Movements 3 - Constitutional no acute distress - Routine HEENT Exam Head: Present: normocephalic - Routine Neck Exam Present: supple - Routine Respiratory Exam Present: CTA bilaterally - Routine Cardiovascular Exam Present: RRR, S1, S2 - Routine Abdominal Exam Present: soft, normoactive bowel sounds Comments: mild TTP in epigastric area,. no peritoneal signs. Results - Labs CBC & Chem 7: 12/15/17 09:56 12/15/17 08:29 Laboratory Results - last 24 hr 12/15/17 12/15/17 12/15/17 08:29 08:29 09:56 WBC 5.0 RBC 4.14 L Hgb 13.3 Hct 38.0 L MCV 91.8 MCH 32.1 MCHC 35.0 RDW 14.2 Plt Count 79 L MPV 8.5 Sodium 138 Potassium 2.8 L* Chloride 102 Carbon Dioxide 26.2 Anion Gap 10 BUN 7 Creatinine 0.50 L Estimated GFR Greater than 89 Random Glucose 78 Calcium 8.0 L Magnesium 1.5 Total Bilirubin 1.0 AST 184 H ALT 203 H Alkaline Phosphatase 138 H Total Protein 6.3 L Albumin 3.1 L Assessment and Plan - Assessment (1) Hypokalemia Code(s): E87.6 - Hypokalemia Status: Acute (2) Alcohol dependence with intoxication Code(s): F10.229 - Alcohol dependence with intoxication, unspecified Status: Acute (3) Acute alcoholic pancreatitis Code(s): K85.20 - Alcohol induced acute pancreatitis without necrosis or infection Status: Acute (4) Transaminitis Code(s): R74.0 - Nonspecific elevation of levels of transaminase and lactic acid dehydrogenase [LDH] Status: Acute (5) Alcohol withdrawal Code(s): F10.239 - Alcohol dependence with withdrawal, unspecified Status: Acute - Plan 32 years old man with Acute alcoholic pancreatic CT abdomen noted showed finding of an acute, uncomplicated pancreatitis. Pancreas appears enlarged and edematous with peripancreatic stranding. No peripancreatic fluid, however. Conservative treatment with aggressive IVF hydration, ADAT/ d/c toradol due to epigastric pain. on protonics drastic improvement advance to soft diet. Alcohol withdrawal Alcohol cessation counselling provided Start CIWA protocol, Rally pack and Librium protocol Transaminitis 2/2 alcohol Monitor LFTs Intractable nausea and emesis 2/2 above continue IVF hydration, antiemetic agents, ADAT since improving allow clear liquids. Hypokalemia/hypomagnesia 2/2 GI loss K is 2.8 and Mg 1.5 Replace electrolyte GI prophylaxis: PPI DVT prophylaxis: B-SCDs (3) Acute alcoholic pancreatitis Qualifiers: Acute pancreatitis complication: no infection or necrosis Qualified Code(s): K85.20 - Alcohol induced acute pancreatitis without necrosis or infection (5) Alcohol withdrawal Qualifiers: Complication of substance-induced condition: uncomplicated Qualified Code(s) : F10.230 - Alcohol dependence with withdrawal, uncomplicated
[2017-12-15] MEDS: Mag Sulf 1 gm/100 ml Premix 100 ML IV.SIG SCH ×2 (13:08→15:17)
[2017-12-15] MEDS: Acetaminophen 500 MG Tablet PO PRN (16:47)
[2017-12-16] MEDS: chlordiazePOXIDE 25 MG Capsule PO SCH ×2 (00:54→08:57)
[2017-12-16] MEDS: Acetaminophen 500 MG Tablet PO PRN ×2 (00:54→13:19)
[2017-12-16] MEDS ORDERED: Temazepam 15 MG Capsule PO ONE (02:53)
[2017-12-16 08:57] VITALS: RESP 20
[2017-12-16] MEDS: Famotidine 20 MG Tablet PO SCH (08:57)
[2017-12-16] MEDS: Multivitamin/Minerals Therapeutic Tablet PO SCH (08:57)
[2017-12-16] MEDS: Folic Acid 1 MG Tablet PO SCH (08:57)
[2017-12-16] MEDS: Pantoprazole Inj 40 MG Vial IV.PUSH SCH (08:58)
[2017-12-16] MEDS: LORazepam 1 MG Tablet PO PRN ×2 (09:04→13:19)
[2017-12-16] MEDS: Sod Chloride 0.9% Inj 1,000 ML IV.CONT SCH (09:09)
[2017-12-16 14:45] LABS: Anion Gap 7 meq/L (5-15); Blood Urea Nitrogen 5 mg/dL (7-18); Calcium 7.8 mg/dL (8.5-10.1); Carbon Dioxide 27.1 meq/L (21.0-32.0); Chloride 106 meq/L (98-107); Glomerular Filtration Rate Greater Than 89 mL/min (>89); Glucose,Random 105 mg/dL (74-106); Potassium 3.9 meq/L (3.5-5.1); Sodium 140 meq/L (136-145)
[2017-12-16 16:35] VITALS: BP 139/83; PULSE 73; TEMP 97.1; O2SAT 98
--- NOTE | 2018-01-03 16:45 | P.DS ---
Date of admission: 12/13/17 16:07 Primary care physician: No Primary Care Physician Attending physician on discharge: Lelo Brian Anticipated date of discharge: 12/16/17 Brief History from admission: 32 years old man with a history of alcohol dependance and abuse, was brought to the ED by EMS for evaluation of intractable nausea and vomiting x12 hours. patient has a daily consumption of 3 L of Vodka, however states he stopped drinking last night. His episodes of emesis started around 5AM and he has been unable to stop since then. Per EMR report, patient had coffee ground emesis however this has resolved since admission and his H/H appears stable. He is also complaining of abdominal pain described as stabbing with radiation to his back. He has significant tremors Patient update on day of discharge: Patient denies any abdominal pain or nausea vomiting. He is tolerating his oral intake. Denies any chest pain, shortness of breathing, palpitation, lightheaded dizziness. No events over telemetry. Per patient's nurse patient stated he is having problems with his significant other and when she stated that she wants to leave him. DS: Diagnosis - Discharge Diagnosis (1) Hypokalemia Status: Acute (2) Alcohol dependence with intoxication Status: Acute (3) Acute alcoholic pancreatitis Status: Acute (4) Transaminitis Status: Acute (5) Alcohol withdrawal Status: Acute DS: Summary Hospital Course: 32 years old man with Acute alcoholic pancreatic CT abdomen noted showed finding of an acute, uncomplicated pancreatitis. Pancreas appears enlarged and edematous with peripancreatic stranding. No peripancreatic fluid, however. Conservative treatment with aggressive IVF hydration, ADAT/ d/c toradol due to epigastric pain. on protonics Patient did well with treatment and was tolerating oral diet before discharge. Alcohol withdrawal Alcohol cessation counselling provided He was put on CIWA protocol and started on IV fluids with thiamine, folate, multivitamin. Patient was started on scheduled Librium. Since patient was very adamant on not drinking anymore alcohol he was discharged on a Librium taper. Patient understood that mixing Librium and alcohol can increase his risk of . Patient stated that he no longer wants to drink alcohol. Transaminitis 2/2 alcohol Improved on its own. Intractable nausea and emesis Secondary to pancreatitis. Improve throughout hospital course. Hypokalemia/hypomagnesia 2/2 GI loss Potassium magnesium were replenish in the hospital in both normal upon discharge. - Time Spent with Patient Total time spent providing and/or coordinating discharge services: Greater than 30 minutes - Quality: VTE Deep Vein Thrombosis/Pulmonary Embolism Present on Admission: No Exam - Constitutional no acute distress - Routine HEENT Exam Head: Present: normocephalic, atraumatic ENT: Present: mucous membranes moist - Routine Respiratory Exam Present: CTA bilaterally - Routine Cardiovascular Exam Present: RRR, S1, S2 - Routine Abdominal Exam Present: soft, normoactive bowel sounds Comments: Negative tenderness palpation. Negative for any peritoneal signs. - Routine Extremities Exam Comments: negative for edema Results Procedures completed during hospitalization: none - Impressions ITS Impressions Abdomen/Pelvis CT 12/13/17 13:09 CONCLUSION: 1. CT findings characteristic of an acute, uncomplicated pancreatitis. Pancreas appears enlarged and edematous with peripancreatic stranding. No peripancreatic fluid, however. 2. Diffuse hepatic fatty infiltration. 3. Minimal atelectatic changes in the dependent portion of the right lung base. Lung bases are otherwise clear. Discharge Plan - Discharge Disposition Patient Disposition: 01 Discharge Home - Discharge Condition Condition: Stable - Discharge Order Discharge Orders: Discharge Order (Routine); Ordered 12/16/17 Ordered By: Lelo Brian - Physicians Team Primary Care Provider: Primary Care Physici,No Attending Provider: Lelo Brian
== END 2017-12-16 16:34 | disposition home or self-care (01) ==
LOC: NEPC 11:35 → NEDA 16:07 → N06 18:27
PROVIDERS: ADMIT Family Medicine; ATTEND Family Medicine

== ENCOUNTER 2017-12-28 12:29 | Inpatient (IN) ==
[2017-12-28] MEDS ORDERED: Ketorolac Inj 30 MG/ML (IVP) Vial IV.PUSH ONE (13:00)
--- NOTE | 2017-12-28 13:05 | ED ---
HPI General Chief complaint: Dental/Oral Stated complaint: dental abscess seen 1wk ago Source: patient Mode of arrival: ambulatory Limitations: no limitations History of Present Illness HPI narrative: 32yo M with PMH of alcohol abuse presents to the ED with c/o right jaw pain and swelling that has worsened in the last few days. Said he has been having trouble eating and drinking. Tactile fever at night. Difficulty opening mouth. Pt denies any chest pain, sob, n/v, abdominal pain, focal weakness or numbness. Pt was seen here for the same complaint on 12/22/17 and started on clindamycin for 10 days. Said he is compliant with the medication but he has not followed up with a dentist. Related Data Home Medications Medication Instructions Recorded Confirmed ibuprofen [Motrin IB] 1,000 mg PO ONCE 12/28/17 12/28/17 trazodone 25 mg PO DAILY 12/29/17 12/29/17 trazodone 50 mg PO HS 12/29/17 12/29/17 Previous Rx's Medication Instructions Recorded clindamycin HCl 300 mg PO Q6H 10 Days #40 cap 12/22/17 Allergies Allergy/AdvReac Type Severity Reaction Status Date / Time No Known Allergies Allergy Verified 12/28/17 12:40 Review of Systems ROS: all other systems reviewed are negative [facility] Family History Family History Other Family history of hypertension Social History Social History Substance History: Past History Second Hand Smoke Exposure: Yes Smoking Status: Heavy tobacco smoker Tobacco Type: Cigarettes How Often Do You Have a Drink Containing Alcohol: Never Recent Travel in [facility] within the Last 8 Weeks: No Substance Abuse Detail Alcohol: Substance Use Status: Sustained Remission Route Used Substance Abuse: By Mouth Reason for Use: Socialization Immunization History Tetanus Immunization: Unsure Hx Influenza Vaccine This Season: No Exam Narrative Exam Narrative: GENERAL: 32yo M in mild distress. SKIN: Focused skin assessment warm/dry. HEAD: Atraumatic. Normocephalic. EYES: Pupils equal and round. No scleral icterus. No injection or drainage. ENT: Throat: Uvula midline. No elevation of tongue. FACE: +Edema and ttp angle of right mandible. +TTP and edema right submental region. MOUTH: Poor dentition throughout. No periapical fluctuance palpated in right lower mouth. +Trismus. CARDIOVASCULAR: Regular rate and rhythm. No murmur appreciated. RESPIRATORY: No accessory muscle use. Clear to auscultation. Breath sounds equal bilaterally. GASTROINTESTINAL: Abdomen soft, non-tender, nondistended. Hepatic and splenic margins not palpable. MUSCULOSKELETAL: No obvious deformities. No clubbing. No cyanosis. No edema. NEUROLOGICAL: Awake and alert. No obvious cranial nerve deficits. Motor grossly within normal limits. Normal speech. PSYCHIATRIC: Appropriate mood and affect; insight and judgment normal. Course Initial Documented Vital Signs Temperature 98.8 F 12/28/17 12:37 Pulse Rate 97 H 12/28/17 12:37 Respiratory Rate 16 12/28/17 12:37 Blood Pressure 145/77 H 12/28/17 12:37 Pulse Oximetry 99 12/28/17 12:37 Last Documented Vital Signs Temperature 98 F 12/31/17 04:00 Pulse Rate 74 12/31/17 04:00 Respiratory Rate 18 12/31/17 04:00 Blood Pressure 144/87 H 12/31/17 04:00 Pulse Oximetry 95 12/31/17 04:00 Critical Care Time Critical Care Time: Yes Total Critical Care Time: 35 Attestation: Aggregate critical care time was 35 minutes. Time to perform other separately billable procedures was not included in the critical care time. My time did not include minutes spent treating any other patients simultaneously or on activities that did not directly contribute to the patient's treatment. The services I provided to this patient were to treat and/or prevent clinically significant deterioration that could result in: cardiovascular collapse or . I provided critical care services requiring my management, as noted below: Chart data review, documentation time, medication orders and management, vital sign assessments/reviewing monitor data, ordering and reviewing lab tests, ordering and interpreting/reviewing x-rays and diagnostic studies, care of the patient and discussion of the patient with the admitting physicians. Medical Decision Making MDM Narrative Medical decision making narrative: 32yo M here with worsening right jaw pain and swelling after being on clindamycin for 6 days ago. Fever at home. Difficulty eating and drinking now. Airway is patent. Pt is not drooling. However, there is significant edema in angle of right mandible and submandibular area. Some trismus so will do labs and CT facial with IV contrast to rule out abscess. Labs reviewed, leukocytosis at 14.7. H/H normal. BMP unremarkable. CT facial showed significant inflammatory change right perimandibular soft tissue with an ill defined mildly rim enhancing phlegmon representing developing abscess. Discussed with OMFS Dr. Rubin multi operation machine operator and he recommended admitting to hospitalist and transferring to the main Hospital and he will consult and determine if drainage is needed. Discussed with Dr. Renee and accepted to his service. Medical Screen Exam Complete: Yes Emergency Medical Condition: Yes Differential Diagnosis Differential Diagnosis: Abscess vs. cellulitis Lab Data Result diagrams: 12/31/17 03:46 12/30/17 04:13 Lab Results 12/28/17 12/28/17 12/28/17 Range/Units 12:55 12:55 14:30 CBC w Diff Slide review pending WBC 14.7 H (4.0-11.0) th/mm3 RBC 4.51 (4.50-5.90) mil/mm3 Hgb 14.4 (13.0-17.0) gm/dL Hct 41.5 (39.0-51.0) % MCV 92.1 (80.0-100.0) fL MCH 31.9 (27.0-34.0) pg MCHC 34.6 (32.0-36.0) % RDW 14.9 (11.6-17.2) % Plt Count 650 H D (150-450) th/mm3 MPV 8.2 (7.0-11.0) fL Neut % (Auto) (16.0-70.0) % Lymph % (Auto) (9.0-44.0) % [place] % (Auto) (0.0-8.0) % Eos % (Auto) (0.0-4.0) % Baso % (Auto) (0.0-2.0) % Neut # (Auto) (1.8-7.7) th/mm3 Lymph # (Auto) (1.0-4.8) th/mm3 [place] # (Auto) (0.0-0.9) th/mm3 Eos # (Auto) (0.0-0.4) th/mm3 Baso # (Auto) (0.0-0.2) th/mm3 WBC Differential Manual diff final Seg Neuts % (Manual) 68 (16-70) % Band Neuts % (Manual) 2 (0-6) % Lymphocytes % (Manual) 16 (9-44) % Monocytes % (Manual) 13 H (0-8) % Basophils % (Manual) 1 (0-2) % Abs Neuts (Manual) 10.3 H (1.8-7.7) th/mm3 Differential Comment . Platelet Estimate High H (Normal) Platelet Morphology Normal (Normal) RBC Morphology Normal (Normal) Ovalocytes 1+ H (None) [place] Present H (None) Sodium 141 (136-145) meq/L Potassium 3.6 (3.5-5.1) meq/L Chloride 105 (98-107) meq/L Carbon Dioxide 22.0 (21.0-32.0) meq/L Anion Gap 14 (5-15) meq/L BUN 7 (7-18) mg/dL Creatinine 0.75 (0.60-1.30) mg/dL Estimated GFR Greater than 89 (>89) mL/min Random Glucose 76 (74-106) mg/dL Lactic Acid 0.7 (0.4-2.0) mmol/L Calcium 9.6 (8.5-10.1) mg/dL Magnesium (1.5-2.5) mg/dL C-Reactive Protein (0.00-0.30) mg/dL 12/29/17 12/29/17 12/30/17 Range/Units 03:19 03:19 04:13 CBC w Diff WBC 13.4 H (4.0-11.0) th/mm3 RBC 4.16 L (4.50-5.90) mil/mm3 Hgb 13.3 (13.0-17.0) gm/dL Hct 38.6 L (39.0-51.0) % MCV 92.8 (80.0-100.0) fL MCH 31.9 (27.0-34.0) pg MCHC 34.4 (32.0-36.0) % RDW 15.1 (11.6-17.2) % Plt Count 570 H (150-450) th/mm3 MPV 8.2 (7.0-11.0) fL Neut % (Auto) 75.6 H (16.0-70.0) % Lymph % (Auto) 11.9 (9.0-44.0) % [place] % (Auto) 11.5 H (0.0-8.0) % Eos % (Auto) 0.2 (0.0-4.0) % Baso % (Auto) 0.8 (0.0-2.0) % Neut # (Auto) 10.1 H (1.8-7.7) th/mm3 Lymph # (Auto) 1.6 (1.0-4.8) th/mm3 [place] # (Auto) 1.5 H (0.0-0.9) th/mm3 Eos # (Auto) 0.0 (0.0-0.4) th/mm3 Baso # (Auto) 0.1 (0.0-0.2) th/mm3 WBC Differential . Seg Neuts % (Manual) (16-70) % Band Neuts % (Manual) (0-6) % Lymphocytes % (Manual) (9-44) % Monocytes % (Manual) (0-8) % Basophils % (Manual) (0-2) % Abs Neuts (Manual) (1.8-7.7) th/mm3 Differential Comment Auto diff final Platelet Estimate (Normal) Platelet Morphology (Normal) RBC Morphology (Normal) Ovalocytes (None) [place]le[place] (None) Sodium 142 (136-145) meq/L Potassium 3.6 (3.5-5.1) meq/L Chloride 105 (98-107) meq/L Carbon Dioxide 29.2 (21.0-32.0) meq/L Anion Gap 8 (5-15) meq/L BUN 4 L (7-18) mg/dL Creatinine 0.75 (0.60-1.30) mg/dL Estimated GFR Greater than 89 (>89) mL/min Random Glucose 161 H (74-106) mg/dL Lactic Acid (0.4-2.0) mmol/L Calcium 8.8 D (8.5-10.1) mg/dL Magnesium 2.0 (1.5-2.5) mg/dL C-Reactive Protein 18.30 H 24.70 H (0.00-0.30) mg/dL 12/30/17 12/31/17 12/31/17 Range/Units 04:13 03:46 03:46 CBC w Diff WBC 13.8 H 9.1 (4.0-11.0) th/mm3 RBC 4.01 L 3.95 L (4.50-5.90) mil/mm3 Hgb 12.8 L 12.6 L (13.0-17.0) gm/dL Hct 36.9 L 37.0 L (39.0-51.0) % MCV 92.2 93.7 (80.0-100.0) fL MCH 31.9 31.8 (27.0-34.0) pg MCHC 34.6 33.9 (32.0-36.0) % RDW 15.0 14.5 (11.6-17.2) % Plt Count 504 H 470 H (150-450) th/mm3 MPV 7.6 7.7 (7.0-11.0) fL Neut % (Auto) 88.7 H 61.0 (16.0-70.0) % Lymph % (Auto) 4.7 L 29.7 (9.0-44.0) % [place] % (Auto) 6.5 8.3 H (0.0-8.0) % Eos % (Auto) 0.0 0.3 (0.0-4.0) % Baso % (Auto) 0.1 0.7 (0.0-2.0) % Neut # (Auto) 12.2 H 5.5 (1.8-7.7) th/mm3 Lymph # (Auto) 0.6 L 2.7 (1.0-4.8) th/mm3 [place] # (Auto) 0.9 0.8 (0.0-0.9) th/mm3 Eos # (Auto) 0.0 0.0 (0.0-0.4) th/mm3 Baso # (Auto) 0.0 0.1 (0.0-0.2) th/mm3 WBC Differential . . Seg Neuts % (Manual) (16-70) % Band Neuts % (Manual) (0-6) % Lymphocytes % (Manual) (9-44) % Monocytes % (Manual) (0-8) % Basophils % (Manual) (0-2) % Abs Neuts (Manual) (1.8-7.7) th/mm3 Differential Comment Auto diff final Auto diff final Platelet Estimate (Normal) Platelet Morphology (Normal) RBC Morphology (Normal) Ovalocytes (None) [place]le[place] (None) Sodium (136-145) meq/L Potassium (3.5-5.1) meq/L Chloride (98-107) meq/L Carbon Dioxide (21.0-32.0) meq/L Anion Gap (5-15) meq/L BUN (7-18) mg/dL Creatinine (0.60-1.30) mg/dL Estimated GFR (>89) mL/min Random Glucose (74-106) mg/dL Lactic Acid (0.4-2.0) mmol/L Calcium (8.5-10.1) mg/dL Magnesium (1.5-2.5) mg/dL C-Reactive Protein 15.00 H (0.00-0.30) mg/dL Imaging Data Radiologist's impression: Face CT 12/28/17 12:59 CONCLUSION: 1. Significant inflammatory changes are noted in the right perimandibular soft tissues with an ill-defined mildly rim-enhancing elisa minus collection suspected felt to represent a developing abscess. 2. There may be a component of sialoadenitis with enlargement of the right submandibular gland as compared to the left. Discharge Plan Discharge Disposition Patient Disposition: 02 Transfer To [facility] Discharge Details Diagnosis: Abscess of mandible Physicians Team ED Provider: Beena Sequeira Primary Care Provider: Primary Care Jeny Andino Attending Provider: Faiza Swanson Other Providers: Nash Rubin ; Jose Enrique Diana Discharge Interventions Interventions: ED Discharge Assessment Last Done: 12/28/17 17:34 Vital Signs Last Done: 12/28/17 17:34 Status ED Status: Left Department Discharge Information Discharge Date/Time: 12/28/17 17:40
[2017-12-28 13:17] LABS: Hematocrit 41.5 % (39.0-51.0); Hemoglobin 14.4 gm/dL (13.0-17.0); Mean Corpuscular HGB Conc 34.6 % (32.0-36.0); Mean Corpuscular Hemoglobin 31.9 pg (27.0-34.0); Mean Corpuscular Volume 92.1 fL (80.0-100.0); Mean Platelet Volume 8.2 fL (7.0-11.0); Platelet Count 650 th/mm3 (150-450); Red Blood Count 4.51 mil/mm3 (4.50-5.90); Red Cell Distribution Width 14.9 % (11.6-17.2); White Blood Count 14.7 th/mm3 (4.0-11.0)
[2017-12-28 13:24] LABS: Chloride 105 meq/L (98-107); Potassium 3.6 meq/L (3.5-5.1); Sodium 141 meq/L (136-145)
[2017-12-28 13:26] LABS: Calcium 9.6 mg/dL (8.5-10.1)
[2017-12-28 13:27] LABS: Anion Gap 14 meq/L (5-15); Blood Urea Nitrogen 7 mg/dL (7-18); Glucose,Random 76 mg/dL (74-106)
[2017-12-28 13:30] LABS: Glomerular Filtration Rate Greater Than 89 mL/min (>89)
[2017-12-28 13:50] LABS: Lymphocytes 16 % (9-44); Monocytes 13 % (0-8)
[2017-12-28 13:51] LABS: Ovalocytes 1+; Platelet Morphology Normal (Normal); RBC Morphology Normal (Normal); Rouleaux Present
--- NOTE | 2017-12-28 13:55 | CT ---
EXAM DATE: 12/28/2017 1:39 PM EDT AGE/SEX: 32 years / Male INDICATIONS: Right mandibular and submental swelling. Evaluate for abscess. CLINICAL DATA: This is the patient's initial encounter. Patient reports that signs and symptoms have been present for 1 week and indicates a pain score of 10/10. MEDICAL/SURGICAL HISTORY: Pancreatitis. ETOH abuse. Fusion, lumbar. RADIATION DOSE: 29.89 CTDI (mGy) COMPARISON: No prior exams available for comparison. TECHNIQUE: Contiguous images in the axial and coronal planes were obtained using helical multirow de tector technique with 60 ml Omnipaque 350 (iohexol) nonionic water-soluble contrast as a single exam dose. Using automated exposure control and adjustment of the mA and/or kV according to patient size , radiation dose was kept as low as reasonably achievable to obtain optimal diagnostic quality images . DICOM format image data is available electronically for review and comparison. FINDINGS: There is significant induration and stranding of the subcutaneous fat as well as thickening of the pl atysma muscle and ill-defined fluid in the right perimandibular soft tissues. The right submandibular gland is mildly prominent as compared to the left. There are reactive submental lymph nodes identifi ed in this region. Just medial to the body of the mandible on the right is an ill-defined area measur ing 3.9 x 1.9 cm in AP and transverse dimension with suggestion of slight rim enhancement most likely representing a developing abscess. On axial image 53 measures 2 x 3.9 cm in transverse and AP dimens ion. There is significant surrounding inflammatory changes seen. Review of bone windows demonstrate n o destructive osseous lesions. CONCLUSION: 1. Significant inflammatory changes are noted in the right perimandibular soft tissues with an ill-d efined mildly rim-enhancing elisa minus collection suspected felt to represent a developing abscess. 2. There may be a component of sialoadenitis with enlargement of the right submandibular gland as co mpared to the left. Electronically signed by: Bill Bustos MD 12/28/2017 1:54 PM EDT
[2017-12-28] MEDS ORDERED: Bisacodyl 10 MG Supp RECTAL PRN (14:28)
[2017-12-28] MEDS ORDERED: Vancomycin Inj 1 GM/200 ML PIGGYBACK IV.SIG SCH (15:00)
[2017-12-28] MEDS ORDERED: Vancomycin Inj 1 GM/200 ML PIGGYBACK IV.SIG ONE (15:03)
[2017-12-28] MEDS ORDERED: Vancomycin Inj 1,000 MG in Sodium Chlor 0.9% Inj 250 ML IV.SIG ONE (16:00)
[2017-12-28] MEDS: Morphine Inj 4 MG/ML Vial IV.PUSH PRN ×2 (18:49→23:31)
--- NOTE | 2017-12-28 19:48 | P.CON ---
History of Present Illness Service: Oral & Maxillofacial Surgery Consult date: 12/28/17 Requesting Physician: Beena Sequeira Reason for Consult: Right facial swelling Primary Care Provider: No Primary Care Physician Family Provider: No Primary Care Physician Chief Complaint: Right facial pain and swelling History of Present Illness: A 32 y/o M with h/o substance and EtOH abuse who presents with right sided facial swelling and pain. The patient reports he has experienced swelling of his face for the last 9 days. He reports taking a course of clindamycin which intermittently decreased the swelling. Patient able to manage oral secretions, but reports odynophagia and dysphagia. He reports that he sleeps with his head elevated or otherwise he develops dyspnea. He also notes intermittent numbness in the right CNV3 region. He reports pain in many of his teeth but notes that the right mandibular second molar is the most painful at the current time. Review of Systems Ears, Nose, Mouth, and Throat: Reports dental pain, Reports difficulty swallowing, Reports facial pain, Reports mouth lesions, Reports mouth pain, Reports neck pain, Reports sore throat, Reports throat swelling, Reports tongue swelling Cardiovascular: Denies chest pain Respiratory: Denies shortness of breath Musculoskeletal: Denies abnormal walking PMFSH - History History Provided By: Patient - Medical History Medical History: Medical History (Last Reviewed 12/28/17 @ 12:46 by Rosibel Kidd RN) Anxiety (Acute) ETOH abuse (Acute) GI bleed (Acute) - Surgical History Surgical History: Surgical History (Last Reviewed 12/28/17 @ 12:46 by Rosibel Kidd RN) History of back surgery (Acute) - Family History Family History: Family History (Last Updated 12/13/17 @ 16:39 by Danny Rogers MD) Other Family history of hypertension - Tobacco History Second Hand Smoke Exposure: Yes Tobacco Use In Past 30 Days: Yes Smoking Status: Heavy tobacco smoker Tobacco Type: Cigarettes - Alcohol History How Often Do You Have a Drink Containing Alcohol: Never - Substance Use History Substance History: Past History - Substance Use Type Alcohol Status: Sustained Remission Route Used: By Mouth Reason for Use: Socialization - Travel History Recent Travel in the [facility] Within the Last 8 Weeks: No - Immunization History Tetanus Immunization: Unsure Hx Influenza Vaccine This Season: No Medications and Allergies Active Medications: Active Medications Acetaminophen (Tylenol) 650 mg PO Q4H PRN PRN Reason: Headache, fever, pain 1-5 Hydrocodone Bitart/Acetaminophen ([place] 7.5/325) 1 tab PO Q6H PRN PRN Reason: Pain 6-10. Last Admin: 12/28/17 16:05 Dose: 1 tab Al Hydroxide/Mg Hydroxide (Milk Of Magnesia Liq) 30 ml PO Q12H PRN PRN Reason: Mild Constipation Bisacodyl (Dulcolax Supp) 10 mg RECTAL DAILY PRN PRN Reason: SEVERE CONSITIPATION Ampicillin Sodium/Sulbactam (Sodium 3 gm/ Sodium Chloride) 100 mls @ 200 mls/ hr IV.SIG Q6H AJ Stop: 01/11/18 19:59 Lactulose (Lactulose Liq) 30 ml PO DAILY PRN PRN Reason: SEVERE CONSITIPATION Morphine Sulfate (Morphine Inj) 4 mg IV.PUSH Q4H PRN PRN Reason: BREAKTHROUGH PAIN Last Admin: 12/28/17 18:49 Dose: 4 mg Ondansetron HCl (Zofran Inj) 4 mg IV.PUSH Q6H PRN PRN Reason: NAUSEA OR VOMITING Sennosides (Senokot) 17.2 mg PO Q12H PRN PRN Reason: Moderate Constipation Allergies Allergy/AdvReac Type Severity Reaction Status Date / Time No Known Allergies Allergy Verified 12/28/17 12:40 Home Medications Medication Instructions Recorded Confirmed Type ibuprofen [Motrin IB] 1,000 mg PO ONCE 12/28/17 12/28/17 History Physical Exam Vital signs: Vital Signs 12/28/17 12:37 12/28/17 13:58 12/28/17 16:07 Temperature 98.8 F Pulse Rate 97 H 89 84 Respiratory Rate 16 18 18 Blood Pressure 145/77 H 146/79 H 140/84 Pulse Oximetry 99 98 99 12/28/17 17:34 Temperature Pulse Rate 84 Respiratory Rate 18 Blood Pressure 152/74 H Pulse Oximetry Intake & Output 12/28/17 12/28/17 12/29/17 06:59 18:59 06:59 Intake Total 250 / 250 Balance 250 / 250 Weight 94.9 kg Intake: IV 250 / 250 Vancomycin Inj 1,000 MG In NS 250 / 250 Inj 250 ML @ 250 mls/hr IV.SIG ONCE ONE Rx#:[id number] Narrative: General: Well-developed, comfortable and in no apparent distress. Neurological: Alert and oriented to person, place, and time. CNV with paresthesia along the right side. HEENT: Head/Face: Right facial edema present in the submandibular region, no erythema of the overlying skin. JONAS ~ 15 mm. Eyes: EOMI Oral Cavity/Oropharynx: Mucosa pink and well hydrated. Poor oral hygiene. Entire maxillary and posterior mandibular dentition is grossly decayed. Tooth # 31 with increased sensitivity to percussion and palpation. Floor of mouth soft. Uvula deviated to the right. Neck: Induration along the right submandibular region. Cardiovascular: Regular rate. Pulmonary: Normal work of breathing on room air. Abdomen: Soft, non-tender, non-distended. Musculoskeletal: No joint tenderness, deformity, effusions. Full range of motion in shoulder, elbow, hip knee, ankle, hands and feet. Extremities: Warm, well perfused. - Additional findings Additional findings: CT Face displays a fluid collection along the medial aspect along the right mandible with deviation of the airway to the left. Periapical radiolucency of tooth #18 with perforation of the cortex. Assessment and Plan - Assessment (1) Facial abscess Code(s): L02.01 - Cutaneous abscess of face Status: Acute - Plan - Patient will require incision and drainage of a right submandibular and sublingual abscess and extraction of teeth #29,30,31 and any other indicated teeth in the operating room under general anesthesia. Patient posted for PM of . Risks, benefits, and alternatives discussed with patient including pain , swelling, continued infection, nerve/vessel injury. Patient agrees to procedure. Written consent obtained. -Please make patient NPO at noon on 12/29/17 for anticipated OR. OK with clear liquid diet until then -Please continue Unasyn 3g IV q6h -OK for decadron 8mg q8h if patients airway deteriorates -Please obtain daily CBC and CRP Thank you for this consultation. Please do not hesitate to contact me at [phone] with any questions or concerns. Nash Rubin DDS, MD
[2017-12-28] MEDS: Ampicillin/Sulbactam Inj 3 GM in Sodium Chloride 0.9% Inj 100 ML IV.SIG SCH (21:57)
[2017-12-28] MEDS: Acetaminophen 325 MG Tablet PO PRN (23:52)
[2017-12-29] MEDS: Ampicillin/Sulbactam Inj 3 GM in Sodium Chloride 0.9% Inj 100 ML IV.SIG SCH ×4 (01:21→20:36)
[2017-12-29 04:33] LABS: Baso # (Auto) 0.1 th/mm3 (0.0-0.2); Baso % (Auto) 0.8 % (0.0-2.0); Eos % (Auto) 0.2 % (0.0-4.0); Hematocrit 38.6 % (39.0-51.0); Hemoglobin 13.3 gm/dL (13.0-17.0); Lymph # (Auto) 1.6 th/mm3 (1.0-4.8); Lymph % (Auto) 11.9 % (9.0-44.0); Mean Corpuscular HGB Conc 34.4 % (32.0-36.0); Mean Corpuscular Hemoglobin 31.9 pg (27.0-34.0); Mean Corpuscular Volume 92.8 fL (80.0-100.0); Mean Platelet Volume 8.2 fL (7.0-11.0); Mono # (Auto) 1.5 th/mm3 (0.0-0.9); Mono % (Auto) 11.5 % (0.0-8.0); Neut # (Auto) 10.1 th/mm3 (1.8-7.7); Neut % (Auto) 75.6 % (16.0-70.0); Platelet Count 570 th/mm3 (150-450); Red Blood Count 4.16 mil/mm3 (4.50-5.90); Red Cell Distribution Width 15.1 % (11.6-17.2); White Blood Count 13.4 th/mm3 (4.0-11.0)
[2017-12-29] MEDS: Morphine Inj 4 MG/ML Vial IV.PUSH PRN ×2 (04:58→15:25)
--- NOTE | 2017-12-29 05:46 | P.HPIM ---
History of Present Illness Primary Care Physician: No Primary Care Physician Chief Complaint: Right facial pain and swelling History of Present Illness: 32-year-old male with a history of, anxiety and depression presented to the ED with complaints of right-sided facial swelling and pain. Patient states he was on clindamycin outpatient for the last 9 days with no relief of symptoms. He states the pain is a constant, throbbing/burning sensation to the right jaw, 10/ 10, with no radiation or associated symptoms, worse with movement and better with pain medication. He denies any chest pain, shortness of breath, fever or chills. Inpatient Certification: I certify that the inpatient services were ordered in accordance with Medicare regulations governing the order. This includes certification that hospital inpatient services are reasonable and necessary and in the case of services not specified as inpatient-only under 42 CFR 419.22(n), that they are appropriately provided as inpatient services in accordance to with the 2-midnight benchmark under 43 CFR 412.3(e) Estimated Total Length of Stay (Days): 2 Plans for Post Hospital Care: Home Review of Systems All other systems reviewed negative except as stated in HPI PMFSH - History History Provided By: Patient - Medical History Medical History: Medical History (Last Reviewed 12/28/17 @ 12:46 by Rosibel Kidd RN) Anxiety (Acute) ETOH abuse (Acute) GI bleed (Acute) - Surgical History Surgical History: Surgical History (Last Reviewed 12/28/17 @ 12:46 by Rosibel Kidd RN) History of back surgery (Acute) - Family History Family History: Family History (Last Updated 12/13/17 @ 16:39 by Danny Rogers MD) Other Family history of hypertension - Tobacco History Second Hand Smoke Exposure: Yes Tobacco Use In Past 30 Days: Yes Smoking Status: Heavy tobacco smoker Tobacco Type: Cigarettes - Alcohol History How Often Do You Have a Drink Containing Alcohol: Never - Substance Use History Substance History: Past History - Substance Use Type Alcohol Status: Sustained Remission Route Used: By Mouth Reason for Use: Socialization - Travel History Recent Travel in the [facility] Within the Last 8 Weeks: No - Immunization History Tetanus Immunization: Unsure Hx Influenza Vaccine This Season: No Medications and Allergies Active Medications: Active Medications Acetaminophen (Tylenol) 650 mg PO Q4H PRN PRN Reason: Headache, fever, pain 1-5 Last Admin: 12/28/17 23:52 Dose: 650 mg Hydrocodone Bitart/Acetaminophen ([place] 7.5/325) 1 tab PO Q6H PRN PRN Reason: Pain 6-10. Last Admin: 12/29/17 03:55 Dose: 1 tab Al Hydroxide/Mg Hydroxide (Milk Of Magnesia Liq) 30 ml PO Q12H PRN PRN Reason: Mild Constipation Bisacodyl (Dulcolax Supp) 10 mg RECTAL DAILY PRN PRN Reason: SEVERE CONSITIPATION Ampicillin Sodium/Sulbactam (Sodium 3 gm/ Sodium Chloride) 100 mls @ 200 mls/ hr IV.SIG Q6H AJ Stop: 01/11/18 19:59 Last Infusion: 12/29/17 01:51 Dose: Infused Lactulose (Lactulose Liq) 30 ml PO DAILY PRN PRN Reason: SEVERE CONSITIPATION Morphine Sulfate (Morphine Inj) 4 mg IV.PUSH Q4H PRN PRN Reason: BREAKTHROUGH PAIN Last Admin: 12/29/17 04:58 Dose: 4 mg Ondansetron HCl (Zofran Inj) 4 mg IV.PUSH Q6H PRN PRN Reason: NAUSEA OR VOMITING Sennosides (Senokot) 17.2 mg PO Q12H PRN PRN Reason: Moderate Constipation Allergies Allergy/AdvReac Type Severity Reaction Status Date / Time No Known Allergies Allergy Verified 12/28/17 12:40 Home Medications Medication Instructions Recorded Confirmed Type ibuprofen [Motrin IB] 1,000 mg PO ONCE 12/28/17 12/28/17 History Exam Vital signs: Vital Signs 12/28/17 12:37 12/28/17 13:58 12/28/17 16:07 Temperature 98.8 F Pulse Rate 97 H 89 84 Respiratory Rate 16 18 18 Blood Pressure 145/77 H 146/79 H 140/84 Pulse Oximetry 99 98 99 12/28/17 17:34 12/28/17 18:00 12/28/17 23:33 Temperature 99.9 F H 102.4 F H Pulse Rate 84 82 89 Respiratory Rate 18 20 20 Blood Pressure 152/74 H 158/86 H 160/77 H Pulse Oximetry 99 95 12/29/17 01:23 12/29/17 02:03 12/29/17 04:00 Temperature 100.6 F H 99.3 F 98.3 F Pulse Rate 85 Respiratory Rate 18 Blood Pressure 110/86 Pulse Oximetry 92 L Intake & Output 12/28/17 12/28/17 12/29/17 06:59 18:59 06:59 Intake Total 250 / 250 200 / 200 Balance 250 / 250 200 / 200 Weight 93.7 kg Intake: IV 250 / 250 200 / 200 Unasyn Inj 3 GM In NS Inj 100 200 / 200 ML @ 200 mls/hr IV.SIG Q6H AJ Rx#:[id number] Vancomycin Inj 1,000 MG In NS 250 / 250 Inj 250 ML @ 250 mls/hr IV.SIG ONCE ONE Rx#:[id number] Other: # Voids 0 Weight On Admission 93.7 kg Narrative: GENERAL: This is a well-nourished, well-developed patient, in no apparent distress. SKIN: Warm, dry, intact, no ecchymosis or open lesions HEENT: right facial swelling EYES: Pupils equal round and reactive, no scleral edema or drainage CARDIOVASCULAR: Regular rate and rhythm without murmurs, gallops, or rubs. RESPIRATORY: Clear to auscultation. Breath sounds equal bilaterally. No wheezes , rales, or rhonchi. GASTROINTESTINAL: Abdomen soft, non-tender, nondistended. Normal active bowel sounds MUSCULOSKELETAL: Extremities without clubbing, cyanosis, or edema. NEURO: Alert & Oriented x4 to person, place, time, situation. Moves all ext x4 Results - Labs CBC & Chem 7: 12/29/17 03:19 12/28/17 12:55 Labs: Short CBC 12/28/17 12/29/17 Range/Units 12:55 03:19 WBC 14.7 H 13.4 H (4.0-11.0) th/mm3 Hgb 14.4 13.3 (13.0-17.0) gm/dL Hct 41.5 38.6 L (39.0-51.0) % Plt Count 650 H D 570 H (150-450) th/mm3 BMP 12/28/17 12:55 Sodium 141 Potassium 3.6 Chloride 105 Carbon Dioxide 22.0 BUN 7 Creatinine 0.75 Calcium 9.6 - Imaging Impressions Face CT 12/28/17 12:59 CONCLUSION: 1. Significant inflammatory changes are noted in the right perimandibular soft tissues with an ill-defined mildly rim-enhancing elisa minus collection suspected felt to represent a developing abscess. 2. There may be a component of sialoadenitis with enlargement of the right submandibular gland as compared to the left. Caprini VTE Risk Assessment Caprini VTE Risk Assessment: No/Low Risk (score <= 1) Caprini Risk Assessment Model: Point Value = 1 Point Value = 2 Point Value = 3 Point Value = 5 Age 41-60 Minor surgery BMI > 25 kg/m2 Swollen legs Varicose veins or History of unexplained or recurrent spontaneous Oral contraceptives or hormone replacement Sepsis (< 1 month) Serious lung disease, including pneumonia (< 1 month) Abnormal pulmonary function Acute myocardial infarction Congestive heart failure (< 1 month) History of inflammatory bowel disease Medical patient at bed rest Age 61-74 Arthroscopic surgery Major open surgery (> 45 min) Laparoscopic surgery (> 45 min) Malignancy Confined to bed (> 72 hours) Immobilizing plaster cast Central venous access Age >= 75 History of VTE Family history of VTE Factor V Leiden Prothrombin [id number] Lupus anticoagulant Anticardiolipin antibodies Elevated serum homocysteine Heparin-induced thrombocytopenia Other congenital or acquired thrombophilia Stroke (< 1 month) Elective arthroplasty Hip, pelvis, or leg fracture Acute spinal cord injury (< 1 month) Prophylaxis Regimen: Total Risk Factor Score Risk Level Prophylaxis Regimen 0-1 Low Early ambulation 2 Moderate Order ONE of the following: *Sequential Compression Device (SCD) *Heparin 5000 units SQ BID 3-4 Higher Order ONE of the following medications: *Heparin 5000 units SQ TID *Enoxaparin/Lovenox 40 mg SQ daily (WT < 150 kg, CrCl > 30 mL/min) *Enoxaparin/Lovenox 30 mg SQ daily (WT < 150 kg, CrCl > 10-29 mL/min) *Enoxaparin/Lovenox 30 mg SQ BID (WT < 150 kg, CrCl > 30 mL/min) AND/OR *Sequential Compression Device (SCD) 5 or more Highest Order ONE of the following medications: *Heparin 5000 units SQ TID (Preferred with Epidurals) *Enoxaparin/Lovenox 40 mg SQ daily (WT < 150 kg, CrCl > 30 mL/min) *Enoxaparin/Lovenox 30 mg SQ daily (WT < 150 kg, CrCl > 10-29 mL/min) *Enoxaparin/Lovenox 30 mg SQ BID (WT < 150 kg, CrCl > 30 mL/min) AND *Sequential Compression Device (SCD) Assessment and Plan - Plan Sepsis, WBC 13.7, temp 102.4 due to submandibular and sublingual abscess, failed outpatient Facial CT reviewed and shows a significant inflammatory changes are noted in the right perimandibular soft tissues with an ill-defined mildly rim-enhancing elisa minus collection suspected felt to represent a developing abscess. -Consult maxillofacial surgery for evaluation, surgery planned for a.m. -N.p.o. IVF -Pain management with IV morphine -IV antibiotics Unasyn -If patient airway deteriorates, okay for Decadron 8 mg every 8 Anxiety/depression -Resume home medications DVT prophylaxis: SCDs Discussed Condition With: Patient and RN
--- NOTE | 2017-12-29 06:26 | P.PN ---
Subjective Interval history: Febrile yesterday evening to 102.4 F. Patient reports continued pain along the right mandible. He denies any difficulty breathing overnight. He denies any numbness in his face. He notes that the floor of his mouth has a "bubble" along the right side which he says has been typical every morning. Physical Exam Vital signs: Vital Signs 12/28/17 12:37 12/28/17 13:58 12/28/17 16:07 Temperature 98.8 F Pulse Rate 97 H 89 84 Respiratory Rate 16 18 18 Blood Pressure 145/77 H 146/79 H 140/84 Pulse Oximetry 99 98 99 12/28/17 17:34 12/28/17 18:00 12/28/17 23:33 Temperature 99.9 F H 102.4 F H Pulse Rate 84 82 89 Respiratory Rate 18 20 20 Blood Pressure 152/74 H 158/86 H 160/77 H Pulse Oximetry 99 95 12/29/17 01:23 12/29/17 02:03 12/29/17 04:00 Temperature 100.6 F H 99.3 F 98.3 F Pulse Rate 85 Respiratory Rate 18 Blood Pressure 110/86 Pulse Oximetry 92 L Intake & Output 12/28/17 12/28/17 12/29/17 06:59 18:59 06:59 Intake Total 250 / 250 200 / 200 Balance 250 / 250 200 / 200 Weight 93.7 kg Intake: IV 250 / 250 200 / 200 Unasyn Inj 3 GM In NS Inj 100 200 / 200 ML @ 200 mls/hr IV.SIG Q6H AJ Rx#:[id number] Vancomycin Inj 1,000 MG In NS 250 / 250 Inj 250 ML @ 250 mls/hr IV.SIG ONCE ONE Rx#:[id number] Other: # Voids 0 Weight On Admission 93.7 kg Narrative: General: Well-developed, comfortable and in no apparent distress. Neurological: Alert and oriented to person, place, and time. CNV intact bilaterally. HEENT: Head/Face: Right facial edema present in the submandibular region, no erythema of the overlying skin. JONAS ~ 15 mm. Eyes: EOMI Oral Cavity/Oropharynx: Mucosa pink and well hydrated. Poor oral hygiene. Entire maxillary and posterior mandibular dentition is grossly decayed. Tooth # 31 with increased sensitivity to percussion and palpation. Floor of mouth soft, right side slightly elevated as compared to previous day. Uvula midline. Neck: Induration along the right submandibular region, tender to palpation. Cardiovascular: Regular rate. Pulmonary: Normal work of breathing on room air. Abdomen: Soft, non-tender, non-distended. Musculoskeletal: No joint tenderness, deformity, effusions. Full range of motion in shoulder, elbow, hip knee, ankle, hands and feet. Extremities: Warm, well perfused. Results - Labs CBC & Chem 7: 12/29/17 03:19 12/28/17 12:55 Laboratory Results - last 24 hr 12/28/17 12/28/17 12/28/17 12:55 12:55 14:30 CBC w Diff Slide review pending WBC 14.7 H RBC 4.51 Hgb 14.4 Hct 41.5 MCV 92.1 MCH 31.9 MCHC 34.6 RDW 14.9 Plt Count 650 H D MPV 8.2 Neut % (Auto) Lymph % (Auto) [place] % (Auto) Eos % (Auto) Baso % (Auto) Neut # (Auto) Lymph # (Auto) [place] # (Auto) Eos # (Auto) Baso # (Auto) WBC Differential Manual diff final Seg Neuts % (Manual) 68 Band Neuts % (Manual) 2 Lymphocytes % (Manual) 16 Monocytes % (Manual) 13 H Basophils % (Manual) 1 Abs Neuts (Manual) 10.3 H Differential Comment . Platelet Estimate High H Platelet Morphology Normal RBC Morphology Normal Ovalocytes 1+ H Rouleaux Present H Sodium 141 Potassium 3.6 Chloride 105 Carbon Dioxide 22.0 Anion Gap 14 BUN 7 Creatinine 0.75 Estimated GFR Greater than 89 Random Glucose 76 Lactic Acid 0.7 Calcium 9.6 C-Reactive Protein 12/29/17 12/29/17 03:19 03:19 CBC w Diff WBC 13.4 H RBC 4.16 L Hgb 13.3 Hct 38.6 L MCV 92.8 MCH 31.9 MCHC 34.4 RDW 15.1 Plt Count 570 H MPV 8.2 Neut % (Auto) 75.6 H Lymph % (Auto) 11.9 [place] % (Auto) 11.5 H Eos % (Auto) 0.2 Baso % (Auto) 0.8 Neut # (Auto) 10.1 H Lymph # (Auto) 1.6 [place] # (Auto) 1.5 H Eos # (Auto) 0.0 Baso # (Auto) 0.1 WBC Differential . Seg Neuts % (Manual) Band Neuts % (Manual) Lymphocytes % (Manual) Monocytes % (Manual) Basophils % (Manual) Abs Neuts (Manual) Differential Comment Auto diff final Platelet Estimate Platelet Morphology RBC Morphology Ovalocytes Rouleaux Sodium Potassium Chloride Carbon Dioxide Anion Gap BUN Creatinine Estimated GFR Random Glucose Lactic Acid Calcium C-Reactive Protein 18.30 H - Imaging Impressions Face CT 12/28/17 12:59 CONCLUSION: 1. Significant inflammatory changes are noted in the right perimandibular soft tissues with an ill-defined mildly rim-enhancing elisa minus collection suspected felt to represent a developing abscess. 2. There may be a component of sialoadenitis with enlargement of the right submandibular gland as compared to the left. Assessment and Plan - Assessment (1) Dental abscess Code(s): K04.7 - Periapical abscess without sinus Status: Acute - Plan - Patient will require incision and drainage of a right submandibular and sublingual abscess and extraction of teeth #29,30,31 and any other indicated teeth in the operating room under general anesthesia. Patient posted for PM of . Risks, benefits, and alternatives discussed with patient including pain , swelling, continued infection, nerve/vessel injury. Patient agrees to procedure. Written consent obtained. -Please keep patient NPO at noon on 12/29/17 for anticipated OR. OK with clear liquid diet until then -Please continue Unasyn 3g IV q6h -OK for decadron 8mg q8h if patients airway deteriorates -Please obtain daily CBC and CRP Thank you for this consultation. Please do not hesitate to contact me at with any questions or concerns. Nash Rubin DDS,
[2017-12-29] MEDS ORDERED: Glycopyrrolate Inj 1 MG/5 ML Syringe IV.PUSH ONE (12:00)
[2017-12-29] MEDS ORDERED: Neostigmine Inj 5 MG/5 ML Syringe IV.PUSH ONE (12:00)
[2017-12-29] MEDS ORDERED: Lidocaine PF 1% Inj 5 ML Syringe INFILTRATN ONE (12:00)
[2017-12-29] MEDS ORDERED: Succinylcholine Inj 100 MG/5 ML Syringe IV.PUSH ONE (12:00)
[2017-12-29] MEDS: Acetaminophen 325 MG Tablet PO PRN (12:41)
[2017-12-29] MEDS: oxyCODONE/Acetaminophen 10/325 Tablet PO PRN ×3 (13:18→22:00)
[2017-12-29] MEDS: traZODone 50 MG Tablet PO SCH ×2 (13:19→22:00)
--- NOTE | 2017-12-29 16:46 | P.PNADD ---
Addendum to Inpatient Note Reason for Addendum: Additional Documentation Additional information: The pt was in a lot of pain and the frequency of his medications were adjusted. He was continued on IV antibiotics and IVFs. Surgery planned for later in the day. Discussed with nursing.
[2017-12-29] MEDS: Dextrose 5%/NaCl 0.9% Inj 1,000 ML IV.CONT SCH ×2 (17:18→20:34)
[2017-12-29] MEDS ORDERED: Lidocaine 2%/Epinephrine 1:100,000 30 ML MDV ONE (18:12)
--- NOTE | 2017-12-29 18:29 | P.OP ---
Preoperative Diagnosis: Right submandibular and sublingual abscess Postoperative Diagnosis: Right submandibular and sublingual abscess Date of procedure: 12/29/17 Procedure: Incision and drainage of a right submandibular and sublingual abscess and extraction of teeth #29,30,31. Anesthesia: GETA Surgeon: Nash Rubin DDS, MD Estimated blood loss (mL): 10 IV fluids (mL): 600 Urine output (mL): 0 Pathology: other (Aspirate from right submandibular space for gram stain, anaerobic, aerobic, fungal, and AFB culture) Operation and Findings: Operative findings: Approximately 10 mL of purulence noted in the right submandibular and sublingual spaces. Gross dental caries throughout the remaining dentition. Indications for Surgery: The patient is a 32 y/o M with h/o substance abuse who presents for surgical management of a right submandibular abscess Procedure: The patient was identified in the preoperative holding area and medical history and informed consent were reviewed with the patient. All questions were answered. The patient was taken via stretcher to operating room 7 and placed in the supine position on the operating table. Standard lines and monitors were applied. The patient was preoxygenated and general anesthesia was induced via IV. The patient was intubated oroendotracheally without complications. The tube was secured by the Anesthesia team. Bilateral breath sounds and end tidal CO2 were noted. Eyes were taped. The right arm was tucked the left arm remained in the field. Extremities were evaluated and found to be in normal range of motion with all pressure points padded. Preoperative antibiotics were administered. A second timeout was made. Local anesthetic was injected in the right mandible. 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 A throat pack was placed and noted. Attention was directed towards the right inferior border of the mandible, which was delineated with a marking pen. An 18 gauge needle on a 10 cc syringe was used to aspirate the right sub-mandibular space. Purulence returned and was sent for Gram stain, anaerobic, aerobic, fungal, and AFB cultures. A small 1.5 centimeter incision in the right neck was made through the cutaneous tissue parallel to and two fingerwidths below the inferior border of the mandible. Hemostat was then used to bluntly dissect through the platysma and subcutaneous tissues up to the inferior border of the mandible. Approximately 10cc of purulence was expressed. The hemostat was then used to explore the medial surface of the right mandible with exploration of the right sublingual, submandibular, and lateral pharyngeal spaces. The same procedure was then performed along the posterior and anterior lateral body of the mandible to explore the buccal and vestibular spaces Attention was then brought intraorally. Soft tissues surrounding teeth #29,30, 31 were released with a periosteal elevator. Teeth #29,30,31 were luxated with straight elevators and during delivery of teeth #29 and #30 with Cowhorn and lower universal forceps, the crowns fractured. A #15 blade was used to create a buccal sulcular incision along teeth numbers 28 through 31 with a distal buccal releasing incision. A full-thickness mucoperiosteal flap was elevated on the buccal aspect using a periosteal elevator. A 702 bur on high-speed handpiece with copious irrigation was used to create buccal troughs adjacent to teeth numbers 29,30, and 31. Teeth numbers 29 through 31 were elevated with a small straight elevator. Tooth #29 was delivered with a small straight elevator and hemostats. Tooth #30 was delivered with a small straight elevator and mosquito forceps with the crown and distal root as one portion. The mesial root was delivered with an [place] elevator and mosquito forceps. Tooth #31 was then elevated with a small straight elevator and the distal root and crown were delivered as one portion with mosquito forceps. The mesial root was then elevated with an [place] elevator and delivered with mosquito forceps. No purulence noted in the extraction sockets. Sockets were curetted with a double- ended curette. Rongeur forceps were used to remove any sharp bony ledges. The bony edges were then smoothed with a bone file. The sites were irrigated with copious amounts of normal saline. 3-0 chromic suture was placed in interrupted fashion to reapproximate the papillae. Next, the bulb syringe was used to irrigate the right buccal space, submandibular and lateral pharyngeal spaces until no purulence was returned. One quarter inch Honaker drain was placed along the medial surface of the mandible and advanced into the submandibular and lateral pharyngeal space and secured in place with silk suture. The drain was then irrigated with copious amounts of normal saline. The oral cavity and oropharynx were irrigated with copious amounts of normal saline and the oropharynx was suctioned. The throat pack was removed under direct visualization and the oropharynx was suctioned and a nasogastric tube was placed and the stomach contents were removed. The nasogastric tube was then removed. Prep and drapes were removed. The patient was cleansed and dried and turned back to the Anesthesia Care team where he was awakened without event and transferred to the PACU by the Anesthesia Care team for postoperative recovery. Postoperative Care Plan: Patient to return to the care of the medicine service for post-operative wound care and IV antibiotic therapy.
[2017-12-29] MEDS ORDERED: Chlorhexidine Gluconate 0.12% Liq 15 ML UDC ONE (18:38)
[2017-12-29] MEDS ORDERED: fentaNYL Citrate Inj 100 MCG/2 ML Ampul ONE (19:16)
[2017-12-29] MEDS: Chlorhexidine Gluconate 0.12% Liq 15 ML UDC SWISH-SPIT SCH (22:23)
[2017-12-30] MEDS: Morphine Inj 4 MG/ML Vial IV.PUSH PRN ×6 (00:06→20:35)
[2017-12-30] MEDS: Ampicillin/Sulbactam Inj 3 GM in Sodium Chloride 0.9% Inj 100 ML IV.SIG SCH ×4 (01:08→20:34)
[2017-12-30] MEDS: oxyCODONE/Acetaminophen 10/325 Tablet PO PRN ×6 (02:24→22:29)
[2017-12-30 04:39] LABS: Baso % (Auto) 0.1 % (0.0-2.0); Hematocrit 36.9 % (39.0-51.0); Hemoglobin 12.8 gm/dL (13.0-17.0); Lymph # (Auto) 0.6 th/mm3 (1.0-4.8); Lymph % (Auto) 4.7 % (9.0-44.0); Mean Corpuscular HGB Conc 34.6 % (32.0-36.0); Mean Corpuscular Hemoglobin 31.9 pg (27.0-34.0); Mean Corpuscular Volume 92.2 fL (80.0-100.0); Mean Platelet Volume 7.6 fL (7.0-11.0); Mono # (Auto) 0.9 th/mm3 (0.0-0.9); Mono % (Auto) 6.5 % (0.0-8.0); Neut # (Auto) 12.2 th/mm3 (1.8-7.7); Neut % (Auto) 88.7 % (16.0-70.0); Platelet Count 504 th/mm3 (150-450); Red Blood Count 4.01 mil/mm3 (4.50-5.90); White Blood Count 13.8 th/mm3 (4.0-11.0)
[2017-12-30 05:07] LABS: Anion Gap 8 meq/L (5-15); Blood Urea Nitrogen 4 mg/dL (7-18); Calcium 8.8 mg/dL (8.5-10.1); Carbon Dioxide 29.2 meq/L (21.0-32.0); Chloride 105 meq/L (98-107); Glomerular Filtration Rate Greater Than 89 mL/min (>89); Glucose,Random 161 mg/dL (74-106); Potassium 3.6 meq/L (3.5-5.1); Sodium 142 meq/L (136-145)
--- NOTE | 2017-12-30 06:22 | P.PN ---
Subjective Interval history: 32 y/o M with a history of substance abuse who is now s/p incision and drainage of the right submandibular and sublingual spaces and extraction of teeth #29,30, 31 on 12/29/17. Patient reports numbness in his right lower lip. He reports that the swelling underneath his tongue has disappeared. He still notes limited mouth opening. Of note, during surgery, maximal incisal opening was > 30mm Physical Exam Vital signs: Vital Signs 12/29/17 08:00 12/29/17 12:00 12/29/17 16:00 Temperature 98.8 F 99.1 F 99.8 F H Pulse Rate 94 H 94 H 88 Respiratory Rate 16 16 16 Blood Pressure 158/75 H 134/75 141/76 H Pulse Oximetry 95 94 L 93 L 12/29/17 19:46 12/29/17 19:49 12/29/17 19:55 Temperature 100.0 F H Pulse Rate 69 69 81 Respiratory Rate 15 11 L 23 Blood Pressure 88/48 L 91/48 L 101/54 L Pulse Oximetry 98 99 97 12/29/17 20:00 12/29/17 20:15 12/29/17 20:30 Temperature Pulse Rate 77 78 78 Respiratory Rate 16 20 16 Blood Pressure 107/56 L 98/54 L 109/57 L Pulse Oximetry 97 95 95 12/29/17 20:45 12/30/17 00:00 12/30/17 04:00 Temperature 98.7 F 98.4 F 97.3 F L Pulse Rate 76 76 78 Respiratory Rate 16 18 18 Blood Pressure 116/59 L 131/68 132/69 Pulse Oximetry 95 91 L 93 L Intake & Output 12/29/17 12/29/17 12/30/17 06:59 18:59 06:59 Intake Total 200 / 200 200 / 200 850 / 850 Output Total 10 / 10 Balance 200 / 200 200 / 200 840 / 840 Weight 94.1 kg 96.7 kg Intake: IV 200 / 200 200 / 200 200 / 200 D5W/Normal Saline Inj 1,000 ML 0 / 0 @ 100 mls/hr IV.CONT .Q10H AJ Rx#:[id number] Unasyn Inj 3 GM In NS Inj 100 200 / 200 200 / 200 200 / 200 ML @ 200 mls/hr IV.SIG Q6H AJ Rx#:[id number] Oral 50 / 50 Anesthesia Amount 600 / 600 Output: Urine 0 / 0 Estimated Blood Loss 10 / 10 Other: # Voids 0 0 0 Narrative: General: Well-developed, comfortable and in no apparent distress. Neurological: Alert and oriented to person, place, and time. Hypoesthesia of right CNV3 in the mental region. HEENT: Head/Face: Right facial edema present in the submandibular region, no erythema of the overlying skin. JONAS ~ 15 mm. [place] drain in place with silk suture with mild purulence present on the gauze dressing. Eyes: EOMI Oral Cavity/Oropharynx: Mucosa pink and well hydrated. Poor oral hygiene. Entire maxillary and posterior mandibular dentition is grossly decayed. Extraction sites are hemostatic. Floor of mouth soft, non-elevated. Uvula midline. Neck: Induration along the right submandibular region, tender to palpation. Cardiovascular: Regular rate. Pulmonary: Normal work of breathing on room air. Abdomen: Soft, non-tender, non-distended. Musculoskeletal: No joint tenderness, deformity, effusions. Full range of motion in shoulder, elbow, hip knee, ankle, hands and feet. Extremities: Warm, well perfused. Results - Labs CBC & Chem 7: 12/30/17 04:13 12/30/17 04:13 Laboratory Results - last 24 hr 12/30/17 12/30/17 04:13 04:13 WBC 13.8 H RBC 4.01 L Hgb 12.8 L Hct 36.9 L MCV 92.2 MCH 31.9 MCHC 34.6 RDW 15.0 Plt Count 504 H MPV 7.6 Neut % (Auto) 88.7 H Lymph % (Auto) 4.7 L [place] % (Auto) 6.5 Eos % (Auto) 0.0 Baso % (Auto) 0.1 Neut # (Auto) 12.2 H Lymph # (Auto) 0.6 L [place] # (Auto) 0.9 Eos # (Auto) 0.0 Baso # (Auto) 0.0 WBC Differential . Differential Comment Auto diff final Sodium 142 Potassium 3.6 Chloride 105 Carbon Dioxide 29.2 Anion Gap 8 BUN 4 L Creatinine 0.75 Estimated GFR Greater than 89 Random Glucose 161 H Calcium 8.8 D Magnesium 2.0 C-Reactive Protein 24.70 H Microbiology 12/28/17 14:30 Blood - Peripheral Aerobic Blood Culture - Preliminary No growth in 1 day 12/28/17 14:30 Blood - Peripheral Anaerobic Blood Culture - Preliminary No growth in 1 day 12/28/17 14:25 Blood - Peripheral Aerobic Blood Culture - Preliminary No growth in 1 day 12/28/17 14:25 Blood - Peripheral Anaerobic Blood Culture - Preliminary No growth in 1 day Assessment and Plan - Plan - 32 y/o M s/p incision and drainage of a right submandibular and sublingual abscess and extraction of teeth #29,30,31 on 12/29/17. Doing well post- operatively. -OK for full liquid diet - OK to restart DVT chemoprophylaxis -Please continue Unasyn 3g IV q6h -Please obtain daily CBC and CRP - Will keep drains in place today due to purulence on gauze and increase in WBC and CRP. - Demonstrated jaw stretching exercises with patient and encouraged him to perform these several times a day to assist with improvement in maximal incisal opening Thank you for this consultation. Please do not hesitate to contact me at [phone] with any questions or concerns. Nash Rubin DDS,
[2017-12-30] MEDS: Chlorhexidine Gluconate 0.12% Liq 15 ML UDC SWISH-SPIT SCH ×2 (08:22→20:35)
[2017-12-30] MEDS: traZODone 50 MG Tablet PO SCH ×2 (08:24→20:34)
--- NOTE | 2017-12-30 15:06 | P.PN ---
Subjective Interval history: Nursing denies any deterioration since last night. Patient able to tolerate some p.o. intake. Still has considerable pain over his right cheek, Physical Exam Vital signs: Vital Signs 12/29/17 16:00 12/29/17 19:46 12/29/17 19:49 Temperature 99.8 F H 100.0 F H Pulse Rate 88 69 69 Respiratory Rate 16 15 11 L Blood Pressure 141/76 H 88/48 L 91/48 L Pulse Oximetry 93 L 98 99 12/29/17 19:55 12/29/17 20:00 12/29/17 20:15 Temperature Pulse Rate 81 77 78 Respiratory Rate 23 16 20 Blood Pressure 101/54 L 107/56 L 98/54 L Pulse Oximetry 97 97 95 12/29/17 20:30 12/29/17 20:45 12/30/17 00:00 Temperature 98.7 F 98.4 F Pulse Rate 78 76 76 Respiratory Rate 16 16 18 Blood Pressure 109/57 L 116/59 L 131/68 Pulse Oximetry 95 95 91 L 12/30/17 00:04 12/30/17 03:46 12/30/17 04:00 Temperature 97.3 F L Pulse Rate 73 80 78 Respiratory Rate 18 Blood Pressure 132/69 Pulse Oximetry 93 L 12/30/17 08:00 12/30/17 12:00 Temperature 98.0 F 98.6 F Pulse Rate 79 75 Respiratory Rate 18 18 Blood Pressure 147/79 H 125/59 L Pulse Oximetry 91 L 94 L Intake & Output 12/29/17 12/30/17 12/30/17 18:59 06:59 18:59 Intake Total 200 / 200 1650 / 1650 400 / 400 Output Total 10 10 Balance 200 / 200 1640 / 1640 400 / 400 Weight 96.7 kg Intake: IV 200 / 200 1000 / 1000 400 / 400 D5W/Normal Saline Inj 1,000 ML 800 / 800 200 / 200 @ 100 mls/hr IV.CONT .Q10H AJ Rx#:[id number] Unasyn Inj 3 GM In NS Inj 100 200 / 200 200 / 200 200 / 200 ML @ 200 mls/hr IV.SIG Q6H AJ Rx#:[id number] Oral 50 / 50 Anesthesia Amount 600 / 600 Output: Urine 0 / 0 Estimated Blood Loss 10 10 Other: # Voids 0 0 Narrative: postop dressing and drains in place. Right mandibular margin tender to palpation, no erythema noted over the skin overlying the right cheek Results - Labs CBC & Chem 7: 12/30/17 04:13 12/30/17 04:13 Laboratory Results - last 24 hr 12/30/17 12/30/17 04:13 04:13 WBC 13.8 H RBC 4.01 L Hgb 12.8 L Hct 36.9 L MCV 92.2 MCH 31.9 MCHC 34.6 RDW 15.0 Plt Count 504 H MPV 7.6 Neut % (Auto) 88.7 H Lymph % (Auto) 4.7 L [place] % (Auto) 6.5 Eos % (Auto) 0.0 Baso % (Auto) 0.1 Neut # (Auto) 12.2 H Lymph # (Auto) 0.6 L [place] # (Auto) 0.9 Eos # (Auto) 0.0 Baso # (Auto) 0.0 WBC Differential . Differential Comment Auto diff final Sodium 142 Potassium 3.6 Chloride 105 Carbon Dioxide 29.2 Anion Gap 8 BUN 4 L Creatinine 0.75 Estimated GFR Greater than 89 Random Glucose 161 H Calcium 8.8 D Magnesium 2.0 C-Reactive Protein 24.70 H Microbiology 12/29/17 19:30 Wound - Other Acid Fast Bacilli Smear - Final No acid fast bacilli seen 12/28/17 14:30 Blood - Peripheral Aerobic Blood Culture - Preliminary No growth in 2 days 12/28/17 14:30 Blood - Peripheral Anaerobic Blood Culture - Preliminary No growth in 2 days 12/28/17 14:25 Blood - Peripheral Aerobic Blood Culture - Preliminary No growth in 2 days 12/28/17 14:25 Blood - Peripheral Anaerobic Blood Culture - Preliminary No growth in 2 days 12/29/17 19:30 Wound - Other Fungal Smear - Final No fungal elements seen 12/29/17 19:30 Wound - Other Gram Stain - Final Assessment and Plan - Plan Sepsis -submandibular and sublingual abscess, failed outpatient -s/p Incision and drainage of a right submandibular and sublingual abscess and extraction of teeth #29,30,31. -MXF surgery following -Pain management with IV morphine -IV Unasyn, CRP is elevating slightly, will trend -If patient airway deteriorates, okay for Decadron 8 mg every 8 Anxiety/depression -home medications lovenox
[2017-12-30] MEDS: Enoxaparin Inj 30 MG/0.3 ML Syringe SQ SCH (16:25)
[2017-12-31] MEDS: Morphine Inj 4 MG/ML Vial IV.PUSH PRN ×6 (00:40→22:10)
[2017-12-31] MEDS: Ampicillin/Sulbactam Inj 3 GM in Sodium Chloride 0.9% Inj 100 ML IV.SIG SCH ×4 (01:12→20:11)
[2017-12-31] MEDS: oxyCODONE/Acetaminophen 10/325 Tablet PO PRN ×5 (02:45→20:10)
[2017-12-31 04:14] LABS: Baso # (Auto) 0.1 th/mm3 (0.0-0.2); Baso % (Auto) 0.7 % (0.0-2.0); Eos % (Auto) 0.3 % (0.0-4.0); Hemoglobin 12.6 gm/dL (13.0-17.0); Lymph # (Auto) 2.7 th/mm3 (1.0-4.8); Lymph % (Auto) 29.7 % (9.0-44.0); Mean Corpuscular HGB Conc 33.9 % (32.0-36.0); Mean Corpuscular Hemoglobin 31.8 pg (27.0-34.0); Mean Corpuscular Volume 93.7 fL (80.0-100.0); Mean Platelet Volume 7.7 fL (7.0-11.0); Mono # (Auto) 0.8 th/mm3 (0.0-0.9); Mono % (Auto) 8.3 % (0.0-8.0); Neut # (Auto) 5.5 th/mm3 (1.8-7.7); Platelet Count 470 th/mm3 (150-450); Red Blood Count 3.95 mil/mm3 (4.50-5.90); Red Cell Distribution Width 14.5 % (11.6-17.2); White Blood Count 9.1 th/mm3 (4.0-11.0)
[2017-12-31] MEDS: traZODone 50 MG Tablet PO SCH ×2 (08:35→20:10)
[2017-12-31] MEDS: Chlorhexidine Gluconate 0.12% Liq 15 ML UDC SWISH-SPIT SCH ×2 (08:36→20:11)
[2017-12-31] MEDS: Enoxaparin Inj 30 MG/0.3 ML Syringe SQ SCH (08:36)
--- NOTE | 2017-12-31 08:45 | P.PN ---
Subjective Interval history: No acute events overnight. Patient reports that he is working on improving his jaw opening. He notes that he still has pain in the right mandible but reports that it feels better than prior to surgery. He says that the pain medication is working. Physical Exam Vital signs: Vital Signs 12/30/17 12:00 12/30/17 16:00 12/30/17 20:00 Temperature 98.6 F 98.5 F 98.3 F Pulse Rate 75 75 83 Respiratory Rate 18 18 18 Blood Pressure 125/59 L 140/75 166/85 H Pulse Oximetry 94 L 94 L 94 L 12/30/17 23:42 12/31/17 00:00 12/31/17 04:00 Temperature 98.4 F 98 F Pulse Rate 73 67 74 Respiratory Rate 18 Blood Pressure 149/80 H 144/87 H Pulse Oximetry 94 L 95 Intake & Output 12/30/17 12/31/17 12/31/17 18:59 06:59 18:59 Intake Total 400 / 400 1160 / 1160 Balance 400 / 400 1160 / 1160 Weight 96.7 kg Intake: IV 400 / 400 200 / 200 D5W/Normal Saline Inj 1,000 ML 200 / 200 @ 100 mls/hr IV.CONT .Q10H AJ Rx#:[id number] Unasyn Inj 3 GM In NS Inj 100 200 / 200 200 / 200 ML @ 200 mls/hr IV.SIG Q6H AJ Rx#:[id number] Oral 960 / 960 Other: # Voids 3 Narrative: General: Well-developed, comfortable and in no apparent distress. Neurological: Alert and oriented to person, place, and time. Hypoesthesia of right CNV3 in the mental region, improving. HEENT: Head/Face: Right facial edema present in the submandibular region, no erythema of the overlying skin. JONAS ~ 15 mm. [place] drain in place with silk suture with purulence present on the gauze dressing. Eyes: EOMI Oral Cavity/Oropharynx: Mucosa pink and well hydrated. Poor oral hygiene. Entire maxillary and posterior mandibular dentition is grossly decayed. Extraction sites are hemostatic. Floor of mouth soft, non-elevated. Uvula midline. Neck: Induration along the right submandibular region, tender to palpation. Cardiovascular: Regular rate. Pulmonary: Normal work of breathing on room air. Abdomen: Soft, non-tender, non-distended. Musculoskeletal: No joint tenderness, deformity, effusions. Full range of motion in shoulder, elbow, hip knee, ankle, hands and feet. Extremities: Warm, well perfused. Results - Labs CBC & Chem 7: 12/31/17 03:46 12/30/17 04:13 Laboratory Results - last 24 hr 12/31/17 12/31/17 03:46 03:46 WBC 9.1 RBC 3.95 L Hgb 12.6 L Hct 37.0 L MCV 93.7 MCH 31.8 MCHC 33.9 RDW 14.5 Plt Count 470 H MPV 7.7 Neut % (Auto) 61.0 Lymph % (Auto) 29.7 [place] % (Auto) 8.3 H Eos % (Auto) 0.3 Baso % (Auto) 0.7 Neut # (Auto) 5.5 Lymph # (Auto) 2.7 [place] # (Auto) 0.8 Eos # (Auto) 0.0 Baso # (Auto) 0.1 WBC Differential . Differential Comment Auto diff final C-Reactive Protein 15.00 H Microbiology 12/29/17 19:30 Wound - Other Gram Stain - Final 12/29/17 19:30 Wound - Other Wound Culture - Preliminary No growth in 24 hours 12/29/17 19:30 Wound - Other Acid Fast Bacilli Smear - Final No acid fast bacilli seen 12/28/17 14:30 Blood - Peripheral Aerobic Blood Culture - Preliminary No growth in 2 days 12/28/17 14:30 Blood - Peripheral Anaerobic Blood Culture - Preliminary No growth in 2 days 12/28/17 14:25 Blood - Peripheral Aerobic Blood Culture - Preliminary No growth in 2 days 12/28/17 14:25 Blood - Peripheral Anaerobic Blood Culture - Preliminary No growth in 2 days 12/29/17 19:30 Wound - Other Fungal Smear - Final No fungal elements seen Assessment and Plan - Plan - 32 y/o M s/p incision and drainage of a right submandibular and sublingual abscess and extraction of teeth #29,30,31 on 12/29/17. Doing well post- operatively. - OK to advance to soft diet - Please continue Unasyn 3g IV q6h - Please obtain daily CBC and CRP. WBC and CRP improving. - Will keep drains in place today due to purulence on gauze. - Continue jaw stretching exercises as directed. Thank you for this consultation. Please do not hesitate to contact me at with any questions or concerns. Nash Rubin DDS, MD
--- NOTE | 2017-12-31 10:24 | P.PN ---
Subjective Interval history: Patient is doing much better this morning but states that the pain in his right mandible is still present but is controlled on medication. He is working on jaw opening exercises. He has a drain in place but states that he is still producing a lot of pus. He has no other complaints today. No fever, no chest pain, no shortness of breath. He does report nausea and has not been eating much because he is concerned that the nausea would worsen. Physical Exam Vital signs: Vital Signs 12/30/17 12:00 12/30/17 16:00 12/30/17 20:00 Temperature 98.6 F 98.5 F 98.3 F Pulse Rate 75 75 83 Respiratory Rate 18 18 18 Blood Pressure 125/59 L 140/75 166/85 H Pulse Oximetry 94 L 94 L 94 L 12/30/17 23:42 12/31/17 00:00 12/31/17 04:00 Temperature 98.4 F 98 F Pulse Rate 73 67 74 Respiratory Rate 18 18 Blood Pressure 149/80 H 144/87 H Pulse Oximetry 94 L 95 12/31/17 08:00 Temperature 98.2 F Pulse Rate 71 Respiratory Rate 18 Blood Pressure 151/86 H Pulse Oximetry 95 Intake & Output 12/30/17 12/31/17 12/31/17 18:59 06:59 18:59 Intake Total 400 / 400 1160 / 1160 100 / 100 Balance 400 / 400 1160 / 1160 100 / 100 Weight 96.7 kg Intake: IV 400 / 400 200 / 200 100 / 100 D5W/Normal Saline Inj 1,000 ML 200 / 200 @ 100 mls/hr IV.CONT .Q10H AJ Rx#:[id number] Unasyn Inj 3 GM In NS Inj 100 200 / 200 200 / 200 100 / 100 ML @ 200 mls/hr IV.SIG Q6H AJ Rx#:[id number] Oral 960 / 960 Other: # Voids 3 Narrative: Gen: Patient sitting up in bed in NAD Skin: Warm and dry HEENT: Swelling noted in the area of the right mandible with purulence on the gauze dressing CV: Regular rate and rhythm Resp: CTAB, unlabored breathing Abd: Normoactive bowel sounds, NTTP Ext: No cyanosis or edema, calves nontender to palpation Psych: Normal affect Results - Labs CBC & Chem 7: 12/31/17 03:46 12/30/17 04:13 Laboratory Results - last 24 hr 12/31/17 12/31/17 03:46 03:46 WBC 9.1 RBC 3.95 L Hgb 12.6 L Hct 37.0 L MCV 93.7 MCH 31.8 MCHC 33.9 RDW 14.5 Plt Count 470 H MPV 7.7 Neut % (Auto) 61.0 Lymph % (Auto) 29.7 [place] % (Auto) 8.3 H Eos % (Auto) 0.3 Baso % (Auto) 0.7 Neut # (Auto) 5.5 Lymph # (Auto) 2.7 [place] # (Auto) 0.8 Eos # (Auto) 0.0 Baso # (Auto) 0.1 WBC Differential . Differential Comment Auto diff final C-Reactive Protein 15.00 H Microbiology 12/29/17 19:30 Wound - Other Gram Stain - Final 12/29/17 19:30 Wound - Other Wound Culture - Preliminary No growth in 24 hours 12/29/17 19:30 Wound - Other Acid Fast Bacilli Smear - Final No acid fast bacilli seen 12/28/17 14:30 Blood - Peripheral Aerobic Blood Culture - Preliminary No growth in 2 days 12/28/17 14:30 Blood - Peripheral Anaerobic Blood Culture - Preliminary No growth in 2 days 12/28/17 14:25 Blood - Peripheral Aerobic Blood Culture - Preliminary No growth in 2 days 12/28/17 14:25 Blood - Peripheral Anaerobic Blood Culture - Preliminary No growth in 2 days 12/29/17 19:30 Wound - Other Fungal Smear - Final No fungal elements seen Assessment and Plan - Assessment (1) Dental abscess Code(s): K04.7 - Periapical abscess without sinus Status: Acute (2) Abscess of mandible Code(s): M27.2 - Inflammatory conditions of jaws Status: Acute - Plan Submandibular and sublingual abscess, failed outpatient therapy -s/p Incision and drainage of a right submandibular and sublingual abscess and extraction of teeth #29,30,31. -MXF surgery following -Pain management with IV morphine -IV Unasyn 3g IV q6h -responding appropriately, WBC trended down to 9.1 compared to 13.8 on the previous day, CRP down to 15 from 24.7 -If patient airway deteriorates, will start Decadron 8 mg every 8h -Continue jaw stretching exercises as directed by OMFS Anxiety/depression -Continue home medications DVT prophylaxis -Lovenox Discussed Condition With: Patient and nurse Discharge Planning: Discharge pending clinical improvement and OMFS recommendations
[2018-01-01] MEDS: oxyCODONE/Acetaminophen 10/325 Tablet PO PRN ×5 (00:23→20:19)
[2018-01-01] MEDS: Morphine Inj 4 MG/ML Vial IV.PUSH PRN ×5 (02:14→21:56)
[2018-01-01] MEDS: Ampicillin/Sulbactam Inj 3 GM in Sodium Chloride 0.9% Inj 100 ML IV.SIG SCH ×4 (02:14→20:11)
[2018-01-01 04:34] LABS: Hematocrit 35.6 % (39.0-51.0); Hemoglobin 12.2 gm/dL (13.0-17.0); Mean Corpuscular HGB Conc 34.2 % (32.0-36.0); Mean Corpuscular Hemoglobin 31.7 pg (27.0-34.0); Mean Corpuscular Volume 92.5 fL (80.0-100.0); Mean Platelet Volume 7.8 fL (7.0-11.0); Platelet Count 462 th/mm3 (150-450); Red Blood Count 3.85 mil/mm3 (4.50-5.90); Red Cell Distribution Width 14.8 % (11.6-17.2); White Blood Count 7.3 th/mm3 (4.0-11.0)
--- NOTE | 2018-01-01 07:19 | P.PN ---
Subjective Interval history: Patient states that he is doing better. The swelling in his face is less but the pain is worse. Still draining purulent fluid. Otherwise he is doing well and has no complaints. Physical Exam Vital signs: Vital Signs 12/31/17 08:00 12/31/17 12:00 12/31/17 16:00 Temperature 98.2 F 97.9 F 98.2 F Pulse Rate 63 61 76 Respiratory Rate 18 18 18 Blood Pressure 151/86 H 159/91 H 166/93 H Pulse Oximetry 95 93 L 96 12/31/17 19:56 12/31/17 20:00 01/01/18 00:00 Temperature 98 F 97.9 F Pulse Rate 95 H 70 68 Respiratory Rate 18 20 Blood Pressure 160/83 H 133/78 Pulse Oximetry 95 93 L 01/01/18 00:02 01/01/18 04:00 Temperature 97.8 F Pulse Rate 65 60 Respiratory Rate 20 Blood Pressure 153/85 H Pulse Oximetry 95 Intake & Output 12/31/17 01/01/18 01/01/18 18:59 06:59 18:59 Intake Total 660 / 660 1720 / 1720 Output Total 2100 / 2100 2110 / 2110 Balance -1440 / -1440 -390 / -390 Weight 96.7 kg Intake: IV 200 / 200 200 / 200 Unasyn Inj 3 GM In NS Inj 100 200 / 200 200 / 200 ML @ 200 mls/hr IV.SIG Q6H AJ Rx#:[id number] Oral 460 / 460 920 / 920 Anesthesia Amount 600 / 600 Output: Urine 2100 / 2100 2100 / 2100 Estimated Blood Loss 10 / 10 Other: # Voids 3 # Bowel Movements 0 0 Narrative: Gen: Patient sitting up in bed in NAD Skin: Warm and dry HEENT: Moderate swelling noted in the area of the right mandible with purulence on the gauze dressing CV: Regular rate and rhythm Resp: CTAB, unlabored breathing Abd: Normoactive bowel sounds, NTTP Ext: No cyanosis or edema, calves nontender to palpation Psych: Normal affect Results - Labs CBC & Chem 7: 01/01/18 04:10 12/30/17 04:13 Laboratory Results - last 24 hr 01/01/18 01/01/18 04:10 04:10 WBC 7.3 RBC 3.85 L Hgb 12.2 L Hct 35.6 L MCV 92.5 MCH 31.7 MCHC 34.2 RDW 14.8 Plt Count 462 H MPV 7.8 C-Reactive Protein 8.81 H Microbiology 12/29/17 19:30 Wound - Other Gram Stain - Final 12/29/17 19:30 Wound - Other Wound Culture - Preliminary Mixed Anaerobes 12/28/17 14:30 Blood - Peripheral Aerobic Blood Culture - Preliminary No growth in 3 days 12/28/17 14:30 Blood - Peripheral Anaerobic Blood Culture - Preliminary No growth in 3 days 12/28/17 14:25 Blood - Peripheral Aerobic Blood Culture - Preliminary No growth in 3 days 12/28/17 14:25 Blood - Peripheral Anaerobic Blood Culture - Preliminary No growth in 3 days Assessment and Plan - Assessment (1) Dental abscess Code(s): K04.7 - Periapical abscess without sinus Status: Acute (2) Abscess of mandible Code(s): M27.2 - Inflammatory conditions of jaws Status: Acute - Plan Submandibular and sublingual abscess, failed outpatient therapy -s/p Incision and drainage of a right submandibular and sublingual abscess and extraction of teeth #29,30,31 on 12/29/17. -MXF surgery following -Pain management with Percocet and IV morphine for breakthrough -IV Unasyn 3g IV q6h -responding appropriately, WBC trended down to 7.3 compared to 9.1 on the previous day, CRP down to 8.81 from 15 on the previous day -If patient's airway deteriorates, will start Decadron 8 mg every 8h -Continue jaw stretching exercises as directed by MXF Anxiety/depression -Continue home medications DVT prophylaxis -Lovenox Discussed Condition With: Patient Discharge Planning: Discharge pending clinical improvement and OMFS recommendations
[2018-01-01] MEDS: traZODone 50 MG Tablet PO SCH ×2 (09:01→20:16)
[2018-01-01] MEDS: Chlorhexidine Gluconate 0.12% Liq 15 ML UDC SWISH-SPIT SCH ×2 (09:02→20:16)
[2018-01-01] MEDS: Enoxaparin Inj 30 MG/0.3 ML Syringe SQ SCH (09:03)
--- NOTE | 2018-01-01 09:43 | P.PN ---
Subjective Interval history: No acute events overnight. Patient reports pain while performing jaw stretching exercises. He also reports that it is difficult to chew his food due to his limited mouth opening. He reports that the numbness in his right lip is resolving. Physical Exam Vital signs: Vital Signs 12/31/17 12:00 12/31/17 16:00 12/31/17 19:56 Temperature 97.9 F 98.2 F Pulse Rate 61 76 95 H Respiratory Rate 18 18 Blood Pressure 159/91 H 166/93 H Pulse Oximetry 93 L 96 12/31/17 20:00 01/01/18 00:00 01/01/18 00:02 Temperature 98 F 97.9 F Pulse Rate 70 68 65 Respiratory Rate 18 20 Blood Pressure 160/83 H 133/78 Pulse Oximetry 95 93 L 01/01/18 04:00 01/01/18 08:00 Temperature 97.8 F 98 F Pulse Rate 60 66 Respiratory Rate 20 20 Blood Pressure 153/85 H 169/84 H Pulse Oximetry 95 93 L Intake & Output 12/31/17 01/01/18 01/01/18 18:59 06:59 18:59 Intake Total 660 / 660 1720 / 1720 Output Total 2100 / 2099 2110 / 2110 Balance -1440 / -1440 -390 / -390 Weight 96.7 kg Intake: IV 200 / 200 200 / 200 Unasyn Inj 3 GM In NS Inj 100 200 / 200 200 / 200 ML @ 200 mls/hr IV.SIG Q6H AJ Rx#:[id number] Oral 460 / 460 920 / 920 Anesthesia Amount 600 / 600 Output: Urine 2100 / 2100 2100 / 2100 Estimated Blood Loss 10 / 10 Other: # Voids 3 # Bowel Movements 0 0 Narrative: General: Well-developed, comfortable and in no apparent distress. Neurological: Alert and oriented to person, place, and time. Hypoesthesia of right CNV3 in the right mandibular anterior labial mucosa, improving. HEENT: Head/Face: Right facial edema present in the submandibular region, no erythema of the overlying skin. JONAS ~ 15 mm. Anni drain in place with silk suture with purulence present on the gauze dressing and expressed from drain. Eyes: EOMI Oral Cavity/Oropharynx: Mucosa pink and well hydrated. Poor oral hygiene. Entire maxillary and posterior mandibular dentition is grossly decayed. Extraction sites are hemostatic. Floor of mouth soft, non-elevated. Uvula midline. Neck: Induration along the right submandibular region, improved from yesterday, tender to palpation. Cardiovascular: Regular rate. Pulmonary: Normal work of breathing on room air. Abdomen: Soft, non-tender, non-distended. Musculoskeletal: No joint tenderness, deformity, effusions. Full range of motion in shoulder, elbow, hip knee, ankle, hands and feet. Extremities: Warm, well perfused. Results - Labs CBC & Chem 7: 01/01/18 04:10 12/30/17 04:13 Laboratory Results - last 24 hr 01/01/18 01/01/18 04:10 04:10 WBC 7.3 RBC 3.85 L Hgb 12.2 L Hct 35.6 L MCV 92.5 MCH 31.7 MCHC 34.2 RDW 14.8 Plt Count 462 H MPV 7.8 C-Reactive Protein 8.81 H Microbiology 12/29/17 19:30 Wound - Other Gram Stain - Final 12/29/17 19:30 Wound - Other Wound Culture - Preliminary Mixed Anaerobes 12/28/17 14:30 Blood - Peripheral Aerobic Blood Culture - Preliminary No growth in 3 days 12/28/17 14:30 Blood - Peripheral Anaerobic Blood Culture - Preliminary No growth in 3 days 12/28/17 14:25 Blood - Peripheral Aerobic Blood Culture - Preliminary No growth in 3 days 12/28/17 14:25 Blood - Peripheral Anaerobic Blood Culture - Preliminary No growth in 3 days Assessment and Plan - Plan - 32 y/o M s/p incision and drainage of a right submandibular and sublingual abscess and extraction of teeth #29,30,31 on 12/29/17. Doing well post- operatively. - Please continue Unasyn 3g IV q6h - Please obtain daily CBC and CRP. WBC and CRP continue to improve. - Will keep drain in place today due to purulence on gauze, anticipate backing out drain mcfp tomorrow AM. - Continue jaw stretching exercises as directed. Thank you for this consultation. Please do not hesitate to contact me at with any questions or concerns. Nash Rubin DDS,
[2018-01-02] MEDS: oxyCODONE/Acetaminophen 10/325 Tablet PO PRN ×5 (00:40→22:22)
[2018-01-02] MEDS: Morphine Inj 4 MG/ML Vial IV.PUSH PRN ×4 (02:07→20:01)
[2018-01-02] MEDS: Ampicillin/Sulbactam Inj 3 GM in Sodium Chloride 0.9% Inj 100 ML IV.SIG SCH ×4 (02:08→20:00)
[2018-01-02] MEDS: Chlorhexidine Gluconate 0.12% Liq 15 ML UDC SWISH-SPIT SCH ×2 (08:42→20:01)
[2018-01-02] MEDS: traZODone 50 MG Tablet PO SCH ×2 (08:43→20:01)
[2018-01-02] MEDS: Enoxaparin Inj 30 MG/0.3 ML Syringe SQ SCH (08:43)
--- NOTE | 2018-01-02 10:03 | P.PN ---
Subjective Interval history: Patient did well overnight. He reports some swelling in the mandibular gingiva but notes that his mouth opening has improved and it is getting easier for him to swallow foods. He also reports that the pain is improving. Right submandibular drain was backed out group home this morning. Physical Exam Vital signs: Vital Signs 01/01/18 12:00 01/01/18 16:00 01/01/18 16:13 Temperature 97.6 F 97.9 F Pulse Rate 63 67 66 Respiratory Rate 20 20 Blood Pressure 160/81 H 150/71 H Pulse Oximetry 93 L 93 L 01/01/18 20:00 01/02/18 00:00 01/02/18 04:00 Temperature 98.1 F 98.2 F 98.1 F Pulse Rate 82 61 65 Respiratory Rate 20 20 20 Blood Pressure 150/85 H 160/87 H 147/83 H Pulse Oximetry 94 L 96 95 Intake & Output 01/01/18 01/02/18 01/02/18 18:59 06:59 18:59 Intake Total 760 / 760 680 / 680 100 / 100 Balance 760 / 760 680 / 680 100 / 100 Intake: IV 200 / 200 200 / 200 100 / 100 Unasyn Inj 3 GM In NS Inj 100 200 / 200 200 / 200 100 / 100 ML @ 200 mls/hr IV.SIG Q6H AJ Rx#:[id number] Oral 560 / 560 480 / 480 Other: # Voids 6 3 Narrative: General: Well-developed, comfortable and in no apparent distress. Neurological: Alert and oriented to person, place, and time. Hypoesthesia of right CNV3 in the mental region, improving. HEENT: Head/Face: Right facial edema present in the submandibular region, no erythema of the overlying skin. JONAS ~ 20 mm. Anni drain in place with silk suture with scant mucous present on the gauze dressing. Eyes: EOMI Oral Cavity/Oropharynx: Mucosa pink and well hydrated. Poor oral hygiene. Entire maxillary and posterior mandibular dentition is grossly decayed. Extraction sites are hemostatic. Floor of mouth soft, non-elevated. Uvula midline. Mild tenderness of the right mandibular buccal vestibule, no fluctuance. Neck: Induration along the right submandibular region, tender to palpation. Cardiovascular: Regular rate. Pulmonary: Normal work of breathing on room air. Abdomen: Soft, non-tender, non-distended. Musculoskeletal: No joint tenderness, deformity, effusions. Full range of motion in shoulder, elbow, hip knee, ankle, hands and feet. Extremities: Warm, well perfused. Results - Labs CBC & Chem 7: 01/01/18 04:10 12/30/17 04:13 Laboratory Results - last 24 hr 01/02/18 04:10 C-Reactive Protein 5.97 H Microbiology 12/29/17 19:30 Wound - Other Gram Stain - Final 12/29/17 19:30 Wound - Other Wound Culture - Preliminary Mixed Anaerobes 12/28/17 14:30 Blood - Peripheral Aerobic Blood Culture - Preliminary No growth in 4 days 12/28/17 14:30 Blood - Peripheral Anaerobic Blood Culture - Preliminary No growth in 4 days 12/28/17 14:25 Blood - Peripheral Aerobic Blood Culture - Preliminary No growth in 4 days 12/28/17 14:25 Blood - Peripheral Anaerobic Blood Culture - Preliminary No growth in 4 days Assessment and Plan - Plan - 32 y/o M s/p incision and drainage of a right submandibular and sublingual abscess and extraction of teeth #29,30,31 on 12/29/17. Doing well post- operatively. - Please continue Unasyn 3g IV q6h - Please obtain daily CRP. WBC normalized yesterday, and CRP continues to improve. - Drain backed out group home this morning, anticipate removal tomorrow AM and likely discharge if patient's CRP and overall clinical impression continues to improve. - Continue jaw stretching exercises as directed. - OK for patient to brush teeth and take shower (do not submerge incision site or place directly under shower stream) Thank you for this consultation. Please do not hesitate to contact me at with any questions or concerns. Nash Rubin DDS,
--- NOTE | 2018-01-02 13:39 | P.PNIM ---
Subjective Interval history: Patient says that pain continues, however better than yesterday. Denies any chest pain shortness of breath. Denies nausea vomiting. Reports some constipation but has taken laxative. Physical Exam Vital signs: Vital Signs 01/01/18 16:00 01/01/18 16:13 01/01/18 20:00 Temperature 97.9 F 98.1 F Pulse Rate 67 66 82 Respiratory Rate 20 20 Blood Pressure 150/71 H 150/85 H Pulse Oximetry 93 L 94 L 01/02/18 00:00 01/02/18 04:00 01/02/18 08:00 Temperature 98.2 F 98.1 F 98.0 F Pulse Rate 61 65 69 Respiratory Rate 20 20 18 Blood Pressure 160/87 H 147/83 H 166/102 H Pulse Oximetry 96 95 94 L Intake & Output 01/01/18 01/02/18 01/02/18 18:59 06:59 18:59 Intake Total 760 / 760 680 / 680 100 / 100 Balance 760 / 760 680 / 680 100 / 100 Intake: IV 200 / 200 200 / 200 100 / 100 Unasyn Inj 3 GM In NS Inj 100 200 / 200 200 / 200 100 / 100 ML @ 200 mls/hr IV.SIG Q6H AJ Rx#:[id number] Oral 560 / 560 480 / 480 Other: # Voids 6 3 Narrative: GENERAL: Patient sitting up in bed. Appears comfortable. Alert and oriented 4. SKIN: Warm and dry. HEAD: Normocephalic. EYES: No scleral icterus. No injection or drainage. NECK: Supple, trachea midline. No JVD. Right neck dressed with dressing clean dry and intact. CARDIOVASCULAR: Regular rate and rhythm without murmurs, gallops, or rubs. RESPIRATORY: Breath sounds equal bilaterally. No accessory muscle use. GASTROINTESTINAL: Abdomen soft, non-tender, nondistended. MUSCULOSKELETAL: No cyanosis, or edema. BACK: Nontender without obvious deformity. No CVA tenderness. Results - Labs CBC & Chem 7: 01/01/18 04:10 12/30/17 04:13 Laboratory Results - last 24 hr 01/02/18 04:10 C-Reactive Protein 5.97 H Microbiology 12/28/17 14:30 Blood - Peripheral Aerobic Blood Culture - Final No growth in 5 days 12/28/17 14:30 Blood - Peripheral Anaerobic Blood Culture - Final No growth in 5 days 12/28/17 14:25 Blood - Peripheral Aerobic Blood Culture - Final No growth in 5 days 12/28/17 14:25 Blood - Peripheral Anaerobic Blood Culture - Final No growth in 5 days 12/29/17 19:30 Wound - Other Gram Stain - Final 12/29/17 19:30 Wound - Other Wound Culture - Preliminary Mixed Anaerobes Assessment and Plan - Plan //Submandibular and sublingual abscess, failed outpatient therapy -s/p Incision and drainage of a right submandibular and sublingual abscess and extraction of teeth #29,30,31 on 12/29/17. -MXF surgery following -Pain management with Percocet and IV morphine for breakthrough -IV Unasyn 3g IV q6h -responding appropriately, WBC trended down to 7.3 compared to 9.1 on the previous day, CRP down to 8.81 from 15 on the previous day -If patient's airway deteriorates, will start Decadron 8 mg every 8h -Continue jaw stretching exercises as directed by MXF = Hopefully discharge tomorrow if cleared by maxillofacial surgery. //Constipation. Secondary to narcotics. Monitor. //Anxiety/depression -Continue home medications //DVT prophylaxis -Lovenox Discharge Planning: Discharge when cleared by maxillofacial surgery.
[2018-01-03] MEDS: Morphine Inj 4 MG/ML Vial IV.PUSH PRN ×3 (00:27→09:10)
[2018-01-03] MEDS: Ampicillin/Sulbactam Inj 3 GM in Sodium Chloride 0.9% Inj 100 ML IV.SIG SCH ×2 (02:11→09:14)
[2018-01-03] MEDS: oxyCODONE/Acetaminophen 10/325 Tablet PO PRN ×3 (02:13→11:35)
--- NOTE | 2018-01-03 07:08 | P.PN ---
Subjective Interval history: Patient reports improvement in eating overnight. He still continues to report pain in the right jaw. He notes that one of the suture inside his mouth came out. Right submandibular drain removed this morning. Physical Exam Vital signs: Vital Signs 01/02/18 08:00 01/02/18 12:00 01/02/18 16:00 Temperature 98.0 F 97.7 F 97.9 F Pulse Rate 69 82 80 Respiratory Rate 18 Blood Pressure 166/102 H 151/92 H 154/60 H Pulse Oximetry 94 L 94 L 95 01/02/18 20:00 01/02/18 23:34 01/03/18 03:01 Temperature 98.2 F 98.2 F 97.8 F Pulse Rate 84 78 67 Respiratory Rate 18 Blood Pressure 160/91 H 152/84 H 148/82 H Pulse Oximetry 98 99 98 Intake & Output 01/02/18 01/03/18 01/03/18 18:59 06:59 18:59 Intake Total 680 / 680 900 / 900 Output Total 900 / 900 Balance -220 / -220 900 / 900 Weight 96.8 kg Intake: IV 200 / 200 200 / 200 Unasyn Inj 3 GM In NS Inj 100 200 / 200 200 / 200 ML @ 200 mls/hr IV.SIG Q6H AJ Rx#:[id number] Oral 480 / 480 700 / 700 Output: Urine 900 / 900 Other: # Voids 4 # Bowel Movements 0 Narrative: General: Well-developed, comfortable and in no apparent distress. Neurological: Alert and oriented to person, place, and time. HEENT: Head/Face: Right facial edema present in the submandibular region, no erythema of the overlying skin. JONAS ~ 20 mm. Anni drain in place, half way backed out , with silk suture with scant mucous present on the gauze dressing. Eyes: EOMI Oral Cavity/Oropharynx: Mucosa pink and well hydrated. Poor oral hygiene. Entire maxillary and posterior mandibular dentition is grossly decayed. Extraction sites are hemostatic. Sutures in place and dissolving. Floor of mouth soft, non-elevated. Uvula midline. Mild tenderness of the right mandibular buccal vestibule, no fluctuance. Neck: Induration along the right submandibular region, tender to palpation. Cardiovascular: Regular rate. Pulmonary: Normal work of breathing on room air. Abdomen: Soft, non-tender, non-distended. Musculoskeletal: No joint tenderness, deformity, effusions. Full range of motion in shoulder, elbow, hip knee, ankle, hands and feet. Extremities: Warm, well perfused. Results - Labs CBC & Chem 7: 01/01/18 04:10 12/30/17 04:13 Microbiology 12/29/17 19:30 Wound - Other Gram Stain - Final 12/29/17 19:30 Wound - Other Wound Culture - Preliminary Mixed Anaerobes 12/28/17 14:30 Blood - Peripheral Aerobic Blood Culture - Final No growth in 5 days 12/28/17 14:30 Blood - Peripheral Anaerobic Blood Culture - Final No growth in 5 days 12/28/17 14:25 Blood - Peripheral Aerobic Blood Culture - Final No growth in 5 days 12/28/17 14:25 Blood - Peripheral Anaerobic Blood Culture - Final No growth in 5 days Assessment and Plan - Plan - 32 y/o M s/p incision and drainage of a right submandibular and sublingual abscess and extraction of teeth #29,30,31 on 12/29/17. Doing well post- operatively. - OK to discharge today from a maxillofacial standpoint. - Recommend 7 days of PO antibiotic therapy upon discharge, typically Augmentin 875-125 bid - Drain from right submandibular region removed this AM - Continue jaw stretching exercises as directed. - OK for patient to brush teeth and take shower (do not submerge incision site or place directly under shower stream) - Patient to follow-up with me next week in office - Patient instructed on proper technique on irrigating incision site and materials provided to the patient. Thank you for this consultation. Please do not hesitate to contact me at [phone] with any questions or concerns. Nash Rubin DDS,
[2018-01-03] MEDS: traZODone 50 MG Tablet PO SCH (09:13)
[2018-01-03] MEDS: Enoxaparin Inj 30 MG/0.3 ML Syringe SQ SCH (09:17)
[2018-01-03] MEDS: Chlorhexidine Gluconate 0.12% Liq 15 ML UDC SWISH-SPIT SCH (09:19)
[2018-01-03 09:48] VITALS: O2SAT 93
--- NOTE | 2018-01-03 11:54 | P.PNIM ---
Subjective Interval history: Patient says he is feeling well. Denies any chest pain shortness of breath. Reports pain is controlled. Physical Exam Vital signs: Vital Signs 01/02/18 12:00 01/02/18 16:00 01/02/18 20:00 Temperature 97.7 F 97.9 F 98.2 F Pulse Rate 82 80 84 Respiratory Rate 18 18 18 Blood Pressure 151/92 H 154/60 H 160/91 H Pulse Oximetry 94 L 95 98 01/02/18 23:34 01/03/18 03:01 01/03/18 08:00 Temperature 98.2 F 97.8 F 97.9 F Pulse Rate 78 67 59 L Respiratory Rate 18 18 16 Blood Pressure 152/84 H 148/82 H 150/91 H Pulse Oximetry 99 98 93 L Intake & Output 01/02/18 01/03/18 01/03/18 18:59 06:59 18:59 Intake Total 680 / 680 900 / 900 100 / 100 Output Total 900 / 900 Balance -220 / -220 900 / 900 100 / 100 Weight 96.8 kg Intake: IV 200 / 200 200 / 200 100 / 100 Unasyn Inj 3 GM In NS Inj 100 200 / 200 200 / 200 100 / 100 ML @ 200 mls/hr IV.SIG Q6H AJ Rx#:[id number] Oral 480 / 480 700 / 700 Output: Urine 900 / 900 Other: # Voids 4 # Bowel Movements 0 Narrative: GENERAL: Patient sitting up in bed. Appears comfortable. Alert and oriented 4. SKIN: Warm and dry. HEAD: Normocephalic. EYES: No scleral icterus. No injection or drainage. NECK: Supple, trachea midline. No JVD. Right neck with dressing clean dry and intact. Drain has been removed. CARDIOVASCULAR: Regular rate and rhythm without murmurs, gallops, or rubs. RESPIRATORY: Breath sounds equal bilaterally. No accessory muscle use. GASTROINTESTINAL: Abdomen soft, non-tender, nondistended. MUSCULOSKELETAL: No cyanosis, or edema. BACK: Nontender without obvious deformity. No CVA tenderness. Results - Labs CBC & Chem 7: 01/01/18 04:10 12/30/17 04:13 Laboratory Results - last 24 hr 01/03/18 05:11 C-Reactive Protein 4.11 H Microbiology 12/29/17 19:30 Wound - Other Gram Stain - Final 12/29/17 19:30 Wound - Other Wound Culture - Preliminary Mixed Anaerobes 12/28/17 14:30 Blood - Peripheral Aerobic Blood Culture - Final No growth in 5 days 12/28/17 14:30 Blood - Peripheral Anaerobic Blood Culture - Final No growth in 5 days 12/28/17 14:25 Blood - Peripheral Aerobic Blood Culture - Final No growth in 5 days 12/28/17 14:25 Blood - Peripheral Anaerobic Blood Culture - Final No growth in 5 days Assessment and Plan - Plan //Submandibular and sublingual abscess, failed outpatient therapy -s/p Incision and drainage of a right submandibular and sublingual abscess and extraction of teeth #29,30,31 on 12/29/17. -MXF surgery following -Pain management with Percocet and IV morphine for breakthrough -IV Unasyn 3g IV q6h -responding appropriately, WBC trended down to 7.3 compared to 9.1 on the previous day, CRP down to 8.81 from 15 on the previous day -If patient's airway deteriorates, will start Decadron 8 mg every 8h -Continue jaw stretching exercises as directed by MXF = Hopefully discharge tomorrow if cleared by maxillofacial surgery. = Drain has been removed. Discharge on by mouth antibiotics as per maxillofacial surgery. //Constipation. Secondary to narcotics. Monitor. Senna given. //Anxiety/depression -Continue home medications //DVT prophylaxis -Lovenox Discharge Planning: Drain has been removed. Discharge on by mouth antibiotics as per maxillofacial surgery. Follow-up with maxillofacial surgery as outpatient.
--- NOTE | 2018-01-03 12:08 | P.DS ---
Date of admission: 12/28/17 14:37 Primary care physician: No Primary Care Physician Brief History from admission: 32-year-old male with a history of, anxiety and depression presented to the ED with complaints of right-sided facial swelling and pain. Patient states he was on clindamycin outpatient for the last 9 days with no relief of symptoms. He states the pain is a constant, throbbing/burning sensation to the right jaw, 10/ 10, with no radiation or associated symptoms, worse with movement and better with pain medication. He denies any chest pain, shortness of breath, fever or chills. DS: Medications - Discharge Medications Prescriptions: amoxicillin-pot clavulanate [Augmentin] 1 tab PO BID #14 tab hydrocodone-acetaminophen [[place]] 1 - 2 tab PO Q6H PRN #18 tab PRN Reason: Pain DS: Summary Hospital Course: CT face as below showed right neck abscess. Patient was started on broad- spectrum IV antibiotics. Maxillofacial surgery was consulted and patient underwent incision and drainage with cultures growing mixed anaerobes. Drain to right neck subsequently removed, patient cleared for discharge by maxillofacial surgery. Patient will continue on Augmentin 7 day course. Pain medication was written. Patient has been instructed on wound care. He is to follow-up with maxillofacial surgery as outpatient. Patient reported constipation and was advised to use [id number] laxatives as needed. For problem based summary from most recent progress note, please see below. //Submandibular and sublingual abscess, failed outpatient therapy -s/p Incision and drainage of a right submandibular and sublingual abscess and extraction of teeth #29,30,31 on 12/29/17. -MXF surgery following -Pain management with Percocet and IV morphine for breakthrough -IV Unasyn 3g IV q6h -responding appropriately, WBC trended down to 7.3 compared to 9.1 on the previous day, CRP down to 8.81 from 15 on the previous day -If patient's airway deteriorates, will start Decadron 8 mg every 8h -Continue jaw stretching exercises as directed by MXF = Hopefully discharge tomorrow if cleared by maxillofacial surgery. = Drain has been removed. Discharge on by mouth antibiotics as per maxillofacial surgery. //Constipation. Secondary to narcotics. Monitor. Senna given. //Anxiety/depression -Continue home medications //DVT prophylaxis -Lovenox Discharge Planning: Drain has been removed. Discharge on by mouth antibiotics as per maxillofacial surgery. Follow-up with maxillofacial surgery as outpatient. - Time Spent with Patient Total time spent providing and/or coordinating discharge services: Greater than 30 minutes Exam Vital signs: Vital Signs 01/02/18 16:00 01/02/18 20:00 01/02/18 23:34 Temperature 97.9 F 98.2 F 98.2 F Pulse Rate 80 84 78 Respiratory Rate 18 18 18 Blood Pressure 154/60 H 160/91 H 152/84 H Pulse Oximetry 95 98 99 01/03/18 03:01 01/03/18 08:00 Temperature 97.8 F 97.9 F Pulse Rate 67 59 L Respiratory Rate 18 16 Blood Pressure 148/82 H 150/91 H Pulse Oximetry 98 93 L Intake & Output 01/02/18 01/03/18 01/03/18 18:59 06:59 18:59 Intake Total 680 / 680 900 / 900 100 / 100 Output Total 900 / 900 Balance -220 / -220 900 / 900 100 / 100 Weight 96.8 kg Intake: IV 200 / 200 200 / 200 100 / 100 Unasyn Inj 3 GM In NS Inj 100 200 / 200 200 / 200 100 / 100 ML @ 200 mls/hr IV.SIG Q6H AJ Rx#:[id number] Oral 480 / 480 700 / 700 Output: Urine 900 / 900 Other: # Voids 4 # Bowel Movements 0 Results Procedures completed during hospitalization: Right neck incision and drainage. Labs on day of discharge: Labs from last 24 hours 01/03/18 05:11 C-Reactive Protein 4.11 H Preliminary micro results at discharge 12/29/17 19:30 Wound Culture - Preliminary Wound - Other Mixed Anaerobes - Impressions ITS Impressions Face CT 12/28/17 12:59 CONCLUSION: 1. Significant inflammatory changes are noted in the right perimandibular soft tissues with an ill-defined mildly rim-enhancing elisa minus collection suspected felt to represent a developing abscess. 2. There may be a component of sialoadenitis with enlargement of the right submandibular gland as compared to the left. Discharge Plan - Discharge Disposition Patient Disposition: 01 Discharge Home - Discharge Condition Condition: Good - Discharge Order Discharge Orders: Discharge Order (Routine); Ordered 01/03/18 Ordered By: Reji Lizama - Discharge Details Anticipated Discharge Date: 01/03/18 - Physicians Team Primary Care Provider: Primary Care Jeny Andino Attending Provider: Reji Lizama Other Providers: Nash Rubin DDS ; Jose Enrique Diana MD
[2018-01-03] MEDS ORDERED: Senna/Docusate Sodium 8.6/50 MG Tablet PO ONE (12:15)
[2018-01-03 14:21] VITALS: BP 155/96; PULSE 71; RESP 16; TEMP 97.8
== END 2018-01-03 15:09 | disposition home or self-care (01) ==
LOC: PHED 12:29 → PHEDA 14:37 → N04 18:07
PROVIDERS: ADMIT Internal Medicine; ATTEND Internal Medicine
PROC: IDMOUTH (2017-12-29 18:25)